=== PATIENT | female | born 1990 | race Caucasian/White ===

== ENCOUNTER 2023-11-07 19:03 | Emergency (ER) | payer OTHER, SELFPAY ==
[2023-11-07 19:11] VITALS: BP 129/76; PULSE 109; TEMP 37.2; O2SAT 100; BMI 26.6
[2023-11-07] MEDS: FLUORESCEIN SODIUM 1 MG STRIP OP (19:29)
--- NOTE | 2023-11-07 19:30 | ED.EYEPROB1 ---
HPI - Eye Problem General Chief complaint: Eye Problems Stated complaint: foreign object in eye Time Seen by Provider: 11/07/23 19:17 Source: patient Mode of arrival: walk-in Limitations: no limitations History of Present Illness HPI Narrative: 33-year-old female presents for concern about her left eye. She was mowing the grass and felt something blow into her eye. She felt like there was something in her eye but then she rubbed her eye and created some tears and then she no longer had the foreign body sensation. Her noticed some redness on the inferior scleral area and he wanted her to come and get checked. She does not have foreign body sensation now. This occurred today. Related Data Home Medications ?Medication ?Instructions ?Recorded ?Confirmed No Known Home Medications 11/07/23 11/07/23 Allergies Allergy/AdvReac Type Severity Reaction Status Date / Time iodine Allergy Hives Verified 11/07/23 19:15 Review of Systems ROS Narrative A ten point review of systems is negative except as noted above. Exam Narrative Exam Narrative: Nurses note and vital signs reviewed and patient is not hypoxic. General: The patient appears well and in no apparent distress. Patient is resting comfortably on cart. Skin: Warm, dry, no pallor noted. There is no rash noted. Head: Normocephalic, atraumatic Eye: Right eye is normal. Left eye shows no foreign body with lid eversion. There is a small subconjunctival hemorrhage on the left inferior portion of the sclera. Fluorescein staining and Weems lamp examination showed no corneal abrasions and there is no foreign body found. Ears, Nose, Mouth, and Throat: oral mucosa is moist. Nares patent. Cardiovascular: Regular Rate and Rhythm Respiratory: Patient is in no distress, no accessory muscle use, lungs are clear to auscultation, no wheezing, rales or rhonchi Back: non-tender GI: Soft and nontender Musculoskeletal: No joint swelling Neurological: A&O, normal speech Psychiatric: Cooperative Constitutional Vital Signs, click to edit/add: Last Vital Signs Temp 98.9 F 11/07/23 19:11 Pulse 109 H 11/07/23 19:11 Resp 16 11/07/23 19:11 BP 129/76 11/07/23 19:11 Pulse Ox 100 11/07/23 19:11 O2 Del Method Room Air 11/07/23 19:11 Course Vital Signs Vital signs: Vital Signs Temperature 98.9 F 11/07/23 19:11 Pulse Rate 109 H 11/07/23 19:11 Respiratory Rate 16 11/07/23 19:11 Blood Pressure 129/76 11/07/23 19:11 Pulse Oximetry 100 11/07/23 19:11 Oxygen Delivery Method Room Air 11/07/23 19:11 Temperature 98.9 F 11/07/23 19:11 Pulse Rate 109 H 11/07/23 19:11 Respiratory Rate 16 11/07/23 19:11 Blood Pressure 129/76 11/07/23 19:11 Pulse Oximetry 100 11/07/23 19:11 Oxygen Delivery Method Room Air 11/07/23 19:11 MDM - Eye Problem MDM Narrative Medical decision making narrative: No foreign body or corneal abrasion is identified. She was reassured and discharged home. Treatment diagnosis and follow-up were discussed with the patient. Differential Diagnosis Differential diagnosis: Likely corneal abrasion, conjunctivitis, hyphema and subconjunctival hemorrhage Discharge Plan Discharge Stand Alone Forms: Portal Instructions Chief Complaint: Eye Problems Clinical Impression: Subconjunctival hemorrhage Patient Disposition: Home, Self-Care Time of Disposition Decision: 19:29 Condition: Good Mode of Transportation: Private Vehicle Prescriptions / Home Meds: No Action No Known Home Medications Print Language: Icelandic Instructions: Eye Pain (ED) Referrals: ROQUE BARNETT [Primary Care Provider] - 1 week
--- NOTE | 2023-11-07 19:32 | PC.NURSE ---
Visual Acuity OS-20/40, OD 20/30, OU 20/30 without glasses
== END 2023-11-07 19:38 | disposition home or self-care (01) ==
PROVIDERS: Emergency Provider Emergency Medicine; PCP Student in an Organized Health Care Education/Training Program
DX: H11.32 Conjunctival hemorrhage, left eye (principal)
CPT/HCPCS: 99284

== ENCOUNTER 2024-05-23 11:16 | Emergency (ER) | payer BC, OTHER, SELFPAY ==
[2024-05-23 11:20] VITALS: BP 168/91; PULSE 94; TEMP 36.8; O2SAT 98; BMI 27.5
[2024-05-23] MEDS: DEXAMETHASONE SOD PHOS 10 MG/ML VIAL PO (11:34)
--- NOTE | 2024-05-23 12:01 | ED_ITS ---
HPI - Allergic Reaction General Chief complaint: Allergic Reaction Stated complaint: URTI COMPLAINTS/ALLERGIC REACTION Time Seen by Provider: 05/23/24 11:20 Source: patient Mode of arrival: walk-in Limitations: no limitations History of Present Illness HPI narrative: Patient presents to ED complaining of shortness of breath and cough. Patient states last night she ordered some [place] food and she did not really think about it but she noticed when she went to bed that her throat felt scratchy and she was itching a lot. She then realized she had hives around her trunk and on her legs. She also had hives on her abdomen. She said the end of sides of her ears felt itchy. She is home alone with her daughter today and did not want to take Benadryl because it makes her extremely tired. She is not in any acute respiratory distress. She does not have an EpiPen at home and does not appear to be requiring epi at this time. She is alert and oriented resting comfortably in the bed MD complaint: Reports allergic reaction and hives Related Data Previous Rx's ?Medication ?Instructions ?Recorded epinephrine 0.3 mg/0.3 mL 0.3 mg (0.3 mL) IM Q10M PRN 05/23/24 injection, auto-injector (EpiPen anaphylaxis #2 ea 2-Carlos) methylprednisolone 4 mg tablets in 4 mg PO DAILY #21 ea 05/23/24 a dose pack (Medrol (Carlos)) Allergies Allergy/AdvReac Type Severity Reaction Status Date / Time iodine Allergy Hives Verified 05/23/24 11:24 Review of Systems ROS Status of ROS 10 or more systems reviewed and unremark able except as noted in history and below PFSH PFSH Social History Little interest or pleasure in doing things: not at all Feeling down, depressed, or hopeless: not at all Exam Narrative Exam Narrative: Time Seen: [] Vital Signs: [Per nurse's notes.] General: [Alert] Skin: [Warm, dry, diffuse hives on the flanks abdomen and legs Head: [Normocephalic, atraumatic.] Neck: [Supple, trachea midline.] Eye: [Pupils are equal, round and reactive to light, extraocular movements are intact, normal conjunctiva.] Ears, nose, mouth and throat: oral mucosa moist. No tongue swelling no lip swelling no facial swelling Cardiovascular: [Regular rate and rhythm, no murmur.] Respiratory: Mild wheezing in the right base, no respiratory distress, respirations are non-labored, breath sounds are equal.] Chest wall: [No tenderness, no deformity.] Gastrointestinal: [Soft, nontender, non distended, normal bowel sounds.] MSK: 5 out of 5 muscle strength x 4 extremities no calf pain or edema Lymphatics: [No lymphadenopathy.] Psychiatric: [Cooperative, appropriate mood & affect.] Neurological: [Alert and oriented to person, place, time, and situation, no focal neurological deficit observed.] Constitutional Vital Signs, click to edit/add: Last Vital Signs Temp 98.2 F 05/23/24 11:20 Pulse 94 H 05/23/24 11:20 Resp 20 05/23/24 11:20 BP 168/91 H 05/23/24 11:20 Pulse Ox 98 05/23/24 11:20 O2 Del Method Room Air 05/23/24 11:20 Course Vital Signs Vital signs: Vital Signs Temperature 98.2 F 05/23/24 11:20 Pulse Rate 94 H 05/23/24 11:20 Respiratory Rate 20 05/23/24 11:20 Blood Pressure 168/91 H 05/23/24 11:20 Pulse Oximetry 98 05/23/24 11:20 Oxygen Delivery Method Room Air 05/23/24 11:20 Temperature 98.2 F 05/23/24 11:20 Pulse Rate 94 H 05/23/24 11:20 Respiratory Rate 20 05/23/24 11:20 Blood Pressure 168/91 H 05/23/24 11:20 Pulse Oximetry 98 05/23/24 11:20 Oxygen Delivery Method Room Air 05/23/24 11:20 MDM - Allergic Reaction MDM Narrative Medical decision making narrative: Patient is feeling much better after steroids and albuterol. She will be given a prescription for steroids at home. I will also give her prescription for EpiPen's at home just to have in case. She is allergic to shellfish and that was most likely mixed in with her [place] food or cooked in the same spot as her [place] food last night which caused the allergic reaction. She has no airway issue, vital signs are stable, she is comfortable care plan for home. Of course return to ED if worsening symptoms. Differential Diagnosis Differential diagnosis: Likely anaphylaxis and allergic reaction Discharge Plan Discharge Chief Complaint: Allergic Reaction Clinical Impression: Allergic reaction Patient Disposition: Home, Self-Care Time of Disposition Decision: 12:36 Condition: Good Mode of Transportation: Private Vehicle Prescriptions / Home Meds: New methylprednisolone [Medrol (Carlos)] 4 mg tablets,dose pack 4 mg PO DAILY Qty: 21 0RF epinephrine [EpiPen 2-Carlos] 0.3 mg/0.3 mL auto-injector 0.3 mg IM Q10M PRN (Reason: anaphylaxis) Qty: 2 0RF Rx Instructions: for 2 doses Print Language: Kiswahili Instructions: General Allergic Reaction (ED) Referrals: ROQUE BARNETT [Primary Care Provider] - 1 week Discharge Date/Time: 05/23/24 12:44
[2024-05-23 12:02] VITALS: PULSE 99; O2SAT 97
[2024-05-23] MEDS: IPRATROPIUM/ALBUTEROL SULFATE 3 ML AMPUL.NEB IH (12:02)
== END 2024-05-23 12:44 | disposition home or self-care (01) ==
PROVIDERS: Emergency Provider Emergency Medicine; PCP Student in an Organized Health Care Education/Training Program
DX: T78.1XXA Other adverse food reactions, not elsewhere classified, initial encounter (principal); R06.02 Shortness of breath; R05.9 Cough, unspecified
CPT/HCPCS: 94640; 99283; J1100

== ENCOUNTER 2024-10-01 16:16 | Outpatient (RCR) | payer BC, OTHER, SELFPAY ==
[2024-10-01 17:24] LABS: HCG Quantitative 1398 mIU/mL
[2024-10-03 17:38] LABS: HCG Quantitative 3453 mIU/mL
== END 2024-10-15 12:49 | disposition home or self-care (01) ==
LOC: LAB 16:16
PROVIDERS: PCP Student in an Organized Health Care Education/Training Program; Visit Provider Obstetrics & Gynecology
DX: N92.6 Irregular menstruation, unspecified (principal)
CPT/HCPCS: 36415; 84702

== ENCOUNTER 2024-10-09 17:01 | Emergency (ER) | payer BC, OTHER, SELFPAY ==
[2024-10-09 17:11] VITALS: BP 123/81; PULSE 104; TEMP 36.8; O2SAT 100; BMI 26.6
--- NOTE | 2024-10-09 17:31 | ED_ITS ---
HPI HPI - General Adult General Chief complaint: Vaginal Bleeding Stated complaint: 4-6 WK PG, NAUSEA, DIZZINESS, SHOULDER PAIN Time Seen by Provider: 10/09/24 17:04 Source: patient and family Mode of arrival: walk-in Limitations: no limitations Related Data Previous Rx's ?Medication ?Instructions ?Recorded epinephrine 0.3 mg/0.3 mL 0.3 mg (0.3 mL) IM Q10M PRN 05/23/24 injection, auto-injector (EpiPen anaphylaxis #2 ea 2-Carlos) ondansetron 4 mg disintegrating 4 mg PO Q6H PRN nausea and 10/09/24 tablet vomiting #12 tabs Allergies Allergy/AdvReac Type Severity Reaction Status Date / Time iodine Allergy Hives Verified 10/09/24 17:17 Opioid HPI Opioid Management Most Recent Opioid Data: Last Pain Scale 1 11/07/23 19:33 11/07/23 PFSH PFSH Social History Little interest or pleasure in doing things: not at all Feeling down, depressed, or hopeless: not at all Exam Constitutional Vital Signs, click to edit/add: Last Vital Signs Temp 98.4 F 10/09/24 19:06 Pulse 71 10/09/24 19:06 Resp 18 10/09/24 19:06 BP 112/80 10/09/24 19:06 Pulse Ox 99 10/09/24 19:06 O2 Del Method Room Air 10/09/24 17:11 Course Vital Signs Vital signs: Vital Signs Temperature 98.2 F 10/09/24 17:11 Pulse Rate 104 H 10/09/24 17:11 Respiratory Rate 18 10/09/24 17:11 Blood Pressure 123/81 10/09/24 17:11 Pulse Oximetry 100 10/09/24 17:11 Oxygen Delivery Method Room Air 10/09/24 17:11 Temperature 98.4 F 10/09/24 19:06 Pulse Rate 71 10/09/24 19:06 Respiratory Rate 18 10/09/24 19:06 Blood Pressure 112/80 10/09/24 19:06 Pulse Oximetry 99 10/09/24 19:06 Oxygen Delivery Method Room Air 10/09/24 17:11 Medical Decision Making MDM Narrative Medical decision making narrative: Patient was treated with IV fluids, Zofran and Tylenol with significant improvement. Laboratory studies reviewed and noted showing ketones in the urine, however contaminated specimen so we will wait for culture. She has no urinary symptoms. Ultrasound shows cervix is closed with intrauterine gestation, no cardiac activity identified, IUP is measuring 6 weeks. hCG levels have increased significantly from previous and the patient has an O+ blood type. She was given instructions for home, education and reassurance. Zofran prescribed for nausea. She is encouraged to continue Tylenol, increase fluids. Pelvic rest encouraged. Return to the ER if symptoms change or worsen, follow- up with [facility]. SUPERVISED APC VISIT, PHYSICIAN ATTESTATION: Based on the medical record the care appears appropriate. ? Medical Records Medical records reviewed: Yes I reviewed the patient's medical records Lab Data Lab results reviewed: Yes I reviewed the patient's lab results Labs: Lab Results 10/09/24 10/09/24 10/09/24 Range/Units 17:30 17:34 17:50 WBC 10.2 (4.0-11.0) 10^3/uL RBC 4.55 (4.20-5.40) 10^6/uL Hgb 14.0 (12.0-16.0) g/dL Hct 39.4 (36.0-48.0) % MCV 86.6 (81.0-99.0) fL MCH 30.8 (26.7-34.0) pg MCHC 35.5 H (29.9-35.2) g/dL RDW 12.6 (11.0-15.0) % Plt Count 296 (150-450) 10^3/uL MPV 10.0 (9.5-13.5) fL Neut % (Auto) 66.3 (43.0-75.0) % Lymph % (Auto) 28.3 (20.5-60.0) % [place] % (Auto) 4.5 (1.7-12.0) % Eos % (Auto) 0.2 L (0.9-7.0) % Baso % (Auto) 0.4 (0.2-2.0) % Neut # (Auto) 6.7 H (1.4-6.5) 10^3/uL Lymph # (Auto) 2.9 (1.2-3.8) 10^3/uL [place] # (Auto) 0.5 (0.3-0.8) 10^3/uL Eos # (Auto) 0.0 (0.0-0.7) 10^3/uL Baso # (Auto) 0.0 (0.0-0.1) 10^3/uL Abs Immat Gran (auto) 0.03 (0.00-0.03) 10^3/uL Imm/Tot Granulo (auto) 0.3 (0.0-0.5) % Sodium 137 (136-145) mmol/L Potassium 3.5 (3.5-5.1) mmol/L Chloride 102 (98-107) mmol/L Carbon Dioxide 25.0 (21.0-32.0) mmol/L Anion Gap 13.5 BUN 11.0 (7.0-18.0) mg/dL Creatinine 0.72 (0.55-1.02) mg/dL Est GFR ( Amer) >60 (>=60 mL/min/1.73m^2) Est GFR (Non-Af Amer) >60 (>=60 mL/min/1.73m^2) BUN/Creatinine Ratio 15.3 Glucose 84 (74-106) mg/dL Calcium 9.0 (8.5-10.1) mg/dL Total Bilirubin 0.5 (0.2-1.0) mg/dL AST 15 (15-37) U/L ALT 27 (14-59) U/L Alkaline Phosphatase 94 (46-116) U/L Total Protein 7.6 (6.4-8.2) g/dL Albumin 4.1 (3.4-5.0) g/dL Globulin 3.5 g/dL Albumin/Globulin Ratio 1.2 HCG, Quant 37743 mIU/mL Urine Color Yellow (YELLOW) Urine Clarity Clear (CLEAR) Urine pH 6.0 (5.0-9.0) Ur Specific [place] 1.025 (1.005-1.025) Urine Protein Negative (NEG/TRACE) mg/dL Urine Glucose (UA) Negative (NEGATIVE) mg/dL Urine Ketones >=80 A (NEGATIVE) mg/dL Urine Occult Blood Large A (NEGATIVE) Urine Nitrite Negative (NEGATIVE) Urine Bilirubin Negative (NEGATIVE) Urine Urobilinogen 0.2 (0.2-1.0) EU/dL Ur Leukocyte Esterase Negative (NEGATIVE) Urine RBC 20-50 A (0-2) #/HPF Urine WBC 0-2 A (NONE SEEN) #/HPF Ur Squamous Epith Cells Moderate A (NONE/RARE) #/LPF Urine Crystals None seen (None Seen) #/HPF Urine Bacteria Small A (NONE SEEN) #/HPF Urine Casts None seen (NONE SEEN) #/LPF Urine Mucus Large A (NONE SEEN) Ur Culture Indicated? Yes-[facility] [place] Influenza Type A Ag Negative Influenza Type B Ag Negative SARS-CoV-2 Ag (CV2AG) Negative (NEGATIVE) Blood Type O Positive Imaging Data US - abdomen: Attestation: I have reviewed the pertinent imaging results. Discharge Plan Discharge Chief Complaint: Vaginal Bleeding Clinical Impression: Vaginal bleeding affecting early , Nausea, Subchorionic hemorrhage in first trimester Patient Disposition: Home, Self-Care Time of Disposition Decision: 19:39 Condition: Good Prescriptions / Home Meds: New ondansetron 4 mg tablet,disintegrating 4 mg PO Q6H PRN (Reason: nausea and vomiting) Qty: 12 0RF No Action epinephrine [EpiPen 2-Carlos] 0.3 mg/0.3 mL auto-injector 0.3 mg IM Q10M PRN (Reason: anaphylaxis) Qty: 2 0RF Rx Instructions: for 2 doses Print Language: Arabic Instructions: Subchorionic Hemorrhage (ED) Referrals: Floyd Roberson DO [Physician] - As soon as possible ROQUE BARNETT [Primary Care Provider] - 1 week
[2024-10-09] MEDS: 0.9 % SODIUM CHLORIDE 1,000 ML 999 ML IV (17:44)
[2024-10-09 17:45] LABS: Basophils Percent Auto 0.4 % (0.2-2.0); Eosinophils Percent Auto 0.2 % (0.9-7.0); Hematocrit 39.4 % (36.0-48.0); Immature Granulocytes Abs Auto 0.03 10^3/uL (0.00-0.03); Immature Granulocytes Pct Auto 0.3 % (0.0-0.5); Lymphocytes Absolute Auto 2.9 10^3/uL (1.2-3.8); Lymphocytes Percent Auto 28.3 % (20.5-60.0); Mean Corpuscular HGB Conc 35.5 g/dL (29.9-35.2); Mean Corpuscular Hemoglobin 30.8 pg (26.7-34.0); Mean Corpuscular Volume 86.6 fL (81.0-99.0); Monocytes Absolute Auto 0.5 10^3/uL (0.3-0.8); Monocytes Percent Auto 4.5 % (1.7-12.0); Neutrophils Absolute Auto 6.7 10^3/uL (1.4-6.5); Neutrophils Percent Auto 66.3 % (43.0-75.0); Platelet Count 296 10^3/uL (150-450); Red Blood Count 4.55 10^6/uL (4.20-5.40); Red Cell Distribution Width 12.6 % (11.0-15.0); White Blood Count 10.2 10^3/uL (4.0-11.0)
[2024-10-09] MEDS: ACETAMINOPHEN 325 MG TABLET 650 MG PO (17:45)
[2024-10-09] MEDS: ONDANSETRON PF 4 MG/2 ML VIAL IV (17:45)
[2024-10-09 17:46] LABS: Bilirubin Urine NEGATIVE (NEGATIVE); Blood Urine LARGE (NEGATIVE); Clarity Urine CLEAR (CLEAR); Color Urine YELLOW (YELLOW); Glucose Urine UA NEGATIVE (NEGATIVE); Ketones Urine >=80 mg/dL (NEGATIVE); Leukocyte Esterase Urine NEGATIVE (NEGATIVE); Nitrite Urine NEGATIVE (NEGATIVE); Protein Urine NEGATIVE (NEG/TRACE); Specific Gravity Urine 1.025 (1.005-1.025); Urobilinogen Urine 0.2 EU/dL (0.2-1.0)
[2024-10-09 18:08] LABS: Bacteria Urine SMALL #/HPF (NONE SEEN); Cast Seen? NONE SEEN #/LPF (NONE SEEN); Crystals Seen? None Seen #/HPF (None Seen); Mucus Urine LARGE (NONE SEEN); RBC Urine 20-50 #/HPF (0-2); Squamous Epithelial Cell Urine MODERATE #/LPF (NONE/RARE); Urine Culture Indicated YES-FRMC; WBC Urine 0-2 #/HPF (NONE SEEN)
[2024-10-09 18:12] LABS: Alanine Aminotransferase 27 U/L (14-59); Albumin Globulin Ratio 1.2; Albumin Level 4.1 g/dL (3.4-5.0); Alkaline Phosphatase 94 U/L (46-116); Anion Gap 13.5; Aspartate Amino Transferase 15 U/L (15-37); BUN Creatinine Ratio 15.3; Bilirubin Total 0.5 mg/dL (0.2-1.0); Chloride 102 mmol/L (98-107); Estimated GFR (African America >60 (>=60 mL/min/1.73m^2); Estimated GFR (Non-African Ame >60 (>=60 mL/min/1.73m^2); Globulin 3.5 g/dL; Glucose 84 mg/dL (74-106); Potassium 3.5 mmol/L (3.5-5.1); Sodium 137 mmol/L (136-145); Total Protein 7.6 g/dL (6.4-8.2)
[2024-10-09 18:30] LABS: HCG Quantitative 27994 mIU/mL
[2024-10-09 18:30] LABS: Influenza Virus A Antigen Negative; Influenza Virus B Antigen Negative; Internal Control Within Normal Limits; SARS-CoV-2 Ag NEGATIVE (NEGATIVE)
[2024-10-09 19:06] VITALS: BP 112/80; PULSE 71; TEMP 36.9; O2SAT 99
--- NOTE | 2024-10-09 19:51 | PC.NURSE ---
i gave this patient verbal and written discharge orders along with 1 e-script, and this patient voices yes to understanding these. at time of discharge this patient voices no concerns about her discharge orders and shows o signs of distress. this patient refused discharge vitals, she just received a family emergency call
== END 2024-10-09 19:45 | disposition home or self-care (01) ==
PROVIDERS: Physician Assistant; Emergency Provider Emergency Medicine; PCP Student in an Organized Health Care Education/Training Program
DX: O20.9 Hemorrhage in early pregnancy, unspecified (principal); O26.891 Other specified pregnancy related conditions, first trimester; R11.0 Nausea; Z3A.01 Less than 8 weeks gestation of pregnancy
CPT/HCPCS: 36415; 76817; 80053; 81001; 84702; 85025; 86900; 86901; 87086; 87804; 87811; 96374; 99285; J2405

== ENCOUNTER 2024-11-02 16:12 | Outpatient (OUT) | payer BC, SELFPAY ==
[2024-11-02 16:42] LABS: Basophils Percent Auto 0.3 % (0.2-2.0); Eosinophils Percent Auto 0.2 % (0.9-7.0); Hematocrit 37.8 % (36.0-48.0); Hemoglobin 13.2 g/dL (12.0-16.0); Immature Granulocytes Abs Auto 0.03 10^3/uL (0.00-0.03); Immature Granulocytes Pct Auto 0.3 % (0.0-0.5); Lymphocytes Absolute Auto 2.2 10^3/uL (1.2-3.8); Lymphocytes Percent Auto 22.8 % (20.5-60.0); Mean Corpuscular HGB Conc 34.9 g/dL (29.9-35.2); Mean Corpuscular Hemoglobin 30.7 pg (26.7-34.0); Mean Corpuscular Volume 87.9 fL (81.0-99.0); Mean Platelet Volume 10.2 fL (9.5-13.5); Monocytes Absolute Auto 0.5 10^3/uL (0.3-0.8); Monocytes Percent Auto 5.3 % (1.7-12.0); Neutrophils Absolute Auto 6.9 10^3/uL (1.4-6.5); Neutrophils Percent Auto 71.1 % (43.0-75.0); Platelet Count 275 10^3/uL (150-450); Red Cell Distribution Width 12.9 % (11.0-15.0); White Blood Count 9.8 10^3/uL (4.0-11.0)
[2024-11-02 16:56] LABS: Cannabinoid Screen Urine POSITIVE (NEGATIVE)
[2024-11-02 16:57] LABS: Amphetamine Screen Urine NEGATIVE (NEGATIVE); Barbiturates Screen Urine NEGATIVE (NEGATIVE); Benzodiazepines Screen Urine NEGATIVE (NEGATIVE); Buprenorphine Screen Urine NEGATIVE (NEGATIVE); Cocaine Screen Urine NEGATIVE (NEGATIVE); Methadone Screen Urine NEGATIVE (NEGATIVE); Methamphetamines Screen Urine NEGATIVE (NEGATIVE); Opiate Screen Urine NEGATIVE (NEGATIVE); Oxycodone Screen Urine NEGATIVE (NEGATIVE); Phencyclidine Screen Urine NEGATIVE (NEGATIVE); Tricyclic Antidepressant Urine NEGATIVE (NEGATIVE)
[2024-11-02 17:06] LABS: Estimated Average Glucose 94 mg/dL; Glycohemoglobin A1C 4.9 % (4.5-6.2)
[2024-11-02 17:19] LABS: BOX Test Reference Lab UNITY; BOX Test Sent Out UNITY
[2024-11-04 08:10] LABS: HBsAg Screen Negative (Negative); HCV Ab Non Reactive (Non Reactive)
[2024-11-04 09:12] LABS: HIV Ab/p24 Ag Screen Non Reactive (Non Reactive)
[2024-11-04 13:07] LABS: Rapid Plasma Reagin, Quant Non Reactive titer (NonRea<1:1)
== END 2024-11-02 16:13 | disposition home or self-care (01) ==
PROVIDERS: PCP Student in an Organized Health Care Education/Training Program; Visit Provider Obstetrics & Gynecology
DX: Z34.01 Encounter for supervision of normal first pregnancy, first trimester (principal); N92.6 Irregular menstruation, unspecified; Z36.0 Encounter for antenatal screening for chromosomal anomalies
CPT/HCPCS: 36415; 80307; 80349; 83036; 85025; 86592; 86762; 86803; 86850; 86900; 86901; 87086; 87340; 87389

== ENCOUNTER 2024-12-25 19:25 | Outpatient (REF) | payer OTHER, SELFPAY ==
--- OUTSIDE RECORDS SUMMARY | 2024-12-25 13:30 | XMS_ITS | Encounter Summary ---
Author Organization [facility] Address [address] [facility] [place] [address] Care Team Providers Care Mri Manager Name Role Phone Desire Ackerman MD Primary Care Provider [phone] Reason for Visit * Reason Comments Routine Visit Encounter Details Date Type Department Care Team (Latest Contact Info) Description 12/25/2024 1:30 PM EDT Routine [facility] OB [address] [place] [phone] Stephanie Suresh PA [address] [facility] [place] [address] 16 weeks gestation of ; Second trimester ; Screening, , for anatomic survey; Well woman exam with routine gynecological exam; [...] often do you attend chur ch or mu-ism services? More than 4 times per year 11/18/2024 Do you belong to any clubs o r organizations such as mu-ism groups, unions, fraternal or athletic groups, or [...] Recorded Patient Health Questionnaire-2 Score 0 11/19/2024 [facility] Answer Date Recorded [...] any time in the past 12 m [facility], were you homeless or living in a longterm (including now)? No 11/18/2024 Estimated Date of [...] nursing note reviewed. Exam conducted with a bulb inspector present. Vitals: Estimated body mass index is [...] EDT Ancillary Procedure [facility] OB [address] [facility] [address] [place] [phone] 01/22/2025 10:40 AM EDT Routine [facility] OB [address] [facility] [address] [place] [phone] Floyd Roberson, DO [address] [place] [address] Scheduled Orders Name Type Priority Associated Diagnoses Orde r Schedule SURESWAB(R) ADVANCED VAGINITIS PLUS, TMA Pathology and Cytology Routine Vaginal discharge Ordered: 12/25/2024 CHLAMYDIA TRACHOMATIS (GENITO/STI) Lab Routine Exposure to STD Ordered: 12/25/2024 Neisseria gonorrhea DNA probe, direct Lab Routine Exposure to STD Ordered: 12/25/2024 Alpha fetoprotein, maternal Lab Routine 16 weeks gestation of Second trimester Expected: 12/25/2024 (Approximate), Expires: 01/24/2025 US OB 14+ weeks anatomy scan Imaging Routine Screening, , for anatomic survey Expected: 12/25/2024, Expires: 03/27/2025 Pap Smear Pathology and Cytology Routine Well woman exam with routine gynecological exam Ordered: 12/25/2024 HPV DNA probe, amplified Microbiology Routine Well woman exam with routine gynecological exam Ordered: 12/25/2024 documented as of this encounter Procedures Procedure Name Priority Date/Time Associated Diagnosis Comments POCT URINALYSIS DIPSTICK Routine 12/25/2024 1:48 PM EDT 16 weeks gestation of Second trimester documented in this encounter Results * (ABNORMAL) [...] Visit Diagnoses Diagnosis 16 weeks gestation of Second trimester state, incidental Screening, , for anatomic survey Encounter for anatomic survey Well woman exam with routine gynecological exam Routine gynecological examination Exposure to STD Vaginal discharge Leukorrhea, not specified as infective documented in this encounter Care Teams Mri Manager Relationship Specialty Start Date End Date Desire Ackerman MD [address] [place] [address] PCP - General Family Medicine 11/23/22 documented as of this encounter
--- OUTSIDE RECORDS SUMMARY | 2024-12-25 19:29 | XMS_ITS | Encounter Summary ---
Author Organization [facility] Address [address] [place] [address] Care Team Providers Care Mold Changer Name Role Phone Desire Ackerman MD Primary Care Provider [phone] Encounter Details Date Type Department Care Team (Late st Contact Info) Description 12/25/2024 Bamboo flowsheet [facility] [address] [facility] [phone] Stephanie Suresh PA [address] [place], [facility] Social History Tobacco Use Types Packs/Day Years [...] often do you attend chur ch or alevism services? More than 4 times per year 11/18/2024 Do you belong to any clubs o r organizations such as yazidism groups, unions, fraternal or athletic groups, or [...] Recorded Patient Health Questionnaire-2 Score 0 11/19/2024 [facility] - Occupational Stress Questionnaire Answer Date Recorded [...] any time in the past 12 m [facility], were you homeless or living in a fdc (including now)? No 11/18/2024 Estimated Date of Delivery Comme nts Yes 06/07/2025 Based on Ultraso und Sex and Gender Information Value Date Recorded Sex Assigned at Not on file Legal Sex Female 9:28 PM EDT Gender Identity Not on file Sexual Orientation Not on file documented as of this encounter Plan of Treatment Upcoming Encounters Date Type Department Care Team (Late st Contact Info) Description 01/22/2025 9:30 AM EDT Ancillary Procedure [facility] [address] [facility] [place] [address] 01/22/2025 10:40 AM EDT Routine [facility] [address] [facility] [place] [address] Floyd Roberson, DO [address] [facility] [address] [place], [place] [phone] documented as of this encounter Visit Diagnoses Not on filedocumented in this encounter Care Teams Mold Changer Relationship Specialty Start Date End Date Desire Ackerman MD [address] [place] [address] PCP - General Family Medicine 11/23/22 documented as of this encounter
--- OUTSIDE RECORDS SUMMARY | 2024-12-25 19:29 | XMS_ITS | Encounter Summary ---
Author Organization [facility] Address [address] [place] [address] Care Team Providers Care Assistant Site Manager Name Role Phone Desire Ackerman MD Primary Care Provider [phone] Encounter Details Date Type Department Care Team (Late st Contact Info) Description 11/20/2024 Results Follow-Up [facility] [address] [place] [phone] Desire Ackerman MD [address] [place] [address] Urinary frequency (Primary Dx) Social History Tobacco Use Types Packs/Day Years [...] often do you attend chur ch or islam services? More than 4 times per year 11/18/2024 Do you belong to any clubs o r organizations such as jew groups, unions, fraternal or athletic groups, or [...] Recorded Patient Health Questionnaire-2 Score 0 11/19/2024 [facility] - Occupational Stress Questionnaire Answer Date [...] any time in the past 12 m [facility], were you homeless or living in a penitentiary (including now)? No 11/18/2024 Estimated Date of [...] EDT Ancillary Procedure [facility] OB [address] [facility] [place] [address] 01/22/2025 10:40 AM EDT Routine [facility] OB [address] [facility] [place] [phone] Floyd Roberson, DO [address] [facility] [place] [address] documented as of this encounter Visit Diagnoses Diagnosis Urinary frequency- Primary documented in this encounter Care Teams Assistant Site Manager Relationship Specialty Start Date End Date Desire Ackerman MD [address] [place] [address] PCP - General Family Medicine 11/23/22 documented as of this encounter
--- OUTSIDE RECORDS SUMMARY | 2024-12-25 19:29 | XMS_ITS | Clinical Summary ---
Author Organization [facility] Address [address] [place] [address] Care Team Providers Care Manager Activities Name Role Phone Desire Ackerman MD Primary Care Provider [phone] Allergies Active Allergy Reactions Criticality Noted Date Comments Iodine Rash Low 10/25/2024 Medications ondansetron ODT (Zofran-ODT) 4 MG disintegrating tablet DISSOLVE 1 TABLET IN MOUTH EVERY 6 HOURS NEEDED FOR NAUSEA AND VOMITING 025 Active EPINEPHrine (Epipen) 0.3 MG/0.3ML injection syringe INJECT 1 PEN INTRAMUSCULARLY EVERY 10 MINUTES NEEDED FOR ANAPHYLAXIS FOR 2 DOSES 024 Active MV-Min-Fe Fum-FA-DHA ( 1 PO) Take by mouth Active magnesium oxide (Mag-Ox) 400 MG tabletIndication s:, unspecified gestational age Take 1 tablet (400 mg) by mouth Daily 30 tablet 6 025 2024 cephalexin (Keflex) 500 MG capsuleIndicatio ns:Urinary frequency Take 1 capsule (500 mg) by mouth in the morning and 1 capsule (500 mg) before bedtime. Do all this for 7 days. 14 capsule 025 2024 Discontinued Active Problems Estimated Date of Delivery Comme nts Yes 06/07/2025 Based on Ultraso und No known active problems Encounters Date Type Department Care Team Description 12/25/2024 1:30 PM EDT Routine [facility] [address] [place] [address] [place] [id number] Stephanie Suresh PA 16 weeks gestation of ; Second trimester ; Screening, , for anatomic survey; Well woman exam with routine gynecological exam; Exposure to STD; Vaginal discharge 12/25/2024 Bamboo flowsheet [facility] [address] [place] [address] Stephanie Suresh PA 11/26/2024 3:10 PM EDT Routine [facility] [address] [place] [address] Floyd Roberson, 12 weeks gestation of ; First trimester ; Antepartum multigravida of advanced maternal age 0511/26/2024 Bamboo flowsheet [facility] [address] [place] [address] Floyd Roberson, 11/20/2024 Results Follow-Up [facility] [address] [place] [address] Desire Ackerman MD Urinary frequency (Primary Dx) 11/19/2024 1:40 PM EDT Office Visit [facility] [address] [place] [address] Desire Ackerman MD Urinary frequency (Primary Dx); Pelvic pressure in female; 11 weeks gestation of 11/19/2024 Travel 11/19/2024 Abstract [facility] [address] [place] [address] Floyd Roberson, DO 11/18/2024 Travel 11/02/2024 Clinisync Result Encounter [facility] External Department Unsolicited Floyd Roberson, DO 10/25/2024 1:30 PM EDT Initial [facility] [place] [address] GA: [id number] 10/25/2024 1:00 PM EDT Ancillary Procedure [facility] [place] [address] Missed menses 10/18/2024 Travel 10/09/2024 Telephone [facility] [address] [place] [phone] Floyd Roberson, DO 10/03/2024 Clinisync Result Encounter [facility] External Department Unsolicited Floyd Roberson, DO 10/01/2024 Clinisync Result Encounter [facility] External Department Unsolicited Floyd Roberson, DO 10/01/2024 Telephone [facility] [address] [facility] [place] [address] Lucrecia Alfonso MA from Last 3 Months Social History Tobacco Use Types Packs/Day Years Used Date Smoking Tobacco: Former Cigarettes Smokeless Tobacco: Never Tobacco Cessation:Counseling Given: Not Answered Humiliation, Afraid, Rape, and Kick questionnair e [...] 11/18/2024 How often do you attend chur or anabaptism services? More than 4 times per year 11/18/2024 Do you belong to any clubs o r organizations such as gnosticist groups, unions, fraternal or athletic groups, or [...] Recorded Patient Health Questionnaire-2 Score 0 11/19/2024 [facility] Occupational Stress Questionnaire Answer Date [...] any time in the past 12 m [facility], were you homeless or living in a fdc (including now)? No 11/18/2024 Estimated Date of Delivery Comme nts Yes 06/07/2025 Based on Ultraso und Sex and Gender Information Value Date Recorded Sex Assigned at Not on file Legal Sex Female 9:28 PM EDT Gender Identity Not on file Sexual Orientation Not on file Last Filed Vital Signs Vital Sign Reading Time Taken Comments Blood Pressure 110/68 12/25/2024 1:41 PM EDT Pulse 82 11/19/2024 1:56 PM EDT Temperature 36.9 C (98.4 F) 11/19/2024 1:56 PM EDT Respiratory Rate - - Oxygen Saturation 97% 11/19/2024 1:56 PM EDT Inhaled Oxygen Concentration - - Weight 79.6 kg (175 lb 6.4 oz) 12/25/2024 1:41 P M EDT Height 162.6 cm (5' 4 ) 11/19/2024 1:56 PM EDT Body Mass Index 30.11 11/19/2024 1:56 PM EDT Plan of Treatment Upcoming Encounters Date Type Department Care Team (Late st Contact Info) Description 01/22/2025 9:30 AM EDT Ancillary Procedure [facility] [address] [facility] [place] [phone] 01/22/2025 10:40 AM EDT Routine [facility] [address] [facility] [place] [address] Floyd Roberson, DO [facility] [place] [address] Health Maintenance Due Date Last Done Comments Pap Smear 2009 Influenza Vaccine (Season Ended) 2025 Cervical Cancer Screening 05/27/2026 HPV/Cotest 05/27/2026 05/27/2021 Procedures Procedure Name Priority Date/Time Associated Diagnosis Comments POCT URINALYSIS DIPSTICK Routine 12/25/2024 1:48 PM EDT 16 weeks gestation of Second trimester POCT URINALYSIS DIPSTICK Routine 11/26/2024 3:51 PM EDT 12 weeks gestation of First trimester POCT URINALYSIS DIPSTICK Routine 11/19/2024 2:19 PM EDT Urinary frequency Pelvic pressure in female URINARY TRACT INFECTION (HTRX) Routine 11/19/2024 11:00 AM EDT Urinary frequency Pelvic pressure in female HCV ANTIBODY RFX TO QUANT PCR Routine 11/02/2024 4:30 PM EDT ALL RUBELLA IGG AB Routine 11/02/2024 4: 30 PM EDT HBSAG SCREEN Routine 11/02/2024 4:30 PM EDT RAPID PLASMA REAGIN, QUANT Routine 11/02/2024 4:30 PM EDT HIV AB/P24 AG WITH REFLEX Routine 11/02/2024 4:30 PM EDT ALL TYPE AND SCREEN Routine 11/02/2024 4 :30 PM EDT BOX TEST Routine 11/02/2024 4:30 PM EDT MLR HEMOGLOBIN A1C Routine 11/02/2024 4: 30 PM EDT ALL CBC WITH AUTO DIFF Routine 11/02/2024 4:30 PM EDT CANNABINOID CONF, MS, UR Routine 11/02/2024 4:22 PM EDT [facility] DRUG SCREEN RAPID (URINE) Routine 11/02/2024 4:22 PM EDT POCT , URINE Routine 10/25/2024 2:47 PM EDT Missed menses POCT URINALYSIS DIPSTICK Routine 10/25/2024 2:46 PM EDT Missed menses US OB TRANSVAGINAL Routine 10/25/2024 1: 48 PM EDT Missed menses [facility] PREG QUANT HCG Routine 10/03/2024 4: 15 PM EDT [facility] PREG QUANT HCG Routine 10/01/2024 4: 27 PM EDT THINPREP TIS AND HPV MRNA E6/E7 (05874) Routine 05/27/2021 from Last 3 Months or Most Recently Relevant to Health Maintenance Results * (ABNORMAL) POCT urinalysis dipstick manually resulted (12/25/2024 1:48 PM EDT) Only the most recent of4 resultswithin the time period is included. Color, UA Yellow Clarity, UA Clear Glucose, [...] CARE TEST ENTER/EDIT OR DERABLES Final Result * (ABNORMAL) URINARY TRACT INFECTION (HTRX) (11/19/2024 11:00 AM EDT) TET B, TET M 27.158(A) 23.000 - 27.778 ppm 11/20/2024 7:10 AM EDT [facility] TET B, TET M Detected(A) 23.000 - 27.778 ppm 11/20/2024 7:10 AM EDT [facility] ACINETOBACTER BAUMANII 0.000 19.961 - 24.689 ppm 11/20/2024 7:10 AM EDT [facility] ACINETOBACTER BAUMANII Not Detected 19.961 - 24.689 ppm 11/20/2024 7:10 AM EDT [facility] CITROBACTER FREUNDII 0.000 23.000 - 31.881 ppm 11/20/2024 7:10 AM EDT [facility] CITROBACTER FREUNDII Not Detected 23.000 - 31.881 ppm 11/20/2024 7:10 AM EDT [facility] ENTEROBACTER AEROGENES, CLOACAE 0.000 23.000 - 31.535 ppm 11/20/2024 7:10 AM EDT [facility] ENTEROBACTER AEROGENES, CLOACAE Not Detected 23.000 - 31.535 ppm 11/20/2024 7:10 AM EDT [facility] ENTEROCOCCUS FAECALIS, FAECIUM 0.000 26.000 - 31.575 ppm 11/20/2024 7:10 AM EDT [facility] ENTEROCOCCUS FAECALIS, FAECIUM Not Detected 26.000 - 31.575 ppm 11/20/2024 7:10 AM EDT [facility] ESCHERICHIA COLI 0.000 23.000 - 28.500 ppm 11/20/2024 7:10 AM EDT [facility] ESCHERICHIA COLI Not Detected 23.000 - 28.500 ppm 11/20/2024 7:10 AM EDT [facility] KLEBSIELLA PNEUMONIAE, OXYTOCA 0.000 23.000 - 30.500 ppm 11/20/2024 7:10 AM EDT [facility] KLEBSIELLA PNEUMONIAE, OXYTOCA Not Detected 23.000 - 30.500 ppm 11/20/2024 7:10 AM EDT [facility] MORGANELLA MORGANII 0.000 19.961 - 24.689 ppm 11/20/2024 7:10 AM EDT [facility] MORGANELLA MORGANII Not Detected 19.961 - 24.689 ppm 11/20/2024 7:10 AM EDT [facility] PROTEUS MIRABILIS, VULGARIS 0.000 23.000 - 28.500 ppm 11/20/2024 7:10 AM EDT [facility] PROTEUS MIRABILIS, VULGARIS Not Detected 23.000 - 28.500 ppm 11/20/2024 7:10 AM EDT [facility] PSEUDOMONAS AERUGINOSA 0.000 23.000 - 28.500 ppm 11/20/2024 7:10 AM EDT [facility] PSEUDOMONAS AERUGINOSA Not Detected 23.000 - 28.500 ppm 11/20/2024 7:10 AM EDT [facility] STAPHYLOCOCCUS AUREUS 0.000 26.000 - 30.902 ppm 11/20/2024 7:10 AM EDT [facility] STAPHYLOCOCCUS AUREUS Not Detected 26.000 - 30.902 ppm 11/20/2024 7:10 AM EDT [facility] STREPTOCOCCUS AGALACTIAE (GROUP B STREP) 0.000 26.000 - 32.222 ppm 11/20/2024 7:10 AM EDT [facility] STREPTOCOCCUS AGALACTIAE (GROUP B STREP) Not Detected 26.000 - 32.222 ppm 11/20/2024 7:10 AM EDT [facility] GIAN ALBICANS, PARAPSILOSIS, TROPICALIS 0.000 19.961 - 30.770 ppm 11/20/2024 7:10 AM EDT [facility] GIAN ALBICANS, PARAPSILOSIS, TROPICALIS Not Detected 19.961 - 30.770 ppm 11/20/2024 7:10 AM EDT [facility] GIAN GLABRATA 0.000 23.000 - 32.138 ppm 11/20/2024 7:10 AM EDT [facility] GIAN GLABRATA Not Detected 23.000 - 32.138 ppm 11/20/2024 7:10 AM EDT [facility] GIAN KRUSEI 0.000 23.000 - 32.271 ppm 11/20/2024 7:10 AM EDT [facility] GIAN KRUSEI Not Detected 23.000 - 32.271 ppm 11/20/2024 7:10 AM EDT [facility] SERRATIA MARCESCENS 0.000 23.000 - 31.204 ppm 11/20/2024 7:10 AM EDT [facility] SERRATIA MARCESCENS Not Detected 23.000 - 31.204 ppm 11/20/2024 7:10 AM EDT [facility] STREPTOCOCCUS PYOGENES (GROUP A STREP) 0.000 19.961 - 24.689 ppm 11/20/2024 7:10 AM EDT [facility] STREPTOCOCCUS PYOGENES (GROUP A STREP) Not Detected 19.961 - 24.689 ppm 11/20/2024 7:10 AM EDT [facility] STAPHYLOCOCCUS EPIDERMIDIS, HAEMOLYTICUS, LUGDUNENSIS, SAPROPHYTICUS (URINA 0.000 19.961 - 24.689 ppm 11/20/2024 7:10 AM EDT [facility] STAPHYLOCOCCUS EPIDERMIDIS, HAEMOLYTICUS, LUGDUNENSIS, SAPROPHYTICUS (URINA Not Detected 19.961 - 24.689 ppm 11/20/2024 7:10 AM EDT [facility] STAPHYLOCOCCUS EPIDERMIDIS, HAEMOLYTICUS, LUGDUNENSIS, SAPROPHYTICUS (URINA 30.381(A) 19.961 - 24.689 ppm 11/20/2024 7:10 AM EDT [facility] STAPHYLOCOCCUS EPIDERMIDIS, HAEMOLYTICUS, LUGDUNENSIS, SAPROPHYTICUS (URINA Detected(A) 19.961 - 24.689 ppm 11/20/2024 7:10 AM EDT [facility] Urine 11/19/2024 11:0 0 AM EDT 11/20/2024 1:57 AM EDT us Desire Ackerman MD LAB BLOOD ORDERABLES Final Re sult [facility] [address] [place] [address] * BOX TEST (11/02/2024 4:30 PM EDT) [facility] BOX TEST SENT OUT [facility] 11/02/24 [facility] 11/02/2024 4:30 PM EDT 11/02/2024 4:40 PM EDT Narrative [facility] - 11/02/2024 5:19 PM EDT [place] [facility] us Floyd Da DO LAB BLOOD ORDERABLES Final Resul t Performing Organization Address [facility] Co de Phone Number [facility] * HBSAG SCREEN (11/02/2024 4:30 PM EDT) Pathologist [facility] HBSAG SCREEN Negative Negative [facility] Comment: Performed at: [address] [id number] Loan Originator: Edvin Hale PhD, Phone: [phone] 11/02/2024 4:30 PM EDT 11/02/2024 4:40 PM EDT [facility] 11/04/2024 1:07 PM EDT us Folyd Da DO LAB BLOOD ORDERABLES Final Resul t Performing Organization Address [facility] de Phone Number [facility] * RAPID PLASMA REAGIN, QUANT (11/02/2024 4:30 PM EDT) [facility] RAPID PLASMA REAGIN, QUANT Non Reactive NonRea<1: 1 titer [facility] Comment: Please Note: This test does not meet current guidelines for screening and diagnosis of syphilis. This test is intended for following treatment response in patients being treated for syphilis infection. To screen for syphilis infection, a reflex cascade that includes both RPR and a treponema-specific assay should be utilized, such as Treponema pallidum (Syphilis) Screening Webb (242654) or Rapid Plasma Reagin (RPR) Test With Reflex to Quantitative RPR and Confirmatory Treponema pallidum Antibodies (523150). Performed at: [address] [id number] Loan Originator: Edvin Hale PhD, Phone: [phone] 11/02/2024 4:30 PM EDT 11/02/2024 4:40 PM EDT Narrative [facility] - 11/04/2024 1:07 PM EDT us Floyd Da DO LAB BLOOD ORDERABLES Final Resul t Performing Organization Address [facility] Co de Phone Number [facility] * HIV AB/P24 AG WITH REFLEX (11/02/2024 4:30 PM EDT) Pathologist [facility] HIV AB/P24 AG SCREEN Non Reactive Non Reactive [facility] Comment: HIV-1/HIV-2 antibodies and HIV-1 p24 antigen were NOT detected. There is no laboratory evidence of HIV infection. HIV Negative Performed at: [facility] [id number] Loan Originator: Edvin Hale PhD, Phone: [phone] 11/02/2024 4:30 PM EDT 11/02/2024 4:40 PM EDT Narrative [facility] - 11/04/2024 9:12 AM EDT us Vericano DO LAB BLOOD ORDERABLES Final Resul t Performing Organization Address [facility] Phone Number [facility] * HCV ANTIBODY RFX TO QUANT PCR (11/02/2024 4:30 PM EDT) Pathologist [facility] HCV AB Non Reactive Non Reactive TB INTERPRETATION: Comment . [facility] Comment: Not infected with HCV unless early or acute infection is suspected (which may be delayed in an immunocompromised individual), or other evidence exists to indicate HCV infection. Performed at: [facility] [id number] Loan Originator: Edvin Hale PhD, Phone: [phone] 11/02/2024 4:30 PM EDT 11/02/2024 4:40 PM EDT Narrative [facility] - 11/04/2024 2:07 PM EDT us Floyd Da DO LAB BLOOD ORDERABLES Final Resul t Performing Organization Address [facility] Co de Phone Number [facility] * MLR HEMOGLOBIN A1C (11/02/2024 4:30 PM EDT) Pathologist [facility] GLYCOHEMOGLOBIN A1C 4.9 4.5 - 6.2 % [facility] Comment: ADA RECOMMENDED LIMIT 4.0 - 6.0 ADA THERAPEUTIC TARGET < 7.0 ACTION SUGGESTED > 7.0 ESTIMATED AVERAGE GLUCOSE 94 mg/dL TB 11/02/2024 4:30 PM EDT 11/02/2024 4:40 PM EDT Narrative [facility] - 11/02/2024 5:07 PM EDT Floyd Da DO [facility] Final Result Performing Organization Address [facility] Co de Phone Number [facility] * ALL TYPE AND SCREEN (11/02/2024 4:30 PM EDT) Pathologist [facility] BLOOD TYPE O Positive [facility] ANTIBODY SCREEN NEGATIVE TB 11/02/2024 4:30 PM EDT 11/02/2024 4:40 PM EDT Narrative [facility] - 11/02/2024 5:46 PM EDT [facility] , Floyd Da DO [facility] Final Result Performing Organization Address [facility] Co de Phone Number [facility] * ALL RUBELLA IGG AB (11/02/2024 4:30 PM EDT) Pathologist [facility] RUBELLA ANTIBODIES, IGG 6.40 Immune >0.99 index [facility] Comment: Non-immune <0.90 Equivocal 0.90 - 0.99 Immune >0.99 Performed at: [address] [id number] Loan Originator: Edvin Hale PhD, Phone: [phone] 11/02/2024 4:30 PM EDT 11/02/2024 4:40 PM EDT Narrative [facility] - 11/04/2024 2:07 PM EDT us Floyd Roberson DO [facility] Final Result [facility] TB * (ABNORMAL) ALL CBC WITH AUTO DIFF (11/02/2024 4:30 PM EDT) [facility] TB WBC 9.8 4.0 - 11.0 10 3/uL TBH TBH RBC 4.30 4.20 - 5.40 10 6/uL TBH TBH HGB 13.2 12.0 - 16.0 g/dL TBH TBH HCT 37.8 36.0 - 48.0 % TBH TBH MCV 87.9 81.0 - 99.0 fL TBH TBH MCH 30.7 26.7 - 34.0 pg TBH TBH MCHC 34.9 29.9 - 35.2 g/dL TBH TBH RDW 12.9 11.0 - 15.0 % TBH TBH PLT 275 150 - 450 10 3/uL TBH TBH MPV 10.2 9.5 - 13.5 fL TBH NEUTROPHILS PERCENT AUTO 71.1 43.0 - 75.0 % TB[facility] LYMPHOCYTES PERCENT AUTO 22.8 20.5 - 60.0 % TBH MONOCYTES PERCENT AUTO 5.3 1.7 - 12.0 % TBH TBH EO % 0.2(L) 0.9 - 7.0 % [facility] BASOPHILS PERCENT AUTO 0.3 0.2 - 2.0 % [facility] IMMATURE GRANULOCYTES PCT AUTO 0.3 0.0 - 0.5 % TB[facility] NEUTROPHILS ABSOLUTE AUTO 6.9(H) 1.4 - 6.5 10 3/uL TBH LYMPHOCYTES ABSOLUTE AUTO 2.2 1.2 - 3.8 10 3/uL TB[facility] MONOCYTES ABSOLUTE AUTO 0.5 0.3 - 0.8 10 3/uL TBH TBH EO # 0.0 0.0 - 0.7 10 3/uL TBH BASOPHILS ABSOLUTE AUTO 0.0 0.0 - 0.1 10 3/uL [facility] IMMATURE GRANULOCYTES ABS AUTO 0.03 0.00 - 0.03 10 3/uL [facility] 11/02/2024 4:30 PM EDT 11/02/2024 4:40 PM EDT Narrative [facility] - 11/02/2024 4:58 PM EDT us Floyd Da DO [facility] Final Result [facility] * (ABNORMAL) [facility] DRUG SCREEN RAPID (URINE) (11/02/2024 4:22 PM EDT) CANNABINOID SCREEN URINE POSITIVE(A) NEGATIVE TBH PHENCYCLIDINE SCREEN URINE NEGATIVE NEGATIVE TBH COCAINE SCREEN URINE NEGATIVE NEGATIVE TBH METHAMPHETAMINES SCREEN URINE NEGATIVE NEGATIVE TBH OPIATE SCREEN URINE NEGATIVE NEGATIVE TBH AMPHETAMINE SCREEN URINE NEGATIVE NEGATIVE TBH BENZODIAZEPINES SCREEN URINE NEGATIVE NEGATIVE TBH TRICYCLIC ANTIDEPRESSANT URINE NEGATIVE NEGATIVE TBH METHADONE SCREEN URINE NEGATIVE NEGATIVE TBH BARBITURATES SCREEN URINE NEGATIVE NEGATIVE TBH OXYCODONE SCREEN URINE NEGATIVE NEGATIVE TBH BUPRENORPHINE SCREEN URINE NEGATIVE NEGATIVE TB[facility] Comment: DRUG CLASS TEST SYSTEM CUT-OFF CONCENTRATIONS ARE FOLLOWS: AMP (Amphetamine): 500 ng/mL BAR (Barbiturates): 200 ng/mL BZO (Benzodiazepines): 150 ng/mL BUP (Buprenorphine): 10 ng/mL JESS (Cocaine): 150 ng/mL mAMP (Methamphetamine): 500 ng/mL MTD (Methadone): 200 ng/mL OPI (Opiates): 100 ng/mL OXY (Oxycodone): 100 ng/mL PCP (Phencyclidine): 25 ng/mL THC (Cannabinoids): 50 ng/mL TCA (Trycyclic Antidepressants): 300 ng/mL 11/02/2024 4:22 PM EDT 11/02/2024 4:56 PM EDT Narrative [facility] - 11/02/2024 4:57 PM EDT us Floyd Da DO [facility] Final Result [facility] * CANNABINOID CONF, MS, UR (11/02/2024 4:22 PM EDT) CANNABINOID Positive TBH CARBOXY THC CONF, MS, UR 23 [facility] Comment: ng/ml Cutoff=10 11/02/2024 4:22 PM EDT 11/02/2024 4:57 PM EDT Narrative [facility] - 11/26/2024 3:32 PM EDT us Floyd Da DO LAB BLOOD ORDERABLES Edited Resu lt - Final [facility] * (ABNORMAL) POCT , urine manually resulted (10/25/2024 2:47 PM EDT) Preg Test, Ur Positive Negative Urine 10/25/2024 2:47 PM EDT us Floyd Da DO POINT OF CARE TEST ENTER/EDIT OR DERABLES Final Result * US OB transvaginal (10/25/2024 1:48 PM EDT) Anatomical Region Laterality Modality Body Ultrasound 10/26/2024 6:27 AM EDT Narrative 10/26/2024 7:16 AM EDT EXAM: US OB TRANSVAGINAL HISTORY: Dating. COMPARISON: OB ultrasound 10/09/2024. TECHNIQUE: Two-dimensional transvaginal grayscale ultrasound imaging of the pelvis was performed. Color Doppler evaluation of the ovaries was also performed. FINDINGS: The uterus demonstrates a normal homogeneous echotexture. The cervix measures 3.7 cm in length and the cervical os is closed. Multiple nabothian cysts visualized within the cervix. The right ovary measures 2.6 x 1.7 x 1.9 cm and demonstrates a normal echotexture. There is normal color Doppler flow. The left ovary measures 2.8 x 1.1 x 1.7 cm and demonstrates a normal echotexture. There is normal color Doppler flow. No fluid is present within the cul-de-sac. There is a single, live intrauterine gestation identified with a heart rate of 164 beats per minute and a crown-rump length measurement of 1.5 cm, correlating to a gestational age of 7 weeks 6 days (+/- 5 days). There is a 1.3 cm subchorionic hemorrhage visualized. A yolk sac is visualized. IMPRESSION: 1. Single, live intrauterine gestation 9 weeks, 1 days by LMP. Today's ultrasound measurements correlate with a gestational age of 7 weeks 6 days (+/- 5 days). MARBELLA by today's ultrasound is 06/07/2025. 2. Small subchorionic hemorrhage. 3. Normal color Doppler evaluation of the bilateral ovaries. Interpreted by: Electronically signed by TOMAS PARSONS II, MD, PHD at 26-Oct-2024 06:25:58 AM [facility] [place] [facility] Procedure Note Tomas Parsons MD - 10/26/2024 EXAM: US OB TRANSVAGINAL HISTORY: Dating. COMPARISON: OB ultrasound 10/09/2024. TECHNIQUE: Two-dimensional transvaginal grayscale ultrasound imaging ofthe pelvis was performed. Color Doppler evaluation of the ovaries was alsoperformed. FINDINGS: The uterus demonstrates a normal homogeneous echotexture. The cervixmeasures 3.7 cm in length and the cervical os is closed. Multiplenabothian cysts visualized within the cervix. The right ovary measures 2.6 x 1.7 x 1.9 cm and demonstrates a normalechotexture. There is normal color Doppler flow. The left ovary measures 2.8 x 1.1 x 1.7 cm and demonstrates a normalechotexture. There is normal color Doppler flow. No fluid is present within the cul-de-sac. There is a single, live intrauterine gestation identified with a fetalheart rate of 164 beats per minute and a crown-rump length measurement of1.5 cm, correlating to a gestational age of 7 weeks 6 days (+/- 5 days).There is a 1.3 cm subchorionic hemorrhage visualized. A yolk sac isvisualized. IMPRESSION: 1. Single, live intrauterine gestation 9 weeks, 1 days by LMP. Today'sultrasound measurements correlate with a gestational age of 7 weeks 6 days(+/- 5 days). MARBELLA by today's ultrasound is 06/07/2025. 2. Small subchorionic hemorrhage. 3. Normal color Doppler evaluation of the bilateral ovaries. Interpreted by: Electronically signed by TOMAS PARSONS II, MD, PHD [id number] 06:25:58 AM [facility] [place] [facility] us Floyd Da DO IMG OB US PROCEDURES Final Resul t * [facility] PREG QUANT HCG (10/03/2024 4:15 PM EDT) Only the most recent of2 resultswithin the time period is included. HCG QUANTITATIVE 3,453 mIU/mL [facility] Comment: 5-50 0.2-1 WEEK 50-500 1-2 WEEKS 100-5,000 2-3 WEEKS 500-10,000 3-4 WEEKS 1,000-50,000 4-5 WEEKS 10,000-100,000 5-6 WEEKS 15,000-200,000 6-8 WEEKS 10,000-100,000 2-3 MONTHS 10/03/2024 4:15 PM EDT 10/03/2024 4:16 PM EDT Narrative [facility] - 10/03/2024 5:38 PM EDT us Floyd Da DO [facility] Final Result [facility] * THINPREP TIS AND HPV MRNA E6/E7 ([id number]) (05/27/2021) Pathologist [facility] CLINICAL INFORMATION: None given [facility] LMP: None given [facility] PREV. PAP: None given [facility] PREV. BX: None given [facility] SOURCE: None given [facility] STATEMENT OF ADEQUACY: SEE COMMENT [facility] Comment: Satisfactory for evaluation. Endocervical/transformation zone component absent. INTERPRETATION/RE SULT: Negative for intraepithelial lesion or malignancy. [facility] COMMENT: This Pap test has been evaluated with computer assisted technology. [facility] MEDICATION AID: SEE COMMENT [facility] Comment: SARAH SWEENEY(ASCP) CT screening location: [facility], [address] [place] [address], [place] [address]. COMMENT SEE COMMENT [facility] [facility] Comment: EXPLANATORY NOTE: The Pap is a screening test for cervical cancer. It is not a diagnostic test and is subject to false negative and false positive results. It is most reliable when a satisfactory sample, regularly obtained, is submitted with relevant clinical findings and history, and when the Pap result is evaluated along with historic and current clinical information. HPV MRNA E6/E7 Not Detected Not Detected [facility] Comment: Methodology: Sheet Metal Production Worker-Mediated Amplification This assay detects E6/E7 viral messenger RNA (mRNA) from 14 high-risk HPV types (16,18,31,33,35,39,45,51,52,56,58,59,66,68). The analytical performance characteristics of this assay have been determined by [employer]. The modifications have not been cleared or approved by the FDA. This assay has been validated pursuant to the CLIA regulations and is used for clinical purposes. For additional information, please refer to http://education.[employer]/faq/LDM252l4 (This link if provided for information/ educational purposes only.) 05/27/2021 us Desire Ackerman MD [facility] Final Result [facility] from Last 3 Months or Most Recently Relevant to Health Maintenance Insurance [employer] Care Teams Manager Activities Relationship Specialty Start Date End Date Desire Ackerman MD [address] [place], [place] [id number] PCP - General Family Medicine 11/23/22
--- OUTSIDE RECORDS SUMMARY | 2024-12-25 19:29 | XMS_ITS | Encounter Summary ---
Author Organization [facility] Address [address] [place] [address] Care Team Providers Care Data Center Operator Name Role Phone Desire Ackerman MD Primary Care Provider [phone] Encounter Details Date Type Department Care Team (Late st Contact Info) Description 11/19/2024 Abstract [facility] [address] [place] [address] Floyd Roberson, DO [address] [place], [facility] Social History Tobacco Use Types Packs/Day [...] often do you attend chur ch or faith services? More than 4 times per year 11/18/2024 Do you belong to any clubs o r organizations such as muslim groups, unions, fraternal or athletic groups, or [...] Recorded Patient Health Questionnaire-2 Score 0 11/19/2024 [facility] Occupat ional Health - Occupational Stress [...] any time in the past 12 m [facility], were you homeless or living in a alf (including now)? No 11/18/2024 Estimated Date of Delivery Comme nts Yes 06/07/2025 Based on Ultraso und Sex and Gender Information Value Date Recorded Sex Assigned at Not on file Legal Sex Female 9:28 PM EDT Gender Identity Not on file Sexual Orientation Not on file documented as of this encounter Functional Status * Over the past 2 weeks, how often have you been bothered by any of the following problems? Question Answer Date of Assessment Author Little interest or pleasure in doing things Not at all 11/19/2024 1:55 PM EDT Maryuri Castro MA Feeling down, depressed, or hopeless Not at all 11/19/2024 1:55 PM EDT Maryuri Castro MA Patient Health Questionnaire -2 Score 0 11/19/2024 1:55 PM EDT Maryuri Castro MA documented as of this encounter Plan of Treatment Upcoming Encounters Date Type Department Care Team (Late st Contact Info) Description 01/22/2025 9:30 AM EDT Ancillary Procedure [facility] [address] [place] [id number] 01/22/2025 10:40 AM EDT Routine [facility] [address] [place] [id number] Floyd Roberson, DO [address] [place] [place], [place] [id number] documented as of this encounter Visit Diagnoses Not on filedocumented in this encounter Care Teams Data Center Operator Relationship Specialty Start Date End Date Desire Ackerman MD [address] [place] [address] PCP - General Family Medicine 11/23/22 documented as of this encounter
[2024-12-28 14:09] LABS: Age Gdln ACOG Testing Note (.); HPV Aptima Negative (Negative); IGP, Aptima HPV, rfx 16/18,45 Note (.)
== END 2024-12-25 19:26 | disposition home or self-care (01) ==
LOC: LAB 19:25
PROVIDERS: PCP Student in an Organized Health Care Education/Training Program; Visit Provider Physician Assistant
DX: Z01.419 Encounter for gynecological examination (general) (routine) without abnormal findings (principal)
CPT/HCPCS: 87624; 88175

== ENCOUNTER 2025-01-02 14:32 | Outpatient (OUT) | payer OTHER, SELFPAY ==
--- OUTSIDE RECORDS SUMMARY | 2024-12-25 13:30 | XMS_ITS | Encounter Summary ---
Author Organization [facility] Address [address] [facility] [place] [address] Care Team Providers Care Fountain Pen Nibs Inspector Name Role Phone Desire Ackerman MD Primary Care Provider [phone] Reason for Visit * Reason Comments Routine Visit Encounter Details Date Type Department Care Team (Latest Contact Info) Description 12/25/2024 1:30 PM EDT Routine [facility] [address] [place] [phone] Stephanie Suresh PA [address] [facility] [place] [address] 16 weeks gestation of ([facility]); Second trimester ([facility]); Screening, , for anatomic survey ([facility]); Well woman exam with routine gynecological exam; Exposure to STD; Vaginal discharge Social History Tobacco Use Types Packs/Day Years Used Date Smoking Tobacco: Former Cigarettes Smokeless Tobacco: Never Humiliation, Afraid, Rape, and Kick questionnair e Answer Date Recorded Within the last year, have y ou been afraid of your partner or ex-partner? No 11/18/2024 Within the last year, have y ou been humiliated or emotionally abused in other ways by your partner or ex-partner? No Within the last year, have y ou been kicked, hit, slapped, or otherwise physically hurt by your partner or ex-partner? No 11/18/2024 Within the last year, have y ou been raped or forced to have any kind of sexual activity by your partner or ex-partner? No 11/18/2024 Social Connection and Isolat ion Panel [NHANES] Answer Date Recorded In a typical week, how many times do you talk on the phone with family, friends, or neighbors? Three times a week 11/18/2024 How often do you get togethe r with friends or relatives? Once a week 11/18/2024 How often do you attend chur ch or scientologist services? More than 4 times per year 11/18/2024 Do you belong to any clubs o r organizations such as synagogue groups, unions, fraternal or athletic groups, or school groups? Yes 11/18/2024 How often do you attend meet ings of the clubs or organizations you belong to? More than 4 times per year 11/18/2024 Are you , , di vorced, , never , or living with a partner? 11/18/2024 AUDIT-C Answer Date Recorded Q1: How often do you have a drink containing alc ohol? Monthly or less 11/18/2024 Q2: How many drinks containi ng alcohol do you have on a typical day when you are drinking? 1 or 2 11/18/2024 Q3: How often do you have si x or more drinks on one occasion? Never 11/18/2024 Overall Financial Resource Strain (CARDIA) Answe r Date Recorded How hard is it for you to pa y for the very basics like food, housing, medical care, and heating? Not very hard 11/18/2024 PHQ-2 Answer Date Recorded Patient Health Questionnaire-2 Score 0 11/19/2024 [facility] Questionnaire Answer Date Recorded Do you feel stress - tense, restless, nervous, or anxious, or unable to sleep at night because your mind is troubled all the time - these days? To some extent 11/18/2024 Exercise Vital Sign Answer Date Recorde d On average, how many days pe r week do you engage in moderate to strenuous exercise (like a brisk walk)? 3 days 11/18/2024 On average, how many minutes do you engage in exercise at this level? 30 min 11/18/2024 Hunger Vital Sign Answer Date Recorded Within the past 12 months, y ou worried that your food would run out before you got the money to buy more. Never true 11/19/19 25 Within the past 12 months, t he food you bought just didn't last and you didn't have money to get more. Never true 11/18/2024 PRAPARE - Transportation Answer Date Re corded In the past 12 months, has l ack of transportation kept you from medical appointments or from getting medications? No 10/2024 In the past 12 months, has l ack of transportation kept you from meetings, work, or from getting things needed for daily living? No 11/18/2024 Housing Stability Vital Sign Answer Geoffrey e Recorded In the last 12 months, was t here a time when you were not able to pay the mortgage or rent on time? No 11/18/2024 In the past 12 months, how m any times have you moved where you were living? 0 11/18/2024 At any time in the past 12 m [facility], were you homeless or living in a usp (including now)? No 11/18/2024 Estimated Date of Delivery Comme nts Yes 06/07/2025 Based on Ultraso und Sex and Gender Information Value Date Recorded Sex Assigned at Not on file Legal Sex Female 9:28 PM EDT Gender Identity Not on file Sexual Orientation Not on file documented as of this encounter Last Filed Vital Signs Vital Sign Reading Time Taken Comments Blood Pressure 110/68 12/25/2024 1:41 PM EDT Pulse - - Temperature - - Respiratory Rate - - Oxygen Saturation - - Inhaled Oxygen Concentration - - Weight 79.6 kg (175 lb 6.4 oz) 12/25/2024 1:41 P M EDT Height - - Body Mass Index 30.11 11/19/2024 1:56 PM EDT documented in this encounter Progress Notes * XANDER Sawyer - 12/25/2024 1:30 PM EDT Reason for Appointment: Patient ID: Mayra Tran is a 34 y.o. female who presents for No chief complaint on file. Patient presents today for Return OB appointment. MEDICATIONS Current Outpatient Medications Medication Instructions EPINEPHrine (Epipen) 0.3 MG/0.3ML injection syringe INJECT 1 PEN INTRAMUSCULARLY EVERY 10 MINUTES NEEDED FOR ANAPHYLAXIS FOR 2 DOSES ondansetron ODT (Zofran-ODT) 4 MG disintegrating tablet DISSOLVE 1 TABLET IN MOUTH EVERY 6 HOURS ASNEEDED FOR NAUSEA AND VOMITING MV-Min-Fe Fum-FA-DHA ( 1 PO) Take by mouth ALLERGIES Allergies Allergen Reactions Iodine Rash PROBLEMS Active Ambulatory Problems Diagnosis Date Noted No Active Ambulatory Problems Resolved Ambulatory Problems Diagnosis Date Noted No Resolved Ambulatory Problems No Additional Past Medical History HISTORY PAST MEDICAL HISTORY SOCIAL HISTORY History reviewed. No pertinent past medical history. Social History Tobacco Use Smoking status: Former Types: Cigarettes Smokeless tobacco: Never Substance Use Topics Alcohol use: Not on file Drug use: Not on file FAMILY HISTORY No family history on file. SURGICAL HISTORY Past Surgical History: Procedure Laterality Date APPENDECTOMY Bilateral SECTION, LOW TRANSVERSE REVIEW OF SYSTEMS Review of Systems: Review of Systems All other systems reviewed and are negative. OBJECTIVE Objective: Physical Exam Constitutional: Appearance: Normal appearance. She is well-developed. Genitourinary: Vulva normal. Cardiovascular: Rate and Rhythm: Normal rate and regular rhythm. Pulmonary: Effort: Pulmonary effort is normal. Breath sounds: Normal breath sounds. Abdominal: General: Bowel sounds are normal. There is no distension. Palpations: Abdomen is soft. Tenderness: There is no abdominal tenderness. There is no guarding or rebound. Musculoskeletal: General: No swelling. Normal range of motion. Right lower leg: No edema. Left lower leg: No edema. Neurological: Mental Status: She is alert and oriented to person, place, and time. Skin: General: Skin is warm and dry. Psychiatric: Mood and Affect: Mood normal. Behavior: Behavior normal. Vitals and nursing note reviewed. Exam conducted with a magistrate present. Vitals: Estimated body mass index is 30.11 kg/m?? as calculated from the following: Height as of 11/19/24: 5' 4 . Weight as of this encounter: 175 lb 6.4 oz. BP: 110/68 Patient's last menstrual period was 08/22/2024. ASSESSMENT & PLAN ICD-10-CM 1. 16 weeks gestation of Z3A.16 POCT urinalysis dipstick manually resulted Alpha fetoprotein, maternal Alpha fetoprotein, maternal 2. Second trimester Z34.92 POCT urinalysis dipstick manually resulted Alpha fetoprotein, maternal Alpha fetoprotein, maternal 3. Screening, , for anatomic survey Z36.89 US OB 14+ weeks anatomy scan US OB 14+ weeks anatomy scan 4. Well woman exam with routine gynecological exam Z01.419 Pap Smear HPV DNA probe, amplified 5. Exposure to STD Z20.2 CHLAMYDIA TRACHOMATIS (GENITO/STI) Neisseria gonorrhea DNA probe, direct 6. Vaginal discharge N89.8 SURESWAB(R) ADVANCED VAGINITIS PLUS, TMA Return OB: Patient presents today for a routine obstetrics appointment. Patient is currently 16w4d . Patient states she is doing well but has complaints of being tired due to current . Patient has verbalizes frequent movement. Patient to use Pepcid and Zyrtec for Skin rash around breast. Orders Placed This Encounter Procedures HPV DNA probe, amplified US OB 14+ weeks anatomy scan CHLAMYDIA TRACHOMATIS (GENITO/STI) Neisseria gonorrhea DNA probe, direct Alpha fetoprotein, maternal POCT urinalysis dipstick manually resulted Follow Up: Patient is to return to office in 4 week for routine OB appointment. Documented by Tiny Baig LPN on behalf of: XANDER Sawyer documented in this encounter Plan of Treatment Upcoming Encounters Date Type Department Care Team (Late st Contact Info) Description 01/22/2025 9:30 AM EDT Ancillary Procedure [facility] [address] [place] [phone] 01/22/2025 10:40 AM EDT Routine [facility] [address] [place] [address] Floyd Roberson, DO [address] [place], [place] [id number] Scheduled Orders Name Type Priority Associated Diagnoses Orde r Schedule SURESWAB(R) ADVANCED VAGINITIS PLUS, TMA Pathology and Cytology Routine Vaginal discharge Ordered: 12/25/2024 CHLAMYDIA TRACHOMATIS (GENITO/STI) Lab Routine Exposure to STD Ordered: 12/25/2024 Neisseria gonorrhea DNA probe, direct Lab Routine Exposure to STD Ordered: 12/25/2024 Alpha fetoprotein, maternal Lab Routine 16 weeks gestation of ([facility]) Second trimester ([facility]) Expected: 12/25/2024 (Approximate), Expires: 01/24/2025 US OB 14+ weeks anatomy scan Imaging Routine Screening, , for anatomic survey ([facility]) Expected: 12/25/2024, Expires: 03/27/2025 Pap Smear Pathology and Cytology Routine Well woman exam with routine gynecological exam Ordered: 12/25/2024 HPV DNA probe, amplified Microbiology Routine Well woman exam with routine gynecological exam Ordered: 12/25/2024 documented as of this encounter Procedures Procedure Name Priority Date/Time Associated Diagnosis Comments POCT URINALYSIS DIPSTICK Routine 12/25/2024 1:48 PM EDT 16 weeks gestation of ([facility]) Second trimester ([facility]) documented in this encounter Results * (ABNORMAL) POCT urinalysis dipstick manually resulted (12/25/2024 1:48 PM EDT) Color, UA Yellow Clarity, UA Clear Glucose, UA Negative Negative - 2000(110) ++++ mg/dL Bilirubin, UA Negative Negative - 4(70) +++ mg/dL Ketones, UA Negative Negative - 160(16) ++++ mg/dL Spec Grav, UA 1.030 1 - 1.03 Blood, UA Positive Negative - 50 Abdi/mcL Comment:trace-intact pH, UA 5.5 5 - 9 Protein, UA Negative Negative - 2000(20) ++++ mg/dL Urobilinogen, UA 1.0 0.2 - 12 mg/dL Leukocytes, UA Negative Negative - 500+++ Nile/mcL Urine 12/25/2024 1:48 PM EDT Stephanie TERRELL POINT OF CARE TEST ENTER/EDIT OR DERABLES Final Result documented in this encounter Visit Diagnoses Diagnosis 16 weeks gestation of ([facility]) Second trimester ([facility]) state, incidental Screening, , for anatomic survey ([facility]) Encounter for anatomic survey Well woman exam with routine gynecological exam Routine gynecological examination Exposure to STD Vaginal discharge Leukorrhea, not specified as infective documented in this encounter Care Teams Fountain Pen Nibs Inspector Relationship Specialty Start Date End Date Desire Ackerman MD [address] [place] [address] PCP - General Family Medicine 11/23/22 documented as of this encounter
--- OUTSIDE RECORDS SUMMARY | 2025-01-02 14:35 | XMS_ITS | Encounter Summary ---
Author Organization [facility] Address [address] [place] [address] Care Team Providers Care Branch Manager Trainee Name Role Phone Desire Ackerman MD Primary Care Provider [phone] Encounter Details Date Type Department Care Team (Late st Contact Info) Description 11/20/2024 Results Follow-Up [facility] [address] [place] [phone] Desire Ackerman MD [address] [place] [address] Urinary frequency (Primary Dx) Social History Tobacco [...] often do you attend chur ch or temple services? More than 4 times per year 11/18/2024 Do you belong to any clubs o r organizations such as restoration groups, unions, fraternal or athletic groups, or [...] Recorded Patient Health Questionnaire-2 Score 0 11/19/2024 [facility] Occupat ional [facility] - Occupational Stress Questionnaire Answer Date [...] any time in the past 12 m [facility], were you homeless or living in a detention (including now)? No 11/18/2024 Estimated Date of [...] EDT Ancillary Procedure [facility] [address] [place] [address] 01/22/2025 10:40 AM EDT Routine [facility] [address] [facility] [address] [place] [phone] Floyd Roberson, DO [address] [place] [address] documented as of this encounter Visit Diagnoses Diagnosis Urinary frequency- Primary documented in this encounter Care Teams Branch Manager Trainee Relationship Specialty Start Date End Date Desire Ackerman MD [address] [place] [address] PCP - General Family Medicine 11/23/22 documented as of this encounter
--- OUTSIDE RECORDS SUMMARY | 2025-01-02 14:36 | XMS_ITS ---
Author Organization [facility] Source Produ ction (ClinicalSummary Clone) Address Unknown Care Team Providers Care Base Filler Name Role Phone Unavailable Primary Care Physician Unavailab le Results * [UNITY] ANEUPLOIDY NIPT Performed by: [facility] Value Range Date Fraction 13.6% 11/11/2024 03 :30 pm UTC Rh(D) NIPT RhD DETECTED 11/11/2024 03:3 0 pm UTC Sex Chromosome Aneuploidy NOT DETECTED 03:30 pm UTC Monosomy X LOW RISK <1 in 10,000 2024 03:30 pm UTC Trisomy 13 LOW RISK <1 in 10,000 2024 03:30 pm UTC Trisomy 18 LOW RISK <1 in 10,000 2024 03:30 pm UTC Trisomy 21 LOW RISK <1 in 10,000 2024 03:30 pm UTC Sex FEMALE 11/11/2024 03:3 0 pm UTC Gestation EDWARDS 11/12/19 03:30 pm UTC For detailed report, see PDF See PDF 11/11/2024 03:30 pm UTC 11/11/2024 03:3 0 pm UTC Social History Observation Value Start Date End Date
--- OUTSIDE RECORDS SUMMARY | 2025-01-02 14:36 | XMS_ITS | Encounter Summary ---
Author Organization [facility] Address [address] [place] [address] Care Team Providers Care Biodiesel Production Technician Name Role Phone Desire Ackerman MD Primary Care Provider [phone] Encounter Details Date Type Department Care Team (Late st Contact Info) Description 12/25/2024 Bamboo flowsheet [facility] [address] [place] [id number] Stephanie Suresh PA [address] [place], [facility] Social History Tobacco Use Types Packs/Day Years [...] often do you attend chur ch or yazdanism services? More than 4 times per year 11/18/2024 Do you belong to any clubs o r organizations such as religious groups, unions, fraternal or athletic groups, or [...] Recorded Patient Health Questionnaire-2 Score 0 11/19/2024 [facility] Occupat ional Health - [...] time in the past 12 m [facility], were you homeless or living in a mcfp (including now)? No 11/18/2024 Estimated Date of [...] EDT Ancillary Procedure [facility] [address] [facility] [address] [place] [address] 01/22/2025 10:40 AM EDT Routine [facility] [address] [facility] [facility] [place] [place] [address] Floyd Roberson, DO [address] [place], [place] [id number] documented as of this encounter Visit Diagnoses Not on filedocumented in this encounter Care Teams Biodiesel Production Technician Relationship Specialty Start Date End Date Desire Ackerman MD [address] [place] [address] PCP - General Family Medicine 11/23/22 documented as of this encounter
--- OUTSIDE RECORDS SUMMARY | 2025-01-02 14:36 | XMS_ITS ---
Author Organization [facility] Source Produ ction (ClinicalSummary Clone) Address Unknown Care Team Providers Care Retail Performance Specialist Name Role Phone Unavailable Primary Care Physician Unavailab le Results * [UNITY] CARRIER SCREEN Performed by: [employer] [facility] Value Range Date Sickle Cell Disease/Beta-Thalassemia/Hemo globinopathies carrier screen NEGATIVE 11/16/2024 09:53 pm UTC Alpha-Thalassemia carrier screen NEGATIVE 11/16/2024 09:53 pm UTC Cystic Fibrosis carrier screen NEGATIVE 11/16/2024 09:53 pm UTC Spinal Muscular Atrophy carrier screen NEGATIVE 2 SMN1 copies, SNP not present 11/16/2024 09:53 pm UT For detailed report, see PDF See PDF 11/16/2024 09:53 pm UTC 11/16/2024 09:5 3 pm UT Social History Observation Value Start Date End Date
--- OUTSIDE RECORDS SUMMARY | 2025-01-02 14:36 | XMS_ITS | Encounter Summary ---
Author Organization [facility] Address [address] [place] [address] Care Team Providers Care Operations Support Manager Name Role Phone Desire Ackerman MD Primary Care Provider [phone] Encounter Details Date Type Department Care Team (Late st Contact Info) Description 11/19/2024 Abstract [facility] OB [address] [place] [address] Floyd Roberson, DO [address] [place], [facility]11 Social History Tobacco Use Types Packs/Day [...] often do you attend chur ch or shinto services? More than 4 times per year 11/18/2024 Do you belong to any clubs o r organizations such as catholic groups, unions, fraternal or athletic groups, or [...] Recorded Patient Health Questionnaire-2 Score 0 11/19/2024 [facility] Occupat ional Health - Occupational Stress [...] any time in the past 12 m [facility], were you homeless or living in [...] EDT Ancillary Procedure [facility] [address] [place] [phone] 01/22/2025 10:40 AM EDT Routine [facility] [address] [place] [phone] Floyd Roberson, DO [address] [place], [place] [id number] documented as of this encounter Visit Diagnoses Not on filedocumented in this encounter Care Teams Operations Support Manager Relationship Specialty Start Date End Date Desire Ackerman MD [address] [place] [address] PCP - General Family Medicine 11/23/22 documented as of this encounter
--- OUTSIDE RECORDS SUMMARY | 2025-01-02 14:36 | XMS_ITS | Clinical Summary ---
Author Organization [facility] Address [address] [place] [address] Care Team Providers Care Malt Specifications Control Assistant Name Role Phone Desire Ackerman MD Primary Care Provider [phone] Allergies Active Allergy Reactions Criticality Noted Date Comments Iodine Rash Low 10/25/2024 Medications ondansetron ODT (Zofran-ODT) 4 MG disintegrating tablet DISSOLVE 1 TABLET IN MOUTH EVERY 6 HOURS NEEDED FOR NAUSEA AND VOMITING 10/10/19 25 Active EPINEPHrine (Epipen) 0.3 MG/0.3ML injection syringe INJECT 1 PEN INTRAMUSCULARLY EVERY 10 MINUTES NEEDED FOR ANAPHYLAXIS FOR 2 DOSES 05/23/20 24 Active MV-Min-Fe Fum-FA-DHA ( 1 PO) Take by mouth Active Active Problems Estimated Date of Delivery Comme nts Yes 06/07/2025 Based on Ultraso und No known active problems Encounters Date Type Department Care Team Description 12/25/2024 1:30 PM EDT Routine [facility] [address] [place] [id number] Stephanie Suresh PA 16 weeks gestation of ([facility]); Second trimester ([facility]); Screening, , for anatomic survey ([facility]); Well woman exam with routine gynecological exam; Exposure to STD; Vaginal discharge 12/25/2024 Clinisync Result Encounter [facility] External Department Unsolicited Stephanie Suresh PA 12/25/2024 External Result Encounter [facility] External Department Unsolicited Stephanie Suresh PA 12/25/2024 Bamboo flowsheet [facility] [address] [place] [address] Stephanie Suresh PA 11/26/2024 3:10 PM EDT Routine [facility] [address] [place] [address] Floyd Roberson, DO 12 weeks gestation of ([facility]); First trimester ([facility]); Antepartum multigravida of advanced maternal age ([facility]) 11/26/2024 Bamboo flowsheet [facility] [address] [place] [address] Floyd Roebrson, DO 11/20/2024 Results Follow-Up [facility] [address] [place] [address] Desire Ackerman MD Urinary frequency (Primary Dx) 11/19/2024 1:40 PM EDT [facility] [address] [place] [address] Desire Ackerman MD Urinary frequency (Primary Dx); Pelvic pressure in female; 11 weeks gestation of ([facility]) 11/19/2024 Travel 11/19/2024 Abstract [facility] [address] [place] [address] Floyd Roberson, DO 11/18/2024 Travel 11/02/2024 Clinisync Result Encounter [facility] External Department Unsolicited Floyd Roberson, DO 10/25/2024 1:30 PM EDT Initial [facility] [address] [place] [address] [place]: [id number] 10/25/2024 1:00 PM EDT Ancillary Procedure [facility] [address] [place] [address] Missed menses 10/18/2024 Travel 10/09/[address] [facility] [address] [place] [address] Floyd Roberson, DO 10/03/2024 Clinisync Result Encounter [facility] External Department Unsolicited Floyd Roberson DO from Last 3 Months Social History Tobacco [...] often do you attend chur ch or restorationism services? More than 4 times per year 11/18/2024 Do you belong to any clubs o r organizations such as adventism groups, unions, fraternal or athletic groups, or [...] Recorded Patient Health Questionnaire-2 Score 0 11/19/2024 [facility] [place] of Occupat ional Health - Occupational Stress [...] any time in the past 12 [address] [place], were you homeless or living in a [...] EDT Ancillary Procedure [facility] [address] [facility] [place] [address] 01/22/2025 10:40 AM EDT Routine [facility] [address] [facility] [place] [address] Floyd Roberson, DO [address] [place] [address] [place] [address] Health Maintenance Due Date Last Done Comments Pap Smear 2009 Influenza Vaccine (Season Ended) 2025 Cervical Cancer Screening 05/27/2026 HPV/Cotest 05/27/2026 05/27/2021 Procedures Procedure Name Priority Date/Time Associated Diagnosis Comments RECURRENT VAGINITIS (HTRX) Routine 12/25/2024 3:02 PM EDT POCT URINALYSIS DIPSTICK Routine 12/25/2024 1:48 PM EDT 16 weeks gestation of ([facility]) Second trimester ([facility]) IGP,APTIMA HPV,AGE GDLN Routine 12/25/2024 1:29 PM EDT POCT URINALYSIS DIPSTICK Routine 11/26/2024 3:51 PM EDT 12 weeks gestation of ([facility]) First trimester ([facility]) POCT URINALYSIS DIPSTICK Routine 11/19/2024 2:19 PM [...] HCG Routine 10/03/2024 4: 15 PM EDT THINPREP TIS AND HPV MRNA E6/E7 (97317) Routine 05/27/2021 from Last 3 Months or Most Recently Relevant to Health Maintenance Results * RECURRENT VAGINITIS (HTRX) (12/25/2024 3:02 PM EDT) [facility] ATOPOBIUM VAGINAE 0.000 19.961 - 24.689 ppm 12/27/2024 6:38 AM EDT [facility] ATOPOBIUM VAGINAE Not Detected 19.961 - 24.689 ppm 12/27/2024 6:38 AM EDT [facility] BVAB 2,3 (BACTERIAL VAGINOSIS ASSOCIATED BACTERIA 2, 3); MOBILUNCUS SPP 0.000 19.961 - 24.689 ppm 12/27/2024 6:38 AM EDT [facility] BVAB 2,3 (BACTERIAL VAGINOSIS ASSOCIATED BACTERIA 2, 3); MOBILUNCUS SPP Not Detected 19.961 - 24.689 ppm 12/27/2024 6:38 AM EDT [facility] GIAN ALBICANS, PARAPSILOSIS, TROPICALIS 0.000 19.961 - 30.770 ppm 12/27/2024 6:38 AM EDT [facility] GIAN ALBICANS, PARAPSILOSIS, TROPICALIS Not Detected 19.961 - 30.770 ppm 12/27/2024 6:38 AM EDT [facility] GIAN GLABRATA 0.000 23.000 - 32.138 ppm 12/27/2024 6:38 AM EDT [facility] GIAN GLABRATA Not Detected 23.000 - 32.138 ppm 12/27/2024 6:38 AM EDT [facility] GIAN KRUSEI 0.000 23.000 - 32.271 ppm 12/27/2024 6:38 AM EDT [facility] GIAN KRUSEI Not Detected 23.000 - 32.271 ppm 12/27/2024 6:38 AM EDT [facility] CHLAMYDIA TRACHOMATIS 0.000 23.000 - 31.467 ppm 12/27/2024 6:38 AM EDT [facility] CHLAMYDIA TRACHOMATIS Not Detected 23.000 - 31.467 ppm 12/27/2024 6:38 AM EDT [facility] GARDNERELLA VAGINALIS 0.000 19.961 - 24.689 ppm 12/27/2024 6:38 AM EDT [facility] GARDNERELLA VAGINALIS Not Detected 19.961 - 24.689 ppm 12/27/2024 6:38 AM EDT [facility] MEGASPHAERA (TYPES 1, 2) 0.000 19.961 - 24.689 ppm 12/27/2024 6:38 AM EDT [facility] MEGASPHAERA (TYPES 1, 2) Not Detected 19.961 - 24.689 ppm 12/27/2024 6:38 AM EDT [facility] NEISSERIA GONORRHOEAE 0.000 23.000 - 32.117 ppm 12/27/2024 6:38 AM EDT [facility] NEISSERIA GONORRHOEAE Not Detected 23.000 - 32.117 ppm 12/27/2024 6:38 AM EDT [facility] TRICHOMONAS VAGINALIS 0.000 23.000 - 32.119 ppm 12/27/2024 6:38 AM EDT [facility] TRICHOMONAS VAGINALIS Not Detected 23.000 - 32.119 ppm 12/27/2024 6:38 AM EDT [facility] MYCOPLASMA GENITALIUM 0.000 19.961 - 24.689 ppm 12/27/2024 6:38 AM EDT [facility] MYCOPLASMA GENITALIUM Not Detected 19.961 - 24.689 ppm 12/27/2024 6:38 AM EDT [facility] Tissue 12/25/2024 3:02 PM EDT 12/27/2024 2:29 AM EDT Stephanie TERRELL LAB BLOOD ORDERABLES Final Resul t [facility] [place] [address] * (ABNORMAL) POCT urinalysis dipstick manually resulted [...] TEST ENTER/EDIT OR DERABLES Final Result * IGP,APTIMA HPV,AGE GDLN (12/25/2024 1:29 PM EDT) AGE GDLN ACOG TESTING Note . [facility] Comment: TESTS RESULT FLAG UNITS REF RANGE LAB Clinician Provided Cytology Information Source.............Cervix No. of containers..01 ThinPrep Vial Age Algo ACOG Lorri... 30-65 01 FLAG LEGEND: L-Low Normal,H-High Normal,LL-Alert Low,HH-Alert High <-Panic Low,>-Panic High,A-Abnormal,AA-Critical Abnormal Performed at: 01 [address] [place] [address] Madhavi Anderson MD, IGP, APTIMA HPV, RFX 16/18,45 Note . [facility] Comment: TESTS RESULT FLAG UNITS REF RANGE LAB DIAGNOSIS: 02 NEGATIVE FOR INTRAEPITHELIAL LESION OR MALIGNANCY. Specimen adequacy: 02 Satisfactory for evaluation. No endocervical component is identified. Performed by: Jessie Be, Operator Control Room ([facility]) . 02 Note: Note 02 The Pap smear is a screening test designed to aid in the detection of premalignant and malignant conditions of the uterine cervix. It is not a diagnostic procedure and should not be used as the sole means of detecting cervical cancer. Both false-positive and false-negative reports do occur. Test Methodology: Note 02 This liquid based ThinPrep(R) pap test was screened with the use of an image guided system. HPV Genotype Reflex Note 02 Criteria not met, HPV Genotype not performed. FLAG LEGEND: L-Low Normal,H-High Normal,LL-Alert Low,HH-Alert High <-Panic Low,>-Panic High,A-Abnormal,AA-Critical Abnormal Performed at: [address] [address] Madhavi Anderson MD, HPV APTIMA Negative Negative [facility] Comment: This nucleic acid amplification test detects fourteen high- risk HPV types (16,18,31,33,35,39,45,51,52,56,58,59,66,68) without differentiation. Performed at: =[address] [id number] Supervisor Abattoir: Madhavi Anderson MD, Phone: [phone] Performed at: [address] [id number] Supervisor Abattoir: Madhavi Anderson MD, Phone: [phone] 12/25/2024 1:29 PM EDT 12/25/2024 8:16 PM EDT Narrative CLINISYNC - 12/28/2024 2:09 PM EDT SPATULA-ALONE CERVIX us Stephanie TERRELL LAB BLOOD ORDERABLES Final Resul t Performing Organization Address City/State/[facility] Co de Phone Number [facility] * (ABNORMAL) URINARY TRACT INFECTION (HTRX) (11/19/2024 11:00 AM EDT) TET B, TET M 27.158(A) 23.000 - 27.778 ppm 11/20/2024 7:10 AM EDT [facility] TET B, TET M Detected(A) 23.000 - 27.778 ppm 11/20/2024 7:10 AM EDT [facility] ACINETOBACTER BAUMANII 0.000 19.961 - 24.689 ppm 11/20/2024 7:10 AM EDT [facility] ACINETOBACTER BAUMANII Not Detected 19.961 - 24.689 ppm 11/20/2024 7:10 AM EDT [facility] CITROBACTER FREUNDII 0.000 23.000 - 31.881 ppm 11/20/2024 7:10 AM EDT [facility] CITROBACTER FREUNDII Not Detected 23.000 - 31.881 ppm 11/20/2024 7:10 AM EDT [facility] ENTEROBACTER AEROGENES, CLOACAE 0.000 23.000 - 31.535 ppm 11/20/2024 7:10 AM EDT [facility] ENTEROBACTER AEROGENES, CLOACAE Not Detected 23.000 - 31.535 ppm 11/20/2024 7:10 AM EDT [facility] ENTEROCOCCUS FAECALIS, FAECIUM 0.000 26.000 - 31.575 ppm 11/20/2024 7:10 AM EDT [facility] ENTEROCOCCUS FAECALIS, FAECIUM Not Detected 26.000 - 31.575 ppm 11/20/2024 7:10 AM EDT [facility] ESCHERICHIA COLI 0.000 23.000 - 28.500 ppm 11/20/2024 7:10 AM EDT [facility] ESCHERICHIA COLI Not Detected 23.000 - 28.500 ppm 11/20/2024 7:10 AM EDT [facility] KLEBSIELLA PNEUMONIAE, OXYTOCA 0.000 23.000 - 30.500 ppm 11/20/2024 7:10 AM EDT [facility] KLEBSIELLA PNEUMONIAE, OXYTOCA Not Detected 23.000 - 30.500 ppm 11/20/2024 7:10 AM EDT [facility] MORGANELLA MORGANII 0.000 19.961 - 24.689 ppm 11/20/2024 7:10 AM EDT [facility] MORGANELLA MORGANII Not Detected 19.961 - 24.689 ppm 11/20/2024 7:10 AM EDT [facility] PROTEUS MIRABILIS, VULGARIS 0.000 23.000 - 28.500 ppm 11/20/2024 7:10 AM EDT [facility] PROTEUS MIRABILIS, VULGARIS Not Detected 23.000 - 28.500 ppm 11/20/2024 7:10 AM EDT [facility] PSEUDOMONAS AERUGINOSA 0.000 23.000 - 28.500 ppm 11/20/2024 7:10 AM EDT [facility] PSEUDOMONAS AERUGINOSA Not Detected 23.000 - 28.500 ppm 11/20/2024 7:10 AM EDT [facility] STAPHYLOCOCCUS AUREUS 0.000 26.000 - 30.902 ppm 11/20/2024 7:10 AM EDT [facility] STAPHYLOCOCCUS AUREUS Not Detected 26.000 - 30.902 ppm 11/20/2024 7:10 AM EDT [facility] STREPTOCOCCUS AGALACTIAE (GROUP B STREP) 0.000 26.000 - 32.222 ppm 11/20/2024 7:10 AM EDT [facility] STREPTOCOCCUS AGALACTIAE (GROUP B STREP) Not Detected 26.000 - 32.222 ppm 11/20/2024 7:10 AM EDT [facility] GIAN ALBICANS, PARAPSILOSIS, TROPICALIS 0.000 19.961 - 30.770 ppm 11/20/2024 7:10 AM EDT [facility] GIAN ALBICANS, PARAPSILOSIS, TROPICALIS Not Detected 19.961 - 30.770 ppm 11/20/2024 7:10 AM EDT [facility] GIAN GLABRATA 0.000 23.000 - 32.138 ppm 11/20/2024 7:10 AM EDT [facility] GIAN GLABRATA Not Detected 23.000 - 32.138 ppm 11/20/2024 7:10 AM EDT [facility] GIAN KRUSEI 0.000 23.000 - 32.271 ppm 11/20/2024 7:10 AM EDT [facility] GIAN KRUSEI Not Detected 23.000 - 32.271 ppm 11/20/2024 7:10 AM EDT [facility] SERRATIA MARCESCENS 0.000 23.000 - 31.204 ppm 11/20/2024 7:10 AM EDT [facility] SERRATIA MARCESCENS Not Detected 23.000 - 31.204 ppm 11/20/2024 7:10 AM EDT [facility] STREPTOCOCCUS PYOGENES (GROUP A STREP) 0.000 19.961 - 24.689 ppm 11/20/2024 7:10 AM EDT [facility] STREPTOCOCCUS PYOGENES (GROUP A STREP) Not Detected 19.961 - 24.689 ppm 11/20/2024 7:10 AM EDT [facility] STAPHYLOCOCCUS EPIDERMIDIS, HAEMOLYTICUS, LUGDUNENSIS, SAPROPHYTICUS (URINA 0.000 19.961 - 24.689 ppm 11/20/2024 7:10 AM EDT [facility] STAPHYLOCOCCUS EPIDERMIDIS, HAEMOLYTICUS, LUGDUNENSIS, SAPROPHYTICUS (URINA Not Detected 19.961 - 24.689 ppm 11/20/2024 7:10 AM EDT [facility] STAPHYLOCOCCUS EPIDERMIDIS, HAEMOLYTICUS, LUGDUNENSIS, SAPROPHYTICUS (URINA 30.381(A) 19.961 - 24.689 ppm 11/20/2024 7:10 AM EDT [facility] STAPHYLOCOCCUS EPIDERMIDIS, HAEMOLYTICUS, LUGDUNENSIS, SAPROPHYTICUS (URINA Detected(A) 19.961 - 24.689 ppm 11/20/2024 7:10 AM EDT [facility] Urine 11/19/2024 11:0 0 AM EDT 11/20/2024 1:57 AM EDT us Desire Ackerman MD LAB BLOOD ORDERABLES Final Re sult [facility] [address] [place] [address] * BOX TEST (11/02/2024 4:30 PM EDT) [facility] BOX TEST SENT OUT [facility] B[facility] BOX2 11/02/24 [facility] 11/02/2024 4:30 PM EDT 11/02/2024 4:40 PM EDT Narrative CLINISYNC - 11/02/2024 5:19 PM EDT UN[facility] Floyd Da DO LAB BLOOD ORDERABLES Final Resul t Performing Organization Address [facility]/ZIP Co de Phone Number [facility] * HBSAG SCREEN (11/02/2024 4:30 PM EDT) [facility] HBSAG SCREEN Negative Negative [facility] Comment: Performed at: [address] [id number] Supervisor Abattoir: Edvin Hale PhD, Phone: [phone] 11/02/2024 4:30 PM EDT 11/02/2024 4:40 PM EDT Narrative CLINISYNC - 11/04/2024 1:07 PM EDT Floyd Da LAB BLOOD ORDERABLES Final Resul t Performing Organization Address [facility] Co de Phone Number [facility] * RAPID PLASMA REAGIN, QUANT (11/02/2024 4:30 PM EDT) [facility] RAPID PLASMA REAGIN, QUANT Non Reactive NonRea<1: 1 titer [facility] Comment: Please Note: This test does not meet current guidelines for screening and diagnosis of syphilis. This test is intended for following treatment response in patients being treated for syphilis infection. To screen for syphilis infection, a reflex cascade that includes both RPR and a treponema-specific assay should be utilized, such as Treponema pallidum (Syphilis) Screening [place] ([id number]) or Rapid Plasma Reagin (RPR) Test With Reflex to Quantitative RPR and Confirmatory Treponema pallidum Antibodies ([id number]). Performed at: [address] [id number] Supervisor Abattoir: Edvin Hale PhD, Phone: [phone] 11/02/2024 4:30 PM EDT 11/02/2024 4:40 PM EDT Narrative CLINISYNC - 11/04/2024 1:07 PM EDT us Floyd Da DO LAB BLOOD ORDERABLES Final Resul t Performing Organization Address [facility] Co de Phone Number [facility] * HIV AB/P24 AG WITH REFLEX (11/02/2024 4:30 PM EDT) Pathologist [facility] HIV AB/P24 AG SCREEN Non Reactive Non Reactive [facility] Comment: HIV-1/HIV-2 antibodies and HIV-1 p24 antigen were NOT detected. There is no laboratory evidence of HIV infection. HIV Negative Performed at: [address] [id number] Supervisor Abattoir: Edvin Hale PhD, Phone: [phone] 11/02/2024 4:30 PM EDT 11/02/2024 4:40 PM EDT Narrative CLINISYDE - 11/04/2024 9:12 AM EDT us Floyd Da DO LAB BLOOD ORDERABLES Final Resul t Performing Organization Address [facility] de Phone Number [facility] * HCV ANTIBODY RFX TO QUANT PCR (11/02/2024 4:30 PM EDT) Pathologist [facility] HCV AB Non Reactive Non Reactive [facility] INTERPRETATION: Comment . [facility] Comment: Not infected with HCV unless early or acute infection is suspected (which may be delayed in an immunocompromised individual), or other evidence exists to indicate HCV infection. Performed at: [address] [id number] Supervisor Abattoir: Edvin Hale PhD, Phone: [phone] 11/02/2024 4:30 PM EDT 11/02/2024 4:40 PM EDT Narrative CLINISYDE - 11/04/2024 2:07 PM EDT us Floyd Da DO LAB BLOOD ORDERABLES Final Resul t Performing Organization Address [facility] Co de Phone Number [facility] * MLR HEMOGLOBIN A1C (11/02/2024 4:30 PM EDT) Pathologist [facility] GLYCOHEMOGLOBIN A1C 4.9 4.5 - 6.2 % [facility] Comment: ADA RECOMMENDED LIMIT 4.0 - 6.0 ADA THERAPEUTIC TARGET < 7.0 ACTION SUGGESTED > 7.0 ESTIMATED AVERAGE GLUCOSE 94 mg/dL [facility] 11/02/2024 4:30 PM EDT 11/02/2024 4:40 PM EDT Narrative CLINISYNC - 11/02/2024 5:07 PM EDT us Floyd Da DO CLINISYNC Final Result [facility] * ALL TYPE AND SCREEN (11/02/2024 4:30 PM EDT) Pathologist [facility] BLOOD TYPE O Positive TB ANTIBODY SCREEN NEGATIVE TB 11/02/2024 4:30 PM EDT 11/02/2024 4:40 PM EDT Narrative CLINISYNC - 11/02/2024 5:46 PM EDT [facility] , us Floyd Da DO CLINISYNC Final Result Performing Organization Address City/[facility] Co de Phone Number [facility] * ALL RUBELLA IGG AB (11/02/2024 4:30 PM EDT) [facility] RUBELLA ANTIBODIES, IGG 6.40 Immune >0.99 index TB Comment: Non-immune <0.90 Equivocal 0.90 - 0.99 Immune >0.99 Performed at: [facility] [id number] Supervisor Abattoir: Edvin Hale PhD, Phone: [phone] 11/02/2024 4:30 PM EDT 11/02/2024 4:40 PM EDT Narrative CLINISYNC - 11/04/2024 2:07 PM EDT us Floyd Da DO CLINISYNC Final Result Performing Organization Address City/[facility]/ZIP Co de Phone Number [facility] TB * (ABNORMAL) ALL CBC WITH AUTO DIFF (11/02/2024 4:30 PM EDT) [facility] TB WBC 9.8 4.0 - 11.0 [...] us Floyd Da DO CLINISYNC Final Result Performing Organization Address [facility]/ZIP Co de Phone Number [facility] * (ABNORMAL) [facility] DRUG SCREEN RAPID (URINE) [...] Narrative CLINISYNC - 11/02/2024 4:57 PM EDT Floyd Da DO CLINISYNC Final Result [facility] TB * CANNABINOID CONF, MS, UR (11/02/2024 4:22 PM EDT) CANNABINOID Positive [facility] CARBOXY THC CONF, MS, UR 23 [facility] Comment: ng/ml Cutoff=10 11/02/2024 4:22 PM EDT 11/02/2024 4:57 PM EDT Narrative CLINISYNC - 11/26/2024 3:32 PM EDT us Floyd [...] II, MD, PHD at 26-Oct-2024 06:25:58 AM [facility] Procedure Note Tomas Parsons MD - [...] signed by TOMAS PARSONS II, MD, PHD [id number] 06:25:58 AM [facility] us Floyd Roberson DO [facility] OB US PROCEDURES Final Resul t * [facility] PREG QUANT HCG (10/03/2024 4:15 PM EDT) HCG QUANTITATIVE 3,453 mIU/mL [facility] Comment: 5-50 0.2-1 WEEK 50-500 1-2 WEEKS 100-5,000 2-3 WEEKS 500-10,000 3-4 WEEKS 1,000-50,000 4-5 WEEKS 10,000-100,000 5-6 WEEKS 15,000-200,000 6-8 WEEKS 10,000-100,000 2-3 MONTHS 10/03/2024 4:15 PM EDT 10/03/2024 4:16 PM EDT Narrative CLINISYNC - 10/03/2024 5:38 PM EDT us Floyd Da DO CLINISYNC Final Result [facility] * THINPREP TIS AND HPV MRNA E6/E7 (71188) (05/27/2021) CLINICAL INFORMATION: None given [facility] [...] computer assisted technology. [facility] POULTRY HELPER: SEE COMMENT [facility] Comment: SARAH SWEENEY(ASCP) CT screening location: [place] [address]. COMMENT SEE COMMENT [facility] [...] Detected [facility] Comment: Methodology: Jig And Fixture Builder Apprentice-Mediated Amplification This assay detects E6/E7 viral messenger RNA (mRNA) from 14 high-risk HPV types (16,18,31,33,35,39,45,51,52,56,58,59,66,68). The analytical performance characteristics of this assay have been determined by [employer]. The modifications have not been cleared or approved by the FDA. This assay has been validated pursuant to the CLIA regulations and is used for clinical purposes. For additional information, please refer to http://education.[employer]casting.Supernova/faq/VYI410z7 (This link if provided for information/ educational purposes only.) 05/27/2021 us Desire Ackerman MD [facility] Final Result [facility] from Last 3 Months or Most Recently Relevant to Health Maintenance Insurance [employer] Care Teams Malt Specifications Control Assistant Relationship Specialty Start Date End Date Desire Ackerman MD [address] [place] [address] PCP - General Family Medicine 11/23/22
--- OUTSIDE RECORDS SUMMARY | 2025-01-02 14:36 | XMS_ITS | Encounter Summary ---
Author Organization [facility] Address [address] [facility] [place] [address] Care Team Providers Care Car Tracer Name Role Phone Desire Ackerman MD Primary Care Provider [phone] Encounter Details Date Type Department Care Team (Late st Contact Info) Description 12/25/2024 External Result Encounter [facility] External Department Unsolicited Stephanie Suresh PA [address] [place] [address] Dr [place]ley [place] [id number] Social History Tobacco Use Types Packs/Day Years [...] often do you attend chur ch or lutheran services? More than 4 times per year 11/18/2024 Do you belong to any clubs o r organizations such as mandaeism groups, unions, fraternal or athletic groups, or [...] Recorded Patient Health Questionnaire-2 Score 0 11/19/2024 [facility] - Occupational Stress Questionnaire Answer Date [...] any time in the past 12 m [facility], were you homeless or living in a retirement (including now)? No 11/18/2024 Estimated Date of [...] EDT Ancillary Procedure [facility] [address] [facility] [place] [address] 01/22/2025 10:40 AM EDT Routine [facility] [address] [place] [address] [place] [address] Floyd Roberson, DO [address] [place] [address] [place] [address] documented as of this encounter Procedures Procedure Name Priority Date/Time Associated Diagnosis Comments RECURRENT VAGINITIS (HTRX) Routine 12/25/2024 3:02 PM EDT documented in this encounter Results * RECURRENT VAGINITIS (HTRX) (12/25/2024 3:02 PM EDT) ATOPOBIUM VAGINAE 0.000 19.961 - 24.689 ppm 12/27/2024 6:38 AM EDT [facility] ATOPOBIUM VAGINAE Not Detected 19.961 - 24.689 ppm 12/27/2024 6:38 AM EDT [facility] [place] BVAB 2,3 (BACTERIAL VAGINOSIS ASSOCIATED BACTERIA 2, 3); MOBILUNCUS SPP 0.000 19.961 - 24.689 ppm 12/27/2024 6:38 AM EDT [facility] [place] BVAB 2,3 (BACTERIAL VAGINOSIS ASSOCIATED BACTERIA 2, 3); MOBILUNCUS SPP Not Detected 19.961 - 24.689 ppm 12/27/2024 6:38 AM EDT [facility] [place] GIAN ALBICANS, PARAPSILOSIS, TROPICALIS 0.000 19.961 - 30.770 ppm 12/27/2024 6:38 AM EDT [facility] GIAN ALBICANS, PARAPSILOSIS, TROPICALIS Not Detected 19.961 - 30.770 ppm 12/27/2024 6:38 AM EDT [facility] GIAN GLABRATA 0.000 23.000 - 32.138 ppm 12/27/2024 6:38 AM EDT [facility] [place] GIAN GLABRATA Not Detected 23.000 - 32.138 ppm 12/27/2024 6:38 AM EDT [facility] GIAN KRUSEI 0.000 23.000 - 32.271 ppm 12/27/2024 6:38 AM EDT [facility] GIAN KRUSEI Not Detected 23.000 - 32.271 ppm 12/27/2024 6:38 AM EDT [facility] CHLAMYDIA TRACHOMATIS 0.000 23.000 - 31.467 ppm 12/27/2024 6:38 AM EDT [facility] CHLAMYDIA TRACHOMATIS Not Detected 23.000 - 31.467 ppm 12/27/2024 6:38 AM EDT [facility] GARDNERELLA VAGINALIS 0.000 19.961 - 24.689 ppm 12/27/2024 6:38 AM EDT [facility] GARDNERELLA VAGINALIS Not Detected 19.961 - 24.689 ppm 12/27/2024 6:38 AM EDT [facility] MEGASPHAERA (TYPES 1, 2) 0.000 19.961 - 24.689 ppm 12/27/2024 6:38 AM EDT [facility] MEGASPHAERA (TYPES 1, 2) Not Detected 19.961 - 24.689 ppm 12/27/2024 6:38 AM EDT [facility] NEISSERIA GONORRHOEAE 0.000 23.000 - 32.117 ppm 12/27/2024 6:38 AM EDT [facility] NEISSERIA GONORRHOEAE Not Detected 23.000 - 32.117 ppm 12/27/2024 6:38 AM EDT [facility] TRICHOMONAS VAGINALIS 0.000 23.000 - 32.119 ppm 12/27/2024 6:38 AM EDT [facility] TRICHOMONAS VAGINALIS Not Detected 23.000 - 32.119 ppm 12/27/2024 6:38 AM EDT [facility] MYCOPLASMA GENITALIUM 0.000 19.961 - 24.689 ppm 12/27/2024 6:38 AM EDT [facility] MYCOPLASMA GENITALIUM Not Detected 19.961 - 24.689 ppm 12/27/2024 6:38 AM EDT [facility] Tissue 12/25/2024 3:02 PM EDT 12/27/2024 2:29 AM EDT us Stephanie TERRELL LAB BLOOD ORDERABLES Final Resul t [facility] [address] [place] [address] documented in this encounter Visit Diagnoses Not on filedocumented in this encounter Care Teams Car Tracer Relationship Specialty Start Date End Date Desire Ackerman MD [address] [place] [address] PCP - General Family Medicine 11/23/22 documented as of this encounter
--- OUTSIDE RECORDS SUMMARY | 2025-01-02 14:36 | XMS_ITS | Encounter Summary ---
Author Organization [facility] Address [address] [place] [address] Care Team Providers Care Mva Reactor Operator Name Role Phone Desire Ackerman MD Primary Care Provider [phone] Encounter Details Date Type Department Care Team (Late st Contact Info) Description 12/25/2024 Clinisync Result Encounter [facility] External Department Unsolicited Stephanie Suresh PA [address] [place] [address] Dr Bentley [place] [phone] Social History Tobacco Use Types Packs/Day Years [...] often do you attend chur ch or rastafari services? More than 4 times per year 11/18/2024 Do you belong to any clubs o r organizations such as judaism groups, unions, fraternal or athletic groups, or [...] Recorded Patient Health Questionnaire-2 Score 0 11/19/2024 [facility] - Occupational Stress Questionnaire Answer Date [...] any time in the past [address] [facility], were you homeless or living in a senior living (including now)? No 11/18/2024 Estimated Date of [...] EDT Ancillary Procedure [facility] [address] [facility] [place] [phone] 01/22/2025 10:40 AM EDT Routine [facility] OB [address] [facility] [place] [address] Floyd Roberson, DO [address] [facility] [address] [place], [place] [id number] documented as of this encounter Procedures Procedure Name Priority Date/Time Associated Diagnosis Comments IGP,APTIMA HPV,AGE GDLN Routine 12/25/2024 1:29 PM EDT documented in this encounter Results * IGP,APTIMA HPV,AGE GDLN (12/25/2024 1:29 PM EDT) AGE GDLN ACOG TESTING Note . [facility] Comment: TESTS RESULT FLAG UNITS REF RANGE LAB Clinician Provided Cytology Information Source.............Cervix No. of containers..01 ThinPrep Vial Age Judy ROSADO Lorri... FLAG LEGEND: L-Low Normal,H-High Normal,LL-Alert Low,HH-Alert High <-Panic Low,>-Panic High,A-Abnormal,AA-Critical Abnormal Performed at: 01 =[facility] [place] [address] Madhavi Anderson MD, IGP, APTIMA HPV, RFX 16[birth year]18[birth year] Note . [facility] Comment: TESTS RESULT FLAG UNITS REF RANGE LAB DIAGNOSIS: 02 NEGATIVE FOR INTRAEPITHELIAL LESION OR MALIGNANCY. Specimen adequacy: 02 Satisfactory for evaluation. No endocervical component is identified. Performed by: 02 Leonel Be, Spray Rig Operator (ASCP) . 02 Note: Note 02 The Pap [...] <-Panic Low,>-Panic High,A-Abnormal,AA-Critical Abnormal Performed at: [address] [address] Madhavi Anderson MD, HPV APTIMA Negative Negative TB Comment: This nucleic acid amplification test detects fourteen high- risk HPV types (16,18,31,33,35,39,45,51,52,56,58,59,66,68) without differentiation. Performed at: =[facility] [id number] Camp Dining Room Attendant: Madhavi Anderson MD, Phone: [phone] Performed at: [address] [id number] Camp Dining Room Attendant: Madhavi Anderson MD, Phone: [phone] 12/25/2024 1:29 PM EDT 12/25/2024 8:16 PM EDT Narrative [facility] - 12/28/2024 2:09 PM EDT SPATULA-ALONE CERVIX us Stephanie TERRELL LAB BLOOD ORDERABLES Final Resul t [facility] documented in this encounter Visit Diagnoses Not on filedocumented in this encounter Care Teams Mva Reactor Operator Relationship Specialty Start Date End Date Desire Ackerman MD [address] [place] [address] PCP - General Family Medicine 11/23/22 documented as of this encounter
[2025-01-04 01:07] LABS: AFP Value 39.5 ng/mL (.); Gest. Age on Collection Date 17.7 weeks (.); Gestat. Age Based On Ultrasound (.); Insulin Dep Diabetes No (.); Maternal Age At EDD 36.8 yr (.); OSBR Risk 1 IN 10000 (.); Results Report (.)
== END 2025-01-02 14:33 | disposition home or self-care (01) ==
LOC: LAB 14:33
PROVIDERS: PCP Student in an Organized Health Care Education/Training Program; Visit Provider Physician Assistant
DX: Z34.92 Encounter for supervision of normal pregnancy, unspecified, second trimester (principal)
CPT/HCPCS: 36415; 82105

== ENCOUNTER 2025-02-27 07:14 | Outpatient (OUT) | payer OTHER, SELFPAY ==
--- OUTSIDE RECORDS SUMMARY | 2025-02-19 13:40 | XMS_ITS | Encounter Summary ---
Author Organization [facility] Address [address] [place] [address] Care Team Providers Care Trailer Technician Name Role Phone Desire Ackerman MD Primary Care Provider [phone] Reason for Visit * Reason Comments Routine Visit Encounter Details Date Type Department Care Team (Latest Contact Info) Description 02/19/2025 1:40 PM EDT Routine [facility] [address] [facility] [phone] Floyd Roberson DO [address] [facility] [place] [address] Second trimester ([facility]); 24 weeks gestation of ([facility]); Diabetes mellitus screening; Antepartum multigravida of advanced maternal age ([facility]); H/O miscarriage, currently ([facility]) Social History Tobacco Use Types Packs/Day Years [...] How often do you attend chur or worship services? More than 4 times per year 11/18/2024 Do you belong to any clubs o r organizations such as jewish groups, unions, fraternal or athletic groups, or [...] Date Recorded Patient Health Questionnaire-2 Score 0 02/18/2025 [facility] - Occupational [...] any time in the past 12 m [facility], were you homeless or living in a [...] Sign Reading Time Taken Comments Blood Pressure 110/72 02/19/2025 1:44 PM EDT Pulse - - Temperature - - Respiratory Rate - - Oxygen Saturation - - Inhaled Oxygen Concentration - - Weight 85.3 kg (188 lb) 02/19/2025 1:44 PM EDT Height - - Body Mass Index 32.27 11/19/2024 1:56 PM EDT documented in this encounter Progress Notes * Mirna Paulson LPN - 02/19/2025 1:40 PM EDT Reason for Appointment: Patient ID: Mayra Tran is a 34 y.o. female who presents for Routine Visit Patient presents today for Return OB appointment. [...] SYSTEMS Review of Systems: Review of Systems Constitutional: Negative. HENT: Negative. Eyes: Negative. Respiratory: Negative. Cardiovascular: Negative. Gastrointestinal: Negative. Genitourinary: Negative. Musculoskeletal: Negative. Skin: Negative. Neurological: Negative. All other systems reviewed and are negative. Hematological: Negative. Endocrine: Negative. Allergic/Immunologic: Negative. OBJECTIVE Objective: Physical Exam Constitutional: Appearance: Normal appearance. She is well-developed. Cardiovascular: Rate and Rhythm: Normal rate and [...] nursing note reviewed. Exam conducted with a atomic spectroscopist present. Vitals: Estimated body mass index is 32.27 kg/m?? as calculated from the following: Height as of 11/19/24: 5' 4 . Weight as of this encounter: 188 lb. BP: 110/72 Patient's last menstrual period was 08/22/2024. ASSESSMENT & PLAN ICD-10-CM 1. Second trimester ([facility]) Z34.92 POCT urinalysis dipstick manually resulted 2. 24 weeks gestation of ([facility]) Z3A.24 POCT urinalysis dipstick manually resulted 3. Diabetes mellitus screening Z13.1 CBC Glucose tolerance, 1 hour CBC Glucose tolerance, 1 hour 4. Antepartum multigravida of advanced maternal age ([facility]) O09.529 5. H/O miscarriage, currently ([facility]) O09.299 Patient presents today for a routine obstetrics appointment. Patient is currently 24w4d with a Estimated Date of Delivery: 06/07/25. Pt given glucose and cbc orders to have obtained. Pt to return in 4 weeks for scheduled OB appt. Documented by Mirna Paulson LPN on behalf of: Floyd Roberson DO documented in this encounter Plan of Treatment Upcoming Encounters Date Type Department Care Team (Late st Contact Info) Description 03/19/2025 2:10 PM EDT Routine [facility] [address] [facility] [phone] Stephanie Suresh PA [address] [facility] [place] [address] Scheduled Orders Name Type Priority Associated Diagnoses Orde r Schedule CBC Lab Routine Diabetes mellitus screening Expected: 02/19/2025 (Approximate), Expires: 02/19/2026 Glucose tolerance, 1 hour Lab Routine Diabetes mellitus screening Expected: 02/19/2025 (Approximate), Expires: 02/19/2026 documented as of this encounter Procedures Procedure Name Priority Date/Time Associated Diagnosis Comments POCT URINALYSIS DIPSTICK Routine 02/19/2025 1:53 PM EDT Second trimester ([facility]) 24 weeks gestation of ([facility]) documented in this encounter Results * (ABNORMAL) POCT urinalysis dipstick manually resulted (02/19/2025 1:53 PM EDT) Color, UA Yellow Clarity, UA Clear Glucose, UA Positive Negative - 2000(110) ++++ mg/dL Bilirubin, UA Negative Negative - 4(70) +++ mg/dL Ketones, UA Negative Negative - 160(16) ++++ mg/dL Spec Grav, UA 1.030 1 - 1.03 Blood, UA Positive Negative - 50 Abdi/mcL pH, UA 6.0 5 - 9 Protein, UA Negative Negative - 2000(20) ++++ mg/dL Urobilinogen, UA 1.0 0.2 - 12 mg/dL Leukocytes, UA Negative Negative - 500+++ Nile/mcL Nitrite, UA Negative Negative - Positive Urine 02/19/2025 1:53 PM EDT Floyd Da DO POINT OF CARE TEST ENTER/EDIT OR DERABLES Final Result documented in this encounter Visit Diagnoses Diagnosis Second trimester ([facility]) state, incidental 24 weeks gestation of ([facility]) Diabetes mellitus screening Screening for diabetes mellitus Antepartum multigravida of advanced maternal age ([facility]) H/O miscarriage, currently ([facility]) documented in this encounter Care Teams Trailer Technician Relationship Specialty Start Date End Date Desire Ackerman MD [address] [place] [address] PCP - General Family Medicine 11/23/22 documented as of this encounter
--- OUTSIDE RECORDS SUMMARY | 2025-02-27 07:17 | XMS_ITS | Encounter Summary ---
Author Organization [facility] Address [address] [place] [address] Care Team Providers Care Licensed Nursing Assistant Name Role Phone Desire Ackerman MD Primary Care Provider [phone] Encounter Details Date Type Department Care Team (Late st Contact Info) Description 01/21/2025 Abstract [facility] [address] [place] [phone] Stephanie Hedrick LPN [address] [place] [address] Social History Tobacco Use Types Packs/Day Years [...] often do you attend chur ch or orthodox services? More than 4 times per year 11/18/2024 Do you belong to any clubs o r organizations such as rastafari groups, unions, fraternal or athletic groups, or [...] Date Recorded Patient Health Questionnaire-2 Score 0 01/17/2025 [facility] Occupat ional Health - [...] time in the past 12 m [facility], were you homeless or living in a custodial (including now)? No 11/18/2024 Estimated Date of [...] PM EDT Routine [facility] [address] [place] [address] Stephanie Suresh PA [address] [facility] [place] [address] documented as of this encounter Visit Diagnoses Not on filedocumented in this encounter Care Teams Licensed Nursing Assistant Relationship Specialty Start Date End Date Desire Ackerman MD [address] [place] [address] PCP - General Family Medicine 11/23/22 documented as of this encounter
--- OUTSIDE RECORDS SUMMARY | 2025-02-27 07:17 | XMS_ITS | Encounter Summary ---
Author Organization [facility] Healthcare Address [address] [place] [address] Care Team Providers Care Commercial Banker Name Role Phone Desire Ackerman MD Primary Care Provider [phone] Encounter Details Date Type Department Care Team (Late st Contact Info) Description 02/18/2025 Patient Outreach [facility] [address] [place] [phone] Stephanie Hedrick, ANDREA [address] [place] [address] Social History Tobacco Use Types Packs/Day Years [...] often do you attend chur ch or spiritism services? More than 4 times per year 11/18/2024 Do you belong to any clubs o r organizations such as quaker groups, unions, fraternal or athletic groups, or [...] Recorded Patient Health Questionnaire-2 Score 0 02/18/2025 [facility] of Occupat ional Health - Occupational [...] any time in the past 12 m [facility], were you homeless or living in a [...] pleasure in doing things Not at all 02/18/2025 10:10 AM EDT Stephanie Hedrick LP N Feeling down, depressed, or hopeless Not at all 02/18/2025 10:10 AM EDT Stephanie Hedrick LP N Patient Health Questionnaire -2 Score 0 02/18/2025 10:10 AM EDT Stephanie Hedrick LP N documented as of this encounter Progress Notes * Stephanie Hedrick LPN - 02/18/2025 10:08 AM EDT Monthly Outreach. Call to pt. Pt reports she feels baby moving frequently. Appetite and sleep are adequate but sleep is interrupted. Bowels are regular. Pt denies any depression or difficulty coping at this time. Pt report she has had episodes of dizziness and increased heart rate recently. Encouraged pt to be sure she is well hydrated. Pt sees OB tomorrow 02/19/25. documented in this encounter Plan of Treatment Upcoming Encounters Date Type Department Care Team (Late st Contact Info) Description 03/19/2025 2:10 PM EDT Routine [facility] [address] [facility] [place] [address] Stephanie Suresh PA [address] [facility] [place] [address] documented as of this encounter Visit Diagnoses Not on filedocumented in this encounter Care Teams Commercial Banker Relationship Specialty Start Date End Date Desire Ackerman MD [address] [place] [address] PCP - General Family Medicine 11/23/22 documented as of this encounter
--- OUTSIDE RECORDS SUMMARY | 2025-02-27 07:17 | XMS_ITS | Clinical Summary ---
Author Organization [facility] Address [address] [place] [address] Care Team Providers Care Parking Technician Name Role Phone Desire Ackerman MD Primary Care Provider [phone] Allergies Active Allergy Reactions Criticality Noted Date [...] Encounters Date Type Department Care Team Description 02/19/2025 1:40 [place] [address] Floyd Roberson DO Second trimester ([facility]); 24 weeks gestation of ([facility]); Diabetes mellitus screening; Antepartum multigravida of advanced maternal age ([facility]); H/O miscarriage, currently ([facility]) 02/19/2025 [place] [address] Floyd Roberson DO 02/18/2025 Patient Outreach [facility] [address] [place] [address] Stephanie Hedrick LPN 01/22/2025 10:40 AM EDT Routine [facility] [place] [address] Floyd Roberson DO Second trimester ([facility]); 20 weeks gestation of ([facility]) 01/22/2025 9:30 AM EDT Ancillary Procedure [facility] [place] [address] 01/21/2025 Abstract [facility] [address] [place] [address] Stephanie Hedrick LPN 01/17/2025 Patient Outreach [place] [id number] [place] [address] Stephanie Hedrick LPN 01/02/2025 Clinisync Result Encounter NOMS External Department Unsolicited Stephanie Suresh PA 12/25/2024 1:30 PM EDT Routine [place] [address] Stephanie Suresh PA 16 weeks gestation of ([facility]); Second trimester ([facility]); Screening, , for anatomic survey ([facility]); Well woman exam with routine gynecological exam; Exposure to STD; Vaginal discharge 12/25/2024 Clinisync Result Encounter [facility] External Department Unsolicited Stephanie Suresh PA 12/25/2024 External Result Encounter NOMS External Department Unsolicited Stephanie Suresh PA 12/25/2024 Bamboo flowsheet NOM[facility] Vides [facility] [place] [address] Stephanie Suresh PA from Last 3 Months Social History Tobacco [...] week 11/18/2024 How often do you attend [facility] or voodoo services? More than 4 times per year 11/18/2024 Do you belong to any clubs o r organizations such as baptist groups, unions, fraternal or athletic groups, or [...] Recorded Patient Health Questionnaire-2 Score 0 02/18/2025 [facility] of Occupat ional Health - Occupational Stress [...] any time in the past 12 m [facility], were you homeless or living in a correction (including now)? No 11/18/2024 Estimated Date of Delivery Comme nts Yes 06/07/2025 Based on Ultraso und Sex and Gender Information Value Date Recorded Sex Assigned at Not on file Legal Sex Female 9:28 PM EDT Gender Identity Not on file Sexual Orientation Not on file Last Filed Vital Signs Vital Sign Reading Time Taken Comments Blood Pressure 110/72 02/19/2025 1:44 PM EDT Pulse 82 11/19/2024 1:56 PM EDT Temperature 36.9 C (98.4 F) 11/19/2024 1:56 PM EDT Respiratory Rate - - Oxygen Saturation 97% 11/19/2024 1:56 PM EDT Inhaled Oxygen Concentration - - Weight 85.3 kg (188 lb) 02/19/2025 1:44 PM EDT Height 162.6 cm (5' 4 ) 11/19/2024 1:56 PM EDT Body Mass Index 32.27 11/19/2024 1:56 PM EDT Plan of Treatment Upcoming Encounters Date Type Department Care Team (Late st Contact Info) Description 03/19/2025 2:10 PM EDT Routine [facility] [address] [address] Stephanie Suresh PA [address] [place] [address] Health Maintenance Due Date Last Done Comments Pap Smear 2009 Influenza Vaccine (#1) 2025 Cervical Cancer Screening 05/27/2026 HPV/Cotest 05/27/2026 05/27/2021 Procedures Procedure Name Priority Date/Time Associated Diagnosis Comments POCT URINALYSIS DIPSTICK Routine 02/19/2025 1:53 PM EDT Second trimester ([facility]) 24 weeks gestation of ([facility]) POCT URINALYSIS DIPSTICK Routine 01/22/2025 11:02 AM EDT Second trimester ([facility]) 20 weeks gestation of ([facility]) OB 14+ WEEKS ANATOMY SCAN Routine 01/22/2025 10:36 AM EDT Screening, , for anatomic survey ([facility]) AFP, SERUM, OPEN SPINA BIFIDA Routine 01/02/2025 2:43 PM EDT RECURRENT VAGINITIS (HTRX) Routine 12/25/2024 3:02 PM EDT POCT URINALYSIS DIPSTICK Routine 12/25/2024 1:48 PM EDT 16 weeks gestation of ([facility]) Second trimester ([facility]) IGP,APTIMA HPV,AGE GDLN Routine 12/25/2024 1:29 PM EDT THINPREP TIS AND HPV MRNA E6/E7 (23354) Routine 05/27/2021 from Last 3 Months or Most Recently Relevant to Health Maintenance Results * (ABNORMAL) POCT urinalysis dipstick manually resulted (02/19/2025 1:53 PM EDT) Only the most recent of3 resultswithin the time period is included. Color, [...] - Positive Urine 02/19/2025 1:53 PM EDT us Floyd Da DO POINT OF CARE TEST ENTER/EDIT OR DERABLES Final Result * US OB 14+ weeks anatomy scan (01/22/2025 10:36 AM EDT) Anatomical Region Laterality Modality Body Ultrasound 01/22/2025 2:15 PM EDT Impressions 01/22/2025 2:46 PM EDT Single, live intrauterine , current sonographic age of 20 weeks and 1 day, with an estimated date of delivery of June 10, 2025. * Estimated Weight (g) by Percentile is based upon an accurate estimated age based on last menstrual period. TRANSCRIBED BY: ELECTRONICALLY SIGNED BY: Osito Ott MD Narrative 01/22/2025 2:46 PM EDT FINDINGS: A single, live intrauterine is present with normal cardiac rate of 142 beats per minute. Normal activity and amniotic fluid volume. Amniotic fluid index is cm. Morphology is grossly normal. The cervix is long and closed, 4 cm. The placenta is anterior, not associated with the cervical os. The current sonographic age is 20 weeks and 1 day, based on the following measurements: BPD 4.5 cm (19 weeks, 5 days) Head Circumference 16.7 cm (19 weeks, 2 days) Abdominal Circumference 15.6 cm (20 weeks, 5 days) Femur Length 3.5 cm (20 weeks, 6 days) Presentation Cephalic Placenta Anterior Weight (g) by Percentile 47.6 % * These measurements result in an estimated date of delivery of June 10, 2025. The current estimated weight is 365 grams (0 pounds, 13 ounces). Procedure Note Osito Ott MD - 01/22/2025 FINDINGS: A single, live intrauterine is present with normal cardiacrate of 142 beats per minute. Normal activity and amniotic fluidvolume. Amniotic fluid index is cm. Morphology is grossly normal. Thecervix is long and closed, 4 cm. The placenta is anterior, not associatedwith the cervical os. The current sonographic age is 20 weeks and 1 day,based on the following measurements: BPD 4.5 cm (19 weeks, 5 days) Head Circumference 16.7 cm (19 weeks, 2 days) Abdominal Circumference 15.6 cm (20 weeks, 5 days) Femur Length 3.5 cm (20 weeks, 6 days) Presentation Cephalic Placenta Anterior Weight (g) by Percentile 47.6 % * These measurements result in an estimated date of delivery of May. The current estimated weight is 365 grams (0 pounds, 13ounces). IMPRESSION: Single, live intrauterine , current sonographic age of 20 weeksand 1 day, with an estimated date of delivery of June 10, 2025. * Estimated Weight (g) by Percentile is based upon an accurateestimated age based on last menstrual period. TRANSCRIBED BY: ELECTRONICALLY SIGNED BY: Osito Ott MD us Stephanie TERRELL IMG OB US PROCEDURES Final Resul t * AFP, SERUM, OPEN SPINA BIFIDA (01/02/2025 2:43 PM EDT) [facility] RESULTS Report . [facility] TEST RESULTS: *Screen Negative* . [facility] GEST. AGE ON COLLECTION DATE 17.7 . weeks [facility] GESTAT. AGE BASED ON Ultrasound . [facility] Comment: 16.6 on 12/25/2024 Recalculations are not recommended when gestational dating by LMP and ultrasound are within 10 days. [age] [facility] RACE . [facility] WEIGHT 175 . lbs [facility] INSULIN DEP DIABETES No . [facility] MULTIPLE GESTATION No . [facility] AFP VALUE 39.5 . ng/mL [facility] AFP MOM 1.05 . [facility] [place] [address] . [facility] INTERPRETATION Comment . [facility] Comment: Interpretation: Screen Negative This result is screen negative for OSB. The AFP MoM calculated is based on the gestational age provided. MS-AFP can identify up to 80% of open neural tube defects. Closed neural tube defects and some open defects may not be detected by this test. This test does not screen for Down Syndrome or Trisomy 18. If screening for Down Syndrome or Trisomy 18 is desired, contact [facility] to discuss available options. The [employer] recommends amniocentesis be offered to women age 35 and older. COMMENT: Comment . [facility] Comment: Debbie Mann, Ph.D., [facility] Director References: Available Upon Request. Multiples Of Median Cutoffs For AFP Elevations Pat[place] 2.5 Black 2.8 IDD 2.0 Twins 4.5 Abbreviation Definitions IDD - Insulin Dep Diabetes OSBR - Open Spina Bifida Risk For further inquiries contact [facility] at [phone]. This test was developed and its performance characteristics determined by [employer]. It has not been cleared or approved by the Food and Drug Administration. Performed at: [facility] [address] [facility], [place], [place] [id number] Buffer Copper: Gilda Villegas [facility] ED, Phone: [phone] 01/02/2025 2:43 PM EDT 01/02/2025 2:44 PM EDT Narrative [facility] - 01/04/2025 1:07 AM EDT N N ULTRASOUND [id number] 4 16 N 1 Y 175 N N N N N White/ us Stephanie TERRELL LAB BLOOD ORDERABLES Final Resul t [facility] * RECURRENT VAGINITIS (HTRX) (12/25/2024 3:02 PM EDT) [facility] ATOPOBIUM VAGINAE 0.000 19.961 - 24.689 ppm 12/27/2024 6:38 AM EDT [facility] ATOPOBIUM VAGINAE Not Detected 19.961 - 24.689 ppm 12/27/2024 6:38 AM EDT [facility] BVAB 2,3 (BACTERIAL VAGINOSIS ASSOCIATED BACTERIA 2, 3); MOBILUNCUS SPP 0.000 19.961 - 24.689 ppm 12/27/2024 6:38 AM EDT [facility] BVAB 2,3 (BACTERIAL VAGINOSIS ASSOCIATED BACTERIA 2, 3); MOBILUNCUS SPP Not Detected 19.961 - 24.689 ppm 12/27/2024 6:38 AM EDT [facility] GIAN ALBICANS, PARAPSILOSIS, TROPICALIS 0.000 19.961 - 30.770 ppm 12/27/2024 6:38 AM EDT [facility] GIAN ALBICANS, PARAPSILOSIS, TROPICALIS Not Detected 19.961 - 30.770 ppm 12/27/2024 6:38 AM EDT [facility] GIAN GLABRATA 0.000 23.000 - 32.138 ppm 12/27/2024 6:38 AM EDT [facility] GIAN GLABRATA Not Detected 23.000 - 32.138 ppm 12/27/2024 6:38 AM EDT [facility] GIAN KRUSEI 0.000 23.000 - 32.271 ppm 12/27/2024 6:38 AM EDT [facility] GIAN KRUSEI Not Detected 23.000 - 32.271 ppm 12/27/2024 6:38 AM EDT [facility] CHLAMYDIA TRACHOMATIS 0.000 23.000 - 31.467 ppm 12/27/2024 6:38 AM EDT [facility] CHLAMYDIA TRACHOMATIS Not Detected 23.000 - 31.467 ppm 12/27/2024 6:38 AM EDT [facility] GARDNERELLA VAGINALIS 0.000 19.961 - 24.689 ppm 12/27/2024 6:38 AM EDT [facility] GARDNERELLA VAGINALIS Not Detected 19.961 - 24.689 ppm 12/27/2024 6:38 AM EDT [facility] MEGASPHAERA (TYPES 1, 2) 0.000 19.961 - 24.689 ppm 12/27/2024 6:38 AM EDT [facility] MEGASPHAERA (TYPES 1, 2) Not Detected 19.961 - 24.689 ppm 12/27/2024 6:38 AM EDT [facility] NEISSERIA GONORRHOEAE 0.000 23.000 - 32.117 ppm 12/27/2024 6:38 AM EDT [facility] NEISSERIA GONORRHOEAE Not Detected 23.000 - 32.117 ppm 12/27/2024 6:38 AM EDT [facility] TRICHOMONAS VAGINALIS 0.000 23.000 - 32.119 ppm 12/27/2024 6:38 AM EDT [facility] TRICHOMONAS VAGINALIS Not Detected 23.000 - 32.119 ppm 12/27/2024 6:38 AM EDT [facility] MYCOPLASMA GENITALIUM 0.000 19.961 - 24.689 ppm 12/27/2024 6:38 AM EDT [facility] MYCOPLASMA GENITALIUM Not Detected 19.961 - 24.689 ppm 12/27/2024 6:38 AM EDT [facility] Tissue 12/25/2024 3:02 PM EDT 12/27/2024 2:29 AM EDT us Stephanie TERRELL LAB BLOOD ORDERABLES Final Resul t [facility] [address] [address] * IGP,APTIMA HPV,AGE GDLN (12/25/2024 1:29 PM EDT) Pathologist [facility] ABEL ACOG TESTING Note . [facility] Comment: TESTS RESULT FLAG UNITS REF RANGE LAB Clinician Provided Cytology Information Source.............Cervix No. of containers..01 ThinPrep Vial Naty ROSADO Lorri... FLAG LEGEND: L-Low Normal,H-High Normal,LL-Alert Low,HH-Alert High <-Panic Low,>-Panic High,A-Abnormal,AA-Critical Abnormal Performed at: 01 =G [address] [address] Madhavi Anderson MD, IGP, APTIMA HPV, RFX 16/18,45 Note . [facility] Comment: TESTS RESULT FLAG UNITS REF RANGE LAB DIAGNOSIS: 02 NEGATIVE FOR INTRAEPITHELIAL LESION OR MALIGNANCY. Specimen adequacy: 02 Satisfactory for evaluation. No endocervical component is identified. Performed by: 02 Leonel Be What Job Titles Mean (ASCP) . 02 Note: Note 02 The [...] <-Panic Low,>-Panic High,A-Abnormal,AA-Critical Abnormal Performed at: [address] [address] Madhavi Anderson MD, HPV APTIMA Negative Negative TB Comment: This nucleic acid amplification test detects fourteen high- risk HPV types (16,18,31,33,35,39,45,51,52,56,58,59,66,68) without differentiation. Performed at: =[address] [id number] Buffer Copper: Madhavi Anderson MD, Phone: [phone] Performed at: [address] [id number] Buffer Copper: Madhavi Anderson MD, Phone: [phone] 12/25/2024 1:29 PM EDT 12/25/2024 8:16 PM EDT Narrative [facility] - 12/28/2024 2:09 PM EDT SPATULA-ALONE CERVIX Stephanie Suresh PA LAB BLOOD ORDERABLES Final Resul t [facility] * THINPREP TIS AND HPV MRNA E6/E7 (44881) (05/27/2021) CLINICAL INFORMATION: None given [facility] [...] computer assisted technology. [facility] MOLD MAKER: SEE COMMENT [facility] Comment: SARAH SWEENEY(ASCP) CT screening location: [place] [address]. COMMENT SEE COMMENT [facility] Comment: EXPLANATORY NOTE: The Pap [...] Detected [facility] Comment: Methodology: Industrial Methods Consultant-Mediated Amplification This assay detects E6/E7 viral messenger RNA (mRNA) from 14 high-risk HPV types (16,18,31,33,35,39,45,51,52,56,58,59,66,68). The analytical performance characteristics of this assay have been determined by [employer]. The modifications have not been cleared or approved by the FDA. This assay has been validated pursuant to the CLIA regulations and is used for clinical purposes. For additional information, please refer to http://education.[employer]/faq/UXZ829b2 (This link if provided for information/ educational purposes only.) 05/27/2021 us Desire Ackerman MD [facility] Final Result [facility] from Last 3 Months or Most Recently Relevant to Health Maintenance Insurance [employer] Care Teams Parking Technician Relationship Specialty Start Date End Date Desire Ackerman MD [address] [place] [address] PCP - General Family Medicine 11/23/22
--- OUTSIDE RECORDS SUMMARY | 2025-02-27 07:17 | XMS_ITS | Encounter Summary ---
Author Organization [facility] Address [address] [place] [address] Care Team Providers Care Transfer Professor Name Role Phone Desire Ackerman MD Primary Care Provider [phone] Encounter Details Date Type Department Care Team (Late st Contact Info) Description 02/19/2025 Bamboo flowsheet [facility]BG[facility] [address] [place] [address] Floyd Roberson, [address] [facility] Neto Cao, [id number] Social History Tobacco Use Types Packs/Day Years [...] often do you attend chur ch or latter day services? More than 4 times per year 11/18/2024 Do you belong to any clubs o r organizations such as rastafarian groups, unions, fraternal or athletic groups, or [...] Recorded Patient Health Questionnaire-2 Score 0 02/18/2025 [facility] of Occupat ional Health - Occupational Stress [...] any time in the past 12 m [facility], were you homeless or living in a fci (including now)? No 11/18/2024 Estimated Date of [...] PM EDT Routine [facility] PANTOJA [address] [place] [address] Stephanie Suresh PA [address] [place], [id number] documented as of this encounter Visit Diagnoses Not on filedocumented in this encounter Care Teams Transfer Professor Relationship Specialty Start Date End Date Desire Ackerman MD [address] [place] [address] PCP - General Family Medicine 11/23/22 documented as of this encounter
--- OUTSIDE RECORDS SUMMARY | 2025-02-27 07:17 | XMS_ITS | Encounter Summary ---
Author Organization [facility] Address [address] [place] [address] Care Team Providers Care Charcoal Unloader Name Role Phone Desire Ackerman MD Primary Care Provider [phone] Encounter Details Date Type Department Care Team (Late st Contact Info) Description 11/19/2024 Abstract [facility] [address] [place] [address] Floyd Roberson DO [address] [facility] [address] Neto Cao, [facility] Social History Tobacco Use Types Packs/Day [...] often do you attend chur ch or taoism services? More than 4 times per year 11/18/2024 Do you belong to any clubs o r organizations such as mormonism groups, unions, fraternal or athletic groups, or [...] Recorded Patient Health Questionnaire-2 Score 0 11/19/2024 [facility] of Occupat ional [facility] - Occupational Stress Questionnaire Answer Date Recorded [...] any time in the past 12 m [facility], were you homeless or living [...] 03/19/2025 2:10 PM EDT Routine [facility] OBDEEPA [address] [place] [address] Stephanie Suresh PA [address] [place] [address] documented as of this encounter Visit Diagnoses Not on filedocumented in this encounter Care Teams Charcoal Unloader Relationship Specialty Start Date End Date Desire Ackerman MD [address] [place] [address] PCP - General Family Medicine 11/23/22 documented as of this encounter
--- OUTSIDE RECORDS SUMMARY | 2025-02-27 07:17 | XMS_ITS ---
Author Organization [facility] Address [address] [place] [address] Care Team Providers Care Orthopedic Dentist Name Role Phone Desire Ackerman MD Primary Care Provider [phone] [facility]) Status:Enrolled (Active) Start date:01/16/2025 Enrollment date:01/17/2025 Enrollment reason:Identified by Health Plan Case Team Name Relationship Phone Stephanie Hedrick LPN(Responsible Staff) Licensed [facility] Nurse [phone] Continued Care and Services Coordination
[2025-02-27 08:36] LABS: Hematocrit 34.0 % (36.0-48.0); Hemoglobin 11.8 g/dL (12.0-16.0); Immature Granulocytes Abs Auto 0.09 10^3/uL (0.00-0.03); Immature Granulocytes Pct Auto 0.9 % (0.0-0.5); Lymphocytes Absolute Auto 1.8 10^3/uL (1.2-3.8); Mean Corpuscular HGB Conc 34.7 g/dL (29.9-35.2); Mean Corpuscular Hemoglobin 31.2 pg (26.7-34.0); Mean Corpuscular Volume 89.9 fL (81.0-99.0); Platelet Count 243 10^3/uL (150-450); Red Blood Count 3.78 10^6/uL (4.20-5.40); White Blood Count 10.2 10^3/uL (4.0-11.0)
[2025-02-27 08:58] LABS: Glucose 1 Hour 136 mg/dL (<130)
== END 2025-02-27 07:15 | disposition home or self-care (01) ==
LOC: LAB 07:15
PROVIDERS: PCP Student in an Organized Health Care Education/Training Program; Visit Provider Obstetrics & Gynecology
DX: Z13.1 Encounter for screening for diabetes mellitus (principal)
CPT/HCPCS: 36415; 82950; 85025

== ENCOUNTER 2025-03-06 09:03 | Observation (INO) | payer OTHER, SELFPAY ==
--- OUTSIDE RECORDS SUMMARY | 2025-03-06 09:07 | XMS_ITS | Encounter Summary ---
Author Organization [facility] Address [address] [place] [address] Care Team Providers Care Patternmaker Hand Name Role Phone Desire Ackerman MD Primary Care Provider [phone] Encounter Details Date Type Department Care Team (Late st Contact Info) Description 11/19/2024 Abstract [facility] [address] [place] [address] Floyd Roberson DO [address] [facility] [address] [facility] [address] Neto Cao, [facility]11 Social History Tobacco Use Types Packs/Day Years [...] often do you attend chur ch or jehovah's witness services? More than 4 times per year 11/18/2024 Do you belong to any clubs o r organizations such as episcopalian groups, unions, fraternal or athletic groups, or [...] Recorded Patient Health Questionnaire-2 Score 0 11/19/2024 [facility] of Occupat ional [facility] - Occupational Stress Questionnaire Answer Date [...] any time in the past 12 m [facility], were you homeless or [...] PM EDT Routine [facility] OBDEEPA [address] [place] [address] Stephanie Suresh PA [address] [facility] [address] [place] [address] documented as of this encounter Visit Diagnoses Not on filedocumented in this encounter Care Teams Patternmaker Hand Relationship Specialty Start Date End Date Desire Ackerman MD [address] [place] [address] PCP - General Family Medicine 11/23/22 documented as of this encounter
--- OUTSIDE RECORDS SUMMARY | 2025-03-06 09:07 | XMS_ITS ---
Author Organization [facility] Address [address] [place] [address] Care Team Providers Care Story Writer Name Role Phone Desire Ackerman MD Primary Care Provider [phone] [facility]) Status:Enrolled (Active) Start date:01/16/2025 Enrollment date:01/17/2025 Enrollment reason:Identified by Health Plan Case Team Name Relationship Phone Stephanie Hedrick LPN(Responsible Staff) Licensed [facility] Nurse [phone] Continued Care and Services Coordination
--- OUTSIDE RECORDS SUMMARY | 2025-03-06 09:07 | XMS_ITS | Encounter Summary ---
Author Organization [facility] Address [address] [facility] [place] [address] Care Team Providers Care Dealer Sales Manager Name Role Phone Desire Ackerman MD Primary Care Provider [phone] Encounter Details Date Type Department Care Team (Late st Contact Info) Description 11/20/2024 [facility] [place] [facility] [address] [place] [address] Desire Ackerman MD [address] [place] [address] POCT Urinalysis dipstick, URINARY TRACT INFECTION (HTRX) Social History Tobacco Use Types Packs/Day Years [...] How often do you attend chur or yazidi services? More than 4 times per year 11/18/2024 Do you belong to any clubs o r organizations such as cheondoism groups, unions, fraternal or athletic groups, or [...] Recorded Patient Health Questionnaire-2 Score 0 11/19/2024 [facility] of Occupat ional Health - Occupational [...] any time in the past 12 m [facility], were you homeless or living in [...] 03/19/2025 2:10 PM EDT Routine [facility]BGY[facility] [address] [place] [phone] Stephanie Suresh PA [address] [place] [address] documented as of this encounter Visit Diagnoses Diagnosis Urinary frequency- Primary documented in this encounter Care Teams Dealer Sales Manager Relationship Specialty Start Date End Date Desire Ackerman MD [address] [place] [address] PCP - General Family Medicine 11/23/22 documented as of this encounter
--- OUTSIDE RECORDS SUMMARY | 2025-03-06 09:07 | XMS_ITS | Encounter Summary ---
Author Organization [facility] Healthcare Address [address] [place] [address] Care Team Providers Care Drafter Tool Design Name Role Phone Desire Ackerman MD Primary Care Provider [phone] Encounter Details Date Type Department Care Team (Late st Contact Info) Description 01/21/2025 Abstract [facility] POPULATION HEALTH [address] [place] [phone] Stephanie Hedrick LPN [address] [place] [address] Social History Tobacco Use Types Packs/Day Years [...] often do you attend chur ch or amish services? More than 4 times per year 11/18/2024 Do you belong to any clubs o r organizations such as sabianism groups, unions, fraternal or athletic groups, or [...] Recorded Patient Health Questionnaire-2 Score 0 01/17/2025 [facility] of Occupat ional Health - Occupational [...] any time in the past 12 m [facility], were you homeless or living in a nursing home (including now)? No 11/18/2024 Estimated Date of [...] PM EDT Routine [facility] [address] [place] [address] Stephanie Suresh PA [address] [place] [address] documented as of this encounter Visit Diagnoses Not on filedocumented in this encounter Care Teams Drafter Tool Design Relationship Specialty Start Date End Date Desire Ackerman MD [address] [place] [address] PCP - General Family Medicine 11/23/22 documented as of this encounter
--- OUTSIDE RECORDS SUMMARY | 2025-03-06 09:07 | XMS_ITS | Clinical Summary ---
Author Organization [facility] Address [address] [place] [address] Care Team Providers Care Therapy Assistant Name Role Phone Desire Ackerman MD Primary Care Provider [phone] Allergies Active Allergy Reactions Criticality Noted Date [...] Encounters Date Type Department Care Team Description 02/27/2025 Clinisync Result Encounter [facility] External Department Unsolicited Floyd Roberson DO 02/19/2025 1:40 [place] [phone] Floyd Roberson DO Second trimester ([facility]); 24 weeks gestation of ([facility]); Diabetes mellitus screening; Antepartum multigravida of advanced maternal age ([facility]); H/O miscarriage, currently ([facility]) 02/19/2025 [place] [address] Floyd Roberson DO 02/18/2025 Patient Outreach [place] [address] [place] [address] Stephanie Hedrick LPN 01/22/2025 10:40 AM EDT Routine [facility] [address] [facility] [place] [address] Floyd Roberson DO Second trimester ([facility]); 20 weeks gestation of ([facility]) 01/22/2025 9:30 AM EDT Ancillary Procedure [facility] [place] [address] 01/21/2025 Abstract [place] [address] [place] [address] Stephanie Hedrick LPN 01/17/2025 Patient Outreach [place] [address] [place] [address] Stephanie Hedrick LPN 01/02/2025 Clinisync Result Encounter NOMS External Department Unsolicited Stephanie Suresh PA 12/25/2024 1:30 PM EDT Routine [facility] [address] [facility] [place] [address] Stephanie Suresh PA 16 weeks gestation of ([facility]); Second trimester ([facility]); Screening, , for anatomic survey ([facility]); Well woman exam with routine gynecological exam; Exposure to STD; Vaginal discharge 12/25/2024 Clinisync Result Encounter NOMS External Department Unsolicited Stephanie Suresh PA 12/25/2024 External Result Encounter NOMS External Department Unsolicited Stephanie Suresh PA 12/25/2024 Bamboo flowsheet [facility] [address] [facility] [place] [address] Stephanie Suresh PA from Last 3 Months [...] How often do you attend chur or latter-day services? More than 4 times per year 11/18/2024 Do you belong to any clubs o r organizations such as taoist groups, unions, fraternal or athletic groups, or [...] Recorded Patient Health Questionnaire-2 Score 0 02/18/2025 [facility] of Occupat ional Health - Occupational Stress [...] any time in the past 12 m [facility], were you homeless or living in a prison (including now)? No 11/18/2024 Estimated Date of [...] PM EDT Routine [facility] [address] [address] Stephanie Suresh PA [address] [facility] [facility] [place] [address] Health Maintenance Due Date Last Done Comments Pap Smear 2009 Influenza Vaccine (#1) 2025 Cervical Cancer Screening 05/27/2026 HPV/Cotest 05/27/2026 05/27/2021 Procedures Procedure Name Priority Date/Time Associated Diagnosis Comments GLUCOSE 1 HOUR Routine 02/27/2025 8:23 AM EDT ALL CBC WITH AUTO DIFF Routine 02/27/2025 8:23 AM EDT POCT URINALYSIS DIPSTICK Routine 02/19/2025 1:53 PM EDT Second trimester ([facility]) 24 weeks gestation of ([facility]) POCT URINALYSIS DIPSTICK Routine 01/22/2025 11:02 AM EDT Second trimester ([facility]) 20 weeks gestation of ([facility]) US OB 14+ WEEKS ANATOMY SCAN Routine 01/22/2025 10:36 AM EDT Screening, , for anatomic survey ([facility]) AFP, SERUM, OPEN SPINA BIFIDA Routine 01/02/2025 2:43 PM EDT RECURRENT VAGINITIS (HTRX) Routine 12/25/2024 3:02 PM EDT POCT URINALYSIS DIPSTICK Routine 12/25/2024 1:48 PM EDT 16 weeks gestation of ([facility]) Second trimester ([facility]) IGP,APTIMA HPV,AGE GDLN Routine 12/25/2024 1:29 PM EDT THINPREP TIS AND HPV MRNA E6/E7 (95851) Routine 05/27/2021 from Last 3 Months or Most Recently Relevant to Health Maintenance Results * (ABNORMAL) GLUCOSE 1 HOUR (02/27/2025 8:23 AM EDT) GLUCOSE 1 HOUR 136(H) <130 mg/dL TBH 02/27/2025 8:23 AM EDT 02/27/2025 8:24 AM EDT Narrative CLINISYNC - 02/27/2025 9:00 AM EDT us Floyd Da DO LAB BLOOD ORDERABLES Final Resul t [facility] * (ABNORMAL) ALL CBC WITH AUTO DIFF (02/27/2025 8:23 AM EDT) TBH WBC 10.2 4.0 - 11.0 10 3/uL TBH TBH RBC 3.78(L) 4.20 - 5.40 10 6/uL TBH TBH HGB 11.8(L) 12.0 - 16.0 g/dL TBH TBH HCT 34.0(L) 36.0 - 48.0 % TBH TBH MCV 89.9 81.0 - 99.0 fL TBH TBH MCH 31.2 26.7 - 34.0 pg TBH TBH MCHC 34.7 29.9 - 35.2 g/dL TBH TBH RDW 13.3 11.0 - 15.0 % TBH TBH PLT 243 150 - 450 10 3/uL TBH TBH MPV 10.3 9.5 - 13.5 fL TBH NEUTROPHILS PERCENT AUTO 76.9(H) 43.0 - 75.0 % TBH LYMPHOCYTES PERCENT AUTO 17.3(L) 20.5 - 60.0 % TBH MONOCYTES PERCENT AUTO 4.5 1.7 - 12.0 % TBH TBH EO % 0.2(L) 0.9 - 7.0 % TBH BASOPHILS PERCENT AUTO 0.2 0.2 - 2.0 % TBH IMMATURE GRANULOCYTES PCT AUTO 0.9(H) 0.0 - 0.5 % TBH NEUTROPHILS ABSOLUTE AUTO 7.9(H) 1.4 - 6.5 10 3/uL TBH LYMPHOCYTES ABSOLUTE AUTO 1.8 1.2 - 3.8 10 3/uL TBH MONOCYTES ABSOLUTE AUTO 0.5 0.3 - 0.8 10 3/uL TBH TBH EO # 0.0 0.0 - 0.7 10 3/uL TBH BASOPHILS ABSOLUTE AUTO 0.0 0.0 - 0.1 10 3/uL TBH IMMATURE GRANULOCYTES ABS AUTO 0.09(H) 0.00 - 0.03 10 3/uL TBH 02/27/2025 8:23 AM EDT 02/27/2025 8:24 AM EDT Narrative CLINISYNC - 02/27/2025 8:39 AM EDT us Floyd Quiroso DO CLINISYNC Final Result [facility] * (ABNORMAL) POCT urinalysis dipstick manually resulted (02/19/2025 1:53 PM EDT) Only the most recent of3 resultswithin the time period is included. Color, UA Yellow Clarity, UA Clear Glucose, UA Positive Negative - 1999(110) ++++ mg/dL Bilirubin, UA Negative Negative - [...] - Positive Urine 02/19/2025 1:53 PM EDT [facility] DO POINT OF CARE TEST ENTER/EDIT OR [...] OPEN SPINA BIFIDA (01/02/2025 2:43 PM EDT) RESULTS Report . [facility] TEST RESULTS: *Screen Negative* . [facility] GEST. AGE ON COLLECTION DATE 17.7 . weeks [facility] GESTAT. AGE BASED ON Ultrasound . [facility] Comment: 16.6 on 12/25/2024 Recalculations are not recommended when gestational dating by LMP and ultrasound are within 10 days. [age] [facility] RACE . [facility] WEIGHT 175 . lbs [facility] INSULIN DEP DIABETES No . [facility] MULTIPLE GESTATION No . [facility] AFP VALUE 39.5 . ng/mL [facility] AFP MOM 1.05 . [facility] [place] [address] [place] [address] . [facility] INTERPRETATION Comment . [facility] Comment: Interpretation: Screen Negative This result is [...] Customer Services to discuss available options. The [employer] recommends amniocentesis be offered to women age 35 and older. COMMENT: Comment . [facility] Comment: Debbie Mann, Ph.D., [facility] Director References: Available Upon Request. Multiples Of Median Cutoffs For AFP Elevations [place] 2.5 Black 2.8 IDD 2.0 Twins 4.5 Abbreviation Definitions IDD - Insulin Dep Diabetes OSBR - Open Spina Bifida Risk For further inquiries contact [employer] [facility] at [phone]. This test was developed and its performance characteristics determined by [employer]. It has not been cleared or approved by the Food and Drug Administration. Performed at: [facility] [address] [id number] Stockroom Keeper: Gilda Villegas [facility], Phone: [phone] 01/02/2025 2:43 PM EDT 01/02/2025 2:44 PM EDT Narrative NILDAISYNC - 01/04/2025 1:07 AM EDT N N ULTRASOUND [id number] 4 16 N 1 Y 175 N N N N N White/ Stephanie TERRELL LAB BLOOD ORDERABLES Final Resul t [facility] * RECURRENT VAGINITIS (HTRX) (12/25/2024 3:02 PM EDT) ATOPOBIUM VAGINAE 0.000 19.961 - 24.689 ppm 12/27/2024 6:38 AM EDT [facility] ATOPOBIUM VAGINAE Not Detected 19.961 - 24.689 ppm 12/27/2024 6:38 AM EDT [facility] BVAB 2,3 (BACTERIAL VAGINOSIS ASSOCIATED BACTERIA 2, 3); MOBILUNCUS SPP 0.000 19.961 - 24.689 ppm 12/27/2024 6:38 AM EDT [facility] BVAB 2,3 (BACTERIAL VAGINOSIS ASSOCIATED BACTERIA 2, 3); MOBILUNCUS SPP Not Detected 19.961 - 24.689 ppm 12/27/2024 6:38 AM EDT [facility] [place] GIAN ALBICANS, PARAPSILOSIS, TROPICALIS 0.000 19.961 - 30.770 ppm 12/27/2024 6:38 AM EDT [facility] GIAN ALBICANS, PARAPSILOSIS, TROPICALIS Not Detected 19.961 - 30.770 ppm 12/27/2024 6:38 AM EDT [facility] GIAN GLABRATA 0.000 23.000 - 32.138 ppm 12/27/2024 6:38 AM EDT [facility] GIAN GLABRATA Not Detected 23.000 - 32.138 ppm 12/27/2024 6:38 AM EDT [facility] GIAN KRUSEI 0.000 23.000 - 32.271 ppm 12/27/2024 6:38 AM EDT [facility] GIAN KRUSEI Not Detected 23.000 - 32.271 ppm 12/27/2024 6:38 AM EDT [facility] CHLAMYDIA TRACHOMATIS 0.000 23.000 - 31.467 ppm 12/27/2024 6:38 AM EDT [facility] CHLAMYDIA TRACHOMATIS Not Detected 23.000 - 31.467 ppm 12/27/2024 6:38 AM EDT [facility] GARDNERELLA VAGINALIS 0.000 19.961 - 24.689 ppm 12/27/2024 6:38 AM EDT [facility] GARDNERELLA VAGINALIS Not Detected 19.961 - 24.689 ppm 12/27/2024 6:38 AM EDT [facility] MEGASPHAERA (TYPES 1, 2) 0.000 19.961 - 24.689 ppm 12/27/2024 6:38 AM EDT [facility] MEGASPHAERA (TYPES 1, 2) Not Detected 19.961 - 24.689 ppm 12/27/2024 6:38 AM EDT [facility] NEISSERIA GONORRHOEAE 0.000 23.000 - 32.117 ppm 12/27/2024 6:38 AM EDT [facility] NEISSERIA GONORRHOEAE Not Detected 23.000 - 32.117 ppm 12/27/2024 6:38 AM EDT [facility] TRICHOMONAS VAGINALIS 0.000 23.000 - 32.119 ppm 12/27/2024 6:38 AM EDT [facility] TRICHOMONAS VAGINALIS Not Detected 23.000 - 32.119 ppm 12/27/2024 6:38 AM EDT [facility] MYCOPLASMA GENITALIUM 0.000 19.961 - 24.689 ppm 12/27/2024 6:38 AM EDT [facility] MYCOPLASMA GENITALIUM Not Detected 19.961 - 24.689 ppm 12/27/2024 6:38 AM EDT [facility] Tissue 12/25/2024 3:02 PM EDT 12/27/2024 2:29 AM EDT us Stephanie TERRELL LAB BLOOD ORDERABLES Final Resul t [facility] [address] [place] [address] * IGP,APTIMA HPV,AGE GDLN (12/25/2024 1:29 PM EDT) Pathologist [facility] AGE GDLN ACOG TESTING Note . [facility] Comment: TESTS RESULT FLAG UNITS REF RANGE LAB Clinician Provided Cytology Information Source.............Cervix No. of containers..01 ThinPrep Vial Age Algo ACOG Lorri... 30- FLAG LEGEND: L-Low Normal,H-High Normal,LL-Alert Low,HH-Alert High <-Panic Low,>-Panic High,A-Abnormal,AA-Critical Abnormal Performed at: 01 =[facility] [place] [address] Madhavi Anderson MD, IGP, APTIMA HPV, RFX 16/18,45 Note . [facility] Comment: TESTS RESULT FLAG UNITS REF RANGE LAB DIAGNOSIS: 02 NEGATIVE FOR INTRAEPITHELIAL LESION OR MALIGNANCY. Specimen adequacy: 02 Satisfactory for evaluation. No endocervical component is identified. Performed by: 02 Leonel Be, Jury Consultant [facility] . 02 Note: Note 02 The Pap [...] <-Panic Low,>-Panic High,A-Abnormal,AA-Critical Abnormal Performed at: [address] [address] Madhavi Anderson MD, HPV APTIMA Negative Negative [facility] Comment: This nucleic acid amplification test detects fourteen high- risk HPV types (16,18,31,33,35,39,45,51,52,56,58,59,66,68) without differentiation. Performed at: =[address] [id number] Stockroom Keeper: Madhavi Anderson MD, Phone: [phone] Performed at: [address] [id number] Stockroom Keeper: Madhavi Anderson MD, Phone: [phone] 12/25/2024 1:29 PM EDT 12/25/2024 8:16 PM EDT Narrative CLINISYNC - 12/28/2024 2:09 PM EDT SPATULA-ALONE CERVIX Stephanie TERRELL LAB BLOOD ORDERABLES Final [facility]ul t [facility] * THINPREP TIS AND HPV MRNA E6/E7 ([id number]) (05/27/2021) CLINICAL INFORMATION: None given [facility] [...] computer assisted technology. [facility] SKETCH ARTIST: SEE COMMENT [facility] Comment: BGG, SCT(ASCP) CT screening location: [place] [address]. COMMENT SEE COMMENT CASEY TR[facility] EXTERNAL LAB Comment: EXPLANATORY NOTE: The Pap [...] HPV MRNA E6/E7 Not Detected Not Detected [facility] Comment: Methodology: Network Technology Instructor-Mediated Amplification This assay detects E6/E7 viral messenger RNA (mRNA) from 14 high-risk HPV types (16,18,31,33,35,39,45,51,52,56,58,59,66,68). The analytical performance characteristics of this assay have been determined by [employer]. The modifications have not been cleared or approved by the FDA. This assay has been validated pursuant to the CLIA regulations and is used for clinical purposes. For additional information, please refer to http://education.[employer]/faq/FGW429f3 (This link if provided for information/ educational purposes only.) 05/27/2021 us Desire Ackerman MD [facility] Final Result [facility] from Last 3 Months or Most Recently Relevant to Health Maintenance Insurance [employer] Care Teams Therapy Assistant Relationship Specialty Start Date End Date Desire Ackerman MD [address] [place] [address] PCP - General Family Medicine 11/23/22
--- OUTSIDE RECORDS SUMMARY | 2025-03-06 09:07 | XMS_ITS | Encounter Summary ---
Author Organization [facility] Address [address] [place] [address] Care Team Providers Care Golf Cart Repairer Name Role Phone Desire Ackerman MD Primary Care Provider [phone] Encounter Details Date Type Department Care Team (Late st Contact Info) Description 02/27/2025 Clinisync Result Encounter NOMS External Department Unsolicited Floyd Roberson, DO [address] [facility] [address] [place] [id number] Social History Tobacco Use Types Packs/Day Years [...] often do you attend chur ch or rastafarian services? More than 4 times per year 11/18/2024 Do you belong to any clubs o r organizations such as congregation groups, unions, fraternal or athletic groups, or [...] Recorded Patient Health Questionnaire-2 Score 0 02/18/2025 [facility] - Occupational Stress Questionnaire Answer Date [...] any time in the past [address] [facility], were you homeless or living in a [...] PM EDT Routine [facility] [address] [address] Stephanie Suresh PA [address] [place] [address] documented as of this encounter Procedures Procedure Name Priority Date/Time Associated Diagnosis Comments GLUCOSE 1 HOUR Routine 02/27/2025 8:23 AM EDT ALL CBC WITH AUTO DIFF Routine 02/27/2025 8:23 AM EDT documented in this encounter Results * (ABNORMAL) GLUCOSE 1 HOUR (02/27/2025 8:23 AM EDT) GLUCOSE 1 HOUR 136(H) <130 mg/dL TB[facility] 02/27/2025 8:23 AM EDT 02/27/2025 8:24 AM EDT Narrative CLINISYNC - 02/27/2025 9:00 AM EDT us Floyd Da DO LAB BLOOD ORDERABLES Final Resul t [facility] TB * (ABNORMAL) ALL CBC WITH [...] - 02/27/2025 8:39 AM EDT us Floyd Roberson DO CLINISYNC Final Result [facility] documented in this encounter Visit Diagnoses Not on filedocumented in this encounter Care Teams Golf Cart Repairer Relationship Specialty Start Date End Date Desire Ackerman MD [address] [place] [address] PCP - General Family Medicine 11/23/22 documented as of this encounter
[2025-03-06 09:28] VITALS: BP 111/62; PULSE 101
== END 2025-03-06 10:10 | disposition home or self-care (01) ==
PROVIDERS: Admitting Provider Obstetrics & Gynecology; PCP Student in an Organized Health Care Education/Training Program; Visit Provider Obstetrics & Gynecology
DX: O36.8120 Decreased fetal movements, second trimester, not applicable or unspecified (principal); Z3A.26 26 weeks gestation of pregnancy
CPT/HCPCS: 59025; G0378; G0379

== ENCOUNTER 2025-04-16 14:03 | Outpatient (OUT) | payer OTHER, SELFPAY ==
--- OUTSIDE RECORDS SUMMARY | 2025-04-02 13:50 | XMS_ITS | Encounter Summary ---
Author Organization [facility] Address [address] [place] [address] Care Team Providers Care Production Repairer Name Role Phone Desire Ackerman MD Primary Care Provider [phone] Reason for Visit * Reason Comments Routine Visit Encounter Details Date Type Department Care Team (Late st Contact Info) Description 04/02/2025 1:50 PM EDT Routine [facility] [address] [facility] [place] [phone] Floyd Roberson DO [address] [facility] [place] [address] Third trimester ([facility]); 30 weeks gestation of ([facility]) Social History Tobacco Use Types Packs/Day Years [...] any clubs o r organizations such as advent groups, unions, fraternal or athletic groups, or [...] Recorded Patient Health Questionnaire-2 Score 0 02/18/2025 [facility] - Occupational Stress Questionnaire Answer Date [...] any time in the past 12 m [facility], were you homeless or living in [...] Sign Reading Time Taken Comments Blood Pressure 112/66 04/02/2025 2:22 PM EDT Pulse - - Temperature - - Respiratory Rate - - Oxygen Saturation - - Inhaled Oxygen Concentration - - Weight 90.9 kg (200 lb 6.4 oz) 04/02/2025 2:22 P M EDT Height - - Body Mass Index 34.4 11/19/2024 1:56 PM EDT documented in this encounter Progress Notes * Mirna Paulson LPN - 04/02/2025 1:50 PM EDT Reason for Appointment: Patient ID: [...] nursing note reviewed. Exam conducted with a sandblast carver present. Vitals: Estimated body mass index is 34.4 kg/m?? as calculated from the following: Height as of 11/19/24: 5' 4 . Weight as of this encounter: 200 lb 6.4 oz. BP: 112/66 Patient's last menstrual period was 08/22/2024. ASSESSMENT & PLAN ICD-10-CM 1. Third trimester ([facility]) Z34.93 Urine dip 2. 30 weeks gestation of ([facility]) Z3A.30 Urine dip Return OB: Patient presents today for a routine obstetrics appointment. Patient is currently 30w4d . Patient states she is doing well but has complaints of being tired due to current . Patient has verbalizes frequent movement. labor precautions was discussed/given and patient was instructed to perform kick counts three times a day. Orders Placed This Encounter Procedures Urine dip Follow Up: Patient is to return to office in 2 week for routine OB appointment. Documented by Mirna Paulson LPN on behalf of: Floyd Roberson DO documented in this encounter Plan of Treatment Upcoming Encounters Date Type Department Care Team (Late st Contact Info) Description 04/17/2025 10:50 AM EDT Routine [facility] [address] [place] [address] Mitali Mccall, UTILITY HAND [address] [facility] [place] [address] documented as of this encounter Procedures Procedure Name Priority Date/Time Associated Diagnosis Comments POCT URINALYSIS DIPSTICK Routine 04/02/2025 2:26 PM EDT Third trimester ([facility]) 30 weeks gestation of ([facility]) documented in this encounter Results * (ABNORMAL) Urine dip (04/02/2025 2:26 PM EDT) Color, UA Yellow Clarity, UA Clear Glucose, UA Negative Negative - 2000(110) ++++ mg/dL Bilirubin, UA Negative Negative - 4(70) +++ mg/dL Ketones, UA Negative Negative - 160(16) ++++ mg/dL Spec Grav, UA 1.015 1 - 1.03 Blood, UA Positive Negative - 50 Abdi/mcL pH, UA 6.0 5 - 9 Protein, UA Negative Negative - 2000(20) ++++ mg/dL Urobilinogen, UA 1.0 0.2 - 12 mg/dL Leukocytes, UA Negative Negative - 500+++ Nile/mcL Nitrite, UA Negative Negative - Positive Urine 04/02/2025 2:26 PM EDT Floyd Roberson DO POINT OF CARE TEST ENTER/EDIT OR DERABLES Final Result documented in this encounter Visit Diagnoses Diagnosis Third trimester ([facility]) state, incidental 30 weeks gestation of ([facility]) documented in this encounter Care Teams Production Repairer Relationship Specialty Start Date End Date Desire Ackerman MD [address] [place] [address] PCP - General Family Medicine 11/23/22 documented as of this encounter
--- OUTSIDE RECORDS SUMMARY | 2025-04-16 14:05 | XMS_ITS | Clinical Summary ---
Author Organization [facility] Address [address] [place] [address] Care Team Providers Care Graduate Recruiter Name Role Phone Desire Ackerman MD Primary Care Provider [phone] Allergies Active Allergy Reactions Criticality Noted Date [...] Encounters Date Type Department Care Team Description 04/16/2025 Patient Outreach [facility] [address] [place] [phone] Stephanie Hedrick LPN 04/02/2025 1:50 PM EDT Routine [facility] [address] [place] [address] Floyd Roberson DO Third trimester ([facility]); 30 weeks gestation of ([facility]) 04/02/2025 Bamboo flowsheet [facility] [address] [place] [address] Floyd Roberson DO 03/25/2025 2:00 PM EDT [place] [address] Multigravida of advanced maternal age in third trimester ([facility]) 03/25/2025 Travel 03/19/2025 2:10 [place] [address] Stephanie Suresh PA Multigravida of advanced maternal age in third trimester ([facility]); Third trimester ([facility]); 28 weeks gestation of ([facility]) 03/19/2025 [facility] [address] [place] [address] Stephanie Hedrick LPN 02/27/2025 Clinisync Result Encounter [facility] External Department Unsolicited Floyd Roberson DO 02/19/2025 1:40 [place] [address] Floyd Roberson DO Second trimester ([facility]); 24 weeks gestation of ([facility]); Diabetes mellitus screening; Antepartum multigravida of advanced maternal age ([facility]); H/O miscarriage, currently ([facility]) 02/19/2025 [place] [address] Floyd Roberson DO 02/18/2025 [facility] [address] [place] [address] Stephanie Hedrick LPN 01/22/2025 10:40 [place] [address] Floyd Roberson DO Second trimester ([facility]); 20 weeks gestation of ([facility]) 01/22/2025 9:30 AM EDT Ancillary Procedure [facility] [address] [place] [address] [place] [phone] 01/21/2025 Abstract [facility] [address] [place] [address] Stephanie Hedrick LPN 01/17/2025 Patient Outreach [facility] [address] [place] [address] Stephanie Hedrick LPN from Last 3 Months Social History Tobacco [...] How often do you attend chur or anglican services? More than 4 times per year 11/18/2024 Do you belong to any clubs o r organizations such as yarsani groups, unions, fraternal or athletic groups, or [...] Date Recorded Patient Health Questionnaire-2 Score 0 04/16/2025 [facility] Occupat ional Health - Occupational Stress [...] Pressure 112/66 04/02/2025 2:22 PM EDT Pulse 82 11/19/2024 1:56 PM EDT Temperature 36.9 C (98.4 F) 11/19/2024 1:56 PM EDT Respiratory Rate - - Oxygen Saturation 97% 11/19/2024 1:56 PM EDT Inhaled Oxygen Concentration - - Weight 90.9 kg (200 lb 6.4 oz) 04/02/2025 2:22 P M EDT Height 162.6 cm (5' 4 ) 11/19/2024 1:56 PM EDT Body Mass Index 34.4 11/19/2024 1:56 PM EDT Plan of Treatment Upcoming Encounters Date Type Department Care Team (Late st Contact Info) Description 04/17/2025 10:50 AM EDT Routine [facility] [address] [place] [address] Mitali Mccall, APOORVA [address] [place] [address] Health Maintenance Due Date Last Done Comments Influenza Vaccine (#1) 2025 Cervical Cancer Screening 12/25/2029 HPV/Cotest 12/25/2029 05/27/2021 Pap Smear 12/25/2029 12/25/2024 Procedures Procedure Name Priority Date/Time Associated Diagnosis Comments POCT URINALYSIS DIPSTICK Routine 04/02/2025 2:26 PM EDT Third trimester ([facility]) 30 weeks gestation of ([facility]) US OB FOLLOW UP TRANSABDOMINAL APPROACH Routine 03/25/2025 2:29 PM EDT Multigravida of advanced maternal age in third trimester ([facility]) POCT URINALYSIS DIPSTICK Routine 03/19/2025 2:36 PM EDT Third trimester ([facility]) GLUCOSE 1 HOUR Routine 02/27/2025 8:23 AM EDT ALL CBC WITH AUTO DIFF Routine 8:23 AM EDT POCT URINALYSIS DIPSTICK Routine 02/19/2025 1:53 PM EDT Second trimester ([facility]) 24 weeks gestation of ([facility]) POCT URINALYSIS DIPSTICK Routine 01/22/2025 11:02 AM EDT Second trimester ([facility]) 20 weeks gestation of ([facility]) US OB 14+ WEEKS ANATOMY SCAN Routine 01/22/2025 10:36 AM EDT Screening, , for anatomic survey ([facility]) PAP SMEAR Routine 12/25/2024 12:00 AM EDT THINPREP TIS AND HPV MRNA E6/E7 (72499) Routine 05/27/2021 from Last 3 Months or Most Recently Relevant to Health Maintenance Results * (ABNORMAL) Urine dip (04/02/2025 2:26 PM EDT) Only the most recent of4 resultswithin the time period is included. Color, UA Yellow Clarity, UA Clear Glucose, UA Negative Negative - 1999(110) ++++ mg/dL Bilirubin, UA Negative Negative - 4(70) +++ mg/dL Ketones, UA Negative Negative - 160(16) ++++ mg/dL Spec Grav, UA 1.015 1 - 1.03 Blood, UA Positive Negative - 50 Abdi/mcL pH, UA 6.0 5 - 9 Protein, UA Negative Negative - 1999(20) ++++ mg/dL Urobilinogen, UA 1.0 0.2 - 12 mg/dL Leukocytes, UA Negative Negative - 500+++ Nile/mcL Nitrite, UA Negative Negative - Positive Urine 04/02/2025 2:26 PM EDT Floyd Roberson DO POINT OF CARE TEST ENTER/EDIT OR DERABLES Final Result * US OB follow up transabdominal approach (03/25/2025 2:29 PM EDT) Anatomical Region Laterality Modality Body Ultrasound 03/26/2025 11:1 5 AM EDT Impressions 03/26/2025 12:46 PM EDT Single, live intrauterine , current sonographic age of 29 weeks and 5 days, with an estimated date of delivery of June 05, 2025 (prior MARBELLA June 10, 2025) * Estimated Weight (g) by Percentile is based upon an accurate estimated age based on last menstrual period. TRANSCRIBED BY: ELECTRONICALLY SIGNED BY: Osito Ott MD Narrative 03/26/2025 12:46 PM EDT FINDINGS: Comparison made with prior exam January 22, 2025. A single, live intrauterine is present with normal cardiac rate of 126 beats per minute. Normal activity and amniotic fluid volume. Amniotic fluid index is 17 cm. Morphology is grossly normal. The current sonographic age is 29 weeks and 5 days, based on the following measurements: BPD 7.2 cm (25 weeks, 1 day) Head Circumference 27.0 cm (29 weeks, 3 days) Abdominal Circumference 26.0 cm (30 weeks, 1 day) Femur Length 5.8 cm (30 weeks, 1 day) Presentation Breech Weight (g) by Percentile 58.5 % * (prior 47.6%) These measurements result in an estimated date of delivery of June 05, 2025. The current estimated weight is 1494 grams (3 pounds, 5 ounces). Procedure Note Osito Ott MD - 03/26/2025 FINDINGS: Comparison made with prior exam January 22, 2025. A single, live intrauterine is present with normal cardiacrate of 126 beats per minute. Normal activity and amniotic fluidvolume. Amniotic fluid index is 17 cm. Morphology is grossly normal. Thecurrent sonographic age is 29 weeks and 5 days, based on the followingmeasurements: BPD 7.2 cm (25 weeks, 1 day) Head Circumference 27.0 cm (29 weeks, 3 days) Abdominal Circumference 26.0 cm (30 weeks, 1 day) Femur Length 5.8 cm (30 weeks, 1 day) Presentation Breech Weight (g) by Percentile 58.5 % * (prior 47.6%) These measurements result in an estimated date of delivery of May. The current estimated weight is 1494 grams (3 pounds, 5ounces). IMPRESSION: Single, live intrauterine , current sonographic age of 29 weeksand 5 days, with an estimated date of delivery of June 05, 2025 (priorEDD June 10, 2025) * Estimated Weight (g) by Percentile is based upon an accurateestimated age based on last menstrual period. TRANSCRIBED BY: ELECTRONICALLY SIGNED BY: Osito Ott MD us Stephanie TERRELL IMG OB US PROCEDURES Final Resul t * (ABNORMAL) GLUCOSE 1 HOUR (02/27/2025 8:23 AM EDT) GLUCOSE 1 HOUR 136(H) <130 mg/dL [facility] 02/27/2025 8:23 AM EDT 02/27/2025 8:24 AM EDT Narrative [facility]OS[facility]E - 02/27/2025 9:00 AM EDT us Floyd Roberson DO LAB BLOOD ORDERABLES Final Resul t [facility] * (ABNORMAL) ALL CBC WITH AUTO DIFF [...] - 02/27/2025 8:39 AM EDT us Floyd Da DO [facility]IS[facility]NC Final Result [facility] * US OB 14+ weeks anatomy scan [...] BY: ELECTRONICALLY SIGNED BY: Osito Ott MD Stephanie TERRELL IMG OB US PROCEDURES Final Resul t * Pap Smear (12/25/2024 12:00 AM EDT) Swab Cervical swab / Unknown us Floyd Da DO LAB CYTOLOGY ORDERABLES Final Re sult EXTERNAL LAB * THINPREP TIS AND HPV MRNA E6/E7 ([id number]) (05/27/2021) CLINICAL INFORMATION: None given [facility] [...] has been evaluated with computer assisted technology. [facility] CURRICULUM ADVISORY TEACHER: SEE COMMENT [facility] Comment: SARAH SWEENEY(ASCP) CT screening location: [id number] [place] [address]. COMMENT SEE COMMENT [facility] AC EXTERNAL [...] Detected [facility] Comment: Methodology: Director Business Integration-Mediated Amplification This assay detects E6/E7 viral messenger RNA (mRNA) from 14 high-risk HPV types (16,18,31,33,35,39,45,51,52,56,58,59,66,68). The analytical performance characteristics of this assay have been determined by [employer]. The modifications have not been cleared or approved by the FDA. This assay has been validated pursuant to the CLIA regulations and is used for clinical purposes. For additional information, please refer to http://education.Loftware/faq/APL628n4 (This link if provided for information/ educational purposes only.) 05/27/2021 us Desire Ackerman MD [facility] Final Result [facility] from Last 3 Months or Most Recently Relevant to Health Maintenance Insurance [employer] Care Teams Graduate Recruiter Relationship Specialty Start Date End Date Desire Ackerman MD [address] [place] [address] PCP - General Family Medicine 11/23/22
--- OUTSIDE RECORDS SUMMARY | 2025-04-16 14:05 | XMS_ITS | Encounter Summary ---
Author Organization [facility] Address [address] [place] [address] Care Team Providers Care Applications Architect Name Role Phone Desire Ackerman MD Primary Care Provider [phone] Encounter Details Date Type Department Care Team (Late st Contact Info) Description 04/02/2025 Bamboo flowsheet [facility] [address] [phone] Floyd Roberson, [address] [facility] [place], [facility] Social History Tobacco Use Types Packs/Day Years [...] often do you attend chur ch or cheondoism services? More than 4 times per year [...] Recorded Patient Health Questionnaire-2 Score 0 02/18/2025 [facility] Occupat ional Health - [...] were you homeless or living in a half-way (including now)? No 11/18/2024 Estimated Date of [...] AM EDT Routine [facility] [address] [address] Mitali Mccall, APOORVA [address] [facility] [place] [address] documented as of this encounter Visit Diagnoses Not on filedocumented in this encounter Care Teams Applications Architect Relationship Specialty Start Date End Date Desire Ackerman MD [address] [place] [address] PCP - General Family Medicine 11/23/22 documented as of this encounter
--- OUTSIDE RECORDS SUMMARY | 2025-04-16 14:05 | XMS_ITS | Encounter Summary ---
Author Organization [facility] Address [address] [place] [address] Care Team Providers Care Support Technician Name Role Phone Desire Ackerman MD Primary Care Provider [phone] Encounter Details Date Type Department Care Team (Late st Contact Info) Description 11/19/2024 Abstract [facility] [address] [place] [address] Floyd Roberson DO [address] [place], [facility]11 Social History Tobacco Use Types Packs/Day [...] often do you attend chur ch or congregational services? More than 4 times per year 11/18/2024 Do you belong to any clubs o r organizations such as denominational groups, unions, fraternal or athletic groups, or [...] Recorded Patient Health Questionnaire-2 Score 0 11/19/2024 [facility] Occupat ional [facility] - Occupational Stress Questionnaire Answer Date [...] any time in the past 12 m [facility], were you homeless or living in a intermediate (including now)? No 11/18/2024 Estimated Date of [...] AM EDT Routine [facility] [address] [facility] [address] Mitali Mccall NP [address] [place] [address] documented as of this encounter Visit Diagnoses Not on filedocumented in this encounter Care Teams Support Technician Relationship Specialty Start Date End Date Desire Ackerman MD [address] [place] [address] PCP - General Family Medicine 11/23/22 documented as of this encounter
--- OUTSIDE RECORDS SUMMARY | 2025-04-16 14:05 | XMS_ITS ---
Author Organization [facility] Address [address] [place] [address] Care Team Providers Care Gis Technician Name Role Phone Desire Ackerman MD Primary Care Provider [phone] [facility] ([facility]) Status:Enrolled (Active) Start date:01/16/2025 Enrollment date:01/17/2025 Enrollment reason:Identified by Health Plan Case Team Name Relationship Phone Stephanie Hedrick LPN(Responsible Staff) Licensed [facility] Nurse [phone] Continued Care and Services Coordination
--- OUTSIDE RECORDS SUMMARY | 2025-04-16 14:05 | XMS_ITS | Encounter Summary ---
Author Organization [facility] Address [address] [place] [address] Care Team Providers Care Financial Reporting Consultant Name Role Phone Desire Ackerman MD Primary Care Provider [phone] Encounter Details Date Type Department Care Team (Late st Contact Info) Description 04/16/2025 Patient Outreach [facility] [address] [place] [address] Stephanie Hedrick, ANDREA [address] [place] [address] Social History Tobacco Use Types Packs/Day Years [...] often do you attend chur ch or pentecostalism services? More than 4 times per year 11/18/2024 Do you belong to any clubs o r organizations such as religion groups, unions, fraternal or athletic groups, or [...] Recorded Patient Health Questionnaire-2 Score 0 04/16/2025 [facility] of Occupat ional Health - [...] any time in the past 12 m [facility], were you homeless or living [...] pleasure in doing things Not at all 04/16/2025 10:31 AM EDT Stephanie Hedrick LP N Feeling down, depressed, or hopeless Not at all 04/16/2025 10:31 AM EDT Stephanie Hedrick LP N Patient Health Questionnaire -2 Score 0 04/16/2025 10:31 AM EDT Stephanie Hedrick LP N documented as of this encounter Progress Notes * Stephanie Hedrick LPN - 04/16/2025 10:30 AM EDT Monthly Outreach. Call to pt. Pt reports she feels baby moving frequently. Appetite and sleep are adequate. Bowels are regular. Pt denies any depression or difficulty coping at this time. Pt denies any questions, concerns or needs today. Meds reviewed. Next OB OV 04/17/25. documented in this encounter Plan of Treatment Upcoming Encounters Date Type Department Care Team (Late st Contact Info) Description 04/17/2025 10:50 AM EDT Routine [facility] [address] [place] [address] Mitali Mccall, SHINGLE PACKER [address] [address] documented as of this encounter Visit Diagnoses Not on filedocumented in this encounter Care Teams Financial Reporting Consultant Relationship Specialty Start Date End Date Desire Ackerman MD [address] [place] [address] PCP - General Family Medicine 11/23/22 documented as of this encounter
--- OUTSIDE RECORDS SUMMARY | 2025-04-16 14:05 | XMS_ITS | Encounter Summary ---
Author Organization [facility] Address [address] [place] [address] Care Team Providers Care Sausage Inspector Name Role Phone Desire Ackerman MD Primary Care Provider [phone] Encounter Details Date Type Department Care Team (Late st Contact Info) Description 01/21/2025 Abstract [facility] [address] [place] [phone] Stephanie Hedrick LPN [address] [place] [address] Social History Tobacco Use Types Packs/Day Years [...] often do you attend chur ch or jewish services? More than 4 times per year 11/18/2024 Do you belong to any clubs o r organizations such as yarsanism groups, unions, fraternal or athletic groups, or [...] Recorded Patient Health Questionnaire-2 Score 0 01/17/2025 [facility] of Occupat ional Health - Occupational [...] AM EDT Routine [facility] [address] [place] [address] Mitali Mccall NP [address] [place] [address] documented as of this encounter Visit Diagnoses Not on filedocumented in this encounter Care Teams Sausage Inspector Relationship Specialty Start Date End Date Desire Ackerman MD [address] [place] [address] PCP - General Family Medicine 11/23/22 documented as of this encounter
--- NOTE | 2025-04-16 14:13 | US_ITS ---
[facility] [place] [id number] Patient Name: HELEN SONG MRN: [id number] date: 1990 Sex: F Assigned Patient Location: [facility] Current Patient Location: Accession/Order Number: [id number] Exam Date: 04/16/2025 14:15 Report Date: 04/17/2025 08:53 At the request of: ZAKI DENG Procedure: US OB BPP w non-stress BIOPHYSICAL PROFILE: CLINICAL INFORMATION: High risk COMPARISON: None There is a single live intrauterine gestation in cephalic presentation. The reported gestational age is 37 weeks 1 day. The heart rate measures 124 beats per minute. FINDINGS: TONE: 1 or more episodes of activity extension and flexion of extremity or opening and closing of the hand [Y] 2/2 GROSS BODY MOVEMENTS: 3 or more discrete body or limb movements [Y] 2/2 BREATHING MOVEMENTS: 1 or more episodes of breathing lasting at least 30 seconds [Y] 2/2 OCTAVIO: A single deepest vertical pocket of amniotic fluid greater than 2 cm [Y] 2/2 OCTAVIO: 16.0 cm Total score: 8/8 US/US OB BPP w non-stress IMPRESSION: NORMAL BIOPHYSICAL PROFILE Impression dictated by: Mirna Lorenzo M.D. 04/17/2025 8:53 AM Dictation Location: [place] [address] Electronically authenticated by: [id number] Y Date: 04/17/2025 08:53
[2025-04-16 14:28] VITALS: BP 122/63; PULSE 92
== END 2025-04-16 14:56 | disposition home or self-care (01) ==
LOC: US 14:03 → FBC 14:08
PROVIDERS: PCP Student in an Organized Health Care Education/Training Program; Visit Provider Physician Assistant
DX: O26.893 Other specified pregnancy related conditions, third trimester (principal); O09.523 Supervision of elderly multigravida, third trimester; Z3A.37 37 weeks gestation of pregnancy
CPT/HCPCS: 76818

== ENCOUNTER 2025-04-19 15:06 | Outpatient (OUT) | payer OTHER, SELFPAY ==
[2025-04-19 15:18] VITALS: BP 133/67; PULSE 96
== END 2025-04-19 16:08 | disposition home or self-care (01) ==
LOC: FBCO 15:06 → FBC 15:09
PROVIDERS: PCP Student in an Organized Health Care Education/Training Program; Visit Provider Obstetrics & Gynecology
DX: O26.893 Other specified pregnancy related conditions, third trimester (principal); O09.523 Supervision of elderly multigravida, third trimester
CPT/HCPCS: 59025

== ENCOUNTER 2025-04-23 14:16 | Outpatient (OUT) | payer OTHER, SELFPAY ==
--- NOTE | 2025-04-23 14:19 | US_ITS ---
[address] [address] Patient Name: HELEN SONG MRN: [id number] date: 1990 Sex: F Assigned Patient Location: [facility] Current Patient Location: Accession/Order Number: [id number] Exam Date: 04/23/2025 14:22 Report Date: 04/23/2025 16:03 At the request of: ZAKI DENG Procedure: US OB BPP w non-stress Ultrasound biophysical profile INDICATION: advanced maternal age. COMPARISON: 04/16/2025 FINDINGS/IMPRESSION: Single live intrauterine . Cephalic Position. heart rate 136 bpm. OCTAVIO measures 18.8 cm. Biophysical profile score 8/8. Impression dictated by: Juarez Noonan M.D. 04/23/2025 4:03 PM Dictation Location: [place] [address] Electronically authenticated by: [id number] Y Date: 04/23/2025 16:03
[2025-04-23 14:42] VITALS: BP 115/58; PULSE 97
== END 2025-04-23 15:00 | disposition home or self-care (01) ==
LOC: US 14:16 → FBC 14:18
PROVIDERS: PCP Student in an Organized Health Care Education/Training Program; Visit Provider Physician Assistant
DX: O26.893 Other specified pregnancy related conditions, third trimester (principal); O09.523 Supervision of elderly multigravida, third trimester
CPT/HCPCS: 76818

== ENCOUNTER 2025-04-26 15:04 | Outpatient (OUT) | payer OTHER, SELFPAY ==
[2025-04-26 15:13] VITALS: BP 111/68; PULSE 96
== END 2025-04-26 15:35 | disposition home or self-care (01) ==
LOC: FBCO 15:05 → FBC 15:09
PROVIDERS: PCP Student in an Organized Health Care Education/Training Program; Visit Provider Obstetrics & Gynecology
DX: O09.529 Supervision of elderly multigravida, unspecified trimester (principal)
CPT/HCPCS: 59025

== ENCOUNTER 2025-04-30 14:09 | Outpatient (OUT) | payer OTHER, SELFPAY ==
--- OUTSIDE RECORDS SUMMARY | 2025-04-17 10:50 | XMS_ITS | Encounter Summary ---
Author Organization [facility] Address [address] [place] [address] Care Team Providers Care Show Worker Name Role Phone Desire Ackerman MD Primary Care Provider [phone] Reason for Visit * Reason Comments Routine Visit Encounter Details Date Type Department Care Team (Late st Contact Info) Description 04/17/2025 10:50 AM EDT Routine [facility] [address] [place] [address] Mitali Mccall, APOORVA [address] [address] 32 weeks gestation of ([facility]); Third trimester ([facility]) Social History Tobacco Use Types Packs/Day [...] or ex-partner? No 11/18/2024 Social Connection and Isolation Panel Answer Date Recorded In a typical week, how many times do you talk on the phone with family, friends, or neighbors? Three times a week 11/18/2024 How often do you get togethe r with friends or relatives? Once a week 11/18/2024 How often do you attend chur or evangelical services? More than 4 times per year [...] Recorded Patient Health Questionnaire-2 Score 0 04/16/2025 [facility] - Occupational Stress Questionnaire Answer Date Recorded [...] any time in the past 12 m [facility], were you homeless or living [...] Sign Reading Time Taken Comments Blood Pressure 112/68 04/17/2025 10:23 AM EDT Pulse - - Temperature - - Respiratory Rate - - Oxygen Saturation - - Inhaled Oxygen Concentration - - Weight 90.5 kg (199 lb 9.6 oz) 04/17/2025 10:23 AM EDT Height - - Body Mass Index 34.26 11/19/2024 1:56 PM EDT documented in this encounter Progress Notes * Mitali Mccall NP - 04/17/2025 10:50 AM EDT Reason for Appointment: Patient ID: Mayra [...] History HISTORY PAST MEDICAL HISTORY SOCIAL HISTORY No past medical history on file. Social History Tobacco Use Smoking status: Former [...] nursing note reviewed. Exam conducted with a sales consultant insurance present. Vitals: Estimated body mass index is 34.26 kg/m?? as calculated from the following: Height as of 25: 5' 4 . Weight as of this encounter: 199 lb 9.6 oz. BP: 112/68 Patient's last menstrual period was 08/22/2024. ASSESSMENT & PLAN ICD-10-CM 1. 32 weeks gestation of ([facility]) Z3A.32 POCT urinalysis dipstick manually resulted 2. Third trimester ([facility]) Z34.93 Return OB: Patient presents today for a routine obstetrics appointment. Patient is currently 32w5d . Patient states she is doing well but has complaints of being tired due to current . Patient has verbalizes frequent movement. labor precautions was discussed/given and patient was instructed to perform kick counts three times a day. Orders Placed This Encounter Procedures POCT urinalysis dipstick manually resulted Follow Up: Patient is to return to office in 2 week for routine OB appointment. Documented by Mitali Mccall NP on behalf of: Mitali Mccall NP documented in this encounter Plan of Treatment Upcoming Encounters Date Type Department Care Team (Late st Contact Info) Description 05/14/2025 1:40 PM EDT Routine [facility] [address] [place] [address] Floyd Roberson DO [address] [place], [place] [id number] documented as of this encounter Procedures Procedure Name Priority Date/Time Associated Diagnosis Comments POCT URINALYSIS DIPSTICK Routine 04/17/2025 10:42 AM EDT 32 weeks gestation of ([facility]) documented in this encounter Results * POCT urinalysis dipstick manually resulted (04/17/2025 10:42 AM EDT) Color, UA Yellow Clarity, UA Clear Glucose, UA Negative Negative - 1999(110) ++++ mg/dL Bilirubin, UA Negative Negative - 4(70) +++ mg/dL Ketones, UA Negative Negative - 160(16) ++++ mg/dL Spec Grav, UA 1.015 1 - 1.03 Blood, UA Negative Negative - 50 Abdi/mcL pH, UA 6.0 5 - 9 Protein, UA Negative Negative - 1999(20) ++++ mg/dL Urobilinogen, UA 1.0 0.2 - 12 mg/dL Leukocytes, UA Negative Negative - 500+++ Nile/mcL Nitrite, UA Negative Negative - Positive Urine 04/17/2025 10:4 2 AM EDT Mitali Mccall PROGRAM COORDINATOR FOR [employer]ID[employer] POINT OF CARE TEST ENTER/EDIT ORDERABLES Final Result documented in this encounter Visit Diagnoses Diagnosis 32 weeks gestation of ([facility]) Third trimester ([facility]) state, incidental documented in this encounter Care Teams Show Worker Relationship Specialty Start Date End Date Desire Ackerman MD [address] [place] [address] PCP - General Family Medicine 11/23/22 documented as of this encounter
--- OUTSIDE RECORDS SUMMARY | 2025-04-30 09:50 | XMS_ITS | Encounter Summary ---
Author Organization [facility] Address [address] [facility] [place] [address] Care Team Providers Care Tank Cooper Name Role Phone Desire Ackerman MD Primary Care Provider [phone] Reason for Visit * Reason Comments Routine Visit Encounter Details Date Type Department Care Team (Late st Contact Info) Description 04/30/2025 9:50 AM EDT Routine [facility] [place] [address] [place] [address] Stephanie Suresh PA [address] [place] [address] Third trimester ([facility]); 34 weeks gestation of ([facility]) Social History Tobacco Use Types Packs/Day [...] How often do you attend chur or hinduism services? More than 4 times per year [...] Recorded Patient Health Questionnaire-2 Score 0 04/16/2025 [facility] of Occupat ional Health - Occupational Stress [...] any time in the past 12 m [facility], were you homeless or living in a residential (including now)? No 11/18/2024 Estimated Date of Delivery Comme nts Yes 06/07/2025 Based on Ultraso und Sex and Gender Information Value Date Recorded Sex Assigned at Not on file Legal Sex Female 9:28 PM EDT Gender Identity Not on file Sexual Orientation Not on file documented as of this encounter Last Filed Vital Signs Vital Sign Reading Time Taken Comments Blood Pressure 122/72 04/30/2025 9:58 AM EDT Pulse - - Temperature - - Respiratory Rate - - Oxygen Saturation - - Inhaled Oxygen Concentration - - Weight 93.9 kg (207 lb) 04/30/2025 9:58 AM EDT Height - - Body Mass Index 35.53 11/19/2024 1:56 PM EDT documented in this [...] ASSESSMENT & PLAN ICD-10-CM 1. Third trimester ([facility]) Z34.93 2. 34 weeks gestation of ([facility]) Z3A.34 POCT urinalysis dipstick manually resulted Return [...] PM EDT Routine [facility] [address] [place] [address] Floyd Roberson DO [address] [place] [address] documented as of this encounter Procedures Procedure Name Priority Date/Time Associated Diagnosis Comments POCT URINALYSIS DIPSTICK Routine 04/30/2025 10:04 AM EDT 34 weeks gestation of ([facility]) documented in this encounter Results * (ABNORMAL) POCT urinalysis dipstick manually resulted (04/30/2025 10:04 AM EDT) Color, UA Yellow Clarity, UA Clear Glucose, UA Negative Negative - 2000(110) ++++ mg/dL Bilirubin, UA Negative Negative - 4(70) +++ mg/dL Ketones, UA Negative Negative - 160(16) ++++ mg/dL Spec Grav, UA 1.015 1 - 1.03 Blood, UA Negative Negative - 50 Abdi/mcL pH, UA 6.5 5 - 9 Protein, UA Negative Negative - 2000(20) ++++ mg/dL Urobilinogen, UA 2.0 0.2 - 12 mg/dL Leukocytes, UA Trace Negative - 500+++ Nile/mcL Nitrite, UA Negative Negative - Positive Urine 04/30/2025 10:0 4 AM EDT us Stephanie TERRELL POINT OF CARE TEST ENTER/EDIT OR DERABLES Final Result documented in this encounter Visit Diagnoses Diagnosis Third trimester ([facility]) state, incidental 34 weeks gestation of ([facility]) documented in this encounter Care Teams Tank Cooper Relationship Specialty Start Date End Date Desire Ackerman MD [address] [place] [address] PCP - General Family Medicine 11/23/22 documented as of this encounter
--- NOTE | 2025-04-30 14:11 | US_ITS ---
[address] [address] Patient Name: HELEN SONG MRN: [facility]:[id number] date: 1990 Sex: F Assigned Patient Location: [facility] Current Patient Location: [facility] Accession/Order Number: [id number] Exam Date: 04/30/2025 14:14 Report Date: 04/30/2025 14:51 At the request of: ZAKI DENG Procedure: US OB BPP w non-stress Biophysical profile. Reason for exam: Multigravida of advanced maternal age. COMPARISON: 04/23/2025 TECHNIQUE: Transabdominal imaging of the gravid uterus was obtained. FINDINGS: The naturopathic doctor reports a BPP of 8 out of 8. OCTAVIO is normal at 14.1 cm. heart rate 132 bpm. US/US OB BPP w non-stress IMPRESSION: BPP 8 out of 8. Impression dictated by: Osito Rivas Jr., D.O. 04/30/2025 2:51 PM Dictation [email or web address] Electronically authenticated by: [id number] Y Date: 04/30/2025 14:51
--- OUTSIDE RECORDS SUMMARY | 2025-04-30 14:11 | XMS_ITS | Encounter Summary ---
Author Organization [facility] Address [address] [place] [address] Care Team Providers Care Dental Prosthetist Name Role Phone Desire Ackerman MD Primary Care Provider [phone] Encounter Details Date Type Department Care Team (Late st Contact Info) Description 04/16/2025 Patient Outreach [facility] [address] [place] [phone] Stephanie Hedrick, [place] [address] [place] [address] Social History Tobacco Use Types Packs/Day Years [...] often do you attend chur ch or nondenominational services? More than 4 times per year 11/18/2024 Do you belong to any clubs o r organizations such as alevism groups, unions, fraternal or athletic groups, or [...] Recorded Patient Health Questionnaire-2 Score 0 04/16/2025 [facility] of Occupat ional Health - Occupational [...] any time in the past 12 m [facility], were you homeless or living in a [...] [facility] [address] [place] [address] Floyd Roberson DO [address] [facility] [place] [address] documented as of this encounter Visit Diagnoses Not on filedocumented in this encounter Care Teams Dental Prosthetist Relationship Specialty Start Date End Date Desire Ackerman MD [address] [place] [address] PCP - General Family Medicine 11/23/22 documented as of this encounter
--- OUTSIDE RECORDS SUMMARY | 2025-04-30 14:11 | XMS_ITS | Encounter Summary ---
Author Organization [facility] Address [address] [place] [address] Care Team Providers Care Circulation Analyst Name Role Phone Desire Ackerman MD Primary Care Provider [phone] Encounter Details Date Type Department Care Team (Late st Contact Info) Description 04/23/2025 Clinisync Result Encounter [facility] External Department Unsolicited Stephanie Deng PA [address] [place] [address] [address] [place] [id number] Social History Tobacco Use Types Packs/Day Years [...] often do you attend chur ch or sabianist services? More than 4 times per year [...] Recorded Patient Health Questionnaire-2 Score 0 04/16/2025 [facility] of Occupat ional Health - Occupational [...] PM EDT Routine [facility] [address] [facility] [place] [address] Floyd Roberson, DO [address] [place] [address] documented as of this encounter Procedures Procedure Name Priority Date/Time Associated Diagnosis Comments US OB BPP W NON-STRESS 04/23/2025 4:03 PM EDT documented in this encounter Results * US OB BPP W NON-STRESS (04/23/2025 4:03 PM EDT) Anatomical Region Laterality Modality Other 04/23/2025 4:03 PM EDT Narrative 04/23/2025 4:05 PM EDT [facility] [address] [place] [address] Ultrasound Report Signed Patient: HELEN TRAN MR#: [id number] : 1990 Acct:[id number] Age/Sex: 34 / F ADM Date: 04/23/25 Loc: US Attending Dr: Stephanie Deng Ordering Physician: Stephanie Deng Date of Service: 04/23/25 Procedure(s): US OB BPP w non-stress Accession Number(s): [id number] cc: Stephanie Deng; KARTIK ACKERMAN[address] [address] Patient Name: HELEN TRAN MRN: [id number] date: 1990 Sex: F Assigned Patient Location: [facility] Current Patient Location: Accession/Order Number: [id number] Exam Date: 04/23/2025 14:22 Report Date: 04/23/2025 16:03 At the request of: STEPHANIE DENG Procedure: US OB BPP w non-stress Ultrasound biophysical profile INDICATION: advanced maternal age. COMPARISON: 04/16/2025 FINDINGS/IMPRESSION: Single live intrauterine . Cephalic Position. heart rate 136 bpm. OCTAVIO measures 18.8 cm. Biophysical profile score 8/8. Impression dictated by: Juarez Noonan M.D. 04/23/2025 4:03 PM Dictation Location: [place] [address] Electronically authenticated by: [id number] Y Date: 04/23/2025 16:03 Dictated By: Juarez Noonan M.D. Signed By: 04/23/25 1605 DD/ 1603 TD/TT: Cardiac Sonographer: Procedure Note Radiology, Radiologist, MD - 04/23/2025 [place] [address] Ultrasound Report Signed Patient: HELEN TRAN LMR#: [id number] : 1990Acct:[id number] Age/Sex: 34 / FADM Date: 04/23/25 Loc: US Attending Dr: Stephanie Deng Ordering Physician: Stephanie Deng Date of Service: 04/23/25 Procedure(s): US OB BPP w non-stress Accession Number(s): [id number] cc: Stephanie Deng; ERICKA[address] [address] Patient Name: HELEN TRAN MRN: [id number] date: 1990 Sex: F Assigned Patient Location: [facility] Current Patient Location: Accession/Order Number: [id number] Exam Date: 04/23/2025 14:22 Report Date: 04/23/2025 16:03 At the request of: STEPHANIE DENG Procedure: US OB BPP w non-stress Ultrasound biophysical profile INDICATION: advanced maternal age. COMPARISON: 04/16/2025 FINDINGS/IMPRESSION: Single live intrauterine . CephalicPosition. heart rate 136 bpm. OCTAVIO measures 18.8 cm. Biophysical profilescore 02/22. Impression dictated by: Juarez Noonan M.D. 04/23/2025 4:03 PM Dictation Location: [place] [address] Electronically authenticated by: [id number] Y Date: 6:03 Dictated By: Juarez Noonan M.D. Signed By:04/23/25 1605 DD/ 1603 TD/TT: Cardiac Sonographer: us Stephanie [facility] Final Result documented in this encounter Visit Diagnoses Not on filedocumented in this encounter Care Teams Circulation Analyst Relationship Specialty Start Date End Date Desire Ackerman MD [address] [place] [address] PCP - General Family Medicine 11/23/22 documented as of this encounter
--- OUTSIDE RECORDS SUMMARY | 2025-04-30 14:11 | XMS_ITS | Encounter Summary ---
Author Organization [facility] Address [address] [place] [address] Care Team Providers Care Cartographic Technician Name Role Phone Desire Ackerman MD Primary Care Provider [phone] Encounter Details Date Type Department Care Team (Late st Contact Info) Description 04/17/2025 Clinisync Result Encounter [facility] External Department Unsolicited Stephanie Deng PA [address] [place] [address] Dr [place] [id number] Social History Tobacco Use Types Packs/Day Years [...] any clubs o r organizations such as islam groups, unions, fraternal or athletic groups, or [...] Recorded Patient Health Questionnaire-2 Score 0 04/16/2025 [facility]at ional [facility] - [...] any time in the past 12 m [facility], were you homeless or living in a group home (including now)? No 11/18/2024 Estimated Date [...] PM EDT Routine [facility] [address] [place] [address] Floyd Roberson, DO [address] [place], [place] [id number] documented as of this encounter Procedures Procedure Name Priority Date/Time Associated Diagnosis Comments US OB BPP W NON-STRESS 04/17/2025 8:53 AM EDT documented in this encounter Results * US OB BPP W NON-STRESS (04/17/2025 8:53 AM EDT) Anatomical Region Laterality Modality Other 04/17/2025 8:53 AM EDT Narrative 04/17/2025 8:56 AM EDT [facility] [address] [place] [address] Ultrasound Report Signed Patient: HELEN TRAN MR#: [id number] : 1990 Acct:[id number] Age/Sex: 34 / F ADM Date: 04/16/25 Loc: US Attending Dr: Stephanie Deng Ordering Physician: Stephanie Deng Date of Service: 04/16/25 Procedure(s): US OB BPP w non-stress Accession Number(s): [id number] cc: Stephanie Deng; ROQUE ACKERMAN [place] [address] Patient Name: HELEN TRAN MRN: [facility]:[id number] date: 1990 Sex: F Assigned Patient Location: [facility] Current Patient Location: Accession/Order Number: [id number] Exam Date: 04/16/2025 14:15 Report Date: 04/17/2025 08:53 At the request of: STEPHANIE DENG Procedure: US OB BPP w non-stress BIOPHYSICAL PROFILE: CLINICAL INFORMATION: High risk COMPARISON: None There is a single live intrauterine gestation in cephalic presentation. The reported gestational age is 37 weeks 1 day. The heart rate measures 124 beats per minute. FINDINGS: TONE: 1 or more episodes of activity extension and flexion of extremity or opening and closing of the hand [Y] 2/2 GROSS BODY MOVEMENTS: 3 or more discrete body or limb movements [Y] 2/2 BREATHING MOVEMENTS: 1 or more episodes of breathing lasting at least 30 seconds [Y] 2/2 OCTAVIO: A single deepest vertical pocket of amniotic fluid greater than 2 cm [Y] 2/2 OCTAVIO: 16.0 cm Total score: 8/8 US/US OB BPP w non-stress IMPRESSION: NORMAL BIOPHYSICAL PROFILE Impression dictated by: Mirna Lorenzo M.D. 04/17/2025 8:53 AM Dictation Location: [place] [address] Electronically authenticated by: [id number] Y Date: 04/17/2025 08:53 Dictated By: Mirna Lorenzo M.D. Signed By: 04/17/2556 DD/ 2 TD/TT: Merchandise Supervisor: Procedure Note Radiology, Radiologist, - 04/17/2025 [place] [address] Ultrasound Report Signed Patient: HELEN TRAN LMR#: [id number] : 1990Acct:[id number] Age/Sex: 34 / FADM Date: 04/16/25 Loc: US Attending Dr: Stephanie Deng Ordering Physician: Stephanie Deng Date of Service: 04/16/25 Procedure(s): US OB BPP w non-stress Accession Number(s): [id number] cc: Stephanie Deng; ROQUE ACKERMAN [place] [id number] Patient Name: HELEN TRAN MRN: [facility]:[id number] date: 1990 Sex: F Assigned Patient Location: [facility] Current Patient Location: Accession/Order Number: [id number] Exam Date: 04/16/2025 14:15 Report Date: 04/17/2025 08:53 At the request of: STEPHANIE DENG Procedure: US OB BPP w non-stress BIOPHYSICAL PROFILE: CLINICAL INFORMATION: High risk COMPARISON: None There is a single live intrauterine gestation in cephalic presentation.The reported gestational age is 37 weeks 1 day. The heart rate [id number] beats per minute. FINDINGS: TONE: 1 or more episodes of activity extension and flexion of extremity or opening and closing of the hand [Y] 2/2 GROSS BODY MOVEMENTS: 3 or more discrete body or limb movements [Y] 2/2 BREATHING MOVEMENTS: 1 or more episodes of breathing lastingat least 30 seconds [Y] 2/2 OCTAVIO: A single deepest vertical pocket of amniotic fluid greater than 2 cm [Y] 2/2 OCTAVIO: 16.0 cm Total score: 8/8 US/US OB BPP w non-stress IMPRESSION: NORMAL BIOPHYSICAL PROFILE Impression dictated by: Mirna Lorenzo M.D. 04/17/2025 8:53 AM Dictation Location: [place] [address] Electronically authenticated by: [id number] Y Date: 508:53 Dictated By: Mirna Lorenzo M.D. Signed By:04/17/25 0856 DD/ 2 TD/TT: Merchandise Supervisor: Stephanie [facility] Final Result documented in this encounter Visit Diagnoses Not on filedocumented in this encounter Care Teams Cartographic Technician Relationship Specialty Start Date End Date Desire Ackerman MD [address] [place] [address] PCP - General Family Medicine 11/23/22 documented as of this encounter
--- OUTSIDE RECORDS SUMMARY | 2025-04-30 14:11 | XMS_ITS | Encounter Summary ---
Author Organization [facility] Address [address] [place] [address] Care Team Providers Care Senior Reservations Agent Name Role Phone Desire Ackerman MD Primary Care Provider [phone] Encounter Details Date Type Department Care Team (Late st Contact Info) Description 01/21/2025 Abstract [facility] [address] [place] [phone] Stephanie Hedrick LPN [address] [place] [address] Social History Tobacco Use Types Packs/Day Years [...] Recorded Patient Health Questionnaire-2 Score 0 01/17/2025 [facility] Occupat ional [...] any time in the past 12 m [facility], were you homeless or [...] EDT Routine [facility] [address] [place] [phone] Floyd Roberson DO [address] [place] [address] documented as of this encounter Visit Diagnoses Not on filedocumented in this encounter Care Teams Senior Reservations Agent Relationship Specialty Start Date End Date Desire Ackerman MD [address] [place] [address] PCP - General Family Medicine 11/23/22 documented as of this encounter
--- OUTSIDE RECORDS SUMMARY | 2025-04-30 14:11 | XMS_ITS ---
Author Organization [facility] Address [address] [place] [address] Care Team Providers Care Popcorn Vendor Name Role Phone Desire Ackerman MD Primary Care Provider [phone] [facility] ([facility]) Status:Enrolled (Active) Start date:01/16/2025 Enrollment date:01/17/2025 Enrollment reason:Identified by Health Plan Case Team Name Relationship Phone Stephanie Hedrick LPN(Responsible Staff) Licensed [facility] Nurse [phone] Continued Care and Services Coordination
--- OUTSIDE RECORDS SUMMARY | 2025-04-30 14:11 | XMS_ITS | Encounter Summary ---
Author Organization [facility] Address [address] [place] [address] Care Team Providers Care Global Sales Manager Name Role Phone Desire Ackerman MD Primary Care Provider [phone] Encounter Details Date Type Department Care Team (Late st Contact Info) Description 11/19/2024 Abstract [facility] [address] [place] [phone] Floyd Roberson DO [address] [place], [facility] Social History Tobacco Use Types Packs/Day [...] any clubs o r organizations such as buddhism groups, unions, fraternal or athletic groups, or [...] Recorded Patient Health Questionnaire-2 Score 0 11/19/2024 [facility]at ional Health - Occupational [...] 05/14/2025 1:40 PM EDT Routine [facility] [address] [place] [address] Floyd Roberson DO [address] [place], [place] [id number] documented as of this encounter Visit Diagnoses Not on filedocumented in this encounter Care Teams Global Sales Manager Relationship Specialty Start Date End Date Desire Ackerman MD [address] [place] [address] PCP - General Family Medicine 11/23/22 documented as of this encounter
--- OUTSIDE RECORDS SUMMARY | 2025-04-30 14:11 | XMS_ITS | Encounter Summary ---
Author Organization [facility] Address [address] [place] [address] Care Team Providers Care Mixed Signal Design Engineer Name Role Phone Desire Ackerman MD Primary Care Provider [phone] Encounter Details Date Type Department Care Team (Late st Contact Info) Description 04/30/2025 Bamboo flowsheet [facility] [place] [facility] [address] [address] Stephanie Suresh PA [address] [place], [facility] Social History Tobacco Use Types [...] often do you attend chur ch or hindu services? More than 4 times per year 11/18/2024 Do you belong to any clubs o r organizations such as moravian groups, unions, fraternal or athletic groups, or [...] Recorded Patient Health Questionnaire-2 Score 0 04/16/2025 [facility] Occupat ional Health - [...] any time in the past 12 m [facility], were you homeless or living in [...] PM EDT Routine [facility] [address] [place] [address] Floyd Roberson DO [address] [place] [address] documented as of this encounter Visit Diagnoses Not on filedocumented in this encounter Care Teams Mixed Signal Design Engineer Relationship Specialty Start Date End Date Desire Ackerman MD [address] [place] [address] PCP - General Family Medicine 11/23/22 documented as of this encounter
--- OUTSIDE RECORDS SUMMARY | 2025-04-30 14:11 | XMS_ITS | Clinical Summary ---
Author Organization [facility] Address [address] [place] [address] Care Team Providers Care Laborer Driver Name Role Phone Desire Ackerman MD Primary Care Provider Allergies Active Allergy Reactions Criticality Noted Date [...] Encounters Date Type Department Care Team Description 04/30/2025 9:50 AM EDT Routine [facility] [address] [place] [phone] Stephanie Deng PA Third trimester ([facility]); 34 weeks gestation of ([facility]) 04/30/2025 Bamboo flowsheet [facility] [address] [place] [address] Stephanie Deng PA 04/23/2025 Clinisync Result Encounter [facility] External Department Unsolicited Stephanie Deng PA 04/17/2025 10:50 AM EDT Routine [facility] [place] [facility] [address] [place] [address] Mitali Mcclal NP 32 weeks gestation of ([facility]); Third trimester ([facility]) 04/17/2025 Clinisync Result Encounter [facility] External Department Unsolicited Stephanie Deng PA 04/16/2025 Patient Outreach [facility] [address] [place] [address] Stephanie Hedrick LPN 04/02/2025 1:50 PM EDT Routine [facility] [address] [place] [address] Floyd Roberson, Third trimester ([facility]); 30 weeks gestation of ([facility]) 04/02/2025 Bamboo flowsheet [facility] [address] [place] [address] Floyd Roberson DO 03/25/2025 2:00 PM EDT Ancillary Procedure [facility] [address] [place] [address] Multigravida of advanced maternal age in third trimester ([facility]) 03/25/2025 Travel 03/19/2025 2:10 [place] [address] Stephanie Deng PA Multigravida of advanced maternal age in third trimester ([facility]); Third trimester ([facility]); 28 weeks gestation of ([facility]) 03/19/2025 Patient Outreach [facility] [address] [place] [address] Stephanie Hedrick LPN 02/27/2025 Clinisync Result Encounter [facility] External Department Unsolicited Floyd Roberson, 02/19/2025 1:40 PM EDT Routine [facility] [place] [phone] Floyd Roberson, Second trimester ([facility]); 24 weeks gestation of ([facility]); Diabetes mellitus screening; Antepartum multigravida of advanced maternal age ([facility]); H/O miscarriage, currently ([facility]) 02/19/2025 Bamboo flowsheet [facility] [address] [place] [address] Floyd Roberson, 02/18/2025 Patient Outreach [facility] [address] [place] [address] Stephanie Hedrick LPN from Last [...] How often do you attend chur or sikh services? More than 4 times per year 11/18/2024 Do you belong to any clubs o r organizations such as roman catholic groups, unions, fraternal or athletic groups, [...] Recorded Patient Health Questionnaire-2 Score 0 04/16/2025 [facility] Occupat ional Health [...] any time in the past 12 m [facility], were you homeless or living in a [place] health care facility (including now)? No 11/18/2024 Estimated Date of Delivery Comme nts Yes 06/07/2025 Based on Ultraso und Sex and Gender Information Value Date Recorded Sex Assigned at Not on file Legal Sex Female 9:28 PM EDT Gender Identity Not on file Sexual Orientation Not on file Last Filed Vital Signs Vital Sign Reading Time Taken Comments Blood Pressure 122/72 04/30/2025 9:58 AM EDT Pulse 82 11/19/2024 1:56 PM EDT Temperature 36.9 C (98.4 F) 11/19/2024 1:56 PM EDT Respiratory Rate - - Oxygen Saturation 97% 11/19/2024 1:56 PM EDT Inhaled Oxygen Concentration - - Weight 93.9 kg (207 lb) 04/30/2025 9:58 AM EDT Height 162.6 cm (5' 4 ) 11/19/2024 1:56 PM EDT Body Mass Index 35.53 11/19/2024 1:56 PM EDT Plan of Treatment Upcoming Encounters Date Type Department Care Team (Late st Contact Info) Description 05/14/2025 1:40 PM EDT Routine [facility] [address] [phone] Floyd Roberson, [address] [facility] [address] [place], [place] [phone] Health Maintenance Due Date Last Done Comments Influenza Vaccine (#1) 2025 Cervical Cancer Screening 12/25/2029 HPV/Cotest 12/25/2029 05/27/2021 Pap Smear 12/25/2029 12/25/2024 Procedures Procedure Name Priority Date/Time Associated Diagnosis Comments POCT URINALYSIS DIPSTICK Routine 04/30/2025 10:04 AM EDT 34 weeks gestation of ([facility]) US OB BPP W NON-STRESS 04/23/2025 4:03 PM EDT POCT URINALYSIS DIPSTICK Routine 04/17/2025 10:42 AM EDT 32 weeks gestation of ([facility]) US OB BPP W NON-STRESS 04/17/2025 8:53 AM EDT POCT URINALYSIS DIPSTICK Routine 04/02/2025 2:26 PM EDT Third trimester ([facility]) 30 weeks gestation of ([facility]) US OB FOLLOW UP TRANSABDOMINAL APPROACH Routine 03/25/2025 2:29 PM EDT Multigravida of advanced maternal age in third trimester ([facility]) POCT URINALYSIS DIPSTICK Routine 03/19/2025 2:36 PM EDT Third trimester ([facility]) GLUCOSE 1 HOUR Routine 02/27/2025 8:23 AM EDT ALL CBC WITH AUTO DIFF Routine 8:23 AM EDT POCT URINALYSIS DIPSTICK Routine 02/19/2025 1:53 PM EDT Second trimester ([facility]) 24 weeks gestation of ([facility]) PAP SMEAR Routine 12/25/2024 12:00 AM EDT THINPREP TIS AND HPV MRNA E6/E7 (41191) Routine 05/27/2021 from Last 3 Months or Most Recently Relevant to Health Maintenance Results * (ABNORMAL) POCT urinalysis dipstick manually resulted (04/30/2025 10:04 AM EDT) Only the most recent of5 resultswithin the time period is included. Color, [...] OR DERABLES Final Result * US OB BPP W NON-STRESS (04/23/2025 4:03 PM EDT) Only the most recent of2 resultswithin the time period is included. Anatomical Region Laterality Modality Other 04/23/2025 4:03 PM EDT Narrative 04/23/2025 4:05 [place] [address] Ultrasound Report Signed Patient: HELEN TRAN MR#: [id number] : 1990 Acct:[id number] Age/Sex: 34 / F ADM Date: 04/23/25 Loc: US Attending Dr: Stephanie Deng Ordering Physician: Stephanie Deng Date of Service: 04/23/25 Procedure(s): US OB BPP w non-stress Accession Number(s): [id number] cc: Stephanie Deng; ROQUE ACKERMAN [address] [address] Patient Name: HELEN TRAN MRN: [facility]:[id number] date: 1990 Sex: F Assigned Patient Location: [facility] Current Patient Location: Accession/Order Number: [id number] Exam Date: 04/23/2025 14:22 Report Date: 04/23/2025 16:03 At the request of: STEPHANIE DENG Procedure: US OB BPP w non-stress Ultrasound biophysical profile INDICATION: advanced maternal age. COMPARISON: 04/16/2025 FINDINGS/IMPRESSION: Single live intrauterine . Cephalic Position. heart rate 136 bpm. OCTAVIO measures 18.8 cm. Biophysical profile score 8/8. Impression dictated by: Juarez Noonan M.D. 04/23/2025 4:03 PM Dictation Location: [employer] Electronically authenticated by: [id number] Y Date: 04/23/2025 16:03 Dictated By: Juarez Noonan M.D. Signed By: 04/23/25 1605 DD/ 160 TD/TT: Physical Therapist Assistant: Procedure Note Radiology, Radiologist, MD - 04/23/2025 [place] [address] Ultrasound Report Signed Patient: HELEN TRAN R#: [id number] : 1990Acct:[id number] Age/Sex: 34 / FADM Date: 04/23/25 Loc: US Attending Dr: Stephanie Deng Ordering Physician: Stephanie Deng Date of Service: 04/23/25 Procedure(s): US OB BPP w non-stress Accession Number(s): [id number] cc: Stephanie Deng; ROQUE ACKERMAN [place] [address] Patient Name: HELEN TRAN [facility]:[id number] date: 1990 Sex: F Assigned Patient Location: [facility] Current Patient Location: Accession/Order Number: [id number] Exam Date: 04/23/2025 14:22 Report Date: 04/23/2025 16:03 At the request of: STEPHANIE DENG Procedure: US OB BPP w non-stress Ultrasound biophysical profile INDICATION: advanced maternal age. COMPARISON: 04/16/2025 FINDINGS/IMPRESSION: Single live intrauterine . CephalicPosition. heart rate 136 bpm. OCTAVIO measures 18.8 cm. Biophysical profilescore 8/8. Impression dictated by: Juarez Noonan M.D. 04/23/2025 4:03 PM Dictation Location: [employer] Electronically authenticated by: [id number] Y Date: 6:03 Dictated By: Juarez Noonan M.D. Signed By:04/23/25 1605 DD/ 1603 TD/TT: Physical Therapist Assistant: us Stephanie [facility] Final Result * US OB follow up [...] us Floyd Da DO CLINIS[facility]NC Final Result CLINIS[facility]NC TB * Pap Smear (12/25/2024 12:00 AM EDT) Swab Cervical swab / Unknown us Floyd Da DO LAB CYTOLOGY ORDERABLES Final Re sult EXTERNAL LAB * THINPREP TIS AND HPV MRNA E6/E7 (06255) (05/27/2021) CLINICAL INFORMATION: None given [facility] [...] computer assisted technology. [facility] SECURITY RESEARCHER: SEE COMMENT [facility] Comment: SARAH SWEENEY(ASCP) CT screening location: [employer] [place] [address]. COMMENT SEE COMMENT [facility] ACY EXTERNAL [...] Detected [facility] Comment: Methodology: Byproduct Engineer-Mediated Amplification This assay detects E6/E7 viral messenger RNA (mRNA) from 14 high-risk HPV types (16,18,31,33,35,39,45,51,52,56,58,59,66,68). The analytical performance characteristics of this assay have been determined by [employer]. The modifications have not been cleared or approved by the FDA. This assay has been validated pursuant to the CLIA regulations and is used for clinical purposes. For additional information, please refer to http://education.GROU.PS.[employer]/faq/ZUZ261z0 (This link if provided for information/ educational purposes only.) 05/27/2021 us Desire Ackerman MD [facility] Final Result [facility] from Last 3 Months or Most Recently Relevant to Health Maintenance Insurance [employer] Care Teams Laborer Driver Relationship Specialty Start Date End Date Desire Ackerman MD [address] [place] [address] PCP - General Family Medicine 11/23/22
[2025-04-30 14:27] VITALS: BP 113/62; PULSE 94
== END 2025-04-30 14:55 | disposition home or self-care (01) ==
LOC: US 14:09 → FBC 14:11
PROVIDERS: PCP Student in an Organized Health Care Education/Training Program; Visit Provider Physician Assistant
DX: O09.523 Supervision of elderly multigravida, third trimester (principal)
CPT/HCPCS: 76818

== ENCOUNTER 2025-05-07 14:08 | Outpatient (OUT) | payer OTHER, SELFPAY ==
--- NOTE | 2025-05-07 | US_ITS ---
The [address] [address] Patient Name: HELEN SONG MRN: TBH:[id number] date: 1990 Sex: F Assigned Patient Location: [facility] Current Patient Location: Accession/Order Number: [id number] Exam Date: 05/07/2025 14:12 Report Date: 05/07/2025 15:54 At the request of: ZAKI DENG Procedure: US OB BPP w non-stress BIOPHYSICAL PROFILE: CLINICAL INFORMATION: MULTIGRAVIDA OF ADVANCED MATERNAL AGE COMPARISON: 04/30/2025 There is a single live intrauterine gestation in cephalic presentation. The reported gestational age is 35 weeks 3 days. The heart rate measures 141 beats per minute. FINDINGS: TONE: 1 or more episodes of activity extension and flexion of extremity or opening and closing of the hand [Y] 2/2 GROSS BODY MOVEMENTS: 3 or more discrete body or limb movements [Y] 2/2 BREATHING MOVEMENTS: 1 or more episodes of breathing lasting at least 30 seconds [Y] 2/2 OCTAVIO: A single deepest vertical pocket of amniotic fluid greater than 2 cm [Y] 2/2 OCTAVIO: 12.3 cm Total score: 8/8 US/US OB BPP w non-stress IMPRESSION: NORMAL BIOPHYSICAL PROFILE Impression dictated by: Mirna Lorenzo M.D. 05/07/2025 3:54 PM Dictation Location: [place] [address] Electronically authenticated by: [id number] Y Date: 05/07/2025 15:54
[2025-05-07 14:28] VITALS: BP 119/69; PULSE 104
== END 2025-05-07 14:51 | disposition home or self-care (01) ==
LOC: US 14:08 → FBC 14:10
PROVIDERS: PCP Student in an Organized Health Care Education/Training Program; Visit Provider Physician Assistant
DX: O26.893 Other specified pregnancy related conditions, third trimester (principal); O09.523 Supervision of elderly multigravida, third trimester; Z3A.35 35 weeks gestation of pregnancy
CPT/HCPCS: 76818

== ENCOUNTER 2025-05-10 14:57 | Outpatient (OUT) | payer OTHER, SELFPAY ==
--- OUTSIDE RECORDS SUMMARY | 2025-04-30 09:50 | XMS_ITS | Encounter Summary ---
Author Organization [facility] Address [address] [place] [address] Care Team Providers Care Stencil Maker Name Role Phone Desire Ackerman MD Primary Care Provider [phone] Reason for Visit * ReasonCommentsRoutine Visit Encounter Details DateTypeDepartmentCare Team (Latest Contact Info)Kfnhezexufr78/14/2025 9:50 AM EDTRoutine [facility] [address] [place] [place] [address] Stephanie Suresh PA [address] [facility] [address] [place], [facility] Third trimester ([facility]); 34 weeks gestation of ([facility]) Social History Tobacco UseTypesPacks/DayYears UsedDateSmoking Tobacco: FormerCigarettes Smokeless Tobacco: NeverHumiliation, Afraid, Rape, and Kick questionnaireAnswer Date RecordedWithin the last year, have you been afraid of your partner or ex-partner?No11/18/2024Within the last year, have you been humiliated or emotionally abused in other ways by your partner or ex-partner?No11/18/2024 Within the last year, have you been kicked, hit, slapped, or otherwise physically hurt by your partner or ex-partner?No11/18/2024Within the last year, have you been raped or forced to have any kind of sexual activity by your part ner or ex-partner?No11/18/2024Social Connection and Isolation PanelAnswerDate RecordedIn a typical week, how many times do you talk on the phone with family, friends, or neighbors?Three times a week11/18/2024How often do you get together with friends or relatives?Once a week11/18/2024How often do you attend yazidi or hindu services?More than 4 times per year11/18/2024Do you belong to any clubs or organizations such as yazidi groups, unions, fraternal or athletic fareed ups, or school groups?Yes11/18/2024How often do you attend meetings of the clubs or organizations you belong to?More than 4 times per year11/18/2024re you , , , , never , or living with a partner? Eogaqrb5911/18/2024UDIT-CAnswerDate RecordedQ1: How often do you have a drink containing alcohol?Monthly or less11/18/2024Q2: How many drinks containing alcohol do you have on a typical day when you are drinking?1 or Q3: How often do you have six or more drinks on one occasion?Never11/18/2024Overall Financial Resource Strain (CARDIA)AnswerDate RecordedHow hard is it for you to pay for the very basics like food, housing, medical care, and heating?Not very hard11/18/2024PHQ-2AnswerDate RecordedPatient Health Questionnaire-2 Score0 04/16/2025[facility] Occup[facility] - Occupational Stress QuestionnaireAnswerDate RecordedDo you feel stress - tense, restless, nervous, or anxious, or unable to sleep at night because yourmind is troubled all the time - these days?To some wacoad0311/18/2024Exercise Vital SignAnswerDate Recorded On average, how many days per week do you engage in moderate to strenuous exercise (like a brisk walk)?3 days11/18/2024On average, how many minutes do you engage in exercise at this level?30 min11/18/2024Hunger Vital SignAnswerDate RecordedWithin the past 12 months, you worried that your food would run out before you got the money to buymore.Never true11/18/2024Within the past 12 months, the food you bought just didn't last and you didn't have money to get more.Never true11/18/2024PRAPARE - TransportationAnswerDate RecordedIn the past 12 months, has lack of transportation kept you from medical appointments or from getting medications?No11/18/2024In the past 12 months, has lack of transportation kept you from meetings, work, or from getting things needed for daily living?No11/18/2024Housing Stability Vital SignAnswerDate RecordedIn the last 12 months, was there a time when you were not able to pay the mortgage or rent on time?No11/18/2024In the past 12 months, how many times have you moved where you were living?t any time in the past 12 months, were you homeless or living in a fdc (including now)?No11/18/2024Estimated Date of DqyiphcnDkhulqxfPet26/21/2025ased on UltrasoundSex and Gender InformationValueDate RecordedSex Assigned at BirthNot on fileLegal SexFemale 09/29/2022 9:28 PM EDTGender IdentityNot on fileSexual OrientationNot on file documented as of this encounter Last Filed Vital Signs Vital SignReadingTime TakenCommentsBlood Mkygaenw351/7204/30/2025 9:58 AM EDT Pulse--Temperature--Respiratory Rate--Oxygen Saturation--Inhaled Oxygen Concentration--Pbieve49.9 kg (207 lb)04/30/2025 9:58 AM EDTHeight--Body Mass Index35.5305 1:56 PM EDTdocumented in this encounter Progress Notes * XANDER Sawyer - 04/30/2025 9:50 AM EDT Reason for Appointment: Patient ID: Mayra Trna is a 34 y.o. female who presents [...] ( 1 PO) Take by mouth ALLERGIES Allergies[1] PROBLEMS Active Ambulatory Problems Diagnosis Date Noted No Active Ambulatory Problems Resolved Ambulatory Problems Diagnosis Date Noted No Resolved Ambulatory Problems No Additional Past Medical History HISTORY PAST MEDICAL HISTORY SOCIAL HISTORY Medical History[2] Social History Tobacco Use Smoking status: Former Types: Cigarettes Smokeless tobacco: Never Substance Use Topics Alcohol use: Not on file Drug use: Not on file FAMILY HISTORY Family History[3] SURGICAL HISTORY Surgical History[4] REVIEW OF SYSTEMS Review of Systems: Review of Systems Constitutional: Negative. HENT: Negative. Eyes: Negative. Respiratory: Negative. Cardiovascular: Negative. Gastrointestinal: Negative. Genitourinary: Negative. Musculoskeletal: Negative. Skin: Negative. Neurological: Negative. All other systems reviewed and are negative. Hematological: Negative. Endocrine: Negative. Allergic/Immunologic: Negative. OBJECTIVE Objective: Physical Exam Constitutional: Appearance: Normal appearance. She is normal weight. HENT: Head: Normocephalic. Cardiovascular: Rate and Rhythm: Normal rate. Pulses: Normal pulses. Pulmonary: Effort: Pulmonary effort is normal. Breath sounds: Normal breath sounds. Abdominal: Palpations: Abdomen is soft. Musculoskeletal: General: Normal range of motion. Neurological: General: No focal deficit present. Mental Status: She is alert and oriented to person, place, and time. Psychiatric: Mood and Affect: Mood normal. Behavior: Behavior normal. Thought Content: Thought content normal. Judgment: Judgment normal. Vitals and nursing note reviewed. Vitals: Estimated body mass index is 35.53 kg/m?? as calculated from the following: Height as of 11/19/24: 5' 4 . Weight as of this encounter: 207 lb. BP: 122/72 Patient's last menstrual period was 08/22/2024. ASSESSMENT & PLAN ICD-10-CM 1. Third trimester ([facility]) Z34.93 2. 34 weeks gestation of ([facility]) Z3A.34 POCT urinalysis dipstick manually resulted Return OB: Patient presents today for a routine obstetrics appointment. Patient is currently 34w4d . Patient states she is doing well [...] week for routine OB appointment. Documented by XANDER Sawyer on behalf of: XANDER Sawyer [1] Allergies Allergen Reactions Iodine Rash [2] No past medical history on file. [3] No family history on file. [4] Past Surgical History: Procedure Laterality Date APPENDECTOMY Bilateral SECTION, LOW TRANSVERSE documented in this encounter Plan of Treatment DateTypeDepartmentCare Team (Latest Contact Info)Qwhxtwrnkdf03/28/2025 1:40 PM EDTRoutine [facility] [address] [place] [place] [phone] Floyd Roberson DO [address] [facility] [place] [address] documented as of this encounter Procedures Procedure NamePriorityDate/TimeAssociated DiagnosisCommentsPOCT URINALYSIS CCIPWOTNYiidqrk92/14/2025 10:04 AM EDT 34 weeks gestation of ([facility]) documented in this encounter Results * (ABNORMAL) POCT urinalysis dipstick manually resulted (04/30/2025 10:04 AM EDT)ComponentValueRef RangeTest MethodAnalysis TimePerformed AtPathologist SignatureColor, UAYellowClarity, UAClearGlucose, UANegativeNegative - 2000(110) ++++ mg/dLBilirubin, UANegativeNegative - 4(70) +++ mg/dLKetones, UA NegativeNegative - 160(16) ++++ mg/dLSpec Grav, UA1.0151 - 1.03Blood, UA NegativeNegative - 50 Abdi/mcLpH, UA6.55 - 9Protein, UANegativeNegative - 2000(20) ++++ mg/dLUrobilinogen, UA2.00.2 - 12 mg/dLLeukocytes, UATrace Negative - 500+++ Nile/mcLNitrite, UANegativeNegative - PositiveSpecimen (Source)Anatomical Location / LateralityCollection Method / VolumeCollection TimeReceived QfgjCzeiz67/14/2025 10:04 AM EDT Narrative Authorizing ProviderResult TypeResult StatusStephanie Suresh PAPOINT OF CARE TEST ENTER/EDIT ORDERABLESFinal Result documented in this encounter Visit Diagnoses Diagnosis Third trimester ([facility]) state, incidental 34 weeks gestation of ([facility]) documented in this encounter Care Teams Team MemberRelationshipSpecialtyStart DateEnd Date Desire Ackerman MD [address] [place] [address] PCP - GeneralFamily Medicine11/23/22documented as of this encounter
--- OUTSIDE RECORDS SUMMARY | 2025-05-10 14:59 | XMS_ITS | Clinical Summary ---
Author Organization [facility] Address [address] [facility] [place] [address] Care Team Providers Care Tower Air Traffic Control Specialist Name Role Phone Desire Ackerman MD Primary Care Provider [phone] Allergies Active AllergyReactionsCriticalityNoted RhgaQxnxwfdnNrimvtIyfxXlo28/10/2025 Medications MedicationSigDispense QuantityRefillsLast FilledStart DateEnd DateStatus ondansetron ODT (Zofran-ODT) 4 MG disintegrating tablet DISSOLVE 1 TABLET IN MOUTH EVERY 6 HOURS NEEDED FOR NAUSEA AND VOMITING 5Active EPINEPHrine (Epipen) 0.3 MG/0.3ML injection syringe INJECT 1 PEN INTRAMUSCULARLY EVERY 10 MINUTES NEEDED FOR ANAPHYLAXIS FOR 2 DOSES4Active MV-Min-Fe Fum-FA-DHA ( 1 PO) Take by mouthActive Active Problems Estimated Date of SgjczvjiRewtgjagLje24/21/2025ased on Ultrasound No known active problems Encounters DateTypeDepartmentCare VodvQoycbgwktdl26/14/2025 9:50 AM EDTRoutine [facility] [address] [place] [address] Stephanie Dneg PA Third trimester ([facility]); 34 weeks gestation of ([facility])04/30/2025amboo flowsheet [facility] [address] [place] [phone] Stephanie Deng PA 04/23/2025linisync Result Encounter NOMS External Department Unsolicited Stephanie Deng PA 04/17/2025 10:50 AM EDTRoutine [facility] [place] [address] Mitali Mccall NP 32 weeks gestation of ([facility]); Third trimester ([facility])5Clinisync Result Encounter NOMS External Department Unsolicited Stephanie Deng PA 04/16/2025Patient Outreach [facility] [place] [address] Stephanie Hedrick LPN 04/02/2025 1:50 PM EDTRoutine [facility] [place] [address] Floyd Roberson DO Third trimester ([facility]); 30 weeks gestation of ([facility])5Bamboo flowsheet NOM[facility] [place] [address] Floyd Roberson DO 03/25/2025 2:00 PM EDTAncillary Procedure [facility] [place] [address] Multigravida of advanced maternal age in third trimester ([facility])03/25/2025 Odvfwi6603/19/2025 2:10 PM EDTRoutine NOM[facility] [place] [address] Stephanie Deng PA Multigravida of advanced maternal age in third trimester ([facility]); Third trimester ([facility]); 28 weeks gestation of ([facility])03/19/2025Patient Outreach [facility] [address] Stephanie Hedrick LPN 5Clinisync Result Encounter NOMS External Department Unsolicited Floyd Roberson DO 02/19/2025 1:40 PM EDTRoutine [facility] [address] [address] [place] [address] Floyd Roberson, Second trimester ([facility]); 24 weeks gestation of ([facility]); Diabetes mellitus screening; Antepartum multigravida of advanced maternal age ([facility]); H/O miscarriage, currently ([facility])02/19/2025amboo flowsheet [facility] [address] [place] [phone] Floyd Roberson DO 02/18/2025Patient Outreach [facility] [address] [place] [address] Stephanie Hedrick LPN from Last 3 Months Social History Tobacco UseTypesPacks/DayYears UsedDateSmoking Tobacco: FormerCigarettes Smokeless Tobacco: Never Tobacco Cessation:Counseling Given: Not Answered Humiliation, Afraid, Rape, and Kick questionnaireAnswerDate RecordedWithin the last year, have you been afraid of your partner or ex-partner?No11/18/2024Within the last year, have you been humiliated or emotionally abused in other ways by your partner or ex-partner?No11/18/2024Within the last year, have you been kicked, hit, slapped, or otherwise physically hurt by your partner or ex-partner?No11/18/2024Within the last year, have you been raped or forced to have any kind of sexual activity by your partner or ex-partner?No11/18/2024 Social Connection and Isolation PanelAnswerDate RecordedIn a typical week, how many times do you talk on the phone with family, friends, or neighbors?Three times a week11/18/2024How often do you get together with friends or relatives? Once a week11/18/2024How often do you attend gnosticist or rastafari services?More than 4 times per year11/18/2024Do you belong to any clubs or organizations such as gnosticist groups, unions, fraternal or athletic groups, or school groups?Yes 11/18/2024How often do you attend meetings of the clubs or organizations you belong to?More than 4 times per year11/18/2024re you , , , , never , or living with a partner?Rgmtckw2811/18/2024 AUDIT-CAnswerDate RecordedQ1: How often do you have a drink containing alcohol? Monthly or less11/18/2024Q2: How many drinks containing alcohol do you have on a typical day when you are drinking?1 or Q3: How often do you have six or more drinks on one occasion?Never11/18/2024Overall Financial Resource Strain (CARDIA)AnswerDate RecordedHow hard is it for you to pay for the very basics like food, housing, medical care, and heating?Not very hard11/18/2024PHQ-2Answer Date RecordedPatient Health Questionnaire-2 Kkmpm474Finblue mountain hospital [place] of Occupational Health - Occupational Stress QuestionnaireAnswerDate RecordedDo you feel stress - tense, restless, nervous, or anxious, or unable to sleep at night because yourmind is troubled all the time - these days?To some ddimqe6511/18/2024 Exercise Vital SignAnswerDate RecordedOn average, how many days per week do you engage in moderate to strenuous exercise (like a brisk walk)?3 days11/18/2024On average, how many minutes do you engage in exercise at this level?30 min 11/18/2024Hunger Vital SignAnswerDate RecordedWithin the past 12 months, you worried that your food would run out before you got the money to buymore.Never true11/18/2024Within the past 12 months, the food you bought just didn't last and you didn't have money to get more.Never true11/18/2024PRAPARE - TransportationAnswerDate RecordedIn the past 12 months, has lack of transportation kept you from medical appointments or from getting medications?No 11/18/2024In the past 12 months, has lack of transportation kept you from meetings, work, or from getting things needed for daily living?No11/18/2024 Housing Stability Vital SignAnswerDate RecordedIn the last 12 months, was there a time when you were not able to pay the mortgage or rent on time?No11/18/2024In the past 12 months, how many times have you moved where you were living?0 11/18/2024t any time in the past 12 months, were you homeless or living in a alf (including now)?No11/18/2024Estimated Date of DeliveryComments Yes5Based on UltrasoundSex and Gender InformationValueDate RecordedSex Assigned at BirthNot on fileLegal BuoAtadgz45/15/2023 9:28 PM EDTGender Identity Not on fileSexual OrientationNot on file Last Filed Vital Signs Vital SignReadingTime TakenCommentsBlood Nthkvyjq384/7204/30/2025 9:58 AM EDT Fxkno926811/19/2024 1:56 PM QTJRtknscahqmz54.9 ??C (98.4 ??F)11/19/2024 1:56 PM EDTRespiratory Rate--Oxygen Dlpuvktlhw57%11/19/2024 1:56 PM EDTInhaled Oxygen Concentration--Uvqysm54.9 kg (207 lb)04/30/2025 9:58 AM XAQZxwtbu483.6 cm (5' 4 )11/19/2024 1:56 PM EDTBody Mass Index35.53011/19/2024 1:56 PM EDT Plan of Treatment DateTypeDepartmentCare Team (Latest Contact Info)Tcrjtdlnxjk33/28/2025 1:40 PM EDTRoutine [facility] [address] [place] [address] Floyd Roberson, [address] [place] [address] Health MaintenanceDue DateLast DoneCommentsInfluenza Vaccine (#1)03/18/2025 Cervical Cancer Gkssonnke53/10/2030HPV/Cqxjxq201Pap Smear Procedures Procedure NamePriorityDate/TimeAssociated DiagnosisCommentsPOCT URINALYSIS VLSTNLFKFdqlqxg68/14/2025 10:04 AM EDT 34 weeks gestation of ([facility] US OB BPP W NON-VLHMML3504/23/2025 4:03 PM EDT POCT URINALYSIS EGJPNHKVYiqwdow08/01/2025 10:42 AM EDT 32 weeks gestation of ([facility] US OB BPP W NON-IHWZWP8004/17/2025 8:53 AM EDT POCT URINALYSIS ORPERYOBUaizirk22/16/2025 2:26 PM EDT Third trimester ([facility]) 30 weeks gestation of ([facility]) US OB FOLLOW UP TRANSABDOMINAL SJTNJSHGSxztqzn87/08/2025 2:29 PM EDT Multigravida of advanced maternal age in third trimester ([facility]) POCT URINALYSIS OIABIARGCztgcfg51/02/2025 2:36 PM EDT Third trimester ([facility]) GLUCOSE 1 ORNFAumcooa71/13/2025 8:23 AM EDT ALL CBC WITH AUTO MPAOAunailq74/13/2025 8:23 AM EDT POCT URINALYSIS FMRUJNAHHyyqjob44/05/2025 1:53 PM EDT Second trimester ([facility]) 24 weeks gestation of ([facility]) PAP YVSBVImzohlu02/10/2025 12:00 AM EDTTHINPREP TIS AND HPV MRNA E6/E7 (61459) Igfmnof5905/27/2021 from Last 3 Months or Most Recently Relevant to Health Maintenance Results * (ABNORMAL) POCT urinalysis dipstick manually resulted (04/30/2025 10:04 AM EDT) Only the most recent of5 resultswithin the time period is included. ComponentValueRef RangeTest MethodAnalysis TimePerformed AtPathologist Signature Color, UAYellowClarity, UAClearGlucose, UANegativeNegative - 2000(110) ++++ mg/dLBilirubin, UANegativeNegative - 4(70) +++ mg/dLKetones, UANegativeNegative - 160(16) ++++ mg/dLSpec Grav, UA1.0151 - 1.03Blood, UANegativeNegative - 50 Abdi/mcLpH, UA6.55 - 9Protein, UANegativeNegative - 2000(20) ++++ mg/dL Urobilinogen, UA2.00.2 - 12 mg/dLLeukocytes, UATraceNegative - 500+++ Nile/mcL Nitrite, UANegativeNegative - PositiveSpecimen (Source)Anatomical Location / LateralityCollection Method / VolumeCollection TimeReceived UsxkFrtjd87/14/2025 10:04 AM EDT Narrative Authorizing ProviderResult TypeResult StatusSouth[facility] TEST ENTER/EDIT ORDERABLESFinal Result * US OB BPP W NON-STRESS (04/23/2025 4:03 PM EDT) Only the most recent of2 resultswithin the time period is included. Anatomical RegionLateralityModalityOtherSpecimen (Source)Anatomical Location / LateralityCollection Method / VolumeCollection TimeReceived Time04/23/2025 4:03 PM EDT Narrative 04/23/2025 4:[address] [facility] ?[address] ? [place] [address] ? Ultrasound Report ? Signed ? Patient: HELEN TRAN ?MR#: [id number] ?? : 1990 ?Acct:[id number] ?? Age/Sex: 34 / F ?ADM Date: 04/23/25 ?? Loc: US ? Attending Dr: Stephanie Deng ? Ordering Physician: Stephanie Deng ?? Date of Service: 04/23/25 ?? Procedure(s): US OB BPP w non-stress ?? Accession Number(s): [id number] ? cc: Stephanie Deng; ROQUE ACKERMAN ? [facility] ? [address] ? [place] [address] ? Patient Name: ?? HELEN TRAN ? MRN: [facility]:[id number] ? date: 1990 ?Sex: F ?? Assigned Patient Location: FB ?? Current Patient Location: ? Accession/Order Number: [id number] ?? Exam Date: 04/23/2025 ??14:22 ?Report Date: 04/23/2025 ??16:03 ? At the request of: ?? STEPHANIE ??SOWMYA ? Procedure: ??US OB BPP w non-stress ? Ultrasound biophysical profile ? INDICATION: advanced maternal age. ? COMPARISON: 04/16/2025 ?? FINDINGS/IMPRESSION: Single live intrauterine . ??Cephalic Position. ? heart rate 136 bpm. ??OCTAVIO measures 18.8 cm. ??Biophysical profile score ?? 02/22. ? Impression dictated by: Juarez Noonan M.D. ??04/23/2025 4:03 PM ? Dictation Location: RADIO-PC-29 ? Electronically authenticated by: [id number] ??Y ?? Date: 04/23/2025 ??16:03 ? Dictated By: ?Juarez Noonan M.D. ? Signed By: ?04/23/251604 ? DD/ 1603 ? TD/TT: ? Parks And Recreation Worker: Procedure Note Radiology, Radiologist, - 04/23/2025 The [place] [id number] Ultrasound Report Signed Patient: HELEN TRAN LMR#: [id number] : 1990Acct:[id number] Age/Sex: 34 / FADM Date: 04/23/25 Loc: US Attending Dr: Stephanie Dneg Ordering Physician: Stephanie Deng Date of Service: 04/23/25 Procedure(s): US OB BPP w non-stress Accession Number(s): [id number] cc: Stephanie Deng; ROQUE ACKERMAN The [address] [address] Patient Name: HELEN TRAN MRN: [facility]:[id number] date: 1990 Sex: F Assigned Patient Location: [facility] Current Patient Location: Accession/Order Number: [id number] Exam Date: 04/23/2025 14:22 Report Date: 04/23/2025 16:03 At the request of: STEPHANIE DENG Procedure: US OB BPP w non-stress Ultrasound biophysical profile INDICATION: advanced maternal age. COMPARISON: 04/16/2025 FINDINGS/IMPRESSION: Single live intrauterine . CephalicPosition. heart rate 136 bpm. OCTAVIO measures 18.8 cm. Biophysical profilescore 02/22. Impression dictated by: Juarez Noonan M.D. 04/23/2025 4:03 PM Dictation Location: 10-[facility] [employer] Electronically authenticated by: [id number] Y Date: 6:03 Dictated By: Juarez Noonan M.D. Signed By:04/23/25 1605 DD/ 1603 TD/TT: Parks And Recreation Worker: Authorizing ProviderResult TypeResult StatusStephanie Deng [facility] IMAGINGFinal Result * US OB follow up transabdominal approach (03/25/2025 2:29 PM EDT)Anatomical RegionLateralityModalityBodyUltrasoundSpecimen (Source)Anatomical Location / LateralityCollection Method / VolumeCollection TimeReceived Time03/26/2025 11:15 AM EDT Impressions 03/26/2025 12:46 PM EDT Single, live intrauterine , current sonographic age of 29 weeks and 5 days, with an estimated date of delivery of June 05, 2025 (prior MARBELLA June 10, 2025) * ??Estimated Weight (g) by Percentile is based upon an accurate estimated age based onlast menstrual period. ?? TRANSCRIBED BY: ? ELECTRONICALLY SIGNED BY: Osito Ott MD Narrative 03/26/2025 12:46 PM EDT FINDINGS: Comparison made with prior exam January 22, 2025. A single, live intrauterine is present with normal cardiac rate of 126 beats per minute. Normal activity and amniotic fluid volume. Amniotic fluid index is 17 cm. ??Morphology is grossly normal. The current sonographic age is 29 weeks and 5 days, based on the following measurements: ?BPD ? 7.2 cm (25 weeks, 1 day) ?Head Circumference ?27.0 cm (29 weeks, 3 days) ?Abdominal Circumference ?26.0 cm (30 weeks, 1 day) ?Femur Length ? 5.8 cm (30 weeks, 1 day) ?Presentation ? Breech ? Weight (g) by Percentile ??58.5 % * ??(prior 47.6%) These measurements result in an estimated date of delivery of June 05, 2025. ?? The current estimated weight is 1494 grams (3 pounds, 5 ounces). ?? Procedure Note Osito Ott MD - 03/26/2025 [...] BY: ELECTRONICALLY SIGNED BY: Osito Ott MD Authorizing ProviderResult TypeResult StatusA[facility] PROCEDURES Final Result * (ABNORMAL) GLUCOSE 1 HOUR (02/27/2025 8:23 AM EDT)ComponentValueRef RangeTest MethodAnalysis TimePerformed AtPathologist SignatureGLUCOSE 1 ENQQ966(H)<130 mg/dLTBHSpecimen (Source)Anatomical Location / LateralityCollection Method / VolumeCollection TimeReceived Time02/27/2025 8:23 AM EDT02/27/2025 8:24 AM EDT Narrative NILDAISYNC - 02/27/2025 9:00 AM EDT Authorizing ProviderResult TypeResult StatusCorey Da DOLAB BLOOD ORDERABLES Final ResultPerforming OrganizationAddressCity/State/ZIP CodePhone Number [facility] * (ABNORMAL) ALL CBC WITH AUTO DIFF (02/27/2025 8:23 AM EDT)ComponentValueRef RangeTest MethodAnalysis TimePerformed AtPathologist SignatureTBH WBC10.24.0 - 11.0 10 3/uLTBHTBH RBC3.78(L)4.20 - 5.40 10 6/uLTBHTBH HGB11.8(L)12.0 - 16.0 g/dLTBHTBH HCT34.0(L)36.0 - 48.0 %TBHTBH MCV89.981.0 - 99.0 fLTBHTBH MCH31.2 26.7 - 34.0 pgTBHTBH MCHC34.729.9 - 35.2 g/dLTBHTBH RDW13.311.0 - 15.0 %TBHTBH KTT377740 - 450 10 3/uLTBHTBH MPV10.39.5 - 13.5 fLTBHNEUTROPHILS PERCENT AUTO 76.9(H)43.0 - 75.0 %TBHLYMPHOCYTES PERCENT AUTO17.3(L)20.5 - 60.0 %TBH MONOCYTES PERCENT AUTO4.51.7 - 12.0 %TBHTBH EO %0.2(L)0.9 - 7.0 %TBHBASOPHILS PERCENT AUTO0.20.2 - 2.0 %TBHIMMATURE GRANULOCYTES PCT AUTO0.9(H)0.0 - 0.5 % TBHNEUTROPHILS ABSOLUTE AUTO7.9(H)1.4 - 6.5 10 3/uLTBHLYMPHOCYTES ABSOLUTE AUTO1.81.2 - 3.8 10 3/uLTBHMONOCYTES ABSOLUTE AUTO0.50.3 - 0.8 10 3/uLTBHTBH EO #0.00.0 - 0.7 10 3/uLTBHBASOPHILS ABSOLUTE AUTO0.00.0 - 0.1 10 3/uLTBH IMMATURE GRANULOCYTES ABS AUTO0.09(H)0.00 - 0.03 10 3/uLTBHSpecimen (Source) Anatomical Location / LateralityCollection Method / VolumeCollection Time Received Time02/27/2025 8:23 AM EDT02/27/2025 8:24 AM EDT Narrative CLINISYNC - 02/27/2025 8:39 AM EDT Authorizing ProviderResult TypeResult StatusCorey Da DOCLINISYNCFinal Result Performing OrganizationAddressCity/State/ZIP CodePhone Number [facility] * Pap Smear (12/25/2024 12:00 AM EDT)Specimen (Source)Anatomical Location / LateralityCollection Method / VolumeCollection TimeReceived TimeSwabCervical swab / Unknown Narrative Authorizing ProviderResult TypeResult StatusCorey Da DOLAB CYTOLOGY ORDERABLESFinal ResultPerforming OrganizationAddressCity/State/ZIP CodePhone Number EXTERNAL LAB * THINPREP TIS AND HPV MRNA E6/E7 (22429) (05/27/2021)ComponentValueRef Range Test MethodAnalysis TimePerformed AtPathologist SignatureCLINICAL INFORMATION: None givenNOMS LEGACY EXTERNAL LABLMP:None givenN[facility] LEGACY EXTERNAL LABPREV. PAP:None given[facility]GAC[facility] EXTERNAL LABPREV. BX:None given[facility] EXTERNAL LABSOURCE:None givenN[facility] EXTERNAL LABSTATEMENT OF ADEQUACY:SEE COMMENT [facility] EXTERNAL LABComment: Satisfactory for evaluation. Endocervical/transformation zone component absent. INTERPRETATION/RESULT:Negative for intraepithelial lesion or malignancy.[facility] EXTER[facility] LABCOMMENT:This Pap test has been evaluated with computer assisted technology.[facility] LABCYTOTECHNOLOGIST:SEE COMMENTNOMS LEGACY EXTERNAL LABComment: SARAH SWEENEY(ASCP) CT screening location: [employer] [facility], [address] [place] [address], [place] [address]. COMMENTSEE COMMENTNOMS LEGACY EXTERNAL LABComment: EXPLANATORY NOTE: The Pap is a screening test for cervical cancer. It is not a diagnostic test and is subject to false negative and false positive results. It is most reliable when a satisfactory sample, regularly obtained, is submitted with relevant clinical findings and history, and when the Pap result is evaluated along with historic and current clinical information. HPV MRNA E6/E7Not DetectedNot DetectedNOMS LEGACY EXTERNAL LABComment: Methodology: Draw Frame Tender-Mediated Amplification This assay detects E6/E7 viral messenger RNA (mRNA) from 14 high-risk HPV types (16,18,31,33,35,39,45,51,52,56,58,59,66,68). The analytical performance characteristics of this assay have been determined by [employer]. The modifications have not been cleared or approved by the FDA. This assay has been validated pursuant to the CLIA regulations and is used for clinical purposes. For additional information, please refer to http://education.My Top 10/faq/WQO271p8 (This link if provided for information/ educational purposes only.) Specimen (Source)Anatomical Location / LateralityCollection Method / Volume Collection TimeReceived Time05/27/2021 Narrative Authorizing ProviderResult TypeResult StatusDesire JERONIMO LABSFinal ResultPerforming OrganizationAddressCity/State/ZIP CodePhone Number [facility] from Last 3 Months or Most Recently Relevant to Health Maintenance Insurance Care Teams Team MemberRelationshipSpecialtyStart DateEnd Date Desire Ackerman MD [address] [place] [address] [facility] - [facility]11/23/22
--- OUTSIDE RECORDS SUMMARY | 2025-05-10 15:00 | XMS_ITS ---
Author Organization BTO Ce[facility] Source Produ ction (ClinicalSummary Clone) Address Unknown Care Team Providers Care Otolaryngology Surgeon Name Role Phone Unavailable Primary Care Physician Unavailab le Results * [UNITY] CARRIER SCREEN Performed by: [employer] Component Value Range Date Sickle Cell Disease/Beta-Thalassemia/Hemoglobino pathies carrier screen NEGATIVE 11/16/2024 09:53 pm UTCAlpha-Thalassemia carrier ydxqjnDUBDRGYM49/02/2025 09:53 pm UTCCystic Fibrosis carrier hbpbbiCQNHCMUU83/02/2025 09:53 pm UTCSpinal Muscular Atrophy carrier screenNEGATIVE 2 SMN1 copies, SNP not bodwcwg9411/16/2024 09:53 pm UTCFor detailed report, see PDFSee PDF11/16/2024 09:53 pm UTC 11/16/2024 09:53 pm UTC Social History Observation Value Start Date End Date
--- OUTSIDE RECORDS SUMMARY | 2025-05-10 15:00 | XMS_ITS | Encounter Summary ---
Author Organization [facility] Address [address] [place] [address] Care Team Providers Care Clinical Application Consultant Name Role Phone Desire Ackerman MD Primary Care Provider [phone] Encounter Details DateTypeDepartmentCare Team (Latest Contact Info)Pirvzsoikgf56/14/2025amboo flowsheet [facility] [address] [place] [phone] Stephanie Suresh PA [address] [place], [facility] Social History Tobacco UseTypesPacks/DayYears UsedDateSmoking Tobacco: FormerCigarettes [...] relatives?Once a week11/18/2024How often do you attend confucianism or voodoo services?More than 4 times per year11/18/2024Do you belong to any clubs or organizations such as confucianism groups, unions, fraternal or athletic fareed ups, or school groups?Yes11/18/2024How often do you attend meetings of the clubs or organizations you belong to?More than 4 times per year11/18/2024re you , , , , never , or living with a partner? Khhhzuf3911/18/2024UDIT-CAnswerDate RecordedQ1: How often do you have a [...] heating?Not very hard11/18/2024PHQ-2AnswerDate RecordedPatient Health Questionnaire-2 Score0 04/16/2025Fin[facility] [place] of Occupational Health - Occupational Stress QuestionnaireAnswerDate RecordedDo you feel stress - tense, restless, nervous, or anxious, or unable to sleep at night because yourmind is troubled all the time - these days?To some nksjkq6311/18/2024Exercise Vital SignAnswerDate Recorded On average, how many [...] homeless or living in a mcfp (including now)?No11/18/2024Estimated Date of BmoxgbjuSpjxctnjYjh49/21/2025ased on UltrasoundSex and Gender InformationValueDate RecordedSex Assigned at BirthNot on fileLegal SexFemale 09/29/2022 9:28 PM EDTGender IdentityNot on fileSexual OrientationNot on file documented as of this encounter Plan of Treatment DateTypeDepartmentCare Team (Latest Contact Info)Pviocnozvkk10/28/2025 1:40 PM EDTRoutine [facility] [address] [place] [address] Floyd Roberson DO [address] [place] [address] documented as of this encounter Visit Diagnoses Not on filedocumented in this encounter Care Teams Team MemberRelationshipSpecialtyStart DateEnd Date Desire Ackerman MD [address] [place] [address] PCP - GeneralFamily Medicine11/23/22documented as of this encounter
--- OUTSIDE RECORDS SUMMARY | 2025-05-10 15:00 | XMS_ITS ---
Author Organization [facility] Source Produ ction (ClinicalSummary Clone) Address Unknown Care Team Providers Care Fairing Worker Name Role Phone Unavailable Primary Care Physician Unavailab le Results * [UNITY] ANEUPLOIDY NIPT Performed by: [employer] Component Value Range Date Fraction 13.6% 11/11/2024 03:30 pm UTCRh(D) NIPTRhD KNMLHAPR81/27/2025 03:30 pm UTCSex Chromosome AneuploidyNOT VGRNAEJE61/27/2025 03:30 pm UTCMonosomy XLOW RISK <1 in , 03:30 pm UTCTrisomy 13LOW RISK <1 in , 03:30 pm UTCTrisomy 18LOW RISK <1 in , 03:30 pm UTCTrisomy 21LOW RISK <1 in , 03:30 pm UTCFetal FnwWQVMOE83/27/2025 03:30 pm UTCPregnancy IchlhhvxjUVFSYIPCK78/27/2025 03:30 pm UTCFor detailed report, see PDFSee PDF 11/11/2024 03:30 pm UTC11/11/2024 03:30 pm UTC Social History Observation Value Start Date End Date
[2025-05-10 15:09] VITALS: BP 131/71; PULSE 100
== END 2025-05-10 15:43 | disposition home or self-care (01) ==
LOC: FBCO 14:57 → FBC 14:59
PROVIDERS: PCP Student in an Organized Health Care Education/Training Program; Visit Provider Obstetrics & Gynecology
DX: O09.529 Supervision of elderly multigravida, unspecified trimester (principal)
CPT/HCPCS: 59025

== ENCOUNTER 2025-05-14 14:38 | Outpatient (OUT) | payer OTHER, SELFPAY ==
--- NOTE | 2025-05-14 | US_ITS ---
[address] [address] Patient Name: HELEN SONG MRN: [id number] date: 1990 Sex: F Assigned Patient Location: [facility] Current Patient Location: LAB Accession/Order Number: [id number] Exam Date: 05/14/2025 14:45 Report Date: 05/14/2025 22:05 At the request of: ZAKI DENG Procedure: US OB BPP w non-stress Ultrasound biophysical profile INDICATION: advanced maternal age. COMPARISON: 05/07/2025 FINDINGS/IMPRESSION: Single live intrauterine . Cephalic Position. heart rate 131 bpm. OCTAVIO measures 14.8 cm. Biophysical profile score 8/8. Impression dictated by: Juarez Noonan M.D. 05/14/2025 10:05 PM Dictation Location: [place] [address] Electronically authenticated by: [id number] Y Date: 05/14/2025 22:05
[2025-05-14 14:45] VITALS: BP 112/64; PULSE 91
== END 2025-05-14 16:31 | disposition home or self-care (01) ==
LOC: US 14:38 → FBC 14:41
PROVIDERS: PCP Student in an Organized Health Care Education/Training Program; Visit Provider Physician Assistant
DX: O26.893 Other specified pregnancy related conditions, third trimester (principal); O09.523 Supervision of elderly multigravida, third trimester; Z3A.36 36 weeks gestation of pregnancy
CPT/HCPCS: 59025; 76818; 87081

== ENCOUNTER 2025-05-14 19:29 | Outpatient (REF) | payer OTHER, SELFPAY ==
--- OUTSIDE RECORDS SUMMARY | 2025-04-30 09:50 | XMS_ITS | Encounter Summary ---
Author Organization [facility] Address [address] [place] [address] Care Team Providers Care Talent Buyer Name Role Phone Desire Ackerman MD Primary Care Provider [phone] Reason for Visit * ReasonCommentsRoutine Visit Encounter Details DateTypeDepartmentCare Team (Latest Contact Info)Kjnpnhadwsm98/14/2025 9:50 AM EDTRoutine [facility] [address] [place] [address] Stephanie Suresh PA [address] [facility] [address] [place], [facility]11 Third trimester ([facility]); 34 weeks gestation of ([facility]) Social History Tobacco UseTypesPacks/DayYears UsedDateSmoking Tobacco: FormerCigarettes [...] relatives?Once a week11/18/2024How often do you attend advent or jainism services?More than 4 times per year11/18/2024Do you belong to any clubs or organizations such as advent groups, unions, fraternal or athletic fareed ups, or school groups?Yes11/18/2024How often do you attend meetings of the clubs or organizations you belong to?More than 4 times per year11/18/2024re you , , , , never , or living with a partner? Pbgqqua1011/18/2024UDIT-CAnswerDate RecordedQ1: How often do you have a [...] heating?Not very hard11/18/2024PHQ-2AnswerDate RecordedPatient Health Questionnaire-2 Score0 04/16/2025[facility] [place] of Occupational Health - Occupational Stress QuestionnaireAnswerDate RecordedDo you feel stress - tense, restless, nervous, or anxious, or unable to sleep at night because yourmind is troubled all the time - these days?To some rubsik1111/18/2024Exercise Vital SignAnswerDate Recorded On average, how many [...] homeless or living in a intermediate (including now)?No11/18/2024Estimated Date of KajvsoejNrheplgtMbq53/21/2025ased on UltrasoundSex and Gender InformationValueDate RecordedSex Assigned at BirthNot on fileLegal SexFemale 09/29/2022 9:28 PM EDTGender IdentityNot on fileSexual OrientationNot on file documented as of this encounter Last Filed Vital Signs Vital SignReadingTime TakenCommentsBlood Osctkfqh478/7204/30/2025 9:58 AM EDT Pulse--Temperature--Respiratory Rate--Oxygen Saturation--Inhaled Oxygen Concentration--Cnqywm18.9 kg (207 lb)04/30/2025 9:58 AM EDTHeight--Body Mass [...] ASSESSMENT & PLAN ICD-10-CM 1. Third trimester ([facility]) Z34.93 2. 34 weeks gestation of ([facility]) Z3A.34 POCT urinalysis dipstick manually resulted Return [...] Plan of Treatment DateTypeDepartmentCare Team (Latest Contact Info)Oncsbryiaow88/06/2025 10:30 AM ESTAncillary Procedure [facility] [address] [place] [address] [place] [address] 05/23/2025 11:20 AM ESTRoutine [facility] [address] [facility] [place] [address] Stephanie Suresh PA [address] [place] [address] documented as of this encounter Procedures Procedure NamePriorityDate/TimeAssociated DiagnosisCommentsPOCT URINALYSIS XFHUDWYAOvymung96/14/2025 10:04 AM EDT 34 weeks gestation of ([facility]) documented in this encounter Results [...] Location / LateralityCollection Method / VolumeCollection TimeReceived JbtoTgbnk72/14/2025 10:04 AM EDT Narrative Authorizing ProviderResult TypeResult StatusLongwood HospitalOINT OF CARE TEST ENTER/EDIT ORDERABLESFinal Result documented in this encounter Visit Diagnoses Diagnosis Third trimester ([facility]) state, incidental 34 weeks gestation of ([facility]) documented in this encounter Care Teams Team MemberRelationshipSpecialtyStart DateEnd Date Desire Ackerman MD [address] [place] [address] PCP - GeneralFamily Medicine11/23/22documented as of this encounter
--- OUTSIDE RECORDS SUMMARY | 2025-05-14 13:40 | XMS_ITS | Encounter Summary ---
Author Organization [facility] Address [address] [place] [address] Care Team Providers Care Manufacturing Controls Engineer Name Role Phone Desire Ackerman MD Primary Care Provider [phone] Reason for Visit * ReasonCommentsRoutine Visit Encounter Details DateTypeDepartmentCare Team (Latest Contact Info)Jcohaqasprs44/28/2025 1:40 PM EDTRoutine [facility] [address] [place] [address] Floyd Roberson, [address] [place] [address] Third trimester ([facility]); 36 weeks gestation of ([facility]) Social History Tobacco UseTypesPacks/DayYears UsedDateSmoking Tobacco: FormerCigarettes [...] relatives?Once a week11/18/2024How often do you attend jew or mormonism services?More than 4 times per year11/18/2024Do you belong to any clubs or organizations such as jew groups, unions, fraternal or athletic fareed ups, or school groups?Yes11/18/2024How often do you attend meetings of the clubs or organizations you belong to?More than 4 times per year11/18/2024re you , , , , never , or living with a partner? Qkhauwa1311/18/2024UDIT-CAnswerDate RecordedQ1: How often do you have a [...] heating?Not very hard11/18/2024PHQ-2AnswerDate RecordedPatient Health Questionnaire-2 Score0 04/16/2025[facility] [place] of Occupational Health - Occupational Stress QuestionnaireAnswerDate RecordedDo you feel stress - tense, restless, nervous, or anxious, or unable to sleep at night because yourmind is troubled all the time - these days?To some msniog9711/18/2024Exercise Vital SignAnswerDate Recorded On average, how many [...] were you homeless or living in a fpc (including now)?No11/18/2024Estimated Date of EexcojysGtfsmwedWgu40/21/2025ased on UltrasoundSex and Gender InformationValueDate RecordedSex Assigned at BirthNot on fileLegal SexFemale 09/29/2022 9:28 PM EDTGender IdentityNot on fileSexual OrientationNot on file documented as of this encounter Last Filed Vital Signs Vital SignReadingTime TakenCommentsBlood Nocxhtxu633/6005/14/2025 1:51 PM EDT Pulse--Temperature--Respiratory Rate--Oxygen Saturation--Inhaled Oxygen Concentration--Mdcgut91.3 kg (207 lb 12.8 oz)05/14/2025 1:51 PM [...] nursing note reviewed. Exam conducted with a clerk general present. Vitals: Estimated body mass index is 35.67 kg/m?? as calculated from the following: Height as of 11/19/24: 5' 4 . Weight as of this encounter: 207 lb 12.8 oz. BP: 100/60 Patient's last menstrual period was 08/22/2024. Assessment/Plan ICD-10-CM 1. Third trimester ([facility]) Z34.93 CULTURE, GROUP B STREP WITH SUSCEPTIBLITY CULTURE, GROUP B STREP WITH SUSCEPTIBLITY 2. 36 weeks gestation of ([facility]) Z3A.36 POCT urinalysis dipstick manually resulted Patient [...] Plan of Treatment DateTypeDepartmentCare Team (Latest Contact Info)Kyeuxljncwk43/06/2025 10:30 AM ESTAncillary Procedure [facility] [address] [place] [address] 05/23/2025 11:20 AM ESTRoutine [facility] [address] [place] [address] Stephanie Suresh PA [address] [place] [address] NameTypePriorityAssociated DiagnosesOrder ScheduleCULTURE, GROUP B STREP WITH SUSCEPTIBLITYLabRoutine Third trimester ([facility]) Expected: 05/14/2025, Expires: 05/14/2026US OB follow up transabdominal approach ImagingRoutine Third trimester ([facility]) Expected: 05/14/2025, Expires: 09/14/2025documented as of this encounter Procedures Procedure NamePriorityDate/TimeAssociated DiagnosisCommentsPOCT URINALYSIS VLTMFIUKWueduyj42/28/2025 2:05 PM EDT 36 weeks gestation of ([facility]) documented in this encounter Results * (ABNORMAL) [...] Location / LateralityCollection Method / VolumeCollection TimeReceived WmatBzisd60/28/2025 2:05 PM EDT Narrative Authorizing ProviderResult TypeResult StatusCorey Da DOPOINT OF CARE TEST ENTER/EDIT ORDERABLESFinal Result documented in this encounter Visit Diagnoses Diagnosis Third trimester ([facility]) state, incidental 36 weeks gestation of ([facility]) documented in this encounter Care Teams Team MemberRelationshipSpecialtyStart DateEnd Desire Ackerman MD [address] [place] [address] PCP - GeneralFamily Medicine11/23/22documented as of this encounter
--- OUTSIDE RECORDS SUMMARY | 2025-05-14 19:33 | XMS_ITS | Encounter Summary ---
Author Organization [facility] Address [address] [place] [address] Care Team Providers Care Clay Washer Name Role Phone Desire Ackerman MD Primary Care Provider [phone] Encounter Details DateTypeDepartmentCare Team (Latest Contact Info)Xvwsompzfqn99/28/2025Patient Outreach [facility] [address] [place] [phone] Stephanie Hedrick, ANDREA [address] [place] [address] Social History Tobacco UseTypesPacks/DayYears UsedDateSmoking Tobacco: FormerCigarettes [...] relatives?Once a week11/18/2024How often do you attend congregation or jew services?More than 4 times per year11/18/2024Do you belong to any clubs or organizations such as congregation groups, unions, fraternal or athletic fareed ups, or school groups?Yes11/18/2024How often do you attend meetings of the clubs or organizations you belong to?More than 4 times per year11/18/2024re you , , , , never , or living with a partner? Yoiblah8611/18/2024UDIT-CAnswerDate RecordedQ1: How often do you have a [...] heating?Not very hard11/18/2024PHQ-2AnswerDate RecordedPatient Health Questionnaire-2 Score0 04/16/2025[facility] [place] [facility] Occup[facility] Health - Occupational Stress QuestionnaireAnswerDate RecordedDo you feel stress - tense, restless, nervous, or anxious, or unable to sleep at night because yourmind is troubled all the time - these days?To some hcmqvv0111/18/2024Exercise Vital SignAnswerDate Recorded On average, how many [...] homeless or living in a penitentiary (including now)?No11/18/2024Estimated Date of PhkrefezQmmptmmoBem16/21/2025ased on UltrasoundSex and Gender InformationValueDate RecordedSex Assigned at BirthNot on fileLegal SexFemale 09/29/2022 9:28 PM EDTGender IdentityNot on fileSexual OrientationNot on file documented as of this encounter Progress Notes * Stephanie Hedrick LPN - 05/14/2025 10:52 AM EDT Monthly outreach. Call to pt X2, Full VM documented in this encounter Plan of Treatment DateTypeDepartmentCare Team (Latest Contact Info)Novdmyenmrh41/06/2025 10:30 AM ESTAncillary Procedure [facility] [address] [place] [address] [place] [phone] 05/23/2025 11:20 AM ESTRoutine [facility] [address] [place] [phone] Stephanie Suresh PA [address] [place], [place] [phone] documented as of this encounter Visit Diagnoses Not on filedocumented in this encounter Care Teams Team MemberRelationshipSpecialtyStart DateEnd Date Desire Ackerman MD [address] [place] [address] PCP - GeneralFamily Medicine11/23/22documented as of this encounter
--- OUTSIDE RECORDS SUMMARY | 2025-05-14 19:33 | XMS_ITS | Clinical Summary ---
Author Organization [facility] Address [address] [place] [address] Care Team Providers Care Die Cutter Apprentice Name Role Phone Desire Ackerman MD Primary Care Provider [phone] Allergies Active AllergyReactionsCriticalityNoted HvzjUdmmxugjPpsgezEoasLnd50/10/2025 Medications MedicationSigDispense QuantityRefillsLast FilledStart DateEnd DateStatus ondansetron ODT (Zofran-ODT) 4 MG disintegrating tablet DISSOLVE 1 TABLET IN MOUTH EVERY 6 HOURS NEEDED FOR NAUSEA AND VOMITING 5Active EPINEPHrine (Epipen) 0.3 MG/0.3ML injection syringe INJECT 1 PEN INTRAMUSCULARLY EVERY 10 MINUTES NEEDED FOR ANAPHYLAXIS FOR 2 DOSES4Active MV-Min-Fe Fum-FA-DHA ( 1 PO) Take by mouthActive Active Problems Estimated Date of JxljguigObzujqtwGjk57/21/2025Based on Ultrasound No known active problems Encounters DateTypeDepartmentCare PojmCrodzasknfb89/28/2025 1:40 PM EDTRoutine [facility] [address] [facility] [phone] Floyd Roberson DO Third trimester ([facility]); 36 weeks gestation of ([facility])05/14/2025Patient Outreach [facility] [address] [place] [address] Stephanie Hedrick LPN 04/30/2025 9:50 AM EDTRoutine [facility] [address] [place] [address] Stephanie Deng PA Third trimester ([facility]); 34 weeks gestation of ([facility])5Bamboo flowsheet [facility] [address] [facility] [place] [address] Stephanie Deng PA 04/23/2025linisync Result Encounter NOM[facility] External Department Unsolicited Stephanie Deng PA 04/17/2025 10:50 AM EDTRoutine [facility] [address] [facility] [place] [address] Mitali Mccall NP 32 weeks gestation of ([facility]); Third trimester ([facility])04/17/2025linisync Result Encounter NOM[facility] External Department Unsolicited Stephanie Deng PA 04/16/2025Patient Outreach [facility] [address] [place] [address] Stephanie Hedrick LPN 04/02/2025 1:50 PM EDTRoutine [facility] [address] [facility] [place] [address] Floyd Roberson DO Third trimester ([facility]); 30 weeks gestation of ([facility])04/02/2025amboo flowsheet [facility] [address] [facility] [place] [address] Floyd Roberson DO 03/25/2025 2:00 PM EDTAncillary Procedure [facility] [address] [facility] [place] [address] Multigravida of advanced maternal age in third trimester ([facility])03/25/2025 Jkrkpu2303/19/2025 2:10 PM EDTRoutine [facility] [address] [facility] [place] [address] Stephanie Deng PA Multigravida of advanced maternal age in third trimester ([facility]); Third trimester ([facility]); 28 weeks gestation of ([facility])03/19/2025[facility] [address] [place] [address] Stephanie Hedrick LPN 02/27/2025linisync Result Encounter NOMS External Department Unsolicited Floyd Roberson, 02/19/2025 1:40 PM EDTRoutine [facility] [address] [facility] [place] [address] Floyd Roberson, Second trimester ([facility]); 24 weeks gestation of ([facility]); Diabetes mellitus screening; Antepartum multigravida of advanced maternal age ([facility]); H/O miscarriage, currently ([facility])02/19/2025amboo flowsheet [facility] [address] [facility] [place] [address] Floyd Roberson DO 02/18/2025Patient Outreach [facility] [address] [place] [address] Stephanie Hedrick LPN from Last 3 Months Social History Tobacco UseTypesPacks/DayYears UsedDateSmoking Tobacco: FormerCigarettes Smokeless Tobacco: Never Tobacco Cessation:Counseling Given: Not Answered Humiliation, Afraid, Rape, and Kick questionnaireAnswerDate RecordedWithin the last year, have you been afraid of your partner or ex-partner?11/18/2024Within the last year, have you been humiliated or emotionally abused in other ways by your partner or ex-partner?11/18/2024Within the last year, have you been kicked, hit, slapped, or otherwise physically hurt by your partner or ex-partner?11/18/2024Within the last year, have you been raped or forced to have any kind of sexual activity by your partner or ex-partner?11/18/2024 Social Connection and Isolation PanelAnswerDate RecordedIn a typical week, how many times do you talk on the phone with family, friends, or neighbors?Three times a week11/18/2024How often do you get together with friends or relatives? Once a week11/18/2024How often do you attend mandaen or sabianist services?More than 4 times per year11/18/2024Do you belong to any clubs or organizations such as mandaen groups, unions, fraternal or athletic groups, or school groups?Yes 11/18/2024How often do you attend meetings of the clubs or organizations you belong to?More than 4 times per year11/18/2024re you , , , , never , or living with a partner?Hzqhzfk2111/18/2024 AUDIT-CAnswerDate RecordedQ1: How often do you have [...] heating?Not very hard11/18/2024PHQ-2Answer Date RecordedPatient Health Questionnaire-2 [facility]v826[facility] [place] of Occup[facility] Health - Occupational Stress QuestionnaireAnswerDate RecordedDo you feel stress - tense, restless, nervous, or anxious, or unable to sleep at night because yourmind is troubled all the time - these days?To some xretxs9911/18/2024 Exercise Vital SignAnswerDate RecordedOn average, how many [...] homeless or living in a usp (including now)?No11/18/2024Estimated Date of DeliveryComments Yes06/07/2025ased on UltrasoundSex and Gender InformationValueDate RecordedSex Assigned at BirthNot on fileLegal WnyAcpyni35/15/2023 9:28 PM EDTGender Identity Not on fileSexual OrientationNot on file Last Filed Vital Signs Vital SignReadingTime TakenCommentsBlood Kethincx606/6010 1:51 PM EDT Gcykz871711/19/2024 1:56 PM OZBUydrciafyqc62.9 ??C (98.4 ??F)11/19/2024 1:56 PM EDTRespiratory Rate--Oxygen Mcbxkzpgxj91%11/19/2024 1:56 PM EDTInhaled Oxygen Concentration--Bqmlfe00.3 kg (207 lb 12.8 oz)05/14/2025 1:51 PM EITRbzcmr365.6 cm (5' 4 )11/19/2024 1:56 PM EDTBody Mass Index35.67011/19/2024 1:56 PM EDT Plan of Treatment DateTypeDepartmentCare Team (Latest Contact Info)Bqjaupkzrgw75/06/2025 10:30 [place] [address] 05/23/2025 11:20 AM ESTRoutine [place] [address] Stephanie Deng PA [address] [facility] [place] [address] Health MaintenanceDue DateLast DoneCommentsMMR Vaccines (1 of 1 - Standard series)1989DTaP/Tdap/Td Vaccines (1 - Tdap)1995Varicella Vaccines (1 of 2 - 13+ 2-dose series)2001Hepatitis B Vaccines (1 of 3 - 19+ 3-dose series)2007HPV Vaccines (1 - 3-dose SCDM series)2015COVID-19 Vaccine (1 - season)2025Influenza Vaccine (#1)2025ervical Cancer Cvfbspyry20/10/2030HPV/Nzvaap141Pap Smear12/25/ HIB VaccinesAged OutNo longer eligible based on patient's age to complete this topicHepatitis A VaccinesAged OutNo longer eligible based on patient's age to complete this topicIPV VaccinesAged OutNo longer eligible based on patient's age to complete this topicMeningococcal B VaccineAged OutNo longer eligible based on patient's age to complete this topicMeningococcal VaccineAged OutNo longer eligible based on patient's age to complete this topicPneumococcal Vaccine: Pediatrics (0 to 5 Years) and At-Risk Patients (6 to 64 Years)Aged OutNo longer eligible based on patient's age to complete this topicRotavirus VaccinesAged Out No longer eligible based on patient's age to complete this topic Procedures Procedure NamePriorityDate/TimeAssociated DiagnosisCommentsPOCT URINALYSIS ATDOHKOUHizmgxv14/28/2025 2:05 PM EDT 36 weeks gestation of ([facility]) POCT URINALYSIS QNVBHQJWIosqkan07/14/2025 10:04 AM EDT 34 weeks gestation of ([facility]) US OB BPP W NON-QQIUDJ0304/23/2025 4:03 PM EDT POCT URINALYSIS JSEVVPKQTsgtfdv76/01/2025 10:42 AM EDT 32 weeks gestation of ([facility]) US OB BPP W NON-ZXBTMU6404/17/2025 8:53 AM EDT POCT URINALYSIS IKHFSKDAIqukyaf54/16/2025 2:26 PM EDT Third trimester ([facility]) 30 weeks gestation of ([facility]) US OB FOLLOW UP TRANSABDOMINAL PBQZMWFMPkbjqms80/08/2025 2:29 PM EDT Multigravida of advanced maternal age in third trimester ([facility]) POCT URINALYSIS JFDRPGGQXfefhju13/02/2025 2:36 PM EDT Third trimester ([facility]) GLUCOSE 1 FCYXXdiqfbp64/13/2025 8:23 AM EDT ALL CBC WITH AUTO DDHXYkwiqiz00/13/2025 8:23 AM EDT POCT URINALYSIS DKUHGBNEUawhlci30/05/2025 1:53 PM EDT Second trimester ([facility]) 24 weeks gestation of ([facility]) PAP JCEVAFiigrae99/10/2025 12:00 AM EDTTHINPREP TIS AND HPV MRNA E6/E7 (25012) Vjhtqse5805/27/2021 from Last 3 Months or Most Recently Relevant to Health Maintenance Results * (ABNORMAL) POCT urinalysis dipstick manually resulted (05/14/2025 2:05 PM EDT) Only the most recent of6 resultswithin the time period is included. ComponentValueRef RangeTest MethodAnalysis TimePerformed AtPathologist Signature Color, UAYellowClarity, UAClearGlucose, UANegativeNegative - 2000(110) ++++ mg/dLBilirubin, UANegativeNegative - 4(70) +++ mg/dLKetones, UANegativeNegative - 160(16) ++++ mg/dLSpec Grav, UA1.0251 - 1.03Blood, UAPositiveNegative - 50 Abdi/mcLpH, UA5.55 - 9Protein, UANegativeNegative - 1999(20) ++++ mg/dL Urobilinogen, UA1.00.2 - 12 mg/dLLeukocytes, UANegativeNegative - 500+++ Nile/mcL Nitrite, UANegativeNegative - PositiveSpecimen (Source)Anatomical Location / LateralityCollection Method / VolumeCollection TimeReceived XdakQmszx95/28/2025 2:05 PM EDT Narrative Authorizing ProviderResult TypeResult StatusCorey Da DOPOINT OF CARE TEST ENTER/EDIT ORDERABLESFinal Result * US OB BPP W NON-STRESS (04/23/2025 4:03 PM EDT) Only the most recent of2 resultswithin the time period is included. Anatomical RegionLateralityModalityOtherSpecimen (Source)Anatomical Location / LateralityCollection Method / VolumeCollection TimeReceived Time04/23/2025 4:03 PM EDT Narrative 04/23/2025 4:05 PM EDT [facility] ?[address] ? [place] [address] ? Ultrasound Report ? Signed ? Patient: HELEN TRAN ?MR#: [id number] ?? : 1990 ?Acct:[id number] ?? Age/Sex: 34 / F ?ADM Date: 04/23/25 ?? Loc: US ? Attending Dr: Stephanie Deng ? Ordering Physician: Stephanie Deng ?? Date of Service: 04/23/25 ?? Procedure(s): US OB BPP w non-stress ?? Accession Number(s): [id number] ? cc: Stephanie Deng; ROQUE ACKERMAN ? [facility] ? [address] ? [place] [address] ? Patient Name: ?? HELEN TRAN ? MRN: [facility]:[id number] ? date: 1990 ?Sex: F ?? Assigned Patient Location: FB ?? Current Patient Location: ? Accession/Order Number: [id number] ?? Exam Date: 04/23/2025 ??14:22 ?Report Date: [...] Dictation Location: RADIO-PC-29 ? Electronically authenticated by: [id number] ??Y ?? Date: 04/23/2025 ??16:03 ? Dictated By: ?Juarez Noonan M.D. ? Signed By: ?04/23/255 ? DD/ 1603 ? TD/TT: ? Molecular Biologist: Procedure Note Radiology, Radiologist, MD - 04/23/2025 [facility] [place] [id number] Ultrasound Report Signed Patient: HELEN TRAN LMR#: [id number] : 1990Acct:[id number] Age/Sex: 34 / FADM Date: 04/23/25 Loc: US Attending Dr: Stehpanie Deng Ordering Physician: Stephanie Deng Date of Service: 04/23/25 Procedure(s): US OB BPP w non-stress Accession Number(s): [id number] cc: Stephanie Deng; ROQUE ACKERMAN The [address] [address] Patient Name: HELEN TRAN MRN: [facility]:[id number] date: 1990 Sex: F Assigned Patient Location: [facility] Current Patient Location: Accession/Order Number: [id number] Exam Date: 04/23/2025 14:22 Report Date: 04/23/2025 16:03 At the request of: STEPHANIE DENG Procedure: US OB BPP w non-stress Ultrasound biophysical profile INDICATION: advanced maternal age. COMPARISON: 04/16/2025 FINDINGS/IMPRESSION: Single live intrauterine . CephalicPosition. heart rate 136 bpm. OCTAVIO measures 18.8 cm. Biophysical profilescore 02/22. Impression dictated by: Juarez Noonan M.D. 04/23/2025 4:03 PM Dictation Location: [facility] [employer] Electronically authenticated by: [id number] Y Date: 6:03 Dictated By: Juarez Noonan M.D. Signed By:04/23/25 1605 DD/ 1603 TD/TT: Molecular Biologist: Authorizing ProviderResult TypeResult StatusAmy [facility] IMAGINGFinal Result * US OB follow up [...] Osito Ott MD Authorizing ProviderResult TypeResult StatusAmy [facility] PROCEDURES Final Result * (ABNORMAL) GLUCOSE 1 HOUR (02/27/2025 8:23 AM EDT)ComponentValueRef RangeTest MethodAnalysis TimePerformed AtPathologist SignatureGLUCOSE 1 SVQW788(H)<130 mg/dLTBHSpecimen (Source)Anatomical Location / LateralityCollection Method / VolumeCollection TimeReceived Time02/27/2025 8:23 AM EDT02/27/2025 8:24 AM EDT Narrative [facility] - 02/27/2025 9:00 AM EDT Authorizing ProviderResult TypeResult StatusCorey Da DOLAB BLOOD ORDERABLES Final ResultPerforming OrganizationAddressCity/State/ZIP CodePhone Number [facility] * (ABNORMAL) ALL CBC WITH AUTO DIFF (02/27/2025 8:23 AM EDT)ComponentValueRef RangeTest MethodAnalysis TimePerformed AtPathologist SignatureTBH WBC10.24.0 - 11.0 10 3/uLTBHTBH RBC3.78(L)4.20 - 5.40 10 6/uLTBHTBH HGB11.8(L)12.0 - 16.0 g/dLTBHTBH HCT34.0(L)36.0 - 48.0 %TBHTBH MCV89.981.0 - 99.0 fLTBHTBH MCH31.2 26.7 - 34.0 pgTBHTBH MCHC34.729.9 - 35.2 g/dLTBHTBH RDW13.311.0 - 15.0 %TBHTBH HIB189102 - 450 10 3/uLTBHTBH MPV10.39.5 - 13.5 [...] Da DOCLINISYNCFinal Result Performing OrganizationAddressCity/State/ZIP CodePhone Number CLIN[facility]NC [facility] * Pap Smear (12/25/2024 12:00 AM EDT)Specimen (Source)Anatomical Location / LateralityCollection Method / VolumeCollection TimeReceived TimeSwabCervical swab / Unknown Narrative Authorizing ProviderResult TypeResult StatusCorey Da DOLAB CYTOLOGY ORDERABLESFinal ResultPerforming OrganizationAddressCity/State/ZIP CodePhone Number EXTERNAL LAB * THINPREP TIS AND HPV MRNA E6/E7 (68200) (05/27/2021)ComponentValueRef Range Test MethodAnalysis TimePerformed AtPathologist SignatureCLINICAL [...] EXTERNAL LABComment: SARAH SWEENEY(ASCP) CT screening location: [employer] [facility], [address] [place] [address]. COMMENTSEE COMMENTNOMS LEGACY EXTERNAL LABComment: EXPLANATORY NOTE: [...] E6/E7Not DetectedNot DetectedNOMS LEGACY EXTERNAL LABComment: Methodology: Therapeutic Case Manager-Mediated Amplification This assay detects E6/E7 viral messenger RNA (mRNA) from 14 high-risk HPV types (16,18,31,33,35,39,45,51,52,56,58,59,66,68). The analytical performance characteristics of this assay have been determined by [employer]. The modifications have not been cleared or approved by the FDA. This assay has been validated pursuant to the CLIA regulations and is used for clinical purposes. For additional information, please refer to http://education.[employer]/faq/NGG451n3 (This link if provided for information/ educational purposes only.) Specimen (Source)Anatomical Location / LateralityCollection Method / Volume Collection TimeReceived Time05/27/2021 Narrative Authorizing ProviderResult TypeResult StatusDesire Ackerman MDECAshtyn LABSFinal ResultPerforming OrganizationAddressCity/State/ZIP CodePhone Number [facility] EXTERNAL LAB from Last 3 Months or Most Recently Relevant to Health Maintenance Insurance Care Teams Team MemberRelationshipSpecialtyStart DateEnd Desire Ackerman MD [address] [place] [address] PCP - GeneralFamily Medicine11/23/22
--- OUTSIDE RECORDS SUMMARY | 2025-05-14 19:33 | XMS_ITS | Encounter Summary ---
Author Organization [facility] Address [address] [place] [address] Care Team Providers Care Director Quality Assurance Name Role Phone Desire Ackerman MD Primary Care Provider [phone] Encounter Details DateTypeDepartmentCare Team (Latest Contact Info)Riybgnnwcrc54/14/2025amboo flowsheet [facility] [address] [place] [phone] Stephanie Suresh PA [address] [place], [facility] Social History Tobacco UseTypesPacks/DayYears UsedDateSmoking Tobacco: FormerCigarettes [...] relatives?Once a week11/18/2024How often do you attend buddhist or baptist services?More than 4 times per year11/18/2024Do you belong to any clubs or organizations such as buddhist groups, unions, fraternal or athletic fareed ups, or school groups?Yes11/18/2024How often do you attend meetings of the clubs or organizations you belong to?More than 4 times per year11/18/2024re you , , , , never , or living with a partner? Kbhsktb1111/18/2024UDIT-CAnswerDate RecordedQ1: How often do you have a [...] heating?Not very hard11/18/2024PHQ-2AnswerDate RecordedPatient Health Questionnaire-2 Score0 04/16/2025[facility] [place] [facility] - Occupational Stress QuestionnaireAnswerDate RecordedDo you feel stress - tense, restless, nervous, or anxious, or unable to sleep at night because yourmind is troubled all the time - these days?To some sfmzwf4611/18/2024Exercise Vital SignAnswerDate Recorded On average, how many [...] homeless or living in a longterm (including now)?No11/18/2024Estimated Date of AylludmmExcmiyajIan43/21/2025ased on UltrasoundSex and Gender InformationValueDate RecordedSex Assigned at BirthNot on fileLegal SexFemale 09/29/2022 9:28 PM EDTGender IdentityNot on fileSexual OrientationNot on file documented as of this encounter Plan of Treatment DateTypeDepartmentCare Team (Latest Contact Info)Taxaeiorcuf77/06/2025 10:30 AM ESTAncillary Procedure [facility] [place] [facility] [address] [place] [address] [place] [phone] 05/23/2025 11:20 AM ESTRoutine [facility] [address] [place] [phone] Stephanie Suresh PA [address] [place] [address] documented as of this encounter Visit Diagnoses Not on filedocumented in this encounter Care Teams Team MemberRelationshipSpecialtyStart DateEnd Date Desire Ackerman MD [address] [place] [address] PCP - GeneralFamily Medicine11/23/22documented as of this encounter
== END 2025-05-14 19:30 | disposition home or self-care (01) ==
LOC: LAB 19:29
PROVIDERS: PCP Student in an Organized Health Care Education/Training Program; Visit Provider Obstetrics & Gynecology
DX: Z34.93 Encounter for supervision of normal pregnancy, unspecified, third trimester (principal); Z3A.36 36 weeks gestation of pregnancy
CPT/HCPCS: 87081

== ENCOUNTER 2025-05-17 14:59 | Outpatient (OUT) | payer OTHER, SELFPAY ==
--- OUTSIDE RECORDS SUMMARY | 2025-05-14 13:40 | XMS_ITS | Encounter Summary ---
Author Organization [facility] Address [address] [place] [address] Care Team Providers Care Pin Feather Machine Operator Name Role Phone Desire Ackerman MD Primary Care Provider [phone] Reason for Visit * ReasonCommentsRoutine Visit Encounter Details DateTypeDepartmentCare Team (Latest Contact Info)Kciwrhqbjer66/28/2025 1:40 PM EDTRoutine [facility] [address] [place] [address] Floyd Roberson, [address] [place] [address] Third trimester ([facility]); 36 weeks gestation of ([facility]) Social History Tobacco UseTypesPacks/DayYears UsedDateSmoking Tobacco: FormerCigarettes [...] relatives?Once a week11/18/2024How often do you attend anabaptism or oriental orthodox services?More than 4 times per year11/18/2024Do you belong to any clubs or organizations such as anabaptism groups, unions, fraternal or athletic fareed ups, or school groups?Yes11/18/2024How often do you attend meetings of the clubs or organizations you belong to?More than 4 times per year11/18/2024re you , , , , never , or living with a partner? Plghfcp3911/18/2024UDIT-CAnswerDate RecordedQ1: How often do you have a [...] heating?Not very hard11/18/2024PHQ-2AnswerDate RecordedPatient Health Questionnaire-2 Score0 04/16/2025[facility] [place] [facility] - Occupational Stress QuestionnaireAnswerDate RecordedDo you feel stress - tense, restless, nervous, or anxious, or unable to sleep at night because yourmind is troubled all the time - these days?To some zsplqd9311/18/2024Exercise Vital SignAnswerDate Recorded On average, how many [...] you homeless or living in a senior care (including now)?No11/18/2024Estimated Date of ExoznrhnAkstsnrbXhq72/21/2025ased on UltrasoundSex and Gender InformationValueDate RecordedSex Assigned at BirthNot on fileLegal SexFemale 09/29/2022 9:28 PM EDTGender IdentityNot on fileSexual OrientationNot on file documented as of this encounter Last Filed Vital Signs Vital SignReadingTime TakenCommentsBlood Oaarwssv908/6005/14/2025 1:51 PM EDT Pulse--Temperature--Respiratory Rate--Oxygen Saturation--Inhaled Oxygen Concentration--Fggqcu55.3 kg (207 lb 12.8 oz)05/14/2025 1:51 PM [...] nursing note reviewed. Exam conducted with a operating room technician present. Vitals: Estimated body mass index is 35.67 kg/m?? as calculated from the following: Height as of 11/19/24: 5' 4 . Weight as of this encounter: 207 lb 12.8 oz. BP: 100/60 Patient's last menstrual period was 08/22/2024. Assessment/Plan ICD-10-CM 1. Third trimester ([facility]) Z34.93 CULTURE, GROUP B STREP WITH SUSCEPTIBLITY CULTURE, GROUP B STREP WITH SUSCEPTIBLITY 2. 36 weeks gestation of ([facility]) Z3A.36 POCT urinalysis dipstick manually resulted Patient [...] by Mirna Paulson LPN on behalf of: Flody Roberson DO documented in this encounter Plan of Treatment DateTypeDepartmentCare Team (Latest Contact Info)Uvcrazklipi98/06/2025 10:30 AM ESTAncillary Procedure [facility] [address] [place] [address] 05/23/2025 11:20 AM ESTRoutine [facility] [address] [place] [address] Stephanie Suresh PA [address] [place] [address] NameTypePriorityAssociated DiagnosesOrder ScheduleCULTURE, GROUP B STREP WITH SUSCEPTIBLITYLabRoutine Third trimester ([facility]) Expected: 05/14/2025, Expires: 05/14/2026US OB follow up transabdominal approach ImagingRoutine Third trimester ([facility]) Expected: 05/14/2025, Expires: 09/14/2025documented as of this encounter Procedures Procedure NamePriorityDate/TimeAssociated DiagnosisCommentsPOCT URINALYSIS SRDNFVRFHkxveqx48/28/2025 2:05 PM EDT 36 weeks gestation of ([facility]) documented in this encounter Results * (ABNORMAL) [...] Location / LateralityCollection Method / VolumeCollection TimeReceived GancZyuno76/28/2025 2:05 PM EDT Narrative Authorizing ProviderResult TypeResult StatusCorey Da DOPOINT OF CARE TEST ENTER/EDIT ORDERABLESFinal Result documented in this encounter Visit Diagnoses Diagnosis Third trimester ([facility]) state, incidental 36 weeks gestation of ([facility]) documented in this encounter Care Teams Team MemberRelationshipSpecialtyStart DateEnd Desire Ackerman MD [address] [place] [address] PCP - GeneralFamily Medicine11/23/22documented as of this encounter
--- OUTSIDE RECORDS SUMMARY | 2025-05-17 15:02 | XMS_ITS | Encounter Summary ---
Author Organization [facility] Address [address] [place] [address] Care Team Providers Care Photoengraving Helper Name Role Phone Desire Ackerman MD Primary Care Provider [phone] Encounter Details DateTypeDepartmentCare Team (Latest Contact Info)Aygwsduvtto68/28/2025linisync Result Encounter [facility] Unsolicited Stephanie Deng PA [address] [place] [address] [address] [place] [phone] Social History Tobacco UseTypesPacks/DayYears UsedDateSmoking Tobacco: FormerCigarettes [...] relatives?Once a week11/18/2024How often do you attend religious or temple services?More than 4 times per year11/18/2024Do you belong to any clubs or organizations such as religious groups, unions, fraternal or athletic fareed ups, or school groups?Yes11/18/2024How often do you attend meetings of the clubs or organizations you belong to?More than 4 times per year11/18/2024re you , , , , never , or living with a partner? Uupbqry4811/18/2024UDIT-CAnswerDate RecordedQ1: How often do you have a [...] heating?Not very hard11/18/2024PHQ-2AnswerDate RecordedPatient Health Questionnaire-2 Score0 04/16/2025[facility] [place] [facility] - Occupational Stress QuestionnaireAnswerDate RecordedDo you feel stress - tense, restless, nervous, or anxious, or unable to sleep at night because yourmind is troubled all the time - these days?To some szgldi0211/18/2024Exercise Vital SignAnswerDate Recorded On average, how many [...] were you homeless or living in a mcc (including now)?No11/18/2024Estimated Date of TdnplqiqQzppmotxYxq68/21/2025ased on UltrasoundSex and Gender InformationValueDate RecordedSex Assigned at BirthNot on fileLegal SexFemale 09/29/2022 9:28 PM EDTGender IdentityNot on fileSexual OrientationNot on file documented as of this encounter Plan of Treatment DateTypeDepartmentCare Team (Latest Contact Info)Ffqffbflcpk28/06/2025 10:30 AM ESTAncillary Procedure [facility] [place] [facility] [address] [place] [phone] 05/23/2025 11:20 AM ESTRoutine [facility] [place] [facility] [address] [place] [phone] Stephanie Deng PA [address] [facility] [address] [place], [place] [phone] documented as of this encounter Procedures Procedure NamePriorityDate/TimeAssociated DiagnosisCommentsUS OB BPP W NON-AGZCWO4805/14/2025 10:05 PM EDT documented in this encounter Results * US OB BPP W NON-STRESS (05/14/2025 10:05 PM EDT)Anatomical Region LateralityModalityOtherSpecimen (Source)Anatomical Location / Laterality Collection Method / VolumeCollection TimeReceived Time05/14/2025 10:05 PM EDT Narrative 05/14/2025 10:07 PM EDT [facility] ?[address] ? [place] [address] ? Ultrasound Report ? Signed ? Patient: NOHEMI,HELEN L ?MR#: [id number] ?? : 1990 ?Acct:[id number] ?? Age/Sex: 34 / F ?ADM Date: 10/28/25 ?? Loc: US ? Attending Dr: Stephanie Deng ? Ordering Physician: Stephanie Deng ?? Date of Service: 05/14/25 ?? Procedure(s): US OB BPP w non-stress ?? Accession Number(s): [id number] ? cc: Stephanie Deng; ROQUE ACKERMAN ? [facility] ? [address] ? [place] [address] ? Patient Name: ?? HELEN TRAN ? MRN: [facility]:[id number] ? date: 1990 ?Sex: F ?? Assigned Patient Location: FB ?? Current Patient Location: LAB ?? Accession/Order Number: [id number] ?? Exam Date: 05/14/2025 ??14:45 ?Report Date: 05/14/2025 ??22:05 ? At the request of: ?? STEPHANIE ??SOWMYA ? Procedure: ??US OB BPP w non-stress ? Ultrasound biophysical profile ? INDICATION: advanced maternal age. ? COMPARISON: 05/07/2025 ? FINDINGS/IMPRESSION: Single live intrauterine . ??Cephalic Position. ? heart rate 131 bpm. ??OCTAVIO measures 14.8 cm. ??Biophysical profile score ?? 8/8. ? Impression dictated by: Juarez Noonan M.D. ??05/14/2025 10:05 PM ? Dictation Location: [facility]--[facility] ? Electronically authenticated by: [id number] ??Y ?? Date: 05/14/2025 ??22:05 ? Dictated By: ?Juarez Noonan M.D. ? Signed By: ?05/14/252206 ? DD/ 04 ? TD/TT: ? Core Composer Machine Tender: Procedure Note Radiology, Radiologist, MD - 05/14/[address] [address] Ultrasound Report Signed Patient: HELEN TRAN LMR#: [id number] : 1990Acct:[id number] Age/Sex: 34 / FADM Date: 05/14/25 Loc: US Attending Dr: Stephanie Stem Ordering Physician: Stephanie Deng Date of Service: 05/14/25 Procedure(s): US OB BPP w non-stress Accession Number(s): [id number] cc: Stephanie Deng; ROQUE ACKERMAN [place] [address] [place] [address] Patient Name: HELEN TRAN MRN: [facility]:[id number] date: 1990 Sex: F Assigned Patient Location: [facility] Current Patient Location: LAB Accession/Order Number: [id number] Exam Date: 05/14/2025 14:45 Report Date: 05/14/2025 22:05 At the request of: STEPHANIE DENG Procedure: US OB BPP w non-stress Ultrasound biophysical profile INDICATION: advanced maternal age. COMPARISON: 05/07/2025 FINDINGS/IMPRESSION: Single live intrauterine . CephalicPosition. heart rate 131 bpm. OCTAVIO measures 14.8 cm. Biophysical profilescore 8/8. Impression dictated by: Juarez Noonan M.D. 05/14/2025 10:05 PM Dictation Location: [place] [address] Electronically authenticated by: [id number] Y Date: 2:05 Dictated By: Juarez Noonan M.D. Signed By:05/14/252206 DD/ 04 TD/TT: Core Composer Machine Tender: Authorizing ProviderResult TypeResult StatusStephanie Deng PACLINISYNC IMAGINGFinal Result documented in this encounter Visit Diagnoses Not on filedocumented in this encounter Care Teams Team MemberRelationshipSpecialtyStart DateEnd Date Desire Ackerman MD [address] [place] [address] PCP - GeneralFamily Medicine11/23/22documented as of this encounter
--- OUTSIDE RECORDS SUMMARY | 2025-05-17 15:02 | XMS_ITS | Encounter Summary ---
Author Organization [facility] Address [address] [place] [address] Care Team Providers Care Protohistorian Name Role Phone Desire Ackerman MD Primary Care Provider [phone] Encounter Details DateTypeDepartmentCare Team (Latest Contact Info)Zxpyoygulrz94/28/2025Patient Outreach [facility] [address] [place] [phone] Stephanie Hedrick, ANDREA [address] [place] [address] Social History Tobacco UseTypesPacks/DayYears UsedDateSmoking Tobacco: FormerCigarettes [...] relatives?Once a week11/18/2024How often do you attend taoism or methodist services?More than 4 times per year11/18/2024Do you belong to any clubs or organizations such as taoism groups, unions, fraternal or athletic fareed ups, or school groups?Yes11/18/2024How often do you attend meetings of the clubs or organizations you belong to?More than 4 times per year11/18/2024re you , , , , never , or living with a partner? Zszgena2611/18/2024UDIT-CAnswerDate RecordedQ1: How often do you have a [...] heating?Not very hard11/18/2024PHQ-2AnswerDate RecordedPatient Health Questionnaire-2 Score0 04/16/2025[facility] [place] of Occupational Health - Occupational Stress QuestionnaireAnswerDate RecordedDo you feel stress - tense, restless, nervous, or anxious, or unable to sleep at night because yourmind is troubled all the time - these days?To some zwhftx7411/18/2024Exercise Vital SignAnswerDate Recorded On average, how many [...] homeless or living in a half-way (including now)?No11/18/2024Estimated Date of MjjlmmlzPtqnqbatOve52/21/2025ased on UltrasoundSex and Gender InformationValueDate RecordedSex Assigned at BirthNot on fileLegal SexFemale 09/29/2022 9:28 PM EDTGender IdentityNot on fileSexual OrientationNot on file documented as of this encounter Progress Notes * Stephanie Hedrick LPN - 05/14/2025 10:52 AM EDT Monthly outreach. Call to pt X2, Full VM documented in this encounter Plan of Treatment DateTypeDepartmentCare Team (Latest Contact Info)Oafpzbgdrmz42/06/2025 10:30 AM ESTAncillary Procedure [facility] [place] [facility] [address] [place] [address] [place] [phone] 05/23/2025 11:20 AM ESTRoutine [facility] [address] [place] [phone] Stephanie Suresh PA [address] [facility] [facility] [address] [place], [place] [phone] documented as of this encounter Visit Diagnoses Not on filedocumented in this encounter Care Teams Team MemberRelationshipSpecialtyStart DateEnd Date Desire Ackerman MD [address] [place] [address] PCP - GeneralFamily Medicine11/23/22documented as of this encounter
--- OUTSIDE RECORDS SUMMARY | 2025-05-17 15:02 | XMS_ITS | Clinical Summary ---
Author Organization [facility] Address [address] [place] [address] Care Team Providers Care Want Ad Supervisor Name Role Phone Desire Ackerman MD Primary Care Provider Allergies Active AllergyReactionsCriticalityNoted QltrFnvtrnoiSfwkynPkopWru92/10/2025 Medications MedicationSigDispense QuantityRefillsLast FilledStart DateEnd DateStatus ondansetron ODT (Zofran-ODT) 4 MG disintegrating tablet DISSOLVE 1 TABLET IN MOUTH EVERY 6 HOURS NEEDED FOR NAUSEA AND VOMITING 5Active EPINEPHrine (Epipen) 0.3 MG/0.3ML injection syringe INJECT 1 PEN INTRAMUSCULARLY EVERY 10 MINUTES NEEDED FOR ANAPHYLAXIS FOR 2 DOSES4Active MV-Min-Fe Fum-FA-DHA ( 1 PO) Take by mouthActive Active Problems Estimated Date of TcnlvgswHvicscucHoz94/21/2025Based on Ultrasound No known active problems Encounters DateTypeDepartmentCare GwljEflmrztapwu59/28/2025 1:40 PM EDTRoutine [facility] [address] [place] [address] [place] [phone] Floyd Roberson DO Third trimester ([facility]); 36 weeks gestation of ([facility])05/14/2025linisync Result Encounter [facility] External Department Unsolicited Stephanie Deng PA 05/14/2025Patient Outreach [facility] [address] [place] [place] [phone] Stephanie Hedrick LPN 04/30/2025 9:50 AM EDTRoutine [facility] [address] [place] [address] Stephanie Deng PA Third trimester ([facility]); 34 weeks gestation of ([facility])5Bamboo flowsheet [facility] [address] [place] [address] Stephanie Deng PA 5Clinisync Result Encounter NOMS External Department Unsolicited Stephanie Deng PA 04/17/2025 10:50 AM EDTRoutine [facility] [place] [address] Mitali Mccall, APOORVA 32 weeks gestation of ([facility]); Third trimester ([facility])5Clinisync Result Encounter NOMS External Department Unsolicited Stephanie Deng PA 04/16/2025Patient Outreach [facility] [address] [place] [address] Stephanie Hedrick LPN 04/02/2025 1:50 PM EDTRoutine [facility] [place] [address] Floyd Roberson DO Third trimester ([facility]); 30 weeks gestation of ([facility])04/02/2025amboo flowsheet [facility] [address] [place] [address] Floyd Roberson DO 03/25/2025 2:00 PM EDTAncillary Procedure [facility] [place] [address] Multigravida of advanced maternal age in third trimester ([facility])03/25/2025 Tfjvjk1203/19/2025 2:10 PM EDTRoutine [facility] [place] [phone] Stephanie Deng PA Multigravida of advanced maternal age in third trimester ([facility]); Third trimester ([facility]); 28 weeks gestation of ([facility])03/19/2025Patient Outreach [facility] [address] [place] [phone] Stephanie Hedrick LPN 02/27/2025linisync Result Encounter NOMS External Department Unsolicited Floyd Roberson DO 02/19/2025 1:40 PM EDTRoutine [facility] [address] [place] [phone] Floyd Roberson, Second trimester ([facility]); 24 weeks gestation of ([facility]); Diabetes mellitus screening; Antepartum multigravida of advanced maternal age ([facility]); H/O miscarriage, currently ([facility])02/19/2025amboo flowsheet [facility] [address] [place] [phone] Floyd Roberson DO 02/18/2025[facility] [address] [place] [phone] Stephanie Hedirck LPN from Last 3 Months Social History [...] Once a week11/18/2024How often do you attend christian or hoahaoism services?More than 4 times per year11/18/2024Do you belong to any clubs or organizations such as christian groups, unions, fraMiniVax or athletic groups, or school groups?Yes 11/18/2024How often do you attend meetings of the clubs or organizations you belong to?More than 4 times per year11/18/2024re you , , , , never , or living with a partner?Oqvwnzy9511/18/2024 AUDIT-CAnswerDate RecordedQ1: How often do you have [...] heating?Not very hard11/18/2024PHQ-2Answer Date RecordedPatient Health Questionnaire-2 Zdvie967[facility] Occupational Health - Occupational Stress QuestionnaireAnswerDate RecordedDo you feel stress - tense, restless, nervous, or anxious, or unable to sleep at night because yourmind is troubled all the time - these days?To some umwynp9211/18/2024 Exercise Vital SignAnswerDate RecordedOn average, how many [...] in a intermediate (including now)?No11/18/2024Estimated Date of DeliveryComments Yes5Based on UltrasoundSex and Gender InformationValueDate RecordedSex Assigned at BirthNot on fileLegal NdnZfudli68/15/2023 9:28 PM EDTGender Identity Not on fileSexual OrientationNot on file Last Filed Vital Signs Vital SignReadingTime TakenCommentsBlood Fqkfzlcq319/6005/14/2025 1:51 PM EDT Edtiv377111/19/2024 1:56 PM EUBRmjrfmlnniz61.9 ??C (98.4 ??F)11/19/2024 1:56 PM EDTRespiratory Rate--Oxygen Gofoajgikm48%11/19/2024 1:56 PM EDTInhaled Oxygen Concentration--Ouaozw86.3 kg (207 lb 12.8 oz)05/14/2025 1:51 PM RKAZyycmf944.6 cm (5' 4 )11/19/2024 1:56 PM EDTBody Mass Index35.67011/19/2024 1:56 PM EDT Plan of Treatment DateTypeDepartmentCare Team (Latest Contact Info)Yrgevmaugux49/06/2025 10:30 AM ESTAncillary Procedure [facility] [address] [place] [address] [place] [address] 05/23/2025 11:20 AM ESTRoutine [facility] [address] [place] [address] Stephanie Deng PA [address] [place] [address] Health MaintenanceDue DateLast DoneCommentsMMR Vaccines (1 of 1 - Standard series)1989DTaP/Tdap/Td Vaccines (1 - Tdap)1995Varicella Vaccines (1 of 2 - 13+ 2-dose series)2001Hepatitis B Vaccines (1 of 3 - 19+ 3-dose series)2007HPV Vaccines (1 - 3-dose SCDM series)2015COVID-19 Vaccine ( - season)2025Influenza Vaccine (#1)5Cervical Cancer Wwrgqehjg69/10/2030HPV/Yfzhtj521Pap Smear HIB VaccinesAged OutNo longer eligible based on [...] to complete this topic Procedures Procedure NamePriorityDate/TimeAssociated DiagnosisCommentsUS OB BPP W NON-BELUMQ1005/14/2025 10:05 PM EDT POCT URINALYSIS IYXQMESWEfepdaw44/28/2025 2:05 PM EDT 36 weeks gestation of ([facility]) POCT URINALYSIS BWRGXAMRDvhvhai22/14/2025 10:04 AM EDT 34 weeks gestation of ([facility]) US OB BPP W NON-RZYYUW9004/23/2025 4:03 PM EDT POCT URINALYSIS TXHKRZBJQiqimzj66/01/2025 10:42 AM EDT 32 weeks gestation of ([facility]) US OB BPP W NON-OJKDWH6604/17/2025 8:53 AM EDT POCT URINALYSIS KYHIPLHOVqmuklr18/16/2025 2:26 PM EDT Third trimester ([facility]) 30 weeks gestation of ([facility]) US OB FOLLOW UP TRANSABDOMINAL FGETUCNHYzatdfz12/08/2025 2:29 PM EDT Multigravida of advanced maternal age in third trimester ([facility]) POCT URINALYSIS QHNFDCYFUatggyj53/02/2025 2:36 PM EDT Third trimester ([facility]) GLUCOSE 1 ZIMIHlwvkgn10/13/2025 8:23 AM EDT ALL CBC WITH AUTO DXANOjxetvc40/13/2025 8:23 AM EDT POCT URINALYSIS UWAVFHSMAtsiyps13/05/2025 1:53 PM EDT Second trimester ([facility]) 24 weeks gestation of ([facility]) PAP CUPNVGacfnwk92/10/2025 12:00 AM EDTTHINPREP TIS AND HPV MRNA E6/E7 (54143) Uvgvksz7305/27/2021 from Last 3 Months or Most Recently Relevant to Health Maintenance Results * US OB BPP W NON-STRESS (05/14/2025 10:05 PM EDT) Only the most recent of3 resultswithin the time period is included. Anatomical RegionLateralityModalityOtherSpecimen (Source)Anatomical Location / LateralityCollection Method / VolumeCollection TimeReceived Time05/14/2025 10:05 PM EDT Narrative 05/14/2025 10:07 PM EDT [facility] ?[address] ? [place] [address] ? Ultrasound Report ? Signed ? Patient: HELEN TRAN L ?MR#: [id number] ?? : 1990 ?Acct:[id number] ?? Age/Sex: 34 / F ?ADM Date: 05/14/25 ?? Loc: US ? Attending Dr: Stephanie Deng ? Ordering Physician: Stephanie Deng ?? Date of Service: 05/14/25 ?? Procedure(s): US OB BPP w non-stress ?? Accession Number(s): [id number] ? cc: Stephanie Deng; ROQUE ACKERMAN ? [facility] ? [address] ? [place] [address] ? Patient Name: ?? HELEN TRAN ? MRN: [facility]:[id number] ? date: 1990 ?Sex: F ?? Assigned Patient Location: [facility] ?? Current Patient Location: LAB ?? Accession/Order Number: [id number] ?? Exam Date: 05/14/2025 ??14:45 ?Report Date: 05/14/2025 ??22:05 ? At the request of: ?? STEPHANIE ??SOWMYA ? Procedure: ??US OB BPP w non-stress ? Ultrasound biophysical profile ? INDICATION: advanced maternal age. ? COMPARISON: 05/07/2025 ? FINDINGS/IMPRESSION: Single live intrauterine . ??Cephalic Position. ? heart rate 131 bpm. ??OCTAVIO measures 14.8 cm. ??Biophysical profile score ?? 02/22. ? Impression dictated by: Juarez Noonan M.D. ??05/14/2025 10:05 PM ? Dictation Location: RADIO-PC-29 ? Electronically authenticated by: [id number] ??Y ?? Date: 05/14/2025 ??22:05 ? Dictated By: ?Juarez Noonan M.D. ? Signed By: ?05/14/252206 ? DD/ 04 ? TD/TT: ? Drill Rig Operator: Procedure Note Radiology, Radiologist, MD - 05/14/[address] [address] Ultrasound Report Signed Patient: HELEN TRAN LMR#: [id number] : 1990Acct:[id number] Age/Sex: 34 / FADM Date: 05/14/25 Loc: Attending Dr: Stephanie Deng Ordering Physician: Stephanie Deng Date of Service: 05/14/25 Procedure(s): US OB BPP w non-stress Accession Number(s): [id number] cc: Stephanie Deng; ROQUE ACKERMAN The [place] [id number] Patient Name: HELEN TRAN MRN: [facility]:[id number] date: 1990 Sex: F Assigned Patient Location: [facility] Current Patient Location: LAB Accession/Order Number: [id number] Exam Date: 05/14/2025 14:45 Report Date: 05/14/2025 22:05 At the request of: STEPHANIE DENG Procedure: US OB BPP w non-stress Ultrasound biophysical profile INDICATION: advanced maternal age. COMPARISON: 05/07/2025 FINDINGS/IMPRESSION: Single live intrauterine . CephalicPosition. heart rate 131 bpm. OCTAVIO measures 14.8 cm. Biophysical profilescore 8/8. Impression dictated by: Juarez Noonan M.D. 05/14/2025 10:05 PM Dictation Location: [place] [address] Electronically authenticated by: [id number] Y Date: 2:05 Dictated By: Juarez Noonan M.D. Signed By:05/14/252206 DD/ 04 TD/TT: Drill Rig Operator: Authorizing ProviderResult TypeResult StatusStephanie Deng PACLINISYNC IMAGINGFinal Result * (ABNORMAL) POCT urinalysis dipstick manually resulted (05/14/2025 2:05 PM EDT) Only the most recent of6 resultswithin the time period is included. ComponentValueRef RangeTest MethodAnalysis TimePerformed AtPathologist Signature Color, UAYellowClarity, UAClearGlucose, UANegativeNegative - 2000(110) ++++ mg/dLBilirubin, UANegativeNegative - 4(70) +++ mg/dLKetones, UANegativeNegative - 160(16) ++++ mg/dLSpec Grav, UA1.0251 - 1.03Blood, UAPositiveNegative - 50 Abdi/mcLpH, UA5.55 - 9Protein, UANegativeNegative - 2000(20) ++++ mg/dL Urobilinogen, UA1.00.2 - 12 mg/dLLeukocytes, UANegativeNegative - 500+++ Nile/mcL Nitrite, UANegativeNegative - PositiveSpecimen (Source)Anatomical Location / LateralityCollection Method / VolumeCollection TimeReceived TsqqKechx79/28/2025 2:05 PM EDT Narrative Authorizing ProviderResult TypeResult StatusCorey Da DOPOINT OF CARE TEST ENTER/EDIT ORDERABLESFinal Result * US OB follow up transabdominal [...] Osito Ott MD Authorizing ProviderResult TypeResult StatusAmy Brinkley PAIMG OB US PROCEDURES Final Result * (ABNORMAL) GLUCOSE 1 HOUR (02/27/2025 8:23 AM EDT)ComponentValueRef RangeTest MethodAnalysis TimePerformed AtPathologist SignatureGLUCOSE 1 ODRG162(H)<130 mg/dLTBHSpecimen (Source)Anatomical Location / LateralityCollection Method / VolumeCollection TimeReceived Time02/27/2025 8:23 AM EDT02/27/2025 8:24 AM EDT Narrative CLINISYNC - 02/27/2025 9:00 AM EDT Authorizing ProviderResult TypeResult StatusCorey Da DOLAB BLOOD ORDERABLES Final ResultPerforming OrganizationAddressCity/State/ZIP CodePhone Number [facility] * (ABNORMAL) ALL CBC WITH AUTO DIFF (02/27/2025 8:23 AM EDT)ComponentValueRef RangeTest MethodAnalysis TimePerformed AtPathologist SignatureTBH WBC10.24.0 - 11.0 10 3/uLTBHTBH RBC3.78(L)4.20 - 5.40 10 6/uLTBHTBH HGB11.8(L)12.0 - 16.0 g/dLTBHTBH HCT34.0(L)36.0 - 48.0 %TBHTBH MCV89.981.0 - 99.0 fLTBHTBH MCH31.2 26.7 - 34.0 pgTBHTBH MCHC34.729.9 - 35.2 g/dLTBHTBH RDW13.311.0 - 15.0 %TBHTBH YGO248783 - 450 10 3/uLTBHTBH MPV10.39.5 - 13.5 [...] * THINPREP TIS AND HPV MRNA E6/E7 (16934) (05/27/2021)ComponentValueRef Range Test MethodAnalysis TimePerformed AtPathologist SignatureCLINICAL [...] LEGACY EXTERNAL LABCYTOTECHNOLOGIST:SEE COMMENTNOMS LEGACY EXTERNAL LABComment: BGG, SCT(ASCP) CT screening location: [facility], [address] [place] [address]. COMMENTSEE COMMENTNOMS LEGACY EXTERNAL LABComment: EXPLANATORY NOTE: [...] E6/E7Not DetectedNot DetectedNOMS LEGACY EXTERNAL LABComment: Methodology: World Travel Counselor-Mediated Amplification This assay detects E6/E7 viral messenger RNA (mRNA) from 14 high-risk HPV types (16,18,31,33,35,39,45,51,52,56,58,59,66,68). The analytical performance characteristics of this assay have been determined by [employer]. The modifications have not been cleared or approved by the FDA. This assay has been validated pursuant to the CLIA regulations and is used for clinical purposes. For additional information, please refer to http://education.[employer]/faq/YUB528w8 (This link if provided for information/ educational purposes only.) Specimen (Source)Anatomical Location / LateralityCollection Method / Volume Collection TimeReceived Time05/27/2021 Narrative Authorizing ProviderResult TypeResult StatusDesire JERONIMO LABSFinal ResultPerforming OrganizationAddressCity/State/ZIP CodePhone Number [facility] from Last 3 Months or Most Recently Relevant to Health Maintenance Insurance Care Teams Team MemberRelationshipSpecialtyStart DateEnd Date Desire Ackerman MD [address] [place] [address] [facility]11/23/22
[2025-05-17 15:06] VITALS: BP 111/67; PULSE 96
== END 2025-05-17 15:48 | disposition home or self-care (01) ==
LOC: FBCO 14:59 → FBC 15:01
PROVIDERS: PCP Student in an Organized Health Care Education/Training Program; Visit Provider Obstetrics & Gynecology
DX: O26.893 Other specified pregnancy related conditions, third trimester (principal); O09.523 Supervision of elderly multigravida, third trimester; Z3A.37 37 weeks gestation of pregnancy
CPT/HCPCS: 59025

== ENCOUNTER 2025-05-21 14:47 | Outpatient (OUT) | payer OTHER, SELFPAY ==
--- OUTSIDE RECORDS SUMMARY | 2025-05-14 12:40 | XMS_ITS | Encounter Summary ---
Author Organization [facility] Address [address] [place] [address] Care Team Providers Care Belt Operator Name Role Phone Desire Ackerman MD Primary Care Provider [phone] Reason for Visit * ReasonCommentsRoutine Visit Encounter Details DateTypeDepartmentCare Team (Latest Contact Info)Qsulolbbbub49/28/2025 1:40 PM EDTRoutine [facility] [address] [place] [phone] Floyd Roberson, [address] [place] [address] Third trimester ([facility]); 36 weeks gestation of ([facility]) Social History Tobacco UseTypesPacks/DayYears UsedDateSmoking Tobacco: [...] relatives?Once a week11/18/2024How often do you attend shinto or orthodoxy services?More than 4 times per year11/18/2024Do you belong to any clubs or organizations such as shinto groups, unions, fraternal or athletic fareed ups, or school groups?Yes11/18/2024How often do you attend meetings of the clubs or organizations you belong to?More than 4 times per year11/18/2024re you , , , , never , or living with a partner? Sjqejvz5711/18/2024UDIT-CAnswerDate RecordedQ1: How often do you have a [...] heating?Not very hard11/18/2024PHQ-2AnswerDate RecordedPatient Health Questionnaire-2 Score0 04/16/2025[facility] Counselor of Occupational Health - Occupational Stress QuestionnaireAnswerDate RecordedDo you feel stress - tense, restless, nervous, or anxious, or unable to sleep at night because yourmind is troubled all the time - these days?To some supwbj3011/18/2024Exercise Vital SignAnswerDate Recorded On average, how many [...] in a alf (including now)?No11/18/2024Estimated Date of XitgisdiZlmritepMmf07/21/2025ased on UltrasoundSex and Gender InformationValueDate RecordedSex Assigned at BirthNot on fileLegal SexFemale 09/29/2022 9:28 PM EDTGender IdentityNot on fileSexual OrientationNot on file documented as of this encounter Last Filed Vital Signs Vital SignReadingTime TakenCommentsBlood Vgbvsalc123/6005/14/2025 1:51 PM EDT Pulse--Temperature--Respiratory Rate--Oxygen Saturation--Inhaled Oxygen Concentration--Ponjxd39.3 kg (207 lb 12.8 oz)05/14/2025 1:51 PM [...] nursing note reviewed. Exam conducted with a erp consultant present. Vitals: Estimated body mass index is 35.67 kg/m?? as calculated from the following: Height as of 11/19/24: 5' 4 . Weight as of this encounter: 207 lb 12.8 oz. BP: 100/60 Patient's last menstrual period was 08/22/2024. Assessment/Plan ICD-10-CM 1. Third trimester ([facility]) Z34.93 CULTURE, GROUP B STREP WITH SUSCEPTIBLITY CULTURE, GROUP B STREP WITH SUSCEPTIBLITY 2. 36 weeks gestation of ([facility]) Z3A.36 POCT urinalysis dipstick manually resulted [...] Plan of Treatment DateTypeDepartmentCare Team (Latest Contact Info)Ctpauqdqyvo68/06/2025 10:30 AM ESTAncillary Procedure [facility] [address] [place] [address] 05/23/2025 11:20 AM ESTRoutine [facility] [address] [place] [address] Stephanie Suresh PA [address] [place] [address] NameTypePriorityAssociated DiagnosesOrder ScheduleCULTURE, GROUP B STREP WITH SUSCEPTIBLITYLabRoutine Third trimester ([facility]) Expected: 05/14/2025, Expires: 05/14/2026US OB follow up transabdominal approach ImagingRoutine Third trimester ([facility]) Expected: 05/14/2025, Expires: 09/14/2025documented as of this encounter Procedures Procedure NamePriorityDate/TimeAssociated DiagnosisCommentsPOCT URINALYSIS RFXSRFTBNmtbfrd30/28/2025 2:05 PM EDT 36 weeks gestation of ([facility]) documented in this encounter Results * (ABNORMAL) POCT urinalysis dipstick manually resulted (05/14/2025 2:05 PM EDT) ComponentValueRef RangeTest MethodAnalysis TimePerformed AtPathologist SignatureColor, UAYellowClarity, UAClearGlucose, UANegativeNegative - 1999(110) ++++ mg/dLBilirubin, UANegativeNegative - 4(70) +++ mg/dLKetones, UA NegativeNegative - 160(16) ++++ mg/dLSpec Grav, UA1.0251 - 1.03Blood, UA PositiveNegative - 50 Abdi/mcLpH, UA5.55 - 9Protein, UANegativeNegative - 1999(20) ++++ mg/dLUrobilinogen, UA1.00.2 - 12 mg/dLLeukocytes, UANegative Negative - 500+++ Nile/mcLNitrite, UANegativeNegative - PositiveSpecimen (Source)Anatomical Location / LateralityCollection Method / VolumeCollection TimeReceived EjgyQbdqo88/28/2025 2:05 PM EDT Narrative Authorizing ProviderResult TypeResult StatusCorey Da DOPOINT OF CARE TEST ENTER/EDIT ORDERABLESFinal Result documented in this encounter Visit Diagnoses Diagnosis Third trimester ([facility]) state, incidental 36 weeks gestation of ([facility]) documented in this encounter Care Teams Team MemberRelationshipSpecialtyStart DateEnd Desire Ackerman MD [address] [place] [address] PCP - GeneralFamily Medicine11/23/22documented as of this encounter
--- NOTE | 2025-05-21 | US_ITS ---
[address] [address] Patient Name: HELEN SONG MRN: [facility]:[id number] date: 1990 Sex: F Assigned Patient Location: [facility] Current Patient Location: Accession/Order Number: [id number] Exam Date: 05/21/2025 14:56 Report Date: 05/22/2025 08:22 At the request of: ZAKI DENG Procedure: US OB BPP w non-stress BIOPHYSICAL PROFILE: CLINICAL INFORMATION: MULTIGRAVIDA OF ADVANCED MATERNAL AGE COMPARISON: 05/14/2025 There is a single live intrauterine gestation in cephalic presentation. The reported gestational age is 40 weeks 2 days. The heart rate measures 157 beats per minute. FINDINGS: TONE: 1 or more episodes of activity extension and flexion of extremity or opening and closing of the hand [Y] 2/2 GROSS BODY MOVEMENTS: 3 or more discrete body or limb movements [Y] 2/2 BREATHING MOVEMENTS: 1 or more episodes of breathing lasting at least 30 seconds [Y] 2/2 OCTAVIO: A single deepest vertical pocket of amniotic fluid greater than 2 cm [Y] 2/2 OCTAVIO: 21.6 cm. The 90th percentile is 21.4 cm. Total score: 8/8 US/US OB BPP w non-stress IMPRESSION: NORMAL BIOPHYSICAL PROFILE SCORE . OCTAVIO SUGGESTING POLYHYDRAMNIOS. Impression dictated by: Mirna Lorenzo M.D. 05/22/2025 8:22 AM Dictation Location: [place] [address] Electronically authenticated by: [id number] Y Date: 05/22/2025 08:22
--- OUTSIDE RECORDS SUMMARY | 2025-05-21 14:50 | XMS_ITS | Clinical Summary ---
Author Organization [facility] Address [address] [place] [place] [address] Care Team Providers Care Sustainable Landscape Architect Name Role Phone Desire Ackerman MD Primary Care Provider [phone] Allergies Active AllergyReactionsCriticalityNoted YuieJukyazhaQexvsgHkrnJzu19/10/2025 Medications MedicationSigDispense QuantityRefillsLast FilledStart DateEnd DateStatus ondansetron ODT (Zofran-ODT) 4 MG disintegrating tablet DISSOLVE 1 TABLET IN MOUTH EVERY 6 HOURS NEEDED FOR NAUSEA AND VOMITING 5Active EPINEPHrine (Epipen) 0.3 MG/0.3ML injection syringe INJECT 1 PEN INTRAMUSCULARLY EVERY 10 MINUTES NEEDED FOR ANAPHYLAXIS FOR 2 DOSES4Active MV-Min-Fe Fum-FA-DHA ( 1 PO) Take by mouthActive Active Problems Estimated Date of BuxpyxzqRorckuhoSpf94/21/2025Based on Ultrasound No known active problems Encounters DateTypeDepartmentCare PibiQzbcdnejcbb89/28/2025 1:40 PM EDTRoutine [facility] [address] [place] [address] [place] [phone] Floyd Roberson DO Third trimester ([facility]); 36 weeks gestation of ([facility])05/14/2025linisync Result Encounter NOMS External Department Unsolicited Stephanie Deng PA 05/14/2025Patient Outreach [facility] [address] [place] [phone] Stephanie Hedrick LPN 04/30/2025 9:50 AM EDTRoutine [facility] [address] [facility] [place] [address] Stephanie Deng PA Third trimester ([facility]); 34 weeks gestation of ([facility])5Bamboo flowsheet [facility] [address] [facility] [place] [address] Stephanie Deng PA 5Clinisync Result Encounter NOMS External Department Unsolicited Stephanie Deng PA 04/17/2025 10:50 AM EDTRoutine [facility] [address] [facility] [place] [address] Mitali Mccall, APOORVA 32 weeks gestation of ([facility]); Third trimester ([facility])5Clinisync Result Encounter NOMS External Department Unsolicited Stephanie Deng PA 04/16/2025Patient Outreach [facility] [address] [place] [address] Stephanie Hedrick LPN 04/02/2025 1:50 PM EDTRoutine [facility] [address] [facility] [place] [address] Floyd Roberson DO Third trimester ([facility]); 30 weeks gestation of ([facility])04/02/2025amboo flowsheet [facility] [address] [facility] [place] [address] Floyd Roberson DO 03/25/2025 2:00 PM EDTAncillary Procedure [facility] [place] [address] Multigravida of advanced maternal age in third trimester ([facility])03/25/2025 Okvysc9803/19/2025 2:10 PM EDTRoutine [facility] [place] [address] Stephanie Deng PA Multigravida of advanced maternal age in third trimester ([facility]); Third trimester ([facility]); 28 weeks gestation of ([facility])03/19/2025Patient Outreach [facility] [address] [place] [phone] Stephanie Hedrick LPN 02/27/2025linisync Result Encounter NOMS External Department Unsolicited Floyd Roberson DO 02/19/2025 1:40 PM EDTRoutine [facility] [address] [place] [address] Floyd Roberson, Second trimester ([facility]); 24 weeks gestation of ([facility]); Diabetes mellitus screening; Antepartum multigravida of advanced maternal age ([facility]); H/O miscarriage, currently ([facility])02/19/2025amboo flowsheet [facility] [address] [place] [address] Floyd Roberson DO 02/18/2025[facility] [address] [place] [address] Stephanie Hedrick LPN from Last 3 Months [...] Once a week11/18/2024How often do you attend confucianist or episcopalian services?More than 4 times per year11/18/2024Do you belong to any clubs or organizations such as confucianist groups, unions, fraEngezni or athletic groups, or school groups?Yes 11/18/2024How often do you attend meetings of the clubs or organizations you belong to?More than 4 times per year11/18/2024re you , , , , never , or living with a partner?Mrloaqo4611/18/2024 AUDIT-CAnswerDate RecordedQ1: How often do you have [...] heating?Not very hard11/18/2024PHQ-2Answer Date RecordedPatient Health Questionnaire-2 Vnfda704[facility] [place] of Occupational Health - Occupational Stress QuestionnaireAnswerDate RecordedDo you feel stress - tense, restless, nervous, or anxious, or unable to sleep at night because yourmind is troubled all the time - these days?To some tgtigb7011/18/2024 Exercise Vital SignAnswerDate RecordedOn average, how many [...] were you homeless or living in a halfway (including now)?No11/18/2024Estimated Date of DeliveryComments Yes5Based on UltrasoundSex and Gender InformationValueDate RecordedSex Assigned at BirthNot on fileLegal UceMxamaj48/15/2023 9:28 PM EDTGender Identity Not on fileSexual OrientationNot on file Last Filed Vital Signs Vital SignReadingTime TakenCommentsBlood Kwioeweu517/6005/14/2025 1:51 PM EDT Dxzhi880511/19/2024 1:56 PM UMLSftcftxowse54.9 ??C (98.4 ??F)11/19/2024 1:56 PM EDTRespiratory Rate--Oxygen Kvwfjmaooj59%11/19/2024 1:56 PM EDTInhaled Oxygen Concentration--Txyymg34.3 kg (207 lb 12.8 oz)05/14/2025 1:51 PM YEIFybbyh260.6 cm (5' 4 )11/19/2024 1:56 PM EDTBody Mass Index35.67011/19/2024 1:56 PM EDT Plan of Treatment DateTypeDepartmentCare Team (Latest Contact Info)Lqydylghdll43/06/2025 10:30 AM ESTAncillary Procedure [facility] [address] [place] [address] [place] [address] 05/23/2025 11:20 AM ESTRoutine [facility] [address] [facility] [place] [address] Stephanie Deng PA [address] [place] [address] Health MaintenanceDue DateLast DoneCommentsMMR Vaccines (1 of 1 - Standard series)1989DTaP/Tdap/Td Vaccines (1 - Tdap)1995Varicella Vaccines (1 of 2 - 13+ 2-dose series)2001Hepatitis B Vaccines (1 of 3 - 19+ 3-dose series)2007HPV Vaccines (1 - 3-dose SCDM series)2015COVID-19 Vaccine ( - season)2025Influenza Vaccine (#1)5Cervical Cancer Nkmjlkfhz64/10/2030HPV/Ouojbd311Pap Smear HIB VaccinesAged OutNo longer eligible based [...] Procedures Procedure NamePriorityDate/TimeAssociated DiagnosisCommentsUS OB BPP W NON-KPBNNR5205/14/2025 10:05 PM EDT POCT URINALYSIS QBULLZYYYektofn94/28/2025 2:05 PM EDT 36 weeks gestation of ([facility]) STREP GP B CULTURE+XWGEHeizfhw12/28/2025 1:51 PM EDT POCT URINALYSIS VQXAGWQIZbsuird35/14/2025 10:04 AM EDT 34 weeks gestation of ([facility]) US OB BPP W NON-IMLVGQ6704/23/2025 4:03 PM EDT POCT URINALYSIS RRYYSQRGJcgveik91/01/2025 10:42 AM EDT 32 weeks gestation of ([facility]) US OB BPP W NON-BSLCBS7304/17/2025 8:53 AM EDT POCT URINALYSIS NBWYBFVZUmaeprt76/16/2025 2:26 PM EDT Third trimester ([facility]) 30 weeks gestation of ([facility]) US OB FOLLOW UP TRANSABDOMINAL BZNUFFSDNealgho49/08/2025 2:29 PM EDT Multigravida of advanced maternal age in third trimester ([facility]) POCT URINALYSIS KAYXIYWAVyhvojz12/02/2025 2:36 PM EDT Third trimester ([facility]) GLUCOSE 1 KCNVRyxvesd64/13/2025 8:23 AM EDT ALL CBC WITH AUTO QWMQVmwugrp62/13/2025 8:23 AM EDT POCT URINALYSIS NWMUUJFUBznvada83/05/2025 1:53 PM EDT Second trimester ([facility]) 24 weeks gestation of ([facility]) PAP HBUGLGurgxli08/10/2025 12:00 AM EDTTHINPREP TIS AND HPV MRNA E6/E7 (29278) Xjamcas0305/27/2021 from Last 3 Months or Most Recently Relevant to Health Maintenance Results * US OB BPP W NON-STRESS (05/14/2025 10:05 PM EDT) Only the most recent of3 resultswithin the time period is included. Anatomical RegionLateralityModalityOtherSpecimen (Source)Anatomical Location / LateralityCollection Method / VolumeCollection TimeReceived Time05/14/2025 10:05 PM EDT Narrative 05/14/2025 10:07 PM EDT [facility] ?[address] ? [place] [address] ? Ultrasound Report ? Signed ? Patient: HELEN TRAN ?MR#: [id number] ?? : 1990 ?Acct:[id number] ?? Age/Sex: 34 / F ?ADM Date: 05/14/25 ?? Loc: US ? Attending Dr: Stephanie Deng ? Ordering Physician: Stephanie Deng ?? Date of Service: 05/14/25 ?? Procedure(s): US OB BPP w non-stress ?? Accession Number(s): [id number] ? cc: Stephanie Deng; ROQUE ACKERMAN ? [facility] ? [address] ? [place] [address] ? Patient Name: ?? HELEN TRAN ? MRN: [facility]:[id number] ? date: 1990 ?Sex: F ?? Assigned Patient Location: [facility] ?? Current Patient Location: LAB ?? Accession/Order Number: [id number] ?? Exam Date: 05/14/2025 ??14:45 ?Report Date: [...] Dictation Location: RADIO-PC-29 ? Electronically authenticated by: [id number] ??Y ?? Date: 05/14/2025 ??22:05 ? Dictated By: ?Juarez Noonan M.D. ? Signed By: ?05/14/252206 ? DD/ 04 ? TD/TT: ? Care Transitions Manager: Procedure Note Radiology, Radiologist, - 05/14/2025 The [place] [id number] Ultrasound Report Signed Patient: HELEN TRAN LMR#: [id number] : 1990Acct:[id number] Age/Sex: 34 / FADM Date: 05/14/25 Loc: US Attending Dr: Stephanie Deng Ordering Physician: Stephanie Deng Date of Service: 05/14/25 Procedure(s): US OB BPP w non-stress Accession Number(s): [id number] cc: Stephanie Deng; ROQUE ACKERMAN The [place] [id number] Patient Name: HELEN TRAN MRN: [id number] date: 1990 Sex: F Assigned Patient Location: [facility] Current Patient Location: LAB Accession/Order Number: [id number] Exam Date: 05/14/2025 14:45 Report Date: 05/14/2025 22:05 At the request of: STEPHANIE DENG Procedure: US OB BPP w non-stress Ultrasound biophysical profile INDICATION: advanced maternal age. COMPARISON: 05/07/2025 FINDINGS/IMPRESSION: Single live intrauterine . CephalicPosition. heart rate 131 bpm. OCTAVIO measures 14.8 cm. Biophysical profilescore 8/8. Impression dictated by: Juarez Noonan M.D. 05/14/2025 10:05 PM Dictation Location: [place] [address] Electronically authenticated by: [id number] Y Date: 2:05 Dictated By: Juarez Noonan M.D. Signed By:05/14/252206 DD/ 04 TD/TT: Care Transitions Manager: Authorizing ProviderResult TypeResult StatusStephanie Deng PACLINISYNC IMAGINGFinal Result * (ABNORMAL) POCT urinalysis dipstick manually resulted (05/14/2025 2:05 PM EDT) Only the most recent of6 resultswithin the time period is included. ComponentValueRef RangeTest MethodAnalysis TimePerformed AtPathologist Signature Color, UAYellowClarity, UAClearGlucose, UANegativeNegative - 1999(110) ++++ mg/dLBilirubin, UANegativeNegative - 4(70) +++ mg/dLKetones, UANegativeNegative - 160(16) ++++ mg/dLSpec Grav, UA1.0251 - 1.03Blood, UAPositiveNegative - 50 Abdi/mcLpH, UA5.55 - 9Protein, UANegativeNegative - 2000(20) ++++ mg/dL Urobilinogen, UA1.00.2 - 12 mg/dLLeukocytes, UANegativeNegative - 500+++ Nile/mcL Nitrite, UANegativeNegative - PositiveSpecimen (Source)Anatomical Location / LateralityCollection Method / VolumeCollection TimeReceived LtyhXbeds90/28/2025 2:05 PM EDT Narrative Authorizing ProviderResult TypeResult StatusCorey Da DOPOINT OF CARE TEST ENTER/EDIT ORDERABLESFinal Result * STREP GP B CULTURE+RFLX (05/14/2025 1:51 PM EDT)ComponentValueRef RangeTest MethodAnalysis TimePerformed AtPathologist SignatureSTREP GP B CULTURE+RFLX ??Strep Gp B Culture+Rflx TBHSTREP GP B CULTURE+RFLXNegativeTBHSTREP GP B CULTURE+RFLXCenters for Disease Control and Prevention (CDC) andTBHSTREP GP B CULTURE+RFLXAmerican Congress of Obstetricians and GynecologistsTBHSTREP GP B CULTURE+RFLX(ACOG) guidelines for prevention of group BTBHSTREP GP B CULTURE+RFLXstreptococcal (GBS) disease specify co-collection ofTBHSTREP GP B CULTURE+RFLXa vaginal and rectal swab specimen to maximizeTBHSTREP GP B CULTURE+RFLXsensitivity of GBS detection. Per the CDC and ACOG,TBHSTREP GP B CULTURE+RFLXswabbing both the lower vagina and rectumTBHSTREP GP B CULTURE+RFLXsubstantially increases the yield of detectionTBHSTREP GP B CULTURE+RFLXcompared with sampling the vagina alone.TBH STREP GP B CULTURE+RFLXPenicillin G, ampicillin, or cefazolin are indicatedTBH STREP GP B CULTURE+RFLXfor intrapartum prophylaxis of GBSTBHSTREP GP B CULTURE+RFLXcolonization. Reflex susceptibility testing should beTBHSTREP GP B CULTURE+RFLXperformed prior to use of clindamycin only on GBSTBHSTREP GP B CULTURE+RFLXisolates from penicillin-allergic women who areTBHSTREP GP B CULTURE+RFLXconsidered a high risk for anaphylaxis. Treatment withTBHSTREP GP B CULTURE+RFLXvancomycin without additional testing is warranted ifTBHSTREP GP B CULTURE+RFLXresistance to clindamycin is noted.TBHSTREP GP B CULTURE+RFLX Performed at: [facility] LabFore[facility] Medical CenterTBHSTREP GP B CULTURE+[id number] [place], [place] [id number] GP B CULTURE+RFLXLab Director: Edvin Hale PhD, Phone: [phone] (Source)Anatomical Location / Laterality Collection Method / VolumeCollection TimeReceived Time05/14/2025 1:51 PM EDT 05/14/2025 8:38 PM EDT Narrative CLINISYNC - 05/19/2025 6:08 PM EST Authorizing ProviderResult TypeResult StatusCorey Da DOLAB BLOOD ORDERABLES Final ResultPerforming OrganizationAddressCity/State/ZIP CodePhone Number [facility] * OB follow up transabdominal approach (03/25/2025 2:29 [...] BY: Osito Ott MD Authorizing ProviderResult TypeResult StatusStephanie CORDOVA OB US PROCEDURES Final Result * (ABNORMAL) GLUCOSE 1 HOUR (02/27/2025 8:23 AM EDT)ComponentValueRef RangeTest MethodAnalysis TimePerformed AtPathologist SignatureGLUCOSE 1 GGLD312(H)<130 mg/dLTBHSpecimen (Source)Anatomical Location / LateralityCollection Method / VolumeCollection TimeReceived Time02/27/2025 8:23 AM EDT02/27/2025 8:24 AM EDT Narrative CLINISYNC - 02/27/2025 9:00 AM EDT Authorizing ProviderResult TypeResult StatusCorereggie HERRING BLOOD ORDERABLES Final ResultPerforming OrganizationAddressCity/State/ZIP CodePhone Number [facility] * (ABNORMAL) ALL CBC WITH AUTO DIFF (02/27/2025 8:23 AM EDT)ComponentValueRef RangeTest MethodAnalysis TimePerformed AtPathologist SignatureTBH WBC10.24.0 - 11.0 10 3/uLTBHTBH RBC3.78(L)4.20 - 5.40 10 6/uLTBHTBH HGB11.8(L)12.0 - 16.0 g/dLTBHTBH HCT34.0(L)36.0 - 48.0 %TBHTBH MCV89.981.0 - 99.0 fLTBHTBH MCH31.2 26.7 - 34.0 pgTBHTBH MCHC34.729.9 - 35.2 g/dLTBHTBH RDW13.311.0 - 15.0 %TBHTBH GEH397790 - 450 10 3/uLTBHTBH MPV10.39.5 - 13.5 [...] Da DOCLINISYNCFinal Result Performing OrganizationAddressCity/State/ZIP CodePhone Number [facility] * Pap Smear (12/25/2024 12:00 AM EDT)Specimen (Source)Anatomical Location / LateralityCollection Method / VolumeCollection TimeReceived TimeSwabCervical swab / Unknown Narrative Authorizing ProviderResult TypeResult StatusCorey Da DOLAB CYTOLOGY ORDERABLESFinal ResultPerforming OrganizationAddressCity/State/ZIP CodePhone Number EXTERNAL LAB * THINPREP TIS AND HPV MRNA E6/E7 (15930) (05/27/2021)ComponentValueRef Range Test MethodAnalysis TimePerformed AtPathologist SignatureCLINICAL INFORMATION: None givenNOMS LEGACY EXTERNAL LABLMP:None givenNOMS LEGACY EXTERNAL LABPREV. PAP:None givenN[facility] LEGACY EXTERNAL LABPREV. BX:None given[facility] EXTERNAL LABSOURCE:None givenN[facility] EXTERNAL LABSTATEMENT OF ADEQUACY:SEE COMMENT [facility] EXTERNAL LABComment: Satisfactory for evaluation. Endocervical/transformation zone component absent. INTERPRETATION/RESULT:Negative for intraepithelial lesion or malignancy.[facility] EXTERNAL LABCOMMENT:This Pap test has been evaluated with computer assisted technology.[facility] EXTERNAL LABCYTOTECHNOLOGIST:SEE COMMENTNOMS LEGACY EXTERNAL LABComment: SARAH SWEENEY(ASCP) CT screening location: [place] [address]. COMMENTSEE COMMENTNOTN [facility] EXTERNAL LABComment: EXPLANATORY NOTE: The Pap is [...] current clinical information. HPV MRNA E6/E7Not DetectedNot DetectedNOTN LEGACY EXTERNAL LABComment: Methodology: Medical Clinic Manager-Mediated Amplification This assay detects E6/E7 viral messenger RNA (mRNA) from 14 high-risk HPV types (16,18,31,33,35,39,45,51,52,56,58,59,66,68). The analytical performance characteristics of this assay have been determined by [employer]. The modifications have not been cleared or approved by the FDA. This assay has been validated pursuant to the CLIA regulations and is used for clinical purposes. For additional information, please refer to http://education.Photoways.smsPREP/faq/ASW293g0 (This link if provided for information/ educational purposes only.) Specimen (Source)Anatomical Location / LateralityCollection Method / Volume Collection TimeReceived Time05/27/2021 Narrative Authorizing ProviderResult TypeResult StatusDesire JERONIMO LABSFinal ResultPerforming OrganizationAddressCity/State/ZIP CodePhone Number [facility] from Last 3 Months or Most Recently Relevant to Health Maintenance Insurance Care Teams Team MemberRelationshipSpecialtyStart DateEnd Date Desire Ackerman MD [address] [place] [address] PCP - GeneralFamily Medicine11/23/22
--- OUTSIDE RECORDS SUMMARY | 2025-05-21 14:50 | XMS_ITS | Encounter Summary ---
Author Organization [facility] Address [address] [place] [address] Care Team Providers Care Health Administration Teacher Name Role Phone Desire Ackerman MD Primary Care Provider [phone] Encounter Details DateTypeDepartmentCare Team (Latest Contact Info)Vnvmcxlbkxg45/28/2025linisync Result Encounter NOMS External Department Unsolicited Stephanie Deng PA [address] [place] [address] [address] [place] [id number] Social History Tobacco UseTypesPacks/DayYears UsedDateSmoking Tobacco: FormerCigarettes [...] relatives?Once a week11/18/2024How often do you attend yarsanism or catholic services?More than 4 times per year11/18/2024Do you belong to any clubs or organizations such as yarsanism groups, unions, fraternal or athletic fareed ups, or school groups?Yes11/18/2024How often do you attend meetings of the clubs or organizations you belong to?More than 4 times per year11/18/2024re you , , , , never , or living with a partner? Utijuau7011/18/2024UDIT-CAnswerDate RecordedQ1: How often do you have a [...] heating?Not very hard11/18/2024PHQ-2AnswerDate RecordedPatient Health Questionnaire-2 Score0 04/16/2025[facility] [place] of Occupational Health - Occupational Stress QuestionnaireAnswerDate RecordedDo you feel stress - tense, restless, nervous, or anxious, or unable to sleep at night because yourmind is troubled all the time - these days?To some wlpxod6311/18/2024Exercise Vital SignAnswerDate Recorded On average, how many [...] homeless or living in a fci (including now)?No11/18/2024Estimated Date of SuffilgkEczdhxoyDiu79/21/2025ased on UltrasoundSex and Gender InformationValueDate RecordedSex Assigned at BirthNot on fileLegal SexFemale 09/29/2022 9:28 PM EDTGender IdentityNot on fileSexual OrientationNot on file documented as of this encounter Plan of Treatment DateTypeDepartmentCare Team (Latest Contact Info)Wtlizvpexpc52/06/2025 10:30 AM ESTAncillary Procedure [facility] [address] [address] 05/23/2025 11:20 AM ESTRoutine [facility] [address] [place] [phone] Stephanie Deng PA [address] [place], [place] [address] documented as of this encounter Procedures Procedure NamePriorityDate/TimeAssociated DiagnosisCommentsUS OB BPP W NON-IJPFCX4305/14/2025 10:05 PM EDT STREP GP B CULTURE+MQWPXcbtylr53/28/2025 1:51 PM EDT documented in this encounter Results * US OB BPP W NON-STRESS (05/14/2025 10:05 PM EDT)Anatomical Region LateralityModalityOtherSpecimen (Source)Anatomical Location / Laterality Collection Method / VolumeCollection TimeReceived Time05/14/2025 10:05 PM EDT Narrative 05/14/2025 10:07 PM EDT [facility] ?[address] ? [place] [address] ? Ultrasound Report ? Signed ? Patient: NOHEMI,HELEN L ?MR#: [id number] ?? : 1990 ?Acct:[id number] ?? Age/Sex: 34 / F ?ADM Date: 05/14/25 ?? Loc: US ? Attending Dr: Stephanie Deng ? Ordering Physician: Stephanie Deng ?? Date of Service: 05/14/25 ?? Procedure(s): US OB BPP w non-stress ?? Accession Number(s): [id number] ? cc: Stephanie Deng; ROQUE ACKERMAN ? [facility] ? [address] ? [place] [address] ? Patient Name: ?? HELEN TRAN ? MRN: [facility]:[id number] ? date: 1990 ?Sex: F ?? Assigned Patient Location: [facility] ?? Current Patient Location: LAB ?? Accession/Order Number: [id number] ?? Exam Date: 05/14/2025 ??14:45 ?Report Date: [...] M.D. ??05/14/2025 10:05 PM ? Dictation Location: [facility]-- ? Electronically authenticated by: [id number] ??Y ?? Date: 05/14/2025 ??22:05 ? Dictated By: ?Juarez Noonan M.D. ? Signed By: ?05/14/252206 ? DD/ 04 ? TD/TT: ? House Nurse: Procedure Note Radiology, Radiologist, MD - 05/14/2025 [place] [address] Ultrasound Report Signed Patient: HELEN TRAN LMR#: [id number] : 1990Acct:[id number] Age/Sex: 34 / FADM Date: 05/14/25 Loc: US Attending Dr: Stephanie Deng Ordering Physician: Stephanie Deng Date of Service: 05/14/25 Procedure(s): US OB BPP w non-stress Accession Number(s): [id number] cc: Stephanie Deng; ROQUE ACKERMAN [place] [address] Patient Name: HLEEN TRAN MRN: [facility]:[id number] date: 1990 Sex: F Assigned Patient Location: [facility] Current Patient Location: LAB Accession/Order Number: [id number] Exam Date: 05/14/2025 14:45 Report Date: 05/14/2025 22:05 At the request of: STEPHANIE DENG Procedure: US OB BPP w non-stress Ultrasound biophysical profile INDICATION: advanced maternal age. COMPARISON: 05/07/2025 FINDINGS/IMPRESSION: Single live intrauterine . CephalicPosition. heart rate 131 bpm. OCTAVIO measures 14.8 cm. Biophysical profilescore 02/22. Impression dictated by: Juarez Noonan M.D. 05/14/2025 10:05 PM Dictation Location: [place] [address] Electronically authenticated by: [id number] Y Date: 2:05 Dictated By: Juarez Noonan M.D. Signed By:05/14/252206 DD/ 04 TD/TT: House Nurse: Authorizing ProviderResult TypeResult StatusStephanie Deng PACLINISYNC IMAGINGFinal Result * STREP GP B CULTURE+RFLX (05/14/2025 [...] is noted.TBHSTREP GP B CULTURE+RFLX Performed at: [facility] GP B CULTURE+[id number] [place], [place] [id number] GP B CULTURE+RFLXLab Director: Edvin Hale PhD, Phone: [phone] (Source)Anatomical Location / Laterality Collection Method / VolumeCollection TimeReceived Time05/14/2025 1:51 PM EDT 05/14/2025 8:38 PM EDT Narrative CLINISYNC - 05/19/2025 6:08 PM EST Authorizing ProviderResult TypeResult StatusCorey Da DOLAB BLOOD ORDERABLES Final ResultPerforming OrganizationAddressCity/State/ZIP CodePhone Number CLINISYNC TB documented in this encounter Visit Diagnoses Not on filedocumented in this encounter Care Teams Team MemberRelationshipSpecialtyStart DateEnd Date Desire Ackerman MD [address] [place] [address] PCP - GeneralFamily Medicine11/23/22documented as of this encounter
--- OUTSIDE RECORDS SUMMARY | 2025-05-21 14:50 | XMS_ITS | Encounter Summary ---
Author Organization [facility] Address [address] [place] [address] Care Team Providers Care Chief Crew Scheduler Name Role Phone Desire Ackerman MD Primary Care Provider [phone] Encounter Details DateTypeDepartmentCare Team (Latest Contact Info)Shuvosgmqcz05/28/2025Patient Outreach [facility] [address] [place] [phone] Stephanie Hedrick, ANDREA [address] [place] [address] Social History Tobacco UseTypesPacks/DayYears UsedDateSmoking Tobacco: FormerCigarettes [...] relatives?Once a week11/18/2024How often do you attend bahai or adventist services?More than 4 times per year11/18/2024Do you belong to any clubs or organizations such as bahai groups, unions, fraternal or athletic fareed ups, or school groups?Yes11/18/2024How often do you attend meetings of the clubs or organizations you belong to?More than 4 times per year11/18/2024re you , , , , never , or living with a partner? Xkjmbdu6711/18/2024UDIT-CAnswerDate RecordedQ1: How often do you have a [...] heating?Not very hard11/18/2024PHQ-2AnswerDate RecordedPatient Health Questionnaire-2 Score0 04/16/2025[facility] [place] of Occupational Health - Occupational Stress QuestionnaireAnswerDate RecordedDo you feel stress - tense, restless, nervous, or anxious, or unable to sleep at night because yourmind is troubled all the time - these days?To some lndvem6611/18/2024Exercise Vital SignAnswerDate Recorded On average, how many [...] in a penitentiary (including now)?No11/18/2024Estimated Date of KwqtcigeEiqhkeocRrb46/21/2025ased on UltrasoundSex and Gender InformationValueDate RecordedSex Assigned at BirthNot on fileLegal SexFemale 09/29/2022 9:28 PM EDTGender IdentityNot on fileSexual OrientationNot on file documented as of this encounter Progress Notes * Stephanie Hedrick LPN - 05/14/2025 10:52 AM EDT Monthly outreach. Call to pt X2, Full VM documented in this encounter Plan of Treatment DateTypeDepartmentCare Team (Latest Contact Info)Bsgmehkarkm35/06/2025 10:30 AM ESTAncillary Procedure [facility] [address] [place] [address] [place] [phone] 05/23/2025 11:20 AM ESTRoutine [facility] [address] [place] [phone] Stephanie Suresh PA [address] [facility] [place], [place] [phone] documented as of this encounter Visit Diagnoses Not on filedocumented in this encounter Care Teams Team MemberRelationshipSpecialtyStart DateEnd Date Desire Ackerman MD [address] [place] [address] PCP - GeneralFamily Medicine11/23/22documented as of this encounter
[2025-05-21 15:20] VITALS: BP 111/71; PULSE 92
== END 2025-05-21 16:00 | disposition home or self-care (01) ==
LOC: US 14:48 → FBC 14:49
PROVIDERS: PCP Student in an Organized Health Care Education/Training Program; Visit Provider Physician Assistant
DX: O40.3XX0 Polyhydramnios, third trimester, not applicable or unspecified (principal); O09.523 Supervision of elderly multigravida, third trimester; Z3A.40 40 weeks gestation of pregnancy
CPT/HCPCS: 76818

== ENCOUNTER 2025-05-24 14:59 | Outpatient (OUT) | payer OTHER, SELFPAY ==
--- OUTSIDE RECORDS SUMMARY | 2025-05-14 12:40 | XMS_ITS | Encounter Summary ---
Author Organization [facility] Address [address] [place] [address] Care Team Providers Care Electrical Engineering Technician Name Role Phone Desire Ackerman MD Primary Care Provider [phone] Reason for Visit * ReasonCommentsRoutine Visit Encounter Details DateTypeDepartmentCare Team (Latest Contact Info)Zyxlikhudpq92/28/2025 1:40 PM EDTRoutine [facility] [address] [place] [address] Floyd Roberson, [address] [place] [address] Third trimester ([facility]); 36 weeks gestation of ([facility]) Social History Tobacco UseTypesPacks/DayYears UsedDateSmoking Tobacco: FormerCigarettes [...] week11/18/2024How often do you attend yazidi or confucianism services?More than 4 times per year11/18/2024Do you belong to any clubs or organizations such as yazidi groups, unions, fraternal or athletic fareed ups, or school groups?Yes11/18/2024How often do you attend meetings of the clubs or organizations you belong to?More than 4 times per year11/18/2024re you , , , , never , or living with a partner? Vnqrxuk9711/18/2024UDIT-CAnswerDate RecordedQ1: How often do you have a [...] heating?Not very hard11/18/2024PHQ-2AnswerDate RecordedPatient Health Questionnaire-2 Score0 04/16/2025[facility] [employer] [facility] of Occupational Health - Occupational Stress QuestionnaireAnswerDate RecordedDo you feel stress - tense, restless, nervous, or anxious, or unable to sleep at night because yourmind is troubled all the time - these days?To some onkjgm9911/18/2024Exercise Vital SignAnswerDate Recorded On average, how many [...] were you homeless or living in a long-term (including now)?No11/18/2024Estimated Date of UmmllhfzSymmsdbvGbg66/21/2025ased on UltrasoundSex and Gender InformationValueDate RecordedSex Assigned at BirthNot on fileLegal SexFemale 09/29/2022 9:28 PM EDTGender IdentityNot on fileSexual OrientationNot on file documented as of this encounter Last Filed Vital Signs Vital SignReadingTime TakenCommentsBlood Eoqwojhp596/6005/14/2025 1:51 PM EDT Pulse--Temperature--Respiratory Rate--Oxygen Saturation--Inhaled Oxygen Concentration--Rrsewn89.3 kg (207 lb 12.8 oz)05/14/2025 1:51 PM EDTHeight--Body Mass Index35.67011/19/2024 1:56 PM EDTdocumented in this encounter Progress Notes * Mirna Paulson LPN - 05/14/2025 1:40 PM EDT Reason for Appointment: Patient [...] nursing note reviewed. Exam conducted with a electrical panel builder present. Vitals: Estimated body mass index is 35.67 kg/m?? as calculated from the following: Height as of 11/19/24: 5' 4 . Weight as of this encounter: 207 lb 12.8 oz. BP: 100/60 Patient's last menstrual period was 08/22/2024. Assessment/Plan ICD-10-CM 1. Third trimester ([facility]) Z34.93 CULTURE, GROUP B STREP WITH SUSCEPTIBLITY CULTURE, GROUP B STREP WITH SUSCEPTIBLITY 2. 36 weeks gestation of ([facility]) Z3A.36 POCT urinalysis dipstick manually resulted Patient is doing well but has complaints of being tired and having maternal discomfort due to . Patient verbalized frequent movement and was instructed to perform kick counts three times per day. labor precautions were given, LARC consent was signed/declined, and GBS was obtained. Patient stated today that she requests sterilization at the time of if one is needed. Orders Placed This Encounter Procedures CULTURE, GROUP B STREP WITH SUSCEPTIBLITY POCT urinalysis dipstick manually resulted Follow Up: Patient is to return to office in 1 week for routine OB appointment Documented by Mirna Paulson LPN on behalf of: Floyd Roberson DO documented in this encounter Plan of Treatment NameTypePriorityAssociated DiagnosesOrder ScheduleCULTURE, GROUP B STREP WITH SUSCEPTIBLITYLabRoutine Third trimester ([facility]) Expected: 05/14/2025, Expires: 05/14/2026documented as of this encounter Procedures Procedure NamePriorityDate/TimeAssociated DiagnosisCommentsPOCT URINALYSIS BYVYXTISQcuyllz49/28/2025 2:05 PM EDT 36 weeks gestation of ([facility]) documented in this encounter Results * US OB follow up transabdominal approach (05/23/2025 11:05 AM EST)Anatomical RegionLateralityModalityBodyUltrasoundSpecimen (Source)Anatomical Location / LateralityCollection Method / VolumeCollection TimeReceived Time05/23/2025 1:02 PM EST Impressions 05/23/2025 1:33 PM EST Single, live intrauterine , current sonographic age of 36 weeks and 4 days, with an estimated date of delivery of June 14, 2025. Comparison made with prior examination of March 25, 2025, weight by percentile growth was 5 8.5% and delivery at that time was June 05, 2025. * ??Estimated Weight (g) by Percentile is based upon an accurate estimated age based onlast menstrual period. ?? TRANSCRIBED BY: ? ELECTRONICALLY SIGNED BY: Osito Ott MD Narrative 05/23/2025 1:33 PM EST FINDINGS: A single, live intrauterine is present with normal cardiac rate of 125 beats per minute. Normal activity and amniotic fluid volume. Amniotic fluid index is 19 cm. ??Morphology is grossly normal. The current sonographic age is 36 ??weeks and 6 days, based on the following measurements: BPD ?8.5cm (34 weeks, 2 days) Head Circumference ? 32.4cm (36 weeks,5 ??days) Abdominal Circumference ? 35.2cm (39 weeks,1 ??days) Femur Length ?7.3cm ( 37 weeks, 2 days) Presentation ? Cephalic ? Weight (g) by Percentile ??59.4 % * These measurements result in an estimated date of delivery of ??June 14, 2025. ?? The current estimated weight is 3301 ?? grams ( 7 pound, 8 ??ounces). ?? Procedure Note Osito Ott MD - 05/23/2025 FINDINGS: A single, live intrauterine is present with normal cardiacrate of 125 beats per minute. Normal activity and amniotic fluidvolume. Amniotic fluid index is 19 cm. Morphology is grossly normal. Thecurrent sonographic age is 36 weeks and 6 days, based on the followingmeasurements: BPD 8.5cm (34 weeks, 2 days) Head Circumference 32.4cm (36 weeks,5 days) Abdominal Circumference 35.2cm (39 weeks,1 days) Femur Length 7.3cm ( 37 weeks, 2 days) Presentation Cephalic Weight (g) by Percentile 59.4 % * These measurements result in an estimated date of delivery of 2024. The current estimated weight is 3301 grams ( 7 pound,8 ounces). IMPRESSION: Single, live intrauterine , current sonographic age of 36 weeksand 4 days, with an estimated date of delivery of June 14, 2025. Comparison made with prior examination of March 25, 2025, weightby percentile growth was 5 8.5% and delivery at that time was May. * Estimated Weight (g) by Percentile is based upon an accurateestimated age based on last menstrual period. TRANSCRIBED BY: ELECTRONICALLY SIGNED BY: Osito Ott MD Authorizing ProviderResult TypeResult StatusCorereggie Roberson DOI OB US PROCEDURES Final Result * (ABNORMAL) POCT urinalysis dipstick manually resulted (05/14/2025 2:05 PM EDT) ComponentValueRef RangeTest MethodAnalysis TimePerformed AtPathologist SignatureColor, UAYellowClarity, UAClearGlucose, UANegativeNegative - 2000(110) ++++ mg/dLBilirubin, UANegativeNegative - 4(70) +++ mg/dLKetones, UA NegativeNegative - 160(16) ++++ mg/dLSpec Grav, UA1.0251 - 1.03Blood, UA PositiveNegative - 50 Abdi/mcLpH, UA5.55 - 9Protein, UANegativeNegative - 2000(20) ++++ mg/dLUrobilinogen, UA1.00.2 - 12 mg/dLLeukocytes, UANegative Negative - 500+++ Nile/mcLNitrite, UANegativeNegative - PositiveSpecimen (Source)Anatomical Location / LateralityCollection Method / VolumeCollection TimeReceived HfwxTizeu19/28/2025 2:05 PM EDT Narrative Authorizing ProviderResult TypeResult StatusFloyd Roberson DOPOINT OF CARE TEST ENTER/EDIT ORDERABLESFinal Result documented in this encounter Visit Diagnoses Diagnosis Third trimester ([facility]) state, incidental 36 weeks gestation of ([facility]) Third trimester ([facility]) state, incidental Multigravida of advanced maternal age in third trimester ([facility]) documented in this encounter Care Teams Team MemberRelationshipSpecialtyStart DateEnd Date Desire Ackerman MD [address] [place] [address] PCP - GeneralFamily Medicine11/23/22documented as of this encounter
--- OUTSIDE RECORDS SUMMARY | 2025-05-23 10:30 | XMS_ITS | Encounter Summary ---
Author Organization [facility] Address [address] [place] [address] Care Team Providers Care Manager Report Name Role Phone Desire Ackerman MD Primary Care Provider [phone] Encounter Details DateTypeDepartmentCare Team (Latest Contact Info)Bfdbjneuqbc52/06/2025 10:30 AM ESTAncillary Procedure CASEY Ronen OBGYN [address] [place] [phone] Third trimester ([facility]); Multigravida of advanced maternal age in third trimester ([facility]) Social History Tobacco UseTypesPacks/DayYears UsedDateSmoking Tobacco: FormerCigarettes [...] relatives?Once a week11/18/2024How often do you attend tenriism or taoism services?More than 4 times per year11/18/2024Do you belong to any clubs or organizations such as tenriism groups, unions, fraternal or athletic fareed ups, or school groups?Yes11/18/2024How often do you attend meetings of the clubs or organizations you belong to?More than 4 times per year11/18/2024re you , , , , never , or living with a partner? Lvcaeht4811/18/2024UDIT-CAnswerDate RecordedQ1: How often do you have a [...] heating?Not very hard11/18/2024PHQ-2AnswerDate RecordedPatient Health Questionnaire-2 Score0 04/16/2025[facility] [place] of Occupational Health - Occupational Stress QuestionnaireAnswerDate RecordedDo you feel stress - tense, restless, nervous, or anxious, or unable to sleep at night because yourmind is troubled all the time - these days?To some qkcudp6311/18/2024Exercise Vital SignAnswerDate Recorded On average, how many [...] were you homeless or living in a jail (including now)?No11/18/2024Estimated Date of AeejtqquTboffrapGps25/21/2025ased on UltrasoundSex and Gender InformationValueDate RecordedSex Assigned at BirthNot on fileLegal SexFemale 09/29/2022 9:28 PM EDTGender IdentityNot on fileSexual OrientationNot on file documented as of this encounter Plan of Treatment Not on file documented as of this encounter Procedures Procedure NamePriorityDate/TimeAssociated DiagnosisCommentsUS OB FOLLOW UP TRANSABDOMINAL XVITTCACQwddkwb52/06/2025 11:05 AM EST Third trimester ([facility]) Multigravida of advanced maternal age in third trimester ([facility]) documented in this encounter Results * OB [...] Ackerman MD [address] [place] [address] PCP - GeneralFamily Medicine11/23/22documented as of this encounter
--- OUTSIDE RECORDS SUMMARY | 2025-05-23 11:20 | XMS_ITS | Encounter Summary ---
Author Organization [facility] Address [address] [place] [address] Care Team Providers Care Pharmaceutical Officer Name Role Phone Desire Ackerman MD Primary Care Provider [phone] Reason for Visit * ReasonCommentsRoutine Visit Encounter Details DateTypeDepartmentCare Team (Latest Contact Info)Tmkmhfkuntj57/06/2025 11:20 AM ESTRoutine [facility] [address] [facility] [place] [address] Stephanie Suresh PA [address] [place], [facility]11 Third trimester ([facility]); 37 weeks gestation of ([facility]) Social History Tobacco UseTypesPacks/DayYears UsedDateSmoking Tobacco: [...] relatives?Once a week11/18/2024How often do you attend confucianist or islam services?More than 4 times per year11/18/2024Do you belong to any clubs or organizations such as confucianist groups, unions, fraternal or athletic fareed ups, or school groups?Yes11/18/2024How often do you attend meetings of the clubs or organizations you belong to?More than 4 times per year11/18/2024re you , , , , never , or living with a partner? Mgpndjm1111/18/2024UDIT-CAnswerDate RecordedQ1: How often do you have a [...] Health Questionnaire-2 Score0 04/16/2025[facility] [place] of Occupational Health - Occupational Stress QuestionnaireAnswerDate RecordedDo you feel stress - tense, restless, nervous, or anxious, or unable to sleep at night because yourmind is troubled all the time - these days?To some ypspje9311/18/2024Exercise Vital SignAnswerDate Recorded On average, how many [...] a senior living (including now)?No11/18/2024Estimated Date of OrdrvpkrSqabvpblEgw66/21/2025ased on UltrasoundSex and Gender InformationValueDate RecordedSex Assigned at BirthNot on fileLegal SexFemale 09/29/2022 9:28 PM EDTGender IdentityNot on fileSexual OrientationNot on file documented as of this encounter Last Filed Vital Signs Vital SignReadingTime TakenCommentsBlood Vehmpgaz087/6205/23/2025 11:15 AM EST Pulse--Temperature--Respiratory Rate--Oxygen Saturation--Inhaled Oxygen Concentration--Ccwrkw96.5 kg (208 lb 4 oz)05/23/2025 11:15 AM ESTHeight--Body Mass Index35.75011/19/2024 1:56 PM EDTdocumented in this encounter Progress Notes * XANDER Sawyer - 05/23/2025 11:20 AM EST Reason for Appointment: Patient ID: Mayra Tran [...] nursing note reviewed. Exam conducted with a wildlife policy professional present. Vitals: Estimated body mass index is 35.75 kg/m?? as calculated from the following: Height as of 11/19/24: 5' 4 . Weight as of this encounter: 208 lb 4 oz. BP: 116/62 Patient's last menstrual period was 08/22/2024. Assessment/Plan ICD-10-CM 1. Third trimester ([facility]) Z34.93 2. 37 weeks gestation of ([facility]) Z3A.37 Return OB: Patient presents today for a routine obstetrics appointment. Patient is currently 37w6d . Patient states she is doing well but has complaints of being tired due to current . Patient has verbalizes frequent movement. labor precautions was discussed/given and patient was instructed to perform kick counts three times a day. Follow Up: Patient is to return to office in 1 week for routine OB appointment. Documented by Tiny Baig LPN on behalf of: XANDER Sawyer documented in this encounter Plan of Treatment Not on file documented as of this encounter Visit Diagnoses Diagnosis Third trimester ([facility]) state, incidental 37 weeks gestation of ([facility]) documented in this encounter Care Teams Team MemberRelationshipSpecialtyStart DateEnd Date Desire Ackerman MD [address] [place] [address] PCP - GeneralFamily Medicine11/23/22documented as of this encounter
--- OUTSIDE RECORDS SUMMARY | 2025-05-24 15:02 | XMS_ITS | Encounter Summary ---
Author Organization [facility] Address [address] [place] [address] Care Team Providers Care It Auditor Name Role Phone Desire Ackerman MD Primary Care Provider [phone] Encounter Details DateTypeDepartmentCare Team (Latest Contact Info)Qfwukhussjh11/28/2025Patient Outreach [facility] [address] [place] [phone] Stephanie Hedrick, ANDREA [address] [place] [address] Social History Tobacco UseTypesPacks/DayYears UsedDateSmoking Tobacco: FormerCigarettes [...] week11/18/2024How often do you attend advent or zoroastrian services?More than 4 times per year11/18/2024Do you belong to any clubs or organizations such as advent groups, unions, fraternal or athletic farede ups, or school groups?Yes11/18/2024How often do you attend meetings of the clubs or organizations you belong to?More than 4 times per year11/18/2024re you , , , , never , or living with a partner? Lxpnhrl0611/18/2024UDIT-CAnswerDate RecordedQ1: How often do you have a [...] heating?Not very hard11/18/2024PHQ-2AnswerDate RecordedPatient Health Questionnaire-2 Score0 04/16/2025[facility] [place] of Occupational Health - Occupational Stress QuestionnaireAnswerDate RecordedDo you feel stress - tense, restless, nervous, or anxious, or unable to sleep at night because yourmind is troubled all the time - these days?To some obpjnb6711/18/2024Exercise Vital SignAnswerDate Recorded On average, how many [...] or from getting things needed for daily living?11/18/2024Housing Stability Vital SignAnswerDate RecordedIn the last 12 months, was there a time when you were not able to pay the mortgage or rent on time?11/18/2024In the past 12 months, how many times have you moved where you were living?t any time in the past 12 months, were you homeless or living in a correction (including now)?No11/18/2024Estimated Date of BxijbfbsDjjqpskuMsa92/21/2025ased on UltrasoundSex and Gender InformationValueDate RecordedSex Assigned [...] Date Desire Ackerman MD [address] [place] [address] PCP - GeneralFamily Medicine11/23/22documented as of this encounter
--- OUTSIDE RECORDS SUMMARY | 2025-05-24 15:02 | XMS_ITS | Encounter Summary ---
Author Organization [facility] Address [address] [place] [address] Care Team Providers Care .Net Architect Name Role Phone Desire Ackerman MD Primary Care Provider [phone] Encounter Details DateTypeDepartmentCare Team (Latest Contact Info)Enefzxwsqqj93/05/2025linisync Result Encounter [facility] External Department Unsolicited Stephanie Deng PA [address] [place] [address] Dr [place] [id number] Social History Tobacco UseTypesPacks/DayYears UsedDateSmoking Tobacco: FormerCigarettes [...] relatives?Once a week11/18/2024How often do you attend restoration or sabianism services?More than 4 times per year11/18/2024Do you belong to any clubs or organizations such as restoration groups, unions, fraternal or athletic fareed ups, or school groups?Yes11/18/2024How often do you attend meetings of the clubs or organizations you belong to?More than 4 times per year11/18/2024re you , , , , never , or living with a partner? Rtgrgtw7711/18/2024UDIT-CAnswerDate RecordedQ1: How often do you have a [...] very hard11/18/2024PHQ-2AnswerDate RecordedPatient Health Questionnaire-2 Score0 04/16/2025[facility] [place] [facility] - Occupational Stress QuestionnaireAnswerDate RecordedDo you feel stress - tense, restless, nervous, or anxious, or unable to sleep at night because yourmind is troubled all the time - these days?To some vldado2111/18/2024Exercise Vital SignAnswerDate Recorded On average, how many [...] were you homeless or living in a skilled nursing (including now)?No11/18/2024Estimated Date of BpuytccsIwcunfbgFlr33/21/2025ased on UltrasoundSex and Gender InformationValueDate RecordedSex Assigned at BirthNot on fileLegal SexFemale 09/29/2022 9:28 PM EDTGender IdentityNot on fileSexual OrientationNot on file documented as of this encounter Plan of Treatment Not on file documented as of this encounter Procedures Procedure NamePriorityDate/TimeAssociated DiagnosisCommentsUS OB BPP W NON-CJYMZL7805/22/2025 8:22 AM EST documented in this encounter Results * US OB BPP W NON-STRESS (05/22/2025 8:22 AM EST)Anatomical Region LateralityModalityOtherSpecimen (Source)Anatomical Location / Laterality Collection Method / VolumeCollection TimeReceived Time05/22/2025 8:22 AM EST Narrative 05/22/2025 8:25 AM EST [facility] ?[address] ? [place] [address] ? Ultrasound Report ? Signed ? Patient: HELEN TRAN ?MR#: [id number] ?? : 1990 ?Acct:[id number] ?? Age/Sex: 34 / F ?ADM Date: 05/21/25 ?? Loc: US ? Attending Dr: Stephanie Dneg ? Ordering Physician: Stephanie Deng ?? Date of Service: 05/21/25 ?? Procedure(s): US OB BPP w non-stress ?? Accession Number(s): [id number] ? cc: Stephanie Deng; ROQUE ACKERMAN ? [facility] ? [address] ? [place] [address] ? Patient Name: ?? HELEN TRAN ? MRN: [employer]:[id number] ? date: 1990 ?Sex: F ?? Assigned Patient Location: [facility] ?? Current Patient Location: ? Accession/Order Number: [id number] ?? Exam Date: 05/21/2025 ??14:56 ?Report Date: 05/22/2025 ??08:22 ? At the request of: ?? STEPHANIE ??SOWMYA ? Procedure: ??US OB BPP w non-stress ? BIOPHYSICAL PROFILE: ? CLINICAL INFORMATION: MULTIGRAVIDA OF ADVANCED MATERNAL AGE ? COMPARISON: 05/14/2025 ? There is a single live intrauterine gestation in cephalic presentation. ??The ?? reported gestational age is 40 weeks 2 days. ??The heart rate measures ?? 157 beats per minute. ? FINDINGS: ? TONE: 1 or more episodes of activity extension and flexion of ?? extremity or opening and closing of the hand ?[Y] ? 2/2 ?? GROSS BODY MOVEMENTS: 3 or more discrete body or limb movements ?[Y] ? 2/2 ?? BREATHING MOVEMENTS: 1 or more episodes of breathing lasting at ?? least 30 seconds ? [Y] ? 2/2 ?? OCTAVIO: A single deepest vertical pocket of amniotic fluid greater than 2 cm ? [Y] ? 2/2 ?OCTAVIO: 21.6 cm. ??The 90th percentile is 21.4 cm. ? Total score: ? 8/8 ? US/US OB BPP w non-stress ?? IMPRESSION: ? NORMAL BIOPHYSICAL PROFILE SCORE . ? OCTAVIO SUGGESTING POLYHYDRAMNIOS. ? Impression dictated by: Mirna Lorenzo M.D. ??05/22/2025 8:22 AM ? Dictation Location: RADIO-PC-02 ? Electronically authenticated by: [id number] ??Y ?? Date: 05/22/2025 ??08:22 ? Dictated By: ?Mirna Lorenzo M.D. ? Signed By: ?05/22/25824 ? DD/ 1 ? TD/TT: ? Dredge Runner: Procedure Note Radiology, Radiologist, MD - 05/22/2025 [place] [address] Ultrasound Report Signed Patient: HELEN TRAN R#: [id number] : 1990Acct:[id number] Age/Sex: 34 / FADM Date: 05/21/25 Loc: US Attending Dr: Stephanie Deng Ordering Physician: Stephanie Dneg Date of Service: 05/21/25 Procedure(s): US OB BPP w non-stress Accession Number(s): [id number] cc: Stephanie Deng; ROQUE ACKERMAN [place] [id number] Patient Name: HELEN TRAN MRN: [id number] date: 1990 Sex: F Assigned Patient Location: [facility] Current Patient Location: Accession/Order Number: [id number] Exam Date: 05/21/2025 14:56 Report Date: 05/22/2025 08:22 At the request of: STEPHANIE DENG Procedure: US OB BPP w non-stress BIOPHYSICAL PROFILE: CLINICAL INFORMATION: MULTIGRAVIDA OF ADVANCED MATERNAL AGE COMPARISON: 05/14/2025 There is a single live intrauterine gestation in cephalic presentation.The reported gestational age is 40 weeks 2 days. The heart ratemeasures 157 beats per minute. FINDINGS: TONE: 1 or [...] greater than 2 cm [Y] 2/2 OCTAVIO: 21.6 cm. The 90th percentile is 21.4 cm. Total score: 8/8 US/US OB BPP w non-stress IMPRESSION: NORMAL BIOPHYSICAL PROFILE SCORE . OCTAVIO SUGGESTING POLYHYDRAMNIOS. Impression dictated by: Mirna Lorenzo M.D. 05/22/2025 8:22 AM Dictation Location: [place] [address] Electronically authenticated by: [id number] Y Date: 508:22 Dictated By: Mirna Lorenzo M.D. Signed By:05/22/25824 DD/ 1 TD/TT: Dredge Runner: Authorizing ProviderResult TypeResult StatusStephanie Deng PACLINISYNC IMAGINGFinal Result documented in this encounter Visit Diagnoses Not on filedocumented in this encounter Care Teams Team MemberRelationshipSpecialtyStart DateEnd Date Desire Ackerman MD [address] [place] [address] PCP - GeneralFamily Medicine11/23/22documented as of this encounter
--- OUTSIDE RECORDS SUMMARY | 2025-05-24 15:02 | XMS_ITS | Encounter Summary ---
Author Organization [facility] Address [address] [place] [address] Care Team Providers Care Hoisting Engineer Pile Driving Name Role Phone Desire Ackerman MD Primary Care Provider [phone] Encounter Details DateTypeDepartmentCare Team (Latest Contact Info)Ysgzkjncnfx44/28/2025linisync Result Encounter [facility] External Department Unsolicited Stephanie Suresh PA [address] [place] [address] Dr [place] [phone] Social History Tobacco UseTypesPacks/DayYears UsedDateSmoking Tobacco: FormerCigarettes [...] relatives?Once a week11/18/2024How often do you attend sikhism or anglican services?More than 4 times per year11/18/2024Do you belong to any clubs or organizations such as sikhism groups, unions, fraternal or athletic fareed ups, or school groups?Yes11/18/2024How often do you attend meetings of the clubs or organizations you belong to?More than 4 times per year11/18/2024re you , , , , never , or living with a partner? Ajiqfzw9311/18/2024UDIT-CAnswerDate RecordedQ1: How often do you have a [...] heating?Not very hard11/18/2024PHQ-2AnswerDate RecordedPatient Health Questionnaire-2 Score0 04/16/2025[facility] [place] [facility] - Occupational Stress QuestionnaireAnswerDate RecordedDo you feel stress - tense, restless, nervous, or anxious, or unable to sleep at night because yourmind is troubled all the time - these days?To some cjkbyn5011/18/2024Exercise Vital SignAnswerDate Recorded On average, how many [...] were you homeless or living in a assisted (including now)?No11/18/2024Estimated Date of YwhratdpDpjsadqdGes90/21/2025ased on UltrasoundSex and Gender InformationValueDate RecordedSex Assigned at BirthNot on fileLegal SexFemale 09/29/2022 9:28 PM EDTGender IdentityNot on fileSexual OrientationNot on file documented as of this encounter Plan of Treatment Not on file documented as of this encounter Procedures Procedure NamePriorityDate/TimeAssociated DiagnosisCommentsUS OB BPP W NON-YMQHTK1805/14/2025 10:05 PM EDT STREP GP B CULTURE+IZBJVlnayfe19/28/2025 1:51 PM EDT documented in this encounter Results * US OB BPP W NON-STRESS (05/14/2025 10:05 PM EDT)Anatomical Region LateralityModalityOtherSpecimen (Source)Anatomical Location / Laterality Collection Method / VolumeCollection TimeReceived Time05/14/2025 10:05 PM EDT Narrative 05/14/2025 10:07 PM EDT [facility] ?[address] ? [place] [address] ? Ultrasound Report ? Signed ? Patient: HELEN TRAN ?MR#: [id number] ?? : 1990 ?Acct:[id number] ?? Age/Sex: 34 / F ?ADM Date: 05/14/25 ?? Loc: US ? Attending Dr: Stephanie Suresh ? Ordering Physician: Stephanie Suresh ?? Date of Service: 05/14/25 ?? Procedure(s): US OB BPP w non-stress ?? Accession Number(s): [id number] ? cc: Stephanie Suresh; ROQUE ACKERMAN ? [facility] ? [address] ? [place] [address] ? Patient Name: ?? HELEN TRAN ? MRN: [employer]:[id number] ? date: 1990 ?Sex: F ?? Assigned Patient Location: [facility] ?? Current Patient Location: LAB ?? Accession/Order Number: [id number] ?? Exam Date: 05/14/2025 ??14:45 ?Report Date: [...] M.D. ??05/14/2025 10:05 PM ? Dictation Location: [facility]-PC-29 ? Electronically authenticated by: [id number] ??Y ?? Date: 05/14/2025 ??22:05 ? Dictated By: ?Juarez Noonan M.D. ? Signed By: ?05/14/252206 ? DD/ 04 ? TD/TT: ? Dressage Instructor: Procedure Note Radiology, Radiologist, - 05/14/2025 The [place] [id number] Ultrasound Report Signed Patient: HELEN TRAN R#: [id number] : 1990Acct:[id number] Age/Sex: 34 / FADM Date: 05/14/25 Loc: US Attending Dr: Stephanie Suresh Ordering Physician: Stephanie Suresh Date of Service: 05/14/25 Procedure(s): US OB BPP w non-stress Accession Number(s): [id number] cc: Stephanie Suresh; ROQUE ACKERMAN The [address] [address] Patient Name: HELEN TRAN MRN: [id number] date: 1990 Sex: F Assigned Patient Location: [facility] Current Patient Location: LAB Accession/Order Number: [id number] Exam Date: 05/14/2025 14:45 Report Date: 05/14/2025 22:05 At the request of: STEPHANIE LUDWIGEY Procedure: US OB BPP w non-stress Ultrasound biophysical profile INDICATION: advanced maternal age. COMPARISON: 05/07/2025 FINDINGS/IMPRESSION: Single live intrauterine . CephalicPosition. heart rate 131 bpm. OCTAVIO measures 14.8 cm. Biophysical profilescore 02/22. Impression dictated by: Juarez Noonan M.D. 05/14/2025 10:05 PM Dictation Location: [place] [address] Electronically authenticated by: [id number] Y Date: 2:05 Dictated By: Juarez Noonan M.D. Signed By:05/14/252206 DD/ 04 TD/TT: Dressage Instructor: Authorizing ProviderResult TypeResult StatusStephanie Sowmya PACLINISYNC IMAGINGFinal Result * STREP GP B [...] is noted.TBHSTREP GP B CULTURE+RFLX Performed at: [facility]TBH[facility] GP B CULTURE+[id number] [place], [place] [id number] GP B CULTURE+RFLXLab Director: Edvin Hale PhD, Phone: [phone] (Source)Anatomical Location / Laterality Collection Method / [...] Desire Ackerman MD [address] [place] [address] PCP - GeneralFamily Medicine11/23/22documented as of this encounter
--- OUTSIDE RECORDS SUMMARY | 2025-05-24 15:02 | XMS_ITS | Clinical Summary ---
Author Organization [facility] Address [address] [place] [address] Care Team Providers Care Roper Operator Name Role Phone Desire Ackerman MD Primary Care Provider [phone] Allergies Active AllergyReactionsCriticalityNoted VmxhWpgnolcrGombkmMieeQkc23/10/2025 Medications MedicationSigDispense QuantityRefillsLast FilledStart DateEnd DateStatus ondansetron ODT (Zofran-ODT) 4 MG disintegrating tablet DISSOLVE 1 TABLET IN MOUTH EVERY 6 HOURS NEEDED FOR NAUSEA AND VOMITING 5Active EPINEPHrine (Epipen) 0.3 MG/0.3ML injection syringe INJECT 1 PEN INTRAMUSCULARLY EVERY 10 MINUTES NEEDED FOR ANAPHYLAXIS FOR 2 DOSES4Active MV-Min-Fe Fum-FA-DHA ( 1 PO) Take by mouthActive Active Problems Estimated Date of GunpvohwTsxoxddyFdd70/21/2025Based on Ultrasound No known active problems Encounters DateTypeDepartmentCare ZctlGlxbypcqoif82/06/2025 11:20 AM ESTRoutine CASEY PANTOJA [facility] [employer] [place] [address] Stephanie Deng PA Third trimester ([facility]); 37 weeks gestation of ([facility])05/23/2025 10:30 AM ESTAncillary Procedure CASEY PANTOJA [address] [place] [address] [place] [address] Third trimester ([facility]); Multigravida of advanced maternal age in third trimester ([facility])05/22/2025 Clinisync Result Encounter [facility] External Department Unsolicited Stephanie Deng PA 05/14/2025 1:40 PM EDTRoutine [facility] [address] [place] [address] Floyd Roberson, DO Third trimester ([facility]); 36 weeks gestation of ([facility])05/14/2025linisync Result Encounter NOMS External Department Unsolicited Stephanie Deng PA 05/14/2025Patient Outreach [facility] [address] [place] [address] Stephanie Hedrick LPN 04/30/2025 9:50 AM EDTRoutine [facility] [address] [place] [address] Stephanie Deng PA Third trimester ([facility]); 34 weeks gestation of ([facility])04/30/2025amboo flowsheet [facility] [address] [place] [address] Stephanie Deng PA 04/23/2025linisync Result Encounter NOMS External Department Unsolicited Stephanie Deng PA 04/17/2025 10:50 AM EDTRoutine [facility] [address] [place] [address] Mitali Mccall NP 32 weeks gestation of ([facility]); Third trimester ([facility])5Clinisync Result Encounter NOMS External Department Unsolicited Stephanie Deng PA 04/16/2025Patient Outreach [facility] [address] [place] [address] Stephanie Hedrick LPN 04/02/2025 1:50 PM EDTRoutine [facility] [address] [facility] [place] [address] Floyd RobersonDO Third trimester ([facility]); 30 weeks gestation of ([facility])5Bamboo flowsheet [facility] PANTOJA [address] [place] [address] Floyd Roberson DO 03/25/2025 2:00 PM EDTAncillary Procedure [facility] PANTOJA [address] [place] [address] [place] [address] Multigravida of advanced maternal age in third trimester ([facility])03/25/2025 Ofjorr5803/19/2025 2:10 PM EDTRoutine [facility] [address] [place] [address] Stepahnie Deng PA Multigravida of advanced maternal age in third trimester ([facility]); Third trimester ([facility]); 28 weeks gestation of ([facility])03/19/2025Patient Outreach [facility] [place] [address] [facility] [address] Stephanie Hedrick LPN 5Clinisync Result Encounter [facility]OMS [...] Once a week11/18/2024How often do you attend jew or judaism services?More than 4 times per year11/18/2024Do you belong to any clubs or organizations such as jew groups, unions, fraternal or athletic groups, or school groups?Yes 11/18/2024How often do you attend meetings of the clubs or organizations you belong to?More than 4 times per year11/18/2024re you , , , , never , or living with a partner?Zuwepsg5211/18/2024 AUDIT-CAnswerDate RecordedQ1: How often do you have [...] heating?Not very hard11/18/2024PHQ-2Answer Date RecordedPatient Health Questionnaire-2 Ifzbq945[facility] [place] of [facility]ational Health - Occupational Stress QuestionnaireAnswerDate RecordedDo you feel stress - tense, restless, nervous, or anxious, or unable to sleep at night because yourmind is troubled all the time - these days?To some gjqmkm5811/18/2024 Exercise Vital SignAnswerDate RecordedOn average, how many [...] InformationValueDate RecordedSex Assigned at BirthNot on fileLegal UhhQdchez49/15/2023 9:28 PM EDTGender Identity Not on fileSexual OrientationNot on file Last Filed Vital Signs Vital SignReadingTime TakenCommentsBlood Yejkhhoy604/6205/23/2025 11:15 AM EST Tcqrd196111/19/2024 1:56 PM FREXxiwlewzmty52.9 ??C (98.4 ??F)11/19/2024 1:56 PM EDTRespiratory Rate--Oxygen Cafsqngahc81%11/19/2024 1:56 PM EDTInhaled Oxygen Concentration--Hdtrzt05.5 kg (208 lb 4 oz)05/23/2025 11:15 AM BLGXngdeq885.6 cm (5' 4 )11/19/2024 1:56 PM EDTBody Mass Index35.75011/19/2024 1:56 PM EDT Plan of Treatment Health MaintenanceDue DateLast DoneCommentsCOVID-19 Vaccine ( season) 2025Influenza Vaccine (#1)2025ervical Cancer Nlizuljhy39/10/2030 HPV/Rileqw311Pap SmearPneumococcal Vaccine: Pediatrics (0 to 5 Years) and At-Risk Patients (6 to 64 Years)Aged OutNo longer eligible based on patient's age to complete this topic Procedures Procedure NamePriorityDate/TimeAssociated DiagnosisCommentsUS OB FOLLOW UP TRANSABDOMINAL YDRJQDBYPxgdxad94/06/2025 11:05 AM EST Third trimester ([facility]) Multigravida of advanced maternal age in third trimester ([facility]) US OB BPP W NON-XTFLZV5905/22/2025 8:22 AM EST US OB BPP W NON-SCKORY5805/14/2025 10:05 PM EDT POCT URINALYSIS ANIUQDLFSfiqpiv31/28/2025 2:05 PM EDT 36 weeks gestation of ([facility]) STREP GP B CULTURE+JXIBWkvkixp77/28/2025 1:51 PM EDT POCT URINALYSIS ONCAQHDFLfzeale47/14/2025 10:04 AM EDT 34 weeks gestation of ([facility]) US OB BPP W NON-TYPENE7604/23/2025 4:03 PM EDT POCT URINALYSIS HHVKFTUPThceyjj79/01/2025 10:42 AM EDT 32 weeks gestation of ([facility]) US OB BPP W NON-SOIUUQ5004/17/2025 8:53 AM EDT POCT URINALYSIS XBYQAOGOUetsuei21/16/2025 2:26 PM EDT Third trimester ([facility]) 30 weeks gestation of ([facility]) US OB FOLLOW UP TRANSABDOMINAL BHOBKDSNRjknaia06/08/2025 2:29 PM EDT Multigravida of advanced maternal age in third trimester ([facility]) POCT URINALYSIS JDKNZHACGwgrcpj32/02/2025 2:36 PM EDT Third trimester ([facility]) GLUCOSE 1 LLLUMwqlqam47/13/2025 8:23 AM EDT ALL CBC WITH AUTO ROGIFlqbest03/13/2025 8:23 AM EDT PAP LHYBRLlsioti34/10/2025 12:00 AM EDTTHINPREP TIS AND HPV MRNA E6/E7 (74787) Vjmbddb9805/27/2021 from Last 3 Months or Most Recently Relevant to Health Maintenance Results * US OB follow up transabdominal approach (05/23/2025 11:05 AM EST) Only the most recent of2 resultswithin the time period is included. Anatomical RegionLateralityModalityBodyUltrasoundSpecimen (Source)Anatomical Location / LateralityCollection Method / VolumeCollection TimeReceived Time 05/23/2025 1:02 PM EST Impressions 05/23/2025 1:33 PM [...] Da LAGOS OB US PROCEDURES Final Result * US OB BPP W NON-STRESS (05/22/2025 8:22 AM EST) Only the most recent of4 resultswithin the time period is included. Anatomical RegionLateralityModalityOtherSpecimen (Source)Anatomical Location / LateralityCollection Method / VolumeCollection TimeReceived Time05/22/2025 8:22 AM EST Narrative 05/22/2025 8:25 AM EST [facility] ?[address] ? [place] [address] ? Ultrasound Report ? Signed ? Patient: HELEN TRAN L ?MR#: [id number] ?? : 1990 ?Acct:[id number] ?? Age/Sex: 34 / F ?ADM Date: 05/21/25 ?? Loc: US ? Attending Dr: Stephanie Deng ? Ordering Physician: Stephanie Deng ?? Date of Service: 05/21/25 ?? Procedure(s): US OB BPP w non-stress ?? Accession Number(s): [id number] ? cc: Stephanie Deng; ROQUE ACKERMAN ? [facility] ? [address] ? [place] [address] ? Patient Name: ?? HELEN TRAN ? MRN: [facility]:[id number] ? date: 1990 ?Sex: F ?? Assigned Patient Location: [facility] ?? Current Patient Location: ? Accession/Order Number: [id number] ?? Exam Date: 05/21/2025 ??14:56 ?Report Date: [...] Dictation Location: RADIO-PC-02 ? Electronically authenticated by: [id number] ??Y ?? Date: 05/22/2025 ??08:22 ? Dictated By: ?Mirna Lorenzo M.D. ? Signed By: ?11/05/25 0825 ? DD/ 0822 ? TD/TT: ? Transport Engineer: Procedure Note Radiology, Radiologist, - 05/22/2025 [place] [address] Ultrasound Report Signed Patient: HELEN TRAN LMR#: [id number] : 1990Acct:[id number] Age/Sex: 34 / FADM Date: 05/21/25 Loc: US Attending Dr: Stephanie Deng Ordering Physician: Stephanie Deng Date of Service: 05/21/25 Procedure(s): OB BPP w non-stress Accession Number(s): [id number] cc: Stephanie Deng; ROQUE ACKERMAN The [place] [id number] Patient Name: HELEN TRAN MRN: [id number] date: 1990 Sex: F Assigned Patient Location: [facility] Current Patient Location: Accession/Order Number: [id number] Exam Date: 05/21/2025 14:56 Report Date: 05/22/2025 08:22 At the request of: STEPHANIE DENG Procedure: OB BPP w non-stress BIOPHYSICAL PROFILE: CLINICAL [...] 90th percentile is 21.4 cm. Total score: 02/22 US/US OB BPP w non-stress IMPRESSION: NORMAL BIOPHYSICAL PROFILE SCORE . OCTAVIO SUGGESTING POLYHYDRAMNIOS. Impression dictated by: Mirna Lorenzo M.D. 05/22/2025 8:22 AM Dictation Location: [place] [address] Electronically authenticated by: [id number] Y Date: 508:22 Dictated By: Mirna Lorenzo M.D. Signed By:05/22/25824 DD/ 1 TD/TT: Transport Engineer: Authorizing ProviderResult TypeResult StatusAmy [place] PACLINISYNC IMAGINGFinal Result * (ABNORMAL) POCT urinalysis dipstick manually resulted (05/14/2025 2:05 PM EDT) Only the most recent of5 resultswithin [...] Location / LateralityCollection Method / VolumeCollection TimeReceived BwxwEvtsi62/28/2025 2:05 PM EDT Narrative Authorizing ProviderResult TypeResult [...] is noted.TBHSTREP GP B CULTURE+RFLX Performed at: [facility]+[id number] [place], [place] [id number] GP B CULTURE+RFLXLab Director: Edvin Hale PhD, Phone: [phone] (Source)Anatomical Location / Laterality Collection Method / VolumeCollection TimeReceived Time05/14/2025 1:51 PM EDT 05/14/2025 8:38 PM EDT Narrative JOSSIE - 05/19/2025 6:08 PM EST Authorizing ProviderResult TypeResult StatusCorey Da DOLAB BLOOD ORDERABLES Final ResultPerforming OrganizationAddressCity/State/ZIP CodePhone Number JOSSIE SIDDIQI * (ABNORMAL) GLUCOSE 1 HOUR (02/27/2025 8:23 AM EDT)ComponentValueRef RangeTest MethodAnalysis TimePerformed AtPathologist SignatureGLUCOSE 1 IJYH819(H)<130 mg/dLTBHSpecimen (Source)Anatomical Location / LateralityCollection Method / VolumeCollection TimeReceived Time02/27/2025 8:23 AM EDT02/27/2025 8:24 AM EDT Narrative JOSSIE - 02/27/2025 9:00 AM EDT Authorizing ProviderResult TypeResult StatusCorey Da DOLAB BLOOD ORDERABLES Final ResultPerforming OrganizationAddressCity/State/ZIP CodePhone Number JOSSIE [facility] * (ABNORMAL) ALL CBC WITH AUTO DIFF (02/27/2025 8:23 AM EDT)ComponentValueRef RangeTest MethodAnalysis TimePerformed AtPathologist SignatureTBH WBC10.24.0 - 11.0 10 3/uLTBHTBH RBC3.78(L)4.20 - 5.40 10 6/uLTBHTBH HGB11.8(L)12.0 - 16.0 g/dLTBHTBH HCT34.0(L)36.0 - 48.0 %TBHTBH MCV89.981.0 - 99.0 fLTBHTBH MCH31.2 26.7 - 34.0 pgTBHTBH MCHC34.729.9 - 35.2 g/dLTBHTBH RDW13.311.0 - 15.0 %TBHTBH CUG391765 - 450 10 3/uLTBHTBH MPV10.39.5 - 13.5 [...] 8:39 AM EDT Authorizing ProviderResult TypeResult StatusCorey [facility] DOCLINISYNCFinal Result Performing OrganizationAddressty/State/ZIP CodePhone Number [facility] * Pap Smear (12/25/2024 12:00 AM EDT)Specimen (Source)Anatomical Location / LateralityCollection Method / VolumeCollection TimeReceived TimeSwabCervical swab / Unknown Narrative Authorizing ProviderResult TypeResult StatusCorey [facility] DOLAB CYTOLOGY ORDERABLESFinal ResultPerforming OrganizationAddressty/State/ZIP CodePhone Number EXTERNAL LAB * THINPREP TIS AND HPV MRNA E6/E7 (74106) (05/27/2021)ComponentValueRef Range Test MethodAnalysis TimePerformed AtPathologist SignatureCLINICAL INFORMATION: None givenNOMS LEGACY EXTERNAL LABLMP:None givenN[facility] LEGACY EXTERNAL LABPREV. PAP:None givenN[facility] LEGACY EXTERNAL LABPREV. BX:None given[facility]GACY EXTERNAL LABSOURCE:None givenN[facility]GACY EXTERNAL LABSTATEMENT OF ADEQUACY:SEE COMMENT [facility] EXTERNAL LABComment: Satisfactory for evaluation. Endocervical/transformation zone component absent. INTERPRETATION/RESULT:Negative for intraepithelial lesion or malignancy.[facility] EXTERNAL LABCOMMENT:This Pap test has been evaluated with computer assisted technology.[facility] EXTERNAL LABCYTOTECHNOLOGIST:SEE COMMENTNOMS [facility] EXTERNAL LABComment: SARAH SWEENEY(ASCP) CT screening location: Service2Media [facility], [address] [place] [address]. COMMENTSEE COMMENTNOPEACEHEALTH ST. [facility] EXTERNAL LABComment: EXPLANATORY NOTE: The Pap is [...] current clinical information. HPV MRNA E6/E7Not DetectedNot DetectedNOPEACEHEALTH ST. [facility]ENTER EXTERNAL LABComment: Methodology: Engineering Project Designer-Mediated Amplification This assay detects E6/E7 viral messenger RNA (mRNA) from 14 high-risk HPV types (16,18,31,33,35,39,45,51,52,56,58,59,66,68). The analytical performance characteristics of this assay have been determined by [employer]. The modifications have not been cleared or approved by the FDA. This assay has been validated pursuant to the CLIA regulations and is used for clinical purposes. For additional information, please refer to http://education.ICU Metrix/faq/CVB720d9 (This link if provided for information/ educational purposes only.) Specimen (Source)Anatomical Location / LateralityCollection Method / Volume Collection TimeReceived Time05/27/2021 Narrative Authorizing ProviderResult TypeResult StatusDesire Ackerman MDECAshtyn LABSFinal ResultPerforming OrganizationAddressCity/State/ZIP CodePhone Number [facility] EXTERNAL LAB from Last 3 Months or Most Recently Relevant to Health Maintenance Insurance Care Teams Team MemberRelationshipSpecialtyStart DateEnd Desire Ackerman MD [address] [place] [address] [facility]11/23/22
[2025-05-24 15:07] VITALS: BP 110/64; PULSE 106
== END 2025-05-24 15:30 | disposition home or self-care (01) ==
LOC: FBCO 14:59 → FBC 15:01
PROVIDERS: PCP Student in an Organized Health Care Education/Training Program; Visit Provider Obstetrics & Gynecology
DX: O09.529 Supervision of elderly multigravida, unspecified trimester (principal)
CPT/HCPCS: 59025

== ENCOUNTER 2025-05-28 14:05 | Outpatient (OUT) | payer OTHER, SELFPAY ==
--- OUTSIDE RECORDS SUMMARY | 2025-05-14 12:40 | XMS_ITS | Encounter Summary ---
Author Organization [facility] Address [address] [place] [address] Care Team Providers Care Mobile Device Developer Name Role Phone Desire Ackerman MD Primary Care Provider [phone] Reason for Visit * ReasonCommentsRoutine Visit Encounter Details DateTypeDepartmentCare Team (Latest Contact Info)Ocoksyecwcq88/28/2025 1:40 PM EDTRoutine [facility] [address] [place] [phone] Floyd Roberson, [address] [place] [address] Third trimester ([facility]); 36 weeks gestation of ([facility]) Social History Tobacco UseTypesPacks/DayYears UsedDateSmoking Tobacco: FormerCigarettes [...] relatives?Once a week11/18/2024How often do you attend rastafari or muslim services?More than 4 times per year11/18/2024Do you belong to any clubs or organizations such as rastafari groups, unions, fraternal or athletic fareed ups, or school groups?Yes11/18/2024How often do you attend meetings of the clubs or organizations you belong to?More than 4 times per year11/18/2024re you , , , , never , or living with a partner? Qbrhdcp0311/18/2024UDIT-CAnswerDate RecordedQ1: How often do you have a [...] heating?Not very hard11/18/2024PHQ-2AnswerDate RecordedPatient Health Questionnaire-2 Score0 04/16/2025[facility] [place] of Occupational Health - Occupational Stress QuestionnaireAnswerDate RecordedDo you feel stress - tense, restless, nervous, or anxious, or unable to sleep at night because yourmind is troubled all the time - these days?To some emcfun4711/18/2024Exercise Vital SignAnswerDate Recorded On average, how many [...] homeless or living in a correction (including now)?No11/18/2024Estimated Date of NxvfeltrTmveroimQtl44/21/2025ased on UltrasoundSex and Gender InformationValueDate RecordedSex Assigned at BirthNot on fileLegal SexFemale 09/29/2022 9:28 PM EDTGender IdentityNot on fileSexual OrientationNot on file documented as of this encounter Last Filed Vital Signs Vital SignReadingTime TakenCommentsBlood Ahzokato253/6005/14/2025 1:51 PM EDT Pulse--Temperature--Respiratory Rate--Oxygen Saturation--Inhaled Oxygen Concentration--Arjlbf78.3 kg (207 lb 12.8 oz)05/14/2025 1:51 PM [...] nursing note reviewed. Exam conducted with a sailing officer present. Vitals: Estimated body mass index is 35.67 kg/m?? as calculated from the following: Height as of 11/19/24: 5' 4 . Weight as of this encounter: 207 lb 12.8 oz. BP: 100/60 Patient's last menstrual period was 08/22/2024. Assessment/Plan ICD-10-CM 1. Third trimester ([facility]) Z34.93 CULTURE, GROUP B STREP WITH SUSCEPTIBLITY CULTURE, GROUP B STREP WITH SUSCEPTIBLITY 2. 36 weeks gestation of ([facility]) Z3A.36 POCT urinalysis dipstick manually resulted Patient [...] GROUP B STREP WITH SUSCEPTIBLITYLabRoutine Third trimester ([facility]) Expected: 05/14/2025, Expires: 05/14/2026documented as of this encounter Procedures Procedure NamePriorityDate/TimeAssociated DiagnosisCommentsPOCT URINALYSIS TJAOUBOIXhdhpwl33/28/2025 2:05 PM EDT 36 weeks gestation of ([facility]) documented in this encounter Results * US [...] Location / LateralityCollection Method / VolumeCollection TimeReceived EfkaWhisn48/28/2025 2:05 PM EDT Narrative Authorizing ProviderResult TypeResult [...] Desire Ackerman MD [address] [place] [address] PCP - GeneralFamily Medicine11/23/22documented as of this encounter
--- OUTSIDE RECORDS SUMMARY | 2025-05-23 10:30 | XMS_ITS | Encounter Summary ---
Author Organization [facility] Address [address] [place] [address] Care Team Providers Care Layout Operator Name Role Phone Desire Ackerman MD Primary Care Provider [phone] Encounter Details DateTypeDepartmentCare Team (Latest Contact Info)Pkoobsuilbx79/06/2025 10:30 AM ESTAncillary Procedure [facility] [address] [place] [phone] Third trimester ([facility]); Multigravida of advanced maternal age in third trimester ([facility]) Social History Tobacco UseTypesPacks/DayYears UsedDateSmoking Tobacco: FormerCigarettes [...] week11/18/2024How often do you attend yazidi or orthodox services?More than 4 times per year11/18/2024Do you belong to any clubs or organizations such as yazidi groups, unions, fraternal or athletic fareed ups, or school groups?Yes11/18/2024How often do you attend meetings of the clubs or organizations you belong to?More than 4 times per year11/18/2024re you , , , , never , or living with a partner? Lraokfi9911/18/2024UDIT-CAnswerDate RecordedQ1: How often do you have a [...] heating?Not very hard11/18/2024PHQ-2AnswerDate RecordedPatient Health Questionnaire-2 Score0 04/16/2025[facility] [employer] of Occupational Health - Occupational Stress QuestionnaireAnswerDate RecordedDo you feel stress - tense, restless, nervous, or anxious, or unable to sleep at night because yourmind is troubled all the time - these days?To some qgnpfr3511/18/2024Exercise Vital SignAnswerDate Recorded On average, how many [...] were you homeless or living in a long term (including now)?No11/18/2024Estimated Date of KsnkcrvkLqadeebdGxl54/21/2025ased on UltrasoundSex and Gender InformationValueDate RecordedSex Assigned at BirthNot on fileLegal SexFemale 09/29/2022 9:28 PM EDTGender IdentityNot on fileSexual OrientationNot on file documented as of this encounter Plan of Treatment Not on file documented as of this encounter Procedures Procedure NamePriorityDate/TimeAssociated DiagnosisCommentsUS OB FOLLOW UP TRANSABDOMINAL AWGUTLREXiwvysk00/06/2025 11:05 AM EST Third trimester ([facility]) Multigravida of advanced maternal age in third trimester ([facility]) documented in this encounter Results * OB follow up transabdominal approach (05/23/2025 11:05 [...] BY: Osito Ott MD Authorizing ProviderResult TypeResult StatusCorey Da LAGOS OB US PROCEDURES Final Result documented in this encounter Visit Diagnoses Diagnosis Third trimester ([facility]) state, incidental Multigravida of advanced maternal age in third trimester ([facility]) documented in this encounter Care Teams Team MemberRelationshipSpecialtyStart DateEnd Date Desire Ackerman MD [address] [place] [address] PCP - GeneralFamily Medicine11/23/22documented as of this encounter
--- OUTSIDE RECORDS SUMMARY | 2025-05-23 11:20 | XMS_ITS | Encounter Summary ---
Author Organization [facility] Address [address] [place] [address] Care Team Providers Care Railway Head Tender Name Role Phone Desire Ackerman MD Primary Care Provider [phone] Reason for Visit * ReasonCommentsRoutine Visit Encounter Details DateTypeDepartmentCare Team (Latest Contact Info)Nponxzcacgp06/06/2025 11:20 AM ESTRoutine [facility] [address] [place] [address] Stephanie Suresh PA [address] [place], [facility] Third trimester ([facility]); 37 weeks gestation of ([facility]) Social History Tobacco UseTypesPacks/DayYears UsedDateSmoking Tobacco: [...] relatives?Once a week11/18/2024How often do you attend voodoo or samaritan services?More than 4 times per year11/18/2024Do you belong to any clubs or organizations such as voodoo groups, unions, fraternal or athletic fareed ups, or school groups?Yes11/18/2024How often do you attend meetings of the clubs or organizations you belong to?More than 4 times per year11/18/2024re you , , , , never , or living with a partner? Mdrlbwd9611/18/2024UDIT-CAnswerDate RecordedQ1: How often do you have a [...] heating?Not very hard11/18/2024PHQ-2AnswerDate RecordedPatient Health Questionnaire-2 Score0 04/16/2025[facility] [place] of Occupational Health - Occupational Stress QuestionnaireAnswerDate RecordedDo you feel stress - tense, restless, nervous, or anxious, or unable to sleep at night because yourmind is troubled all the time - these days?To some dcjnyw9811/18/2024Exercise Vital SignAnswerDate Recorded On average, how many [...] in a usp (including now)?No11/18/2024Estimated Date of WsbyboriXmxbzdrmZsq35/21/2025ased on UltrasoundSex and Gender InformationValueDate RecordedSex Assigned at BirthNot on fileLegal SexFemale 09/29/2022 9:28 PM EDTGender IdentityNot on fileSexual OrientationNot on file documented as of this encounter Last Filed Vital Signs Vital SignReadingTime TakenCommentsBlood Hajioaio325/6205/23/2025 11:15 AM EST Pulse--Temperature--Respiratory Rate--Oxygen Saturation--Inhaled Oxygen Concentration--Orpjca99.5 kg (208 lb 4 oz)05/23/2025 11:15 AM [...] nursing note reviewed. Exam conducted with a apparel sales associate present. Vitals: Estimated body mass index is 35.75 kg/m?? as calculated from the following: Height as of 11/19/24: 5' 4 . Weight as of this encounter: 208 lb 4 oz. BP: 116/62 Patient's last menstrual period was 08/22/2024. Assessment/Plan ICD-10-CM 1. Third trimester ([facility]) Z34.93 2. 37 weeks gestation of ([facility]) Z3A.37 Return OB: Patient presents today [...] Date Desire Ackerman MD [address] [place] [address] PCP - GeneralFamily Medicine11/23/22documented as of this encounter
--- NOTE | 2025-05-28 | US_ITS ---
The [place] [id number] Patient Name: HELEN SONG MRN: [id number] date: 1990 Sex: F Assigned Patient Location: [facility] Current Patient Location: Accession/Order Number: [id number] Exam Date: 05/28/2025 14:13 Report Date: 05/29/2025 12:28 At the request of: ZAKI DENG Procedure: US OB BPP w non-stress BIOPHYSICAL PROFILE: CLINICAL INFORMATION: MULTIGRAVIDA ADVANCED MATERNAL AGE COMPARISON: 05/21/2025 There is a single live intrauterine gestation in cephalic presentation. The reported gestational age is 38 weeks 4 days. The heart rate measures 157 beats per minute. FINDINGS: TONE: 1 or more episodes of activity extension and flexion of extremity or opening and closing of the hand [Y] 2/2 GROSS BODY MOVEMENTS: 3 or more discrete body or limb movements [Y] 2/2 BREATHING MOVEMENTS: 1 or more episodes of breathing lasting at least 30 seconds [Y] 2/2 OCTAVIO: A single deepest vertical pocket of amniotic fluid greater than 2 cm [Y] 2/2 OCTAVIO: 16.5 cm Total score: 8/8 US/US OB BPP w non-stress IMPRESSION: NORMAL BIOPHYSICAL PROFILE Impression dictated by: Mirna Lorenzo M.D. 05/29/2025 12:28 PM Dictation Location: [place] [address] Electronically authenticated by: [id number] Y Date: 05/29/2025 12:28
--- OUTSIDE RECORDS SUMMARY | 2025-05-28 14:08 | XMS_ITS | Encounter Summary ---
Author Organization [facility] Address [address] [place] [address] Care Team Providers Care Tie Fastener Name Role Phone Desire Ackerman MD Primary Care Provider [phone] Encounter Details DateTypeDepartmentCare Team (Latest Contact Info)Kadbsctgfar27/21/2025linisync Result Encounter [facility] External Department Unsolicited Stephanie Deng PA [address] [place] [address] Dr [place] [id number] Social History Tobacco UseTypesPacks/DayYears UsedDateSmoking Tobacco: FormerCigarettes [...] relatives?Once a week11/18/2024How often do you attend jewish or presybeterian services?More than 4 times per year11/18/2024Do you belong to any clubs or organizations such as jewish groups, unions, fraternal or athletic fareed ups, or school groups?Yes11/18/2024How often do you attend meetings of the clubs or organizations you belong to?More than 4 times per year11/18/2024re you , , , , never , or living with a partner? Ecevtqu9711/18/2024UDIT-CAnswerDate RecordedQ1: How often do you have a [...] Health Questionnaire-2 Score0 04/16/2025Fin[facility] [place] of Occupational Health - Occupational Stress QuestionnaireAnswerDate RecordedDo you feel stress - tense, restless, nervous, or anxious, or unable to sleep at night because yourmind is troubled all the time - these days?To some dsnagj0411/18/2024Exercise Vital SignAnswerDate Recorded On average, how many [...] a long term (including now)?No11/18/2024Estimated Date of MkomtzamZsxvmswgXpr13/21/2025ased on UltrasoundSex and Gender InformationValueDate RecordedSex Assigned at BirthNot on fileLegal SexFemale 09/29/2022 9:28 PM EDTGender IdentityNot on fileSexual OrientationNot on file documented as of this encounter Plan of Treatment Not on file documented as of this encounter Procedures Procedure NamePriorityDate/TimeAssociated DiagnosisCommentsUS OB BPP W NON-RBWAPH5805/07/2025 3:54 PM EDT documented in this encounter Results * US OB BPP W NON-STRESS (05/07/2025 3:54 PM EDT)Anatomical Region LateralityModalityOtherSpecimen (Source)Anatomical Location / Laterality Collection Method / VolumeCollection TimeReceived Time05/07/2025 3:54 PM EDT Narrative 05/07/2025 3:56 PM EDT [facility] ?[address] ? [place] [address] ? Ultrasound Report ? Signed Patient: HELEN TRAN ?MR#: [id number] : 1990 ?Acct:[id number] Age/Sex: 34 / F ?ADM Date: 05/07/25 Loc: US Attending Dr: Stephanie Deng Ordering Physician: Stephanie Deng Date of Service: 05/07/25 Procedure(s): OB BPP w non-stress Accession Number(s): [id number] cc: Stephanie Deng; ROQUE ACKERMAN ? [facility] ? [address] [place] [address] ? [place] [address] ? Patient Name: HELEN TRAN MRN: [id number] ? date: 1990 ?Sex: F Assigned Patient Location: [facility] Current Patient Location: Accession/Order Number: [id number] Exam Date: 05/07/2025 ??14:12 ?Report Date: 05/07/2025 ??15:54 At the request of: STEPHANIE ??SOWMYA Procedure: ??US OB BPP w non-stress BIOPHYSICAL PROFILE: CLINICAL INFORMATION: MULTIGRAVIDA OF ADVANCED MATERNAL AGE COMPARISON: 04/30/2025 There is a single live intrauterine gestation in cephalic presentation. ??The reported gestational age is 35 weeks 3 days. ??The heart rate measures 141 beats per minute. FINDINGS: TONE: 1 or more episodes of activity extension and flexion of extremity or opening and closing of the hand ?[Y] ? 2/2 GROSS BODY MOVEMENTS: 3 or more discrete body or limb movements ?[Y] ? 2/2 BREATHING MOVEMENTS: 1 or more episodes of breathing lasting at least 30 seconds ? [Y] ? 2/2 OCTAVIO: A single deepest vertical pocket of amniotic fluid greater than 2 cm [Y] ? 2/2 ?OCTAVIO: 12.3 cm Total score: ? 02/22 US/US OB BPP w non-stress IMPRESSION: NORMAL BIOPHYSICAL PROFILE Impression dictated by: Mirna Lorenzo M.D. ??05/07/2025 3:54 PM Dictation Location: [place] [address] Electronically authenticated by: [id number] ??Y ?? Date: 05/07/2025 ??15:54 Dictated By: ?Mirna Lorenzo M.D. Signed By: ?05/07/25 1556 DD/ 1554 TD/TT: ? Counselor Aide: Procedure Note Radiology, Radiologist, - 05/28/2025 [place] [address] Ultrasound Report Signed Patient: HELEN TRAN LMR#: [id number] : 1990Acct:[id number] Age/Sex: 34 / FADM Date: 05/07/25 Loc: US Attending Dr: Stephanie Deng Ordering Physician: Stephanie Deng Date of Service: 05/07/25 Procedure(s): US OB BPP w non-stress Accession Number(s): [id number] cc: Stephanie Deng; ROQUE ACKERMAN The [place] [id number] Patient Name: HELEN TRAN MRN: [facility]:[id number] date: 1990 Sex: F Assigned Patient Location: [facility] Current Patient Location: Accession/Order Number: [id number] Exam Date: 05/07/2025 14:12 Report Date: 05/07/2025 15:54 At the request of: STEPHANIE DENG Procedure: US OB BPP w non-stress BIOPHYSICAL PROFILE: CLINICAL INFORMATION: MULTIGRAVIDA OF ADVANCED MATERNAL AGE COMPARISON: 04/30/2025 There is a single live intrauterine gestation in cephalic presentation.The reported gestational age is 35 weeks 3 days. The heart ratemeasures 141 beats per minute. FINDINGS: TONE: 1 or more episodes of activity extension and flexion offetal extremity or opening and closing of the hand [Y] 2/2 GROSS BODY MOVEMENTS: 3 or more discrete body or limb movements [Y]2/2 BREATHING MOVEMENTS: 1 or more episodes of breathing lastingat least 30 seconds [Y] 2/2 OCTAVIO: A single deepest vertical pocket of amniotic fluid greater than 2cm [Y] 2/2 OCTAVIO: 12.3 cm Total score: 8/8 US/US OB BPP w non-stress IMPRESSION: NORMAL BIOPHYSICAL PROFILE Impression dictated by: Mirna Lorenzo M.D. 05/07/2025 3:54 PM Dictation Location: [place] [address] Electronically authenticated by: [id number] Y Date: :54 Dictated By: Mirna Lorenzo M.D. Signed By:05/07/25 1556 DD/ 1554 TD/TT: Counselor Aide: Authorizing ProviderResult TypeResult StatusAmy [place] PACLCOOSA VALLEY MEDICAL CENTERYNC IMAGINGFinal Result documented in this encounter Visit Diagnoses Not on filedocumented in this encounter Care Teams Team MemberRelationshipSpecialtyStart DateEnd Date Desire Ackerman MD [address] [place] [address] PCP - GeneralFamily Medicine11/23/22documented as of this encounter
--- OUTSIDE RECORDS SUMMARY | 2025-05-28 14:08 | XMS_ITS | Encounter Summary ---
Author Organization [facility] Address [address] [place] [address] Care Team Providers Care Art Professor Name Role Phone Desire Ackerman MD Primary Care Provider [phone] Encounter Details DateTypeDepartmentCare Team (Latest Contact Info)Skybvmgywsj20/28/2025Patient Outreach [facility] [address] [place] [phone] Stephanie Hedrick, ANDREA [address] [place] [address] Social History Tobacco UseTypesPacks/DayYears UsedDateSmoking Tobacco: FormerCigarettes [...] week11/18/2024How often do you attend religious or restorationist services?More than 4 times per year11/18/2024Do you belong to any clubs or organizations such as religious groups, unions, fraternal or athletic fareed ups, or school groups?Yes11/18/2024How often do you attend meetings of the clubs or organizations you belong to?More than 4 times per year11/18/2024re you , , , , never , or living with a partner? Ybfllim1911/18/2024UDIT-CAnswerDate RecordedQ1: How often do you have a [...] heating?Not very hard11/18/2024PHQ-2AnswerDate RecordedPatient Health Questionnaire-2 Score0 04/16/2025[facility] [place] [facility] - Occupational Stress QuestionnaireAnswerDate RecordedDo you feel stress - tense, restless, nervous, or anxious, or unable to sleep at night because yourmind is troubled all the time - these days?To some vektur9611/18/2024Exercise Vital SignAnswerDate Recorded On average, how many [...] or living in a group home (including now)?No11/18/2024Estimated Date of ShhiykyzLxrifomqTxw90/21/2025ased on UltrasoundSex and Gender InformationValueDate RecordedSex Assigned [...] Date Desire Ackerman MD [address] [place] [address] PCP - GeneralFamily Medicine11/23/22documented as of this encounter
--- OUTSIDE RECORDS SUMMARY | 2025-05-28 14:08 | XMS_ITS | Encounter Summary ---
Author Organization [facility] Address [address] [place] [address] Care Team Providers Care Visually Impaired Teacher Name Role Phone Desire Ackerman MD Primary Care Provider [phone] Encounter Details DateTypeDepartmentCare Team (Latest Contact Info)Yjusqtoxrxg00/14/2025linisync Result Encounter [facility] External Department Unsolicited Stephanie Deng PA [address] [place] [address] Dr [place] [phone] Social History Tobacco UseTypesPacks/DayYears UsedDateSmoking Tobacco: FormerCigarettes [...] relatives?Once a week11/18/2024How often do you attend caodaism or rastafarian services?More than 4 times per year11/18/2024Do you belong to any clubs or organizations such as caodaism groups, unions, fraternal or athletic fareed ups, or school groups?Yes11/18/2024How often do you attend meetings of the clubs or organizations you belong to?More than 4 times per year11/18/2024re you , , , , never , or living with a partner? Xrhtpjz8411/18/2024UDIT-CAnswerDate RecordedQ1: How often do you have a [...] heating?Not very hard11/18/2024PHQ-2AnswerDate RecordedPatient Health Questionnaire-2 Score0 04/16/2025[facility] [place] [facility] - Occupational Stress QuestionnaireAnswerDate RecordedDo you feel stress - tense, restless, nervous, or anxious, or unable to sleep at night because yourmind is troubled all the time - these days?To some uuqsca1311/18/2024Exercise Vital SignAnswerDate Recorded On average, how many [...] in a fdc (including now)?No11/18/2024Estimated Date of YtmktqohNvnhgnlsOhr35/21/2025ased on UltrasoundSex and Gender InformationValueDate RecordedSex Assigned at BirthNot on fileLegal SexFemale 09/29/2022 9:28 PM EDTGender IdentityNot on fileSexual OrientationNot on file documented as of this encounter Plan of Treatment Not on file documented as of this encounter Procedures Procedure NamePriorityDate/TimeAssociated DiagnosisCommentsUS OB BPP W NON-ZRCXAK7204/30/2025 2:51 PM EDT documented in this encounter Results * US OB BPP W NON-STRESS (04/30/2025 2:51 PM EDT)Anatomical Region LateralityModalityOtherSpecimen (Source)Anatomical Location / Laterality Collection Method / VolumeCollection TimeReceived Time04/30/2025 2:51 PM EDT Narrative 04/30/2025 2:53 PM EDT [facility] ?[address] ? [place] [address] ? Ultrasound Report ? Signed Patient: HELEN TRAN ?MR#: [id number] : 1990 ?Acct:[id number] Age/Sex: 34 / F ?ADM Date: 04/30/25 Loc: FB ??250-[address]: Stephanie Deng Ordering Physician: Stephanie Deng Date of Service: 04/30/25 Procedure(s): US OB BPP w non-stress Accession Number(s): [id number] cc: Stephanie Deng; ROQUE ACKERMAN ? [facility] ? [facility] [address] ? [place] [address] ? Patient Name: HELEN TRAN MRN: [facility]:[id number] ? date: 1990 ?Sex: F Assigned Patient Location: [facility] Current Patient Location: [facility] Accession/Order Number: [id number] Exam Date: 04/30/2025 ??14:14 ?Report Date: 04/30/2025 ??14:51 At the request of: STEPHANIE ??SOWMYA Procedure: ??US OB BPP w non-stress Biophysical profile. Reason for exam: Multigravida of advanced maternal age. COMPARISON: 04/23/2025 TECHNIQUE: Transabdominal imaging of the gravid uterus was obtained. FINDINGS: The e commerce analyst reports a BPP of 8 out of 8. ??OCTAVIO is normal at 14.1 cm. ?? heart rate 132 bpm. US/US OB BPP w non-stress IMPRESSION: BPP 8 out of 8. Impression dictated by: Osito Rivas Jr., D.ORacquel ??04/30/2025 2:51 PM Dictation Location: [place] [address] Electronically authenticated by: [id number] ??Y ?? Date: 04/30/2025 ??14:51 Dictated By: ?Osito Rivas M.D. Signed By: ?04/30/25 1453 DD/ 1451 TD/TT: ? Molded Goods Embossing Press Operator: Procedure Note Radiology, Radiologist, MD - 05/28/[address] [address] Ultrasound Report Signed Patient: HELEN TRAN LMR#: [id number] : 1990Acct:[id number] Age/Sex: 34 / FADM Date: 04/30/25 Loc: [facility] 250-[address]: Stephanie Deng Ordering Physician: Stephanie Deng Date of Service: 04/30/25 Procedure(s): US OB BPP w non-stress Accession Number(s): [id number] cc: Stephanie Deng; ROQUE ACKERMAN The [address] [address] Patient Name: HELEN TRAN MRN: [facility]:[id number] date: 1990 Sex: F Assigned Patient Location: [facility] Current Patient Location: [facility] Accession/Order Number: [id number] Exam Date: 04/30/2025 14:14 Report Date: 04/30/2025 14:51 At the request of: STEPHANIE DENG Procedure: US OB BPP w non-stress Biophysical profile. Reason for exam: Multigravida of advanced maternal age. COMPARISON: 04/23/2025 TECHNIQUE: Transabdominal imaging of the gravid uterus was obtained. FINDINGS: The e commerce analyst reports a BPP of 8 out of 8. OCTAVIO is normal at14.1 cm. heart rate 132 bpm. US/US OB BPP w non-stress IMPRESSION: BPP 8 out of 8. Impression dictated by: Osito Rivas Jr., D.ORacquel 04/30/2025 2:51 PM Dictation Location: [place] [address] Electronically authenticated by: [id number] Y Date: 4:51 Dictated By: Osito Rivas M.D. Signed By:04/30/25 1453 DD/ 145 TD/TT: Molded [employer]s Embossing Press Operator: Authorizing ProviderResult TypeResult StatusAmy Sowmya PACLINISYNC IMAGINGFinal Result documented in this encounter Visit Diagnoses Not on filedocumented in this encounter Care Teams Team MemberRelationshipSpecialtyStart DateEnd Date Desire Ackerman MD [address] [place] [address] PCP - GeneralFamily Medicine11/23/22documented as of this encounter
--- OUTSIDE RECORDS SUMMARY | 2025-05-28 14:08 | XMS_ITS | Encounter Summary ---
Author Organization [facility] Address [address] [place] [address] Care Team Providers Care Information Systems Project Manager Name Role Phone Desire Ackerman MD Primary Care Provider Encounter Details DateTypeDepartmentCare Team (Latest Contact Info)Lfnrrxcddaj33/28/2025linisync Result Encounter [facility] External Department Unsolicited Stephanie Suresh PA [address] [place] [address] Dr [place] [phone] Social History Tobacco UseTypesPacks/DayYears UsedDateSmoking Tobacco: FormerCigarettes [...] relatives?Once a week11/18/2024How often do you attend buddhism or pentecostalism services?More than 4 times per year11/18/2024Do you belong to any clubs or organizations such as buddhism groups, unions, fraternal or athletic fareed ups, or school groups?Yes11/18/2024How often do you attend meetings of the clubs or organizations you belong to?More than 4 times per year11/18/2024re you , , , , never , or living with a partner? Crnhmeq8111/18/2024UDIT-CAnswerDate RecordedQ1: How often do you have a [...] heating?Not very hard11/18/2024PHQ-2AnswerDate RecordedPatient Health Questionnaire-2 Score0 04/16/2025[facility] [place] of Occupational Health - Occupational Stress QuestionnaireAnswerDate RecordedDo you feel stress - tense, restless, nervous, or anxious, or unable to sleep at night because yourmind is troubled all the time - these days?To some fdndrc2011/18/2024Exercise Vital SignAnswerDate Recorded On average, how many [...] a senior living (including now)?No11/18/2024Estimated Date of FcfwymwlBmuosfbhZml16/21/2025ased on UltrasoundSex and Gender InformationValueDate RecordedSex Assigned at BirthNot on fileLegal SexFemale 09/29/2022 9:28 PM EDTGender IdentityNot on fileSexual OrientationNot on file documented as of this encounter Plan of Treatment Not on file documented as of this encounter Procedures Procedure NamePriorityDate/TimeAssociated DiagnosisCommentsUS OB BPP W NON-AMECHT2005/14/2025 10:05 PM EDT STREP GP B CULTURE+UBEVRvtqzlc55/28/2025 1:51 PM EDT documented in this encounter Results * US OB BPP W NON-STRESS (05/14/2025 10:05 PM EDT)Anatomical Region LateralityModalityOtherSpecimen (Source)Anatomical Location / Laterality Collection Method / VolumeCollection TimeReceived Time05/14/2025 10:05 PM EDT Narrative 05/14/2025 10:07 PM EDT The [facility] ?[address] ? [place] [address] ? Ultrasound Report ? Signed ? Patient: HELEN TRAN ?MR#: [id number] ?? : 1990 ?Acct:[id number] ?? Age/Sex: 34 / F ?ADM Date: 05/14/25 ?? Loc: US ? Attending Dr: Stephanie Suresh ? Ordering Physician: Stephanie Suresh ?? Date of Service: 05/14/25 ?? Procedure(s): US OB BPP w non-stress ?? Accession Number(s): [id number] ? cc: Stephanie Suresh; ROQUE ACKERMAN ? [facility] ? [address] ? [place] [address] ? Patient Name: ?? HELEN TRAN ? MRN: [facility]:[id number] ? date: 1990 ?Sex: F ?? Assigned Patient Location: [facility] ?? Current Patient Location: LAB ?? Accession/Order Number: [id number] ?? Exam Date: 05/14/2025 ??14:45 ?Report Date: [...] M.D. ??05/14/2025 10:05 PM ? Dictation Location: [facility] ? Electronically authenticated by: [id number] ??Y ?? Date: 05/14/2025 ??22:05 ? Dictated By: ?Juarez Noonan M.D. ? Signed By: ?05/14/252206 ? DD/ 04 ? TD/TT: ? Coordinator Cardiopulmonary Services: Procedure Note Radiology, Radiologist, - 05/14/2025 The [place] [id number] Ultrasound Report Signed Patient: HELEN TRAN R#: [id number] : 1990Acct:[id number] Age/Sex: 34 / FADM Date: 05/14/25 Loc: US Attending Dr: Stephanie Suresh Ordering Physician: Stephanie Suresh Date of Service: 05/14/25 Procedure(s): US OB BPP w non-stress Accession Number(s): [id number] cc: Stephanie Suresh; ROQUE ACKERMAN The [address] [address] Patient Name: HELEN TRAN MRN: [facility]:[id number] date: 1990 Sex: F Assigned Patient Location: [facility] Current Patient Location: LAB Accession/Order Number: [id number] Exam Date: 05/14/2025 14:45 Report Date: 05/14/2025 22:05 At the request of: STEPHANIE LUDWIGEY Procedure: US OB BPP w non-stress Ultrasound biophysical profile INDICATION: advanced maternal age. COMPARISON: 05/07/2025 FINDINGS/IMPRESSION: Single live intrauterine . CephalicPosition. heart rate 131 bpm. OCTAVIO measures 14.8 cm. Biophysical profilescore 02/22. Impression dictated by: Juarez Noonan M.D. 05/14/2025 10:05 PM Dictation Location: [place] [address] Electronically authenticated by: [id number] Y Date: 2:05 Dictated By: Juarez Noonan M.D. Signed By:05/14/252206 DD/ 04 TD/TT: Coordinator Cardiopulmonary Services: Authorizing ProviderResult TypeResult StatusStephanie Sowmya PACLINISYNC IMAGINGFinal [...] is noted.TBHSTREP GP B CULTURE+RFLX Performed at: [facility]TBH[facility] GP B CULTURE+PIRO[address] [place], [place] [address]ZHFKKBIX GP B CULTURE+RFLXLab Director: Edvin Hale PhD, Phone: [phone] (Source)Anatomical Location / Laterality Collection Method / [...] Ackerman MD [address] [place] [address] PCP - GeneralFamily Medicine11/23/22documented as of this encounter
--- OUTSIDE RECORDS SUMMARY | 2025-05-28 14:08 | XMS_ITS | Encounter Summary ---
Author Organization [facility] Address [address] [place] [address] Care Team Providers Care Ladle Handler Name Role Phone Desire Ackerman MD Primary Care Provider [phone] Encounter Details DateTypeDepartmentCare Team (Latest Contact Info)Glflwwwktfe17/05/2025linisync Result Encounter [facility] External Department Unsolicited Stephanie Deng PA [address] [place] [address] Dr [place] [phone] Social History Tobacco UseTypesPacks/DayYears UsedDateSmoking Tobacco: FormerCigarettes [...] relatives?Once a week11/18/2024How often do you attend evangelical or jehovah's witness services?More than 4 times per year11/18/2024Do you belong to any clubs or organizations such as evangelical groups, unions, fraternal or athletic fareed ups, or school groups?Yes11/18/2024How often do you attend meetings of the clubs or organizations you belong to?More than 4 times per year11/18/2024re you , , , , never , or living with a partner? Attthqq8811/18/2024UDIT-CAnswerDate RecordedQ1: How often do you have a [...] hard11/18/2024PHQ-2AnswerDate RecordedPatient Health Questionnaire-2 Score0 04/16/2025[facility] [place] of Occupational Health - Occupational Stress QuestionnaireAnswerDate RecordedDo you feel stress - tense, restless, nervous, or anxious, or unable to sleep at night because yourmind is troubled all the time - these days?To some dmzsvz2211/18/2024Exercise Vital SignAnswerDate Recorded On average, how many [...] a long term (including now)?No11/18/2024Estimated Date of PijxoqrkWyjcommtRlt30/21/2025ased on UltrasoundSex and Gender InformationValueDate RecordedSex Assigned at BirthNot on fileLegal SexFemale 09/29/2022 9:28 PM EDTGender IdentityNot on fileSexual OrientationNot on file documented as of this encounter Plan of Treatment Not on file documented as of this encounter Procedures Procedure NamePriorityDate/TimeAssociated DiagnosisCommentsUS OB BPP W NON-CHMEXG7705/22/2025 8:22 AM EST documented in this encounter Results * US OB BPP W NON-STRESS (05/22/2025 8:22 AM EST)Anatomical Region LateralityModalityOtherSpecimen (Source)Anatomical Location / Laterality Collection Method / VolumeCollection TimeReceived Time05/22/2025 8:22 AM EST Narrative 05/22/2025 8:25 AM EST [facility] ?[address] ? [place] [address] ? Ultrasound Report ? Signed ? Patient: HELEN TRAN ?MR#: [id number] ?? : 1990 ?Acct:[id number] ?? Age/Sex: 34 / F ?ADM Date: 05/21/25 ?? Loc: US ? Attending Dr: Stephanie Deng ? Ordering Physician: Stephanie Deng ?? Date of Service: 05/21/25 ?? Procedure(s): US OB BPP w non-stress ?? Accession Number(s): [id number] ? cc: Stephanie Deng; ROQUE ACKERMAN ? [facility] ? [address] ? [place] [address] ? Patient Name: ?? HELEN TRAN ? MRN: [facility]:[id number] ? date: 1990 ?Sex: F ?? Assigned Patient Location: [facility] ?? Current Patient Location: ? Accession/Order Number: [id number] ?? Exam Date: 05/21/2025 ??14:56 ?Report Date: [...] Dictation Location: [facility]-PC-02 ? Electronically authenticated by: [id number] ??Y ?? Date: 05/22/2025 ??08:22 ? Dictated By: ?Mirna Lorenzo M.D. ? Signed By: ?05/22/25824 ? DD/ 1 ? TD/TT: ? Lock Tender Chief Operator: Procedure Note Radiology, Radiologist, MD - 05/22/2025 [place] [address] Ultrasound Report Signed Patient: HELEN TRAN R#: [id number] : 1990Acct:[id number] Age/Sex: 34 / FADM Date: 05/21/25 Loc: US Attending Dr: Stephanie Deng Ordering Physician: Stephanie Deng Date of Service: 05/21/25 Procedure(s): US OB BPP w non-stress Accession Number(s): [id number] cc: Stephanie Deng; ROQUE ACKERMAN [place] [id number] Patient Name: HELEN TRAN MRN: [facility]:[id number] date: 1990 Sex: F Assigned Patient [facility] Current Patient Location: Accession/Order Number: [id number] Exam Date: 05/21/2025 14:56 Report Date: 05/22/2025 [...] Lorenzo M.D. 05/22/2025 8:22 AM Dictation Location: [place] [address] Electronically authenticated by: [id number] Y Date: 508:22 Dictated By: Mirna Lorenzo M.D. Signed By:05/22/25824 DD/ 1 TD/TT: Lock Tender Chief Operator: Authorizing ProviderResult TypeResult StatusStephanie Deng PACLINISYNC IMAGINGFinal Result documented in this encounter Visit Diagnoses Not on filedocumented in this encounter Care Teams Team MemberRelationshipSpecialtyStart DateEnd Date Desire Ackerman MD [address] [place] [address] PCP - GeneralFamily Medicine11/23/22documented as of this encounter
--- OUTSIDE RECORDS SUMMARY | 2025-05-28 14:08 | XMS_ITS | Clinical Summary ---
Author Organization [facility] Address [address] [place] [address] Care Team Providers Care Park Guide Name Role Phone Desire Ackerman MD Primary Care Provider [phone] Allergies Active AllergyReactionsCriticalityNoted ManiIjbwlobbAmiihiSgafPnl42/10/2025 Medications MedicationSigDispense QuantityRefillsLast FilledStart DateEnd DateStatus ondansetron ODT (Zofran-ODT) 4 MG disintegrating tablet DISSOLVE 1 TABLET IN MOUTH EVERY 6 HOURS NEEDED FOR NAUSEA AND VOMITING 5Active EPINEPHrine (Epipen) 0.3 MG/0.3ML injection syringe INJECT 1 PEN INTRAMUSCULARLY EVERY 10 MINUTES NEEDED FOR ANAPHYLAXIS FOR 2 DOSES4Active MV-Min-Fe Fum-FA-DHA ( 1 PO) Take by mouthActive Active Problems Estimated Date of CpbrctbgPzlbwozyObl75/21/2025Based on Ultrasound No known active problems Encounters DateTypeDepartmentCare OwehYakgqdrrmpy57/06/2025 11:20 AM ESTRoutine CASEY PANTOJA [facility] [place] [address] Stephanie Deng PA Third trimester ([facility]); 37 weeks gestation of ([facility])05/23/2025 10:30 AM ESTAncillary Procedure CASEY PANTOJA [address] [place] [address] [place] [address] Third trimester ([facility]); Multigravida of advanced maternal age in third trimester ([facility])05/22/2025 Clinisync Result Encounter NOMS External Department Unsolicited Stephanie Deng PA 05/14/2025 1:40 PM EDTRoutine [facility] Nash PANTOJA [address] [place] [address] Floyd Roberson DO Third trimester ([facility]); 36 weeks gestation of ([facility])05/14/2025linisync Result Encounter NOMS External Department Unsolicited Stephanie Deng PA 05/14/2025Patient Outreach [facility] [address] [place] [address] Stephanie Hedrick LPN 05/07/2025linisync Result Encounter NOMS External Department Unsolicited Stephanie Deng PA 04/30/2025 9:50 AM EDTRoutine [facility] [place] PANTOJA [address] [place] [address] Stephanie Deng PA Third trimester ([facility]); 34 weeks gestation of ([facility])04/30/2025linisync Result Encounter NOMS External Department Unsolicited Stephanie Deng PA 04/30/2025amboo flowsheet [facility] [place] PANTOJA [address] [place] [id number] Stephanie Deng PA 04/23/2025linisync Result Encounter NOMS External Department Unsolicited Stephanie Deng PA 04/17/2025 10:50 AM EDTRoutine [facility]OMS Nash PANTOJA [address] [place] [address] Mitali Mccall NP 32 weeks gestation of ([facility]); Third trimester ([facility])04/17/2025linisync Result Encounter NOMS External Department Unsolicited Stephanie Deng PA 04/16/2025Patient Outreach [facility] [address] [place] [address] Stephanie Hedrick LPN 04/02/2025 1:50 PM EDTRoutine NOMS Nash PANTOJA [address] [place] [address] Floyd Roberson DO Third trimester ([facility]); 30 weeks gestation of ([facility])04/02/2025amboo flowsheet [facility] PANTOJA [address] [place] [address] Floyd Roberson DO 03/25/2025 2:00 PM EDTAncillary Procedure [facility] Nash SAAVEDRAN [address] [place] [address] Multigravida of advanced maternal age in third trimester ([facility])03/25/2025 Ardcgb8303/19/2025 2:10 PM EDTRoutine [facility]OMS Nash PANTOJA [address] [place] [address] Stephanie Deng PA Multigravida of advanced maternal age in third trimester ([facility]); Third trimester ([facility]); 28 weeks gestation of ([facility])03/19/2025Patient Outreach [facility] [address] [place] [place] [address] Stephanie Hedrick LPN 5Clinisync Result Encounter NOMS [...] Once a week11/18/2024How often do you attend sabianist or orthodoxy services?More than 4 times per year11/18/2024Do you belong to any clubs or organizations such as sabianist groups, unions, fraternal or athletic groups, or school groups?Yes 11/18/2024How often do you attend meetings of the clubs or organizations you belong to?More than 4 times per year11/18/2024re you , , , , never , or living with a partner?Cdzybrz6511/18/2024 AUDIT-CAnswerDate RecordedQ1: How often do you have [...] heating?Not very hard11/18/2024PHQ-2Answer Date RecordedPatient Health Questionnaire-2 Hofns264[facility] - Occupational Stress QuestionnaireAnswerDate RecordedDo you feel stress - tense, restless, nervous, or anxious, or unable to sleep at night because yourmind is troubled all the time - these days?To some dpnzek7111/18/2024 Exercise Vital SignAnswerDate RecordedOn average, how many [...] a usp (including now)?No11/18/2024Estimated Date of DeliveryComments Yes5Based on UltrasoundSex and Gender InformationValueDate RecordedSex Assigned at BirthNot on fileLegal BrlMkgpza53/15/2023 9:28 PM EDTGender Identity Not on fileSexual OrientationNot on file Last Filed Vital Signs Vital SignReadingTime TakenCommentsBlood Jkitrywp691/6205/23/2025 11:15 AM EST Ukcxp606611/19/2024 1:56 PM STJTnfdxedapmu65.9 ??C (98.4 ??F)11/19/2024 1:56 PM EDTRespiratory Rate--Oxygen Lqnototfit34%11/19/2024 1:56 PM EDTInhaled Oxygen Concentration--Aijdng14.5 kg (208 lb 4 oz)05/23/2025 11:15 AM KVJJxxyii152.6 cm (5' 4 )11/19/2024 1:56 PM EDTBody Mass Index35.75011/19/2024 1:56 PM EDT Plan of Treatment Health MaintenanceDue DateLast DoneCommentsCOVID-19 Vaccine ( season) 2025Influenza Vaccine (#1)2025ervical Cancer Gyiaarkjs76/10/2030 HPV/Ndmzvz111Pap SmearPneumococcal Vaccine: Pediatrics (0 to 5 Years) and At-Risk Patients (6 to 64 Years)Aged OutNo longer eligible based on patient's age to complete this topic Procedures Procedure NamePriorityDate/TimeAssociated DiagnosisCommentsUS OB FOLLOW UP TRANSABDOMINAL VVIRGRFWQfhkjpw60/06/2025 11:05 AM EST Third trimester ([facility]) Multigravida of advanced maternal age in third trimester ([facility]) US OB BPP W NON-QZYUMS0805/22/2025 8:22 AM EST US OB BPP W NON-GUUPKH4905/14/2025 10:05 PM EDT POCT URINALYSIS KOYZCSIZXoowabh96/28/2025 2:05 PM EDT 36 weeks gestation of ([facility]) STREP GP B CULTURE+RPYGCkcmkpk56/28/2025 1:51 PM EDT US OB BPP W NON-KLOPYM6805/07/2025 3:54 PM EDT US OB BPP W NON-LMGULN6304/30/2025 2:51 PM EDT POCT URINALYSIS HPGVWDQIZvzusdj60/14/2025 10:04 AM EDT 34 weeks gestation of ([facility]) US OB BPP W NON-FVADZA4304/23/2025 4:03 PM EDT POCT URINALYSIS WOKJZRLMYxqovsh13/01/2025 10:42 AM EDT 32 weeks gestation of ([facility]) US OB BPP W NON-IXMOWO28/07/2024 8:53 AM EDT POCT URINALYSIS HCPFICTKTjsqzvr01/16/2025 2:26 PM EDT Third trimester ([facility]) 30 weeks gestation of ([facility]) US OB FOLLOW UP TRANSABDOMINAL HNMQIKIPChyjloy89/08/2025 2:29 PM EDT Multigravida of advanced maternal age in third trimester ([facility]) POCT URINALYSIS CKWLHKWGRfvhaof16/02/2025 2:36 PM EDT Third trimester ([facility]) GLUCOSE 1 AWKEEivqrav21/13/2025 8:23 AM EDT ALL CBC WITH AUTO GLEJNqvjeyk62/13/2025 8:23 AM EDT PAP MBSFKOdtegxu68/10/2025 12:00 AM EDTTHINPREP TIS AND HPV MRNA E6/E7 (03236) Sxdkjma6105/27/2021 from Last 3 Months or Most Recently [...] Ott MD Authorizing ProviderResult TypeResult StatusCorey Da DOIMG OB US PROCEDURES Final Result * US OB BPP W NON-STRESS (05/22/2025 8:22 AM EST) Only the most recent of6 resultswithin the time period is included. Anatomical RegionLateralityModalityOtherSpecimen (Source)Anatomical Location / LateralityCollection Method / VolumeCollection TimeReceived Time05/22/2025 8:22 AM EST Narrative 05/22/2025 8:25 AM EST [facility] ?[address] ? [place] [address] ? Ultrasound Report ? Signed ? Patient: HELEN TRAN ?MR#: [id number] ?? : 1990 ?Acct:[id number] ?? Age/Sex: 34 / F ?ADM Date: 05/21/25 ?? Loc: US ? Attending Dr: Stephanie Deng ? Ordering Physician: Stephanie Deng ?? Date of Service: 05/21/25 ?? Procedure(s): US OB BPP w non-stress ?? Accession Number(s): [id number] ? cc: Stephanie Deng; ROQUE ACKERMAN ? [facility] ? [address] ? [place] [address] ? Patient Name: ?? HELEN TRAN ? MRN: [id number] ? date: 1990 ?Sex: F ?? Assigned Patient Location: [facility] ?? Current Patient Location: ? Accession/Order Number: [id number] ?? Exam Date: 05/21/2025 ??14:56 ?Report Date: [...] Dictation Location: RADIO-PC-02 ? Electronically authenticated by: [id number] ??Y ?? Date: 05/22/2025 ??08:22 ? Dictated By: ?Mirna Lorenzo M.D. ? Signed By: ?11/05/25 0825 ? DD/ 0822 ? TD/TT: ? Cash Applications Manager: Procedure Note Radiology, Radiologist, MD - 05/22/2025 The [place] [id number] Ultrasound Report Signed Patient: HELEN TRAN LMR#: [id number] : 1990Acct:[id number] Age/Sex: 34 / FADM Date: 05/21/25 Loc: US Attending Dr: Stephanie Deng Ordering Physician: Stephanie Deng Date of Service: 05/21/25 Procedure(s): OB BPP w non-stress Accession Number(s): [id number] cc: Stephanie Deng; ROQUE ACKERMAN [address] [address] Patient Name: HELEN TRAN MRN: [id number] date: 1990 Sex: F Assigned Patient Location: [facility] Current Patient Location: Accession/Order Number: [id number] Exam Date: 05/21/2025 14:56 Report Date: 05/22/2025 [...] Lorenzo M.D. 05/22/2025 8:22 AM Dictation Location: [place] [address] Electronically authenticated by: [id number] Y Date: 508:22 Dictated By: Mirna Lorenzo M.D. Signed By:05/22/25824 DD/ 1 TD/TT: Cash Applications Manager: Authorizing ProviderResult TypeResult StatusAmy [facility] IMAGINGFinal Result * (ABNORMAL) POCT urinalysis dipstick [...] Location / LateralityCollection Method / VolumeCollection TimeReceived WhxoBzwyy43/28/2025 2:05 PM EDT Narrative Authorizing ProviderResult TypeResult [...] is noted.TBHSTREP GP B CULTURE+RFLX Performed at: - [facility]TBHSTREP GP B CULTURE+[id number] [place], [place] [id number] GP B CULTURE+RFLXLab Director: Edvin Hale PhD, Phone: [phone] (Source)Anatomical Location / Laterality Collection Method / VolumeCollection TimeReceived Time05/14/2025 1:51 PM EDT 05/14/2025 8:38 PM EDT Narrative [facility]IN[facility] - 05/19/2025 6:08 PM EST Authorizing ProviderResult TypeResult StatusCorey Da DOLAB BLOOD ORDERABLES Final ResultPerforming OrganizationAddressCity/State/ZIP CodePhone Number [facility] * (ABNORMAL) GLUCOSE 1 HOUR (02/27/2025 8:23 AM EDT)ComponentValueRef RangeTest MethodAnalysis TimePerformed AtPathologist SignatureGLUCOSE 1 YHLQ174(H)<130 mg/dLTBHSpecimen (Source)Anatomical Location / LateralityCollection Method / VolumeCollection TimeReceived Time02/27/2025 8:23 AM EDT02/27/2025 8:24 AM EDT Narrative [facility] - 02/27/2025 9:00 AM EDT Authorizing ProviderResult TypeResult StatusCorey Da DOLAB BLOOD ORDERABLES Final ResultPerforming OrganizationAddressCity/State/ZIP CodePhone Number [facility] * (ABNORMAL) ALL CBC WITH AUTO DIFF (02/27/2025 8:23 AM EDT)ComponentValueRef RangeTest MethodAnalysis TimePerformed AtPathologist SignatureTBH WBC10.24.0 - 11.0 10 3/uLTBHTBH RBC3.78(L)4.20 - 5.40 10 6/uLTBHTBH HGB11.8(L)12.0 - 16.0 g/dLTBHTBH HCT34.0(L)36.0 - 48.0 %TBHTBH MCV89.981.0 - 99.0 fLTBHTBH MCH31.2 26.7 - 34.0 pgTBHTBH MCHC34.729.9 - 35.2 g/dLTBHTBH RDW13.311.0 - 15.0 %TBHTBH CNF327159 - 450 10 3/uLTBHTBH MPV10.39.5 - 13.5 [...] DOCLINISYNCFinal Result Performing OrganizationAddressCity/State/ZIP CodePhone Number [facility] TB * Pap Smear (12/25/2024 12:00 AM EDT)Specimen (Source)Anatomical Location / LateralityCollection Method / VolumeCollection TimeReceived TimeSwabCervical swab / Unknown Narrative Authorizing ProviderResult TypeResult StatusCorey Da DOLAB CYTOLOGY ORDERABLESFinal ResultPerforming OrganizationAddressCity/State/ZIP CodePhone Number EXTERNAL LAB * THINPREP TIS AND HPV MRNA E6/E7 (45969) (05/27/2021)ComponentValueRef Range Test MethodAnalysis TimePerformed AtPathologist SignatureCLINICAL [...] EXTERNAL LABComment: SARAH SWEENEY(ASCP) CT screening location: [facility], [address] [place] [address]. COMMENTSEE COMMENTNOMS LEGACY EXTERNAL LABComment: EXPLANATORY NOTE: [...] E6/E7Not DetectedNot DetectedNOMS LEGACY EXTERNAL LABComment: Methodology: [employer]-Mediated Amplification This assay detects E6/E7 viral messenger RNA (mRNA) from 14 high-risk HPV types (16,18,31,33,35,39,45,51,52,56,58,59,66,68). The analytical performance characteristics of this assay have been determined by [employer]. The modifications have not been cleared or approved by the FDA. This assay has been validated pursuant to the CLIA regulations and is used for clinical purposes. For additional information, please refer to http://education.[employer]/faq/VQZ391z2 (This link if provided for information/ educational purposes only.) Specimen (Source)Anatomical Location / LateralityCollection Method / Volume Collection TimeReceived Time05/27/2021 Narrative Authorizing ProviderResult TypeResult StatusDesire Ackerman MDECW LABSFinal ResultPerforming OrganizationAddressCity/State/ZIP CodePhone Number [facility] EXTER[facility] from Last 3 Months or Most Recently Relevant to Health Maintenance Insurance Care Teams Team MemberRelationshipSpecialtyStart DateEnd Date Desire Ackerman MD [address] [place] [address] PCP - GeneralFamily Medicine11/23/22
[2025-05-28 14:28] VITALS: BP 109/61; PULSE 98
== END 2025-05-28 15:09 | disposition home or self-care (01) ==
LOC: US 14:05 → FBC 14:07
PROVIDERS: PCP Student in an Organized Health Care Education/Training Program; Visit Provider Physician Assistant
DX: O26.893 Other specified pregnancy related conditions, third trimester (principal); O09.523 Supervision of elderly multigravida, third trimester; Z3A.38 38 weeks gestation of pregnancy
CPT/HCPCS: 76818

== ENCOUNTER 2025-05-31 06:27 | Inpatient (IN) | payer OTHER, SELFPAY ==
--- OUTSIDE RECORDS SUMMARY | 2025-05-23 10:30 | XMS_ITS | Encounter Summary ---
Author Organization [facility] Address [address] [place] [address] Care Team Providers Care Coal Pipeline Operator Name Role Phone Desire Ackerman MD Primary Care Provider [phone] Encounter Details DateTypeDepartmentCare Team (Latest Contact Info)Quwoagbfcxw05/06/2025 10:30 AM ESTAncillary Procedure CASEY Cao OBGYN [address] [place] [phone] Third trimester ([facility]); Multigravida of advanced maternal age in third trimester ([facility]) Social History Tobacco UseTypesPacks/DayYears UsedDateSmoking Tobacco: FormerCigarettes [...] relatives?Once a week11/18/2024How often do you attend anglican or zoroastrian services?More than 4 times per year11/18/2024Do you belong to any clubs or organizations such as anglican groups, unions, fraternal or athletic fareed ups, or school groups?Yes11/18/2024How often do you attend meetings of the clubs or organizations you belong to?More than 4 times per year11/18/2024re you , , , , never , or living with a partner? Dureyib0211/18/2024UDIT-CAnswerDate RecordedQ1: How often do you have a [...] heating?Not very hard11/18/2024PHQ-2AnswerDate RecordedPatient Health Questionnaire-2 Score0 04/16/2025[facility] [place] of Occupational Health - Occupational Stress QuestionnaireAnswerDate RecordedDo you feel stress - tense, restless, nervous, or anxious, or unable to sleep at night because yourmind is troubled all the time - these days?To some xpjjkb4911/18/2024Exercise Vital SignAnswerDate Recorded On average, how many [...] or living in a senior living (including now)?No11/18/2024Estimated Date of KiniqdwlOcamkvplVlu39/21/2025ased on UltrasoundSex and Gender InformationValueDate RecordedSex Assigned at BirthNot on fileLegal SexFemale 09/29/2022 9:28 PM EDTGender IdentityNot on fileSexual OrientationNot on file documented as of this encounter Plan of Treatment Not on file documented as of this encounter Procedures Procedure NamePriorityDate/TimeAssociated DiagnosisCommentsUS OB FOLLOW UP TRANSABDOMINAL GNZWQITLWkxufes18/06/2025 11:05 AM EST Third trimester ([facility]) Multigravida of advanced maternal age in third trimester ([facility]) documented in this encounter Results * OB [...] Desire Ackerman MD [address] [place] [address] PCP - GeneralFamily Medicine11/23/22documented as of this encounter
--- OUTSIDE RECORDS SUMMARY | 2025-05-23 11:20 | XMS_ITS | Encounter Summary ---
Author Organization [facility] Address [address] [place] [address] Care Team Providers Care Lab Aide Name Role Phone Desire Ackerman MD Primary Care Provider [phone] Reason for Visit * ReasonCommentsRoutine Visit Encounter Details DateTypeDepartmentCare Team (Latest Contact Info)Bdvjkghrwck77/06/2025 11:20 AM ESTRoutine [facility] [address] [place] [address] Stephanie Suresh PA [address] [place], [facility]11 Third trimester ([facility]); 37 weeks gestation of ([facility]) Social History Tobacco UseTypesPacks/DayYears UsedDateSmoking Tobacco: [...] relatives?Once a week11/18/2024How often do you attend sabianism or synagogue services?More than 4 times per year11/18/2024Do you belong to any clubs or organizations such as sabianism groups, unions, fraternal or athletic fareed ups, or school groups?Yes11/18/2024How often do you attend meetings of the clubs or organizations you belong to?More than 4 times per year11/18/2024re you , , , , never , or living with a partner? Yfkzryp4711/18/2024UDIT-CAnswerDate RecordedQ1: How often do you have a [...] heating?Not very hard11/18/2024PHQ-2AnswerDate RecordedPatient Health Questionnaire-2 Score0 04/16/2025[facility] [place] of Occupational Health - Occupational Stress QuestionnaireAnswerDate RecordedDo you feel stress - tense, restless, nervous, or anxious, or unable to sleep at night because yourmind is troubled all the time - these days?To some xybnae9011/18/2024Exercise Vital SignAnswerDate Recorded On average, how many [...] in a mcfp (including now)?No11/18/2024Estimated Date of BrkwstqcLdwjgtnwOlm81/21/2025ased on UltrasoundSex and Gender InformationValueDate RecordedSex Assigned at BirthNot on fileLegal SexFemale 09/29/2022 9:28 PM EDTGender IdentityNot on fileSexual OrientationNot on file documented as of this encounter Last Filed Vital Signs Vital SignReadingTime TakenCommentsBlood Jtaxkfwn696/6205/23/2025 11:15 AM EST Pulse--Temperature--Respiratory Rate--Oxygen Saturation--Inhaled Oxygen Concentration--Pvyjjl02.5 kg (208 lb 4 oz)05/23/2025 11:15 AM [...] nursing note reviewed. Exam conducted with a television servicer present. Vitals: Estimated body mass index is 35.75 kg/m?? as calculated from the following: Height as of 11/19/24: 5' 4 . Weight as of this encounter: 208 lb 4 oz. BP: 116/62 Patient's last menstrual period was 08/22/2024. Assessment/Plan ICD-10-CM 1. Third trimester ([facility]) Z34.93 2. 37 weeks gestation of ([facility]) Z3A.37 Return OB: Patient presents today [...] Date Desire Ackerman MD [address] [place] [address] PCP - GeneralFamily Medicine11/23/22documented as of this encounter
[2025-05-31] VITALS (30 sets, daily range): BP systolic 69–97; BP diastolic 40–70; PULSE 64–100; TEMP 36.6–37; O2SAT 94–97
--- OUTSIDE RECORDS SUMMARY | 2025-05-31 06:31 | XMS_ITS | Encounter Summary ---
Author Organization [facility] Address [address] [place] [address] Care Team Providers Care Harp Maker Name Role Phone Desire Ackerman MD Primary Care Provider [phone] Encounter Details DateTypeDepartmentCare Team (Latest Contact Info)Jubjjvbwrmm36/12/2025linisync Result Encounter NOMS External Department Unsolicited Stephanie Deng PA [address] [place] [address] Dr [place] [id number] Social History Tobacco UseTypesPacks/DayYears UsedDateSmoking Tobacco: FormerCigarettes [...] relatives?Once a week11/18/2024How often do you attend judaism or yazdanism services?More than 4 times per year11/18/2024Do you belong to any clubs or organizations such as judaism groups, unions, fraternal or athletic fareed ups, or school groups?Yes11/18/2024How often do you attend meetings of the clubs or organizations you belong to?More than 4 times per year11/18/2024re you , , , , never , or living with a partner? Nctraft2111/18/2024UDIT-CAnswerDate RecordedQ1: How often do you have a [...] heating?Not very hard11/18/2024PHQ-2AnswerDate RecordedPatient Health Questionnaire-2 Score0 04/16/2025Finmount[facility]star healthcare [place] of Occupational Health - Occupational Stress QuestionnaireAnswerDate RecordedDo you feel stress - tense, restless, nervous, or anxious, or unable to sleep at night because yourmind is troubled all the time - these days?To some jnuzmf8311/18/2024Exercise Vital SignAnswerDate Recorded On average, how many [...] homeless or living in a residential (including now)?No11/18/2024Estimated Date of PuekbpciVqmdpvitUnm94/21/2025ased on UltrasoundSex and Gender InformationValueDate RecordedSex Assigned at BirthNot on fileLegal SexFemale 09/29/2022 9:28 PM EDTGender IdentityNot on fileSexual OrientationNot on file documented as of this encounter Plan of Treatment Not on file documented as of this encounter Procedures Procedure NamePriorityDate/TimeAssociated DiagnosisCommentsUS OB BPP W NON-CBETSG5805/29/2025 12:28 PM EST documented in this encounter Results * US OB BPP W NON-STRESS (05/29/2025 12:28 PM EST)Anatomical Region LateralityModalityOtherSpecimen (Source)Anatomical Location / Laterality Collection Method / VolumeCollection TimeReceived Time05/29/2025 12:28 PM EST Narrative 05/29/2025 12:30 PM EST [facility] ?[address] ? [place] [address] ? Ultrasound Report ? Signed ? Patient: HELEN TRAN L ?MR#: [id number] ?? : 1990 ?Acct:[id number] ?? Age/Sex: 34 / F ?ADM Date: 05/28/25 ?? Loc: US ? Attending Dr: Stephanie Deng ? Ordering Physician: Stephanie Deng ?? Date of Service: 05/28/25 ?? Procedure(s): US OB BPP w non-stress ?? Accession Number(s): [id number] ? cc: Stephanie Deng; ROQUE ACKERMAN ? [facility] ? [address] ? [place] [address] ? Patient Name: ?? HELEN TRAN ? MRN: [facility]:[id number] ? date: 1990 ?Sex: F ?? Assigned Patient Location: [facility] ?? Current Patient Location: ? Accession/Order Number: [id number] ?? Exam Date: 05/28/2025 ??14:13 ?Report Date: 05/29/2025 ??12:28 ? At the request of: ?? STEPHANIE ??SOWMYA ? Procedure: ??US OB BPP w non-stress ? BIOPHYSICAL PROFILE: ? CLINICAL INFORMATION: MULTIGRAVIDA ADVANCED MATERNAL AGE ? COMPARISON: 05/21/2025 ? There is a single live intrauterine gestation in cephalic presentation. ??The ?? reported gestational age is 38 weeks 4 days. ??The heart rate measures ?? 157 [...] 2 cm ? [Y] ? 2/2 ?OCTAVIO: 16.5 cm ? Total score: ? 8/8 ? US/US OB BPP w non-stress ?? IMPRESSION: ? NORMAL BIOPHYSICAL PROFILE ? Impression dictated by: Mirna Lorenzo M.D. ??05/29/2025 12:28 PM ? Dictation Location: RADIO-PC-02 ? Electronically authenticated by: [id number] ??Y ?? Date: 05/29/2025 ??12:28 ? Dictated By: ?Mirna Lorenzo M.D. ? Signed By: ?05/29/25 1230 ? DD/ 1228 ? TD/TT: ? Physician Assistant Psychiatry: Procedure Note Radiology, Radiologist, MD - 05/29/2025 [place] [address] Ultrasound Report Signed Patient: HELEN TRAN LMR#: [id number] : 1990Acct:[id number] Age/Sex: 34 / FADM Date: 05/28/25 Loc: US Attending Dr: Stephanie Deng Ordering Physician: Stephanie Deng Date of Service: 05/28/25 Procedure(s): US OB BPP w non-stress Accession Number(s): [id number] cc: Stephanie Deng; ROQUE ACKERMAN The [address] [address] Patient Name: HELEN TRAN MRN: [id number] date: 1990 Sex: F Assigned Patient Location: [facility] Current Patient Location: Accession/Order Number: [id number] Exam Date: 05/28/2025 14:13 Report Date: 05/29/2025 12:28 At the request of: STEPHANIE DENG Procedure: US OB BPP w non-stress BIOPHYSICAL PROFILE: CLINICAL INFORMATION: MULTIGRAVIDA ADVANCED MATERNAL AGE COMPARISON: 05/21/2025 There is a single live intrauterine gestation in cephalic presentation.The reported gestational age is 38 weeks 4 days. The heart ratemeasures 157 beats per [...] greater than 2 cm [Y] 2/2 OCTAVIO: 16.5 cm Total score: 8/8 US/US OB BPP w non-stress IMPRESSION: NORMAL BIOPHYSICAL PROFILE Impression dictated by: Mirna Lorenzo M.D. 05/29/2025 12:28 PM Dictation Location: [place] [address] Electronically authenticated by: [id number] Y Date: 2:28 Dictated By: Mirna Lorenzo M.D. Signed By:05/29/25 1230 DD/ 1228 TD/TT: Physician Assistant Psychiatry: Authorizing ProviderResult TypeResult StatusAmy Sowmya PACLIN[facility]YNC IMAGINGFinal Result documented in this encounter Visit Diagnoses Not on filedocumented in this encounter Care Teams Team MemberRelationshipSpecialtyStart DateEnd Date Desire Ackerman MD [address] [place] [address] PCP - GeneralFamily Medicine11/23/22documented as of this encounter
--- OUTSIDE RECORDS SUMMARY | 2025-05-31 06:31 | XMS_ITS | Encounter Summary ---
Author Organization [facility] Address [address] [place] [address] Care Team Providers Care Produce Shipper Name Role Phone Desire Ackerman MD Primary Care Provider [phone] Encounter Details DateTypeDepartmentCare Team (Latest Contact Info)Udjdluetoxt19/21/2025linisync Result Encounter NOMS External Department Unsolicited Stephanie Deng PA [address] [place] [address] Dr [place] [id number] Social History Tobacco UseTypesPacks/DayYears UsedDateSmoking Tobacco: FormerCigarettes [...] relatives?Once a week11/18/2024How often do you attend worship or episcopalian services?More than 4 times per year11/18/2024Do you belong to any clubs or organizations such as worship groups, unions, fraternal or athletic fareed ups, or school groups?Yes11/18/2024How often do you attend meetings of the clubs or organizations you belong to?More than 4 times per year11/18/2024re you , , , , never , or living with a partner? Bontwpf4411/18/2024UDIT-CAnswerDate RecordedQ1: How often do you have a [...] heating?Not very hard11/18/2024PHQ-2AnswerDate RecordedPatient Health Questionnaire-2 Score0 04/16/2025[facility] [place] of Occupational Health - Occupational Stress QuestionnaireAnswerDate RecordedDo you feel stress - tense, restless, nervous, or anxious, or unable to sleep at night because yourmind is troubled all the time - these days?To some etshzq9211/18/2024Exercise Vital SignAnswerDate Recorded On average, how many [...] in a penitentiary (including now)?No11/18/2024Estimated Date of TloeioczFukksvyxDdr33/21/2025ased on UltrasoundSex and Gender InformationValueDate RecordedSex Assigned at BirthNot on fileLegal SexFemale 09/29/2022 9:28 PM EDTGender IdentityNot on fileSexual OrientationNot on file documented as of this encounter Plan of Treatment Not on file documented as of this encounter Procedures Procedure NamePriorityDate/TimeAssociated DiagnosisCommentsUS OB BPP W NON-KRAVPK9305/07/2025 3:54 PM EDT documented in this encounter Results * US OB BPP W NON-STRESS (05/07/2025 3:54 PM EDT)Anatomical Region LateralityModalityOtherSpecimen (Source)Anatomical Location / Laterality Collection Method / VolumeCollection TimeReceived Time05/07/2025 3:54 PM EDT Narrative 05/07/2025 3:56 PM EDT [facility] ?[address] ? [place] [address] ? Ultrasound Report ? Signed Patient: HELEN TRAN ?MR#: [id number] : 1990 ?Acct:[id number] Age/Sex: 34 / F ?ADM Date: 05/07/25 Loc: US Attending Dr: Stephanie Deng Ordering Physician: Stephanie Deng Date of Service: 05/07/25 Procedure(s): OB BPP w non-stress Accession Number(s): [id number] cc: Stephanie Deng; ROQUE ACKERMAN ? [facility] ? [address] [place] [address] ? [place] [address] ? Patient Name: HELEN TRAN MRN: [facility]:[id number] ? date: 1990 ?Sex: F Assigned Patient Location: [facility] Current Patient Location: Accession/Order Number: [id number] Exam Date: 05/07/2025 ??14:12 ?Report Date: 05/07/2025 [...] Lorenzo M.D. ??05/07/2025 3:54 PM Dictation Location: [place] [address] Electronically authenticated by: [id number] ??Y ?? Date: 05/07/2025 ??15:54 Dictated By: ?Mirna Lorenzo M.D. Signed By: ?05/07/25 1556 DD/ 1554 TD/TT: ? Educational/Development Assistant: Procedure Note Radiology, Radiologist, - 05/28/2025 [place] [address] Ultrasound Report Signed Patient: HELEN TRAN LMR#: [id number] : 1990Acct:[id number] Age/Sex: 34 / FADM Date: 05/07/25 Loc: US Attending Dr: Stephanie Deng Ordering Physician: Stephanie Deng Date of Service: 05/07/25 Procedure(s): US OB BPP w non-stress Accession Number(s): [id number] cc: Stephanie Deng; ROQUE ACKERMAN The [place] [id number] Patient Name: HELEN TRAN MRN: [facility]:[id number] date: 1990 Sex: F Assigned Patient Location: [facility] Current Patient Location: Accession/Order Number: [id number] Exam Date: 05/07/2025 14:12 Report Date: 05/07/2025 [...] Lorenzo M.D. 05/07/2025 3:54 PM Dictation Location: [place] [address] Electronically authenticated by: [id number] Y Date: :54 Dictated By: Mirna Lorenzo M.D. Signed By:05/07/25 1556 DD/ 1554 TD/TT: Educational/Development Assistant: Authorizing ProviderResult TypeResult StatusAmy Sandgap PACLENCOMPASS HEALTH REHABILITATION H[facility]ITAL OF NORTH ALABAMAYNC IMAGINGFinal Result documented in this encounter Visit Diagnoses Not on filedocumented in this encounter Care Teams Team MemberRelationshipSpecialtyStart DateEnd Date Desire Ackerman MD [address] [place] [address] PCP - GeneralFamily Medicine11/23/22documented as of this encounter
--- OUTSIDE RECORDS SUMMARY | 2025-05-31 06:31 | XMS_ITS | Clinical Summary ---
Author Organization [facility] Address [address] [place] [address] Care Team Providers Care Telecom Specialist Name Role Phone Desire Ackerman MD Primary Care Provider [phone] Allergies Active AllergyReactionsCriticalityNoted HkauQtsspzvgUunbryQegaLkv75/10/2025 Medications MedicationSigDispense QuantityRefillsLast FilledStart DateEnd DateStatus ondansetron ODT (Zofran-ODT) 4 MG disintegrating tablet DISSOLVE 1 TABLET IN MOUTH EVERY 6 HOURS NEEDED FOR NAUSEA AND VOMITING 5Active EPINEPHrine (Epipen) 0.3 MG/0.3ML injection syringe INJECT 1 PEN INTRAMUSCULARLY EVERY 10 MINUTES NEEDED FOR ANAPHYLAXIS FOR 2 DOSES4Active MV-Min-Fe Fum-FA-DHA ( 1 PO) Take by mouthActive Active Problems Estimated Date of EanckcfgEoqgomuaMbq32/21/2025Based on Ultrasound No known active problems Encounters DateTypeDepartmentCare EgprKagotecmcxc32/12/2025Clinisync Result Encounter NOMS External Department Unsolicited Stephanie Deng PA 05/23/2025 11:20 [place] [address] Stephanie Deng PA Third trimester ([facility]); 37 weeks gestation of ([facility])05/23/2025 10:30 AM ESTAncillary [place] [address] Third trimester ([facility]); Multigravida of advanced maternal age in third trimester ([facility])05/22/2025 Clinisync Result Encounter NOMS External Department Unsolicited Stephanie Deng PA 05/14/2025 1:40 PM EDTRoutine [facility] [place] SAAVEDRAGYN [address] [place] [address] Floyd Roberson DO Third trimester ([facility]); 36 weeks gestation of ([facility])05/14/2025linisync Result Encounter NOMS External Department Unsolicited Stephanie Deng PA 05/14/2025Patient Outreach [facility] [address] [place] [address] Stephanie Hedrick LPN 05/07/2025linisync Result Encounter NOMS External Department Unsolicited Stephanie Deng PA 04/30/2025 9:50 AM EDTRoutine [facility] [place] PANTOJA [address] [place] [address] Stephanie Deng PA Third trimester ([facility]); 34 weeks gestation of ([facility])04/30/2025linisync Result Encounter NOMS External Department Unsolicited Stephanie Deng PA 04/30/2025amboo flowsheet [facility] [place] OBGYKate [address] [facility] [place] [address] Stephanie Deng PA 04/23/2025linisync Result Encounter NOMS External Department Unsolicited Stephanie Deng PA 04/17/2025 10:50 AM EDTRoutine [facility] [place] OBGYN [address] [place] [address] Mitali Mccall NP 32 weeks gestation of ([facility]); Third trimester ([facility])04/17/2025linisync Result Encounter NOMS External Department Unsolicited Stephanie Deng PA 04/16/2025Patient Outreach [facility]OM[facility] [address] [place] [address] Stephanie Hedrick LPN 04/02/2025 1:50 PM EDTRoutine [facility] [place] PANTOJA [address] [place] [address] [place] [address] Floyd Roberson, Third trimester ([facility]); 30 weeks gestation of ([facility])04/02/2025amboo flowsheet NOMJose PANTOJA [address] [place] [address] [place] [address] Floyd Roberson DO 03/25/2025 2:00 PM EDTAncillary Procedure [facility] [place] [facility] [address] [place] [address] [place] [address] Multigravida of advanced maternal age in third trimester ([facility])03/25/2025 Divbqy5803/19/2025 2:10 PM EDTRoutine [facility] [place] [facility]ANT[facility]JA [address] [place] [address] [place] [address] Stephanie Deng PA Multigravida of advanced maternal age in third trimester ([facility]); Third trimester ([facility]); 28 weeks gestation of ([facility])03/19/2025Patient Outreach [facility] [place] [address] [place] [place] [address] Stephanie Hedrick LPN from Last 3 Months [...] week11/18/2024How often do you attend mandaen or orthodoxy services?More than 4 times per year11/18/2024Do you belong to any clubs or organizations such as mandaen groups, unions, fraBernal Films or athletic groups, or school groups?Yes 11/18/2024How often do you attend meetings of the clubs or organizations you belong to?More than 4 times per year11/18/2024re you , , , , never , or living with a partner?Hlfdyio4311/18/2024 AUDIT-CAnswerDate RecordedQ1: How often do you have [...] heating?Not very hard11/18/2024PHQ-2Answer Date RecordedPatient Health Questionnaire-2 Ynuwt864[facility] [place] of Occupational Health - Occupational Stress QuestionnaireAnswerDate RecordedDo you feel stress - tense, restless, nervous, or anxious, or unable to sleep at night because yourmind is troubled all the time - these days?To some aetkwl9911/18/2024 Exercise Vital SignAnswerDate RecordedOn average, how many [...] in a mcfp (including now)?No11/18/2024Estimated Date of DeliveryComments Yes5Based on UltrasoundSex and Gender InformationValueDate RecordedSex Assigned at BirthNot on fileLegal PdaXdgtcp10/15/2023 9:28 PM EDTGender Identity Not on fileSexual OrientationNot on file Last Filed Vital Signs Vital SignReadingTime TakenCommentsBlood Taqpitzm312/6205/23/2025 11:15 AM EST Iqhqb815911/19/2024 1:56 PM JJTGbqbavpfhvr75.9 ??C (98.4 ??F)11/19/2024 1:56 PM EDTRespiratory Rate--Oxygen Kbhcdltgni88%11/19/2024 1:56 PM EDTInhaled Oxygen Concentration--Vuvlak39.5 kg (208 lb 4 oz)05/23/2025 11:15 AM JXBUfazyb102.6 cm (5' 4 )11/19/2024 1:56 PM EDTBody Mass Index35.75011/19/2024 1:56 PM EDT Plan of Treatment Health MaintenanceDue DateLast DoneCommentsCOVID-19 Vaccine ( season) 2025Influenza Vaccine (#1)2025ervical Cancer Qeqlkhkdh63/10/2030 HPV/Qmvwgc691Pap SmearPneumococcal Vaccine: Pediatrics (0 to 5 Years) and At-Risk Patients (6 to 64 Years)Aged OutNo longer eligible based on patient's age to complete this topic Procedures Procedure NamePriorityDate/TimeAssociated DiagnosisCommentsUS OB BPP W NON-POZZSX9005/29/2025 12:28 PM EST US OB FOLLOW UP TRANSABDOMINAL XYJRKVBKJrmamca57/06/2025 11:05 AM EST Third trimester ([facility]) Multigravida of advanced maternal age in third trimester ([facility]) US OB BPP W NON-FUFSFG3305/22/2025 8:22 AM EST US OB BPP W NON-KQZLSX8605/14/2025 10:05 PM EDT POCT URINALYSIS MQYTVXTDPhamjdx15/28/2025 2:05 PM EDT 36 weeks gestation of ([facility]) STREP GP B CULTURE+YMLONpayxlf56/28/2025 1:51 PM EDT US OB BPP W NON-JWINZG5805/07/2025 3:54 PM EDT US OB BPP W NON-ITCEBM2404/30/2025 2:51 PM EDT POCT URINALYSIS KPLMYBEFLxcnjoj58/14/2025 10:04 AM EDT 34 weeks gestation of ([facility]) US OB BPP W NON-HVOKZB5104/23/2025 4:03 PM EDT POCT URINALYSIS XIORDLXCUfkvtxa74/01/2025 10:42 AM EDT 32 weeks gestation of ([facility]) OB BPP W NON-JYOGCO8604/17/2025 8:53 AM EDT POCT URINALYSIS EOWDJTJGIlsvunn60/16/2025 2:26 PM EDT Third trimester ([facility]) 30 weeks gestation of ([facility]) OB FOLLOW UP TRANSABDOMINAL LZVCLOTTInvrnji44/08/2025 2:29 PM EDT Multigravida of advanced maternal age in third trimester ([facility]) POCT URINALYSIS GSOZILCJXyazphh86/02/2025 2:36 PM EDT Third trimester ([facility]) PAP YYKPOZbevwzx24/10/2025 12:00 AM EDTTHINPREP TIS AND HPV MRNA E6/E7 (61870) Igedylg4905/27/2021 from Last 3 Months or Most Recently Relevant to Health Maintenance Results * OB BPP W NON-STRESS (05/29/2025 12:28 PM EST) Only the most recent of7 resultswithin the time period is included. Anatomical RegionLateralityModalityOtherSpecimen (Source)Anatomical Location / LateralityCollection Method / VolumeCollection TimeReceived Time05/29/2025 12:28 PM EST Narrative 05/29/2025 12:30 PM EST [facility] ?[address] ? [place] [address] ? Ultrasound Report ? Signed ? Patient: HELEN TRAN L ?MR#: [id number] ?? : 1990 ?Acct:[id number] ?? Age/Sex: 34 / F ?ADM Date: 05/28/25 ?? Loc: US ? Attending Dr: Stephanie Deng ? Ordering Physician: Stepahnie Deng ?? Date of Service: 05/28/25 ?? Procedure(s): US OB BPP w non-stress ?? Accession Number(s): [id number] ? cc: Stephanie Deng; ROQUE ACKERMAN ? [facility] ? [address] ? [place] [address] ? Patient Name: ?? HELEN TRAN ? MRN: [facility]:[id number] ? date: 1990 ?Sex: F ?? Assigned Patient Location: [facility] ?? Current Patient Location: ? Accession/Order Number: [id number] ?? Exam Date: 05/28/2025 ??14:13 ?Report Date: [...] Dictation Location: RADIO-PC-02 ? Electronically authenticated by: [id number] ??Y ?? Date: 05/29/2025 ??12:28 ? Dictated By: ?Mirna Lorenzo M.D. ? Signed By: ?05/29/25 1230 ? DD/ 1228 ? TD/TT: ? Grain Trader: Procedure Note Radiology, Radiologist, MD - 05/29/2025 [place] [address] Ultrasound Report Signed Patient: HELEN TRAN LMR#: [id number] : 1990Acct:[id number] Age/Sex: 34 / FADM Date: 05/28/25 Loc: US Attending Dr: Stephanie Deng Ordering Physician: Stephanie Deng Date of Service: 05/28/25 Procedure(s): US OB BPP w non-stress Accession Number(s): [id number] cc: Stephanie Deng; ROQUE ACKERMAN The [address] [address] Patient Name: HELEN TRAN MRN: [facility]:[id number] date: 1990 Sex: F Assigned Patient Location: [facility] Current Patient Location: Accession/Order Number: [id number] Exam Date: 05/28/2025 14:13 Report Date: 05/29/2025 [...] Lorenzo M.D. 05/29/2025 12:28 PM Dictation Location: [place] [address] Electronically authenticated by: [id number] Y Date: 2:28 Dictated By: Mirna Lorenzo M.D. Signed By:05/29/25 1230 DD/ 1228 TD/TT: Grain Trader: Authorizing ProviderResult TypeResult StatusStephanie Deng PACLJOHN A. ANDREW MEMORIAL HOSPITALYN IMAGINGFinal Result * US OB follow up [...] [place] OB US PROCEDURES Final Result * (ABNORMAL) [...] Location / LateralityCollection Method / VolumeCollection TimeReceived QaldZwuiv55/ 2:05 PM EDT Narrative Authorizing ProviderResult TypeResult StatusCorey Da DOPOINT OF CARE TEST ENTER/EDIT ORDERABLESFinal Result * STREP GP B CULTURE+RFLX (05/14/2025 1:51 PM EDT)ComponentValueRef RangeTest MethodAnalysis TimePerformed AtPathologist SignatureSTREP GP B CULTURE+RFLX ??Strep Gp B Culture+Rflx TBHSTREP GP B CULTURE+RFLXNegativeTBHSTREP GP B CULTURE+RFLXCenters for Disease Control and Prevention (CDC) andTBHSTREP GP B CULTURE+RFLXAmerst. bernardine medical center Congress of Obstetricians and GynecologistsTBHSTREP GP B [...] is noted.TBHSTREP GP B CULTURE+RFLX Performed at: [facility]TBH[facility]REP GP B CULTURE+HEBG[address] [place], [place] [id number] GP B CULTURE+RFLXLab Director: Edvin Hale PhD, Phone: [phone] (Source)Anatomical Location / Laterality Collection Method / VolumeCollection TimeReceived Time05/14/2025 1:51 PM EDT 05/14/2025 8:38 PM EDT Narrative NILDAISYNC - 05/19/2025 6:08 PM EST Authorizing ProviderResult TypeResult StatusCorey Da DOLAB BLOOD ORDERABLES Final ResultPerforming OrganizationAddressCity/State/ZIP CodePhone Number CLINBILLTN [facility] * Pap Smear (12/25/2024 12:00 AM EDT)Specimen (Source)Anatomical Location / LateralityCollection Method / VolumeCollection TimeReceived TimeSwabCervical swab / Unknown Narrative Authorizing ProviderResult TypeResult StatusCorey Da DOLAB CYTOLOGY ORDERABLESFinal ResultPerforming OrganizationAddressCity/State/ZIP CodePhone Number EXTERNAL LAB * THINPREP TIS AND HPV MRNA E6/E7 (33244) (05/27/2021)ComponentValueRef Range Test MethodAnalysis TimePerformed AtPathologist SignatureCLINICAL [...] LEGACY EXTERNAL LABCYTOTECHNOLOGIST:SEE COMMENTNOMS LEGACY EXTERNAL LABComment: G, SCT(ASCP) CT screening location: [facility], [address] [place] [address], [place] [address]. COMMENTSEE COMMENTNOMS LEGACY EXTERNAL LABComment: EXPLANATORY NOTE: [...] E6/E7Not DetectedNot DetectedNOMS LEGACY EXTERNAL LABComment: Methodology: Library Circulation Assistant-Mediated Amplification This assay detects E6/E7 viral messenger RNA (mRNA) from 14 high-risk HPV types (16,18,31,33,35,39,45,51,52,56,58,59,66,68). The analytical performance characteristics of this assay have been determined by [employer]. The modifications have not been cleared or approved by the FDA. This assay has been validated pursuant to the CLIA regulations and is used for clinical purposes. For additional information, please refer to http://education.Zaggora/faq/QLL654k0 (This link if provided for information/ educational purposes only.) Specimen (Source)Anatomical Location / LateralityCollection Method / Volume Collection TimeReceived Time05/27/2021 Narrative Authorizing ProviderResult TypeResult StatusDesire Ackerman MDECW LABSFinal ResultPerforming OrganizationAddressCity/State/ZIP CodePhone Number [facility] LEGACY EXTERNAL LAB from Last 3 Months or Most Recently Relevant to Health Maintenance Insurance Care Teams Team MemberRelationshipSpecialtyStart DateEnd Date Desire Ackerman MD [address] [place] [address] PCP - [facility]FaMiller [facility]11/23/22
--- OUTSIDE RECORDS SUMMARY | 2025-05-31 06:31 | XMS_ITS | Encounter Summary ---
Author Organization [facility] Address [address] [place] [address] Care Team Providers Care Hr Coordinator Name Role Phone Desire Ackerman MD Primary Care Provider [phone] Encounter Details DateTypeDepartmentCare Team (Latest Contact Info)Bqpdakfjmpf31/05/2025linisync Result Encounter NOMS External Department Unsolicited Stephanie Deng PA [address] [place] [address] Dr [place] [id number] Social History Tobacco UseTypesPacks/DayYears UsedDateSmoking Tobacco: FormerCigarettes [...] relatives?Once a week11/18/2024How often do you attend alevism or protestant services?More than 4 times per year11/18/2024Do you belong to any clubs or organizations such as alevism groups, unions, fraternal or athletic fareed ups, or school groups?Yes11/18/2024How often do you attend meetings of the clubs or organizations you belong to?More than 4 times per year11/18/2024re you , , , , never , or living with a partner? Gkhgjmf0911/18/2024UDIT-CAnswerDate RecordedQ1: How often do you have a [...] Health Questionnaire-2 Score0 04/16/2025Fin[facility] [place] of Occupational Health - Occupational Stress QuestionnaireAnswerDate RecordedDo you feel stress - tense, restless, nervous, or anxious, or unable to sleep at night because yourmind is troubled all the time - these days?To some ljoccm6611/18/2024Exercise Vital SignAnswerDate Recorded On average, how many [...] a long term (including now)?No11/18/2024Estimated Date of VkzmctjbEvanycteWnq86/21/2025ased on UltrasoundSex and Gender InformationValueDate RecordedSex Assigned at BirthNot on fileLegal SexFemale 09/29/2022 9:28 PM EDTGender IdentityNot on fileSexual OrientationNot on file documented as of this encounter Plan of Treatment Not on file documented as of this encounter Procedures Procedure NamePriorityDate/TimeAssociated DiagnosisCommentsUS OB BPP W NON-HMIALW8305/22/2025 8:22 AM EST documented in this encounter Results * US OB BPP W NON-STRESS (05/22/2025 8:22 AM EST)Anatomical Region LateralityModalityOtherSpecimen (Source)Anatomical Location / Laterality Collection Method / VolumeCollection TimeReceived Time05/22/2025 8:22 AM EST Narrative 05/22/2025 8:25 AM EST [facility] ?[address] ? [place] [address] ? Ultrasound Report ? Signed ? Patient: HELEN TRAN ?MR#: [id number] ?? : 1990 ?Acct:[id number] ?? Age/Sex: 34 / F ?ADM Date: 05/21/25 ?? Loc: US ? Attending Dr: Stephanie Deng ? Ordering Physician: Stephanie Deng ?? Date of Service: 05/21/25 ?? Procedure(s): US OB BPP w non-stress ?? Accession Number(s): [id number] ? cc: Stephanie Deng; ROQUE ACKERMAN ? [facility] ? [address] ? [place] [address] ? Patient Name: ?? HELEN TRAN ? MRN: [facility]:[id number] ? date: 1990 ?Sex: F ?? Assigned Patient Location: [facility] ?? Current Patient Location: ? Accession/Order Number: [id number] ?? Exam Date: 05/21/2025 ??14:56 ?Report Date: [...] Dictation Location: RADIO-PC-02 ? Electronically authenticated by: [id number] ??Y ?? Date: 05/22/2025 ??08:22 ? Dictated By: ?Mirna Lorenzo M.D. ? Signed By: ?05/22/25824 ? DD/ 1 ? TD/TT: ? Business Process Analyst: Procedure Note Radiology, Radiologist, MD - 05/22/2025 [place] [address] Ultrasound Report Signed Patient: HELEN TRAN R#: [id number] : 1990Acct:[id number] Age/Sex: 34 / FADM Date: 05/21/25 Loc: US Attending Dr: Stephanie Deng Ordering Physician: Stephanie Deng Date of Service: 05/21/25 Procedure(s): US OB BPP w non-stress Accession Number(s): [id number] cc: Stephanie Deng; ROQUE ACKERMAN [place] [id number] Patient Name: HELEN TRAN MRN: [facility]:[id number] date: 1990 Sex: F Assigned Patient Location: [facility] Current Patient Location: Accession/Order Number: [id number] Exam Date: 05/21/2025 14:56 Report Date: 05/22/2025 [...] 05/22/2025 8:22 AM Dictation Location: [place] [address] Electronically authenticated by: [id number] Y Date: 508:22 Dictated By: Mirna Lorenzo M.D. Signed By:05/22/25824 DD/ 1 TD/TT: Business Process Analyst: Authorizing ProviderResult TypeResult StatusStephanie Deng PACLINISYNC IMAGINGFinal Result documented in this encounter Visit Diagnoses Not on filedocumented in this encounter Care Teams Team MemberRelationshipSpecialtyStart DateEnd Date Desire Ackerman MD [address] [place] [address] PCP - GeneralFamily Medicine11/23/22documented as of this encounter
--- OUTSIDE RECORDS SUMMARY | 2025-05-31 06:31 | XMS_ITS | Encounter Summary ---
Author Organization [facility] Address [address] [place] [address] Care Team Providers Care Business Analyst Sales Operations Name Role Phone Desire Ackerman MD Primary Care Provider [phone] Encounter Details DateTypeDepartmentCare Team (Latest Contact Info)Waogsvtejbh53/14/2025linisync Result Encounter [facility] Unsolicited Stephanie Deng PA [address] [place] [address] Dr [place] [id number] Social History Tobacco UseTypesPacks/DayYears UsedDateSmoking Tobacco: FormerCigarettes [...] relatives?Once a week11/18/2024How often do you attend mandaeism or judaism services?More than 4 times per year11/18/2024Do you belong to any clubs or organizations such as mandaeism groups, unions, fraternal or athletic fareed ups, or school groups?Yes11/18/2024How often do you attend meetings of the clubs or organizations you belong to?More than 4 times per year11/18/2024re you , , , , never , or living with a partner? Tlihgci3911/18/2024UDIT-CAnswerDate RecordedQ1: How often do you have a [...] heating?Not very hard11/18/2024PHQ-2AnswerDate RecordedPatient Health Questionnaire-2 Score0 04/16/2025[facility] [place] [facility] - Occupational Stress QuestionnaireAnswerDate RecordedDo you feel stress - tense, restless, nervous, or anxious, or unable to sleep at night because yourmind is troubled all the time - these days?To some dqbrbv7111/18/2024Exercise Vital SignAnswerDate Recorded On average, how many [...] homeless or living in a custodial (including now)?No11/18/2024Estimated Date of YjocdvnxQorcmlilLfq83/21/2025ased on UltrasoundSex and Gender InformationValueDate RecordedSex Assigned at BirthNot on fileLegal SexFemale 09/29/2022 9:28 PM EDTGender IdentityNot on fileSexual OrientationNot on file documented as of this encounter Plan of Treatment Not on file documented as of this encounter Procedures Procedure NamePriorityDate/TimeAssociated DiagnosisCommentsUS OB BPP W NON-BCLRAT0904/30/2025 2:51 PM EDT documented in this encounter Results * US OB BPP W NON-STRESS (04/30/2025 2:51 PM EDT)Anatomical Region LateralityModalityOtherSpecimen (Source)Anatomical Location / Laterality Collection Method / VolumeCollection TimeReceived Time04/30/2025 2:51 PM EDT Narrative 04/30/2025 2:53 PM EDT [facility] ?[address] ? [place] [address] ? Ultrasound Report ? Signed Patient: HELEN TRAN ?MR#: [id number] : 1990 ?Acct:[id number] Age/Sex: 34 / F ?ADM Date: 04/30/25 Loc: FB ??250-[address]: Stephanie Deng Ordering Physician: Stephanie Deng Date of Service: 04/30/25 Procedure(s): US OB BPP w non-stress Accession Number(s): [id number] cc: Stephanie Deng; ROQUE ACKERMAN ? [facility] ? [facility] [facility] [address] ? [place] [address] ? Patient Name: HELEN TRAN MRN: [id number] ? date: 1990 ?Sex: F Assigned Patient Location: [facility] Current Patient Location: [facility] Accession/Order Number: [id number] Exam Date: 04/30/2025 ??14:14 ?Report Date: 04/30/2025 ??14:51 At the request of: STEPHANIE ??SOWMYA Procedure: ??US OB BPP w non-stress Biophysical profile. Reason for exam: Multigravida of advanced maternal age. COMPARISON: 04/23/2025 TECHNIQUE: Transabdominal imaging of the gravid uterus was obtained. FINDINGS: The door opener reports a BPP of 8 out of 8. ??OCTAVIO is normal at 14.1 cm. ?? heart rate 132 bpm. US/US OB BPP w non-stress IMPRESSION: BPP 8 out of 8. Impression dictated by: Osito Rivas Jr., D.ORacquel ??04/30/2025 2:51 PM Dictation Location: [place] [address] Electronically authenticated by: [id number] ??Y ?? Date: 04/30/2025 ??14:51 Dictated By: ?Osito Rivas M.D. Signed By: ?04/30/25 1453 DD/ 1451 TD/TT: ? Document Restorer: Procedure Note Radiology, Radiologist, MD - 05/28/[address] [address] Ultrasound Report Signed Patient: HELEN TRAN LMR#: [id number] : 1990Acct:[id number] Age/Sex: 34 / FADM Date: 04/30/25 Loc: [facility] 250-[address]: Stephanie Deng Ordering Physician: Stephanie Deng Date of Service: 04/30/25 Procedure(s): US OB BPP w non-stress Accession Number(s): [id number] cc: Stephanie Deng; ROQUE ACKERMAN The [address] [address] Patient Name: HELEN TRAN MRN: [facility]:[id number] date: 1990 Sex: F Assigned Patient Location: [facility] Current Patient Location: [facility] Accession/Order Number: [id number] Exam Date: 04/30/2025 14:14 Report Date: 04/30/2025 14:51 At the request of: STEPHANIE DENG Procedure: US OB BPP w non-stress Biophysical profile. Reason for exam: Multigravida of advanced maternal age. COMPARISON: 04/23/2025 TECHNIQUE: Transabdominal imaging of the gravid uterus was obtained. FINDINGS: The door opener reports a BPP of 8 out of 8. OCTAVIO is normal at14.1 cm. heart rate 132 bpm. US/US OB BPP w non-stress IMPRESSION: BPP 8 out of 8. Impression dictated by: Osito Rivas Jr., D.ORacquel 04/30/2025 2:51 PM Dictation Location: [place] [address] Electronically authenticated by: [id number] Y Date: 4:51 Dictated By: Osito Rivas M.D. Signed By:04/30/25 1453 DD/ 145 TD/TT: Document Restorer: Authorizing ProviderResult TypeResult StatusAmy Sowmya PACLINISYNC IMAGINGFinal Result documented in this encounter Visit Diagnoses Not on filedocumented in this encounter Care Teams Team MemberRelationshipSpecialtyStart DateEnd Date Desire Ackerman MD [address] [place] [address] PCP - GeneralFamily Medicine11/23/22documented as of this encounter
[2025-05-31] MEDS: 0.9 % SODIUM CHLORIDE 1,000 ML 1000 ML IV ×2 (06:55→08:14)
[2025-05-31 07:25] LABS: Hematocrit 39.4 % (36.0-48.0); Hemoglobin 14.0 g/dL (12.0-16.0); Immature Granulocytes Abs Auto 0.06 10^3/uL (0.00-0.03); Immature Granulocytes Pct Auto 0.5 % (0.0-0.5); Lymphocytes Absolute Auto 2.5 10^3/uL (1.2-3.8); Mean Corpuscular HGB Conc 35.5 g/dL (29.9-35.2); Mean Corpuscular Hemoglobin 32.0 pg (26.7-34.0); Mean Corpuscular Volume 90.2 fL (81.0-99.0); Platelet Count 270 10^3/uL (150-450); Red Blood Count 4.37 10^6/uL (4.20-5.40); White Blood Count 12.6 10^3/uL (4.0-11.0)
[2025-05-31 07:52] LABS: Cannabinoid Screen Urine NEGATIVE (NEGATIVE); Methamphetamines Screen Urine NEGATIVE (NEGATIVE); Tricyclic Antidepressant Urine NEGATIVE (NEGATIVE)
[2025-05-31] MEDS: CITRIC ACID/SODIUM CITRATE 30 ML SOLUTION ORACIT SHOHL'S SOLN PO (09:12)
[2025-05-31] MEDS: FAMOTIDINE/PF 20 MG/2 ML VIAL IV (09:12)
[2025-05-31] MEDS: 0.9 % SODIUM CHLORIDE 1,000 ML 125 ML IV (09:15)
[2025-05-31] MEDS: CEFAZOLIN SODIUM/DEXTROSE,ISO 2 GM/50 ML PIGGYBACK IV ×2 (09:15→15:15)
--- NOTE | 2025-05-31 10:08 | P.ON_ITS ---
Brief Operative Note Date of procedure: 05/31/25 Pre-op diagnosis general: iup at 39wks, previous c/s, desires sterilization Post-op diagnosis: same as pre-op Procedure: NAME OF PROCEDURE: [ section with bilateral salpingectomy ] PROCEDURE: Patient was taken back to the Operating Room where she was given a spinal anesthesia with Duramorph without difficulty. She was prepped and draped in the normal sterile fashion. A Pfannenstiel skin incision was then made 2?cm above the symphysis pubis and carried down to underlying rectus fascia using a Bovie. The fascia was incised in the midline and extended laterally using Siddiqui scissors. Two Griffin clamps were placed on the superior aspect of the fascia and dissected off the underlying rectus muscles. The same was performed on the inferior aspect as well. The muscles were then in the midline. Pe ritoneum was identified and entered bluntly. The peritoneum was then extended superiorly and inferiorly with good visualization of the bladder. The bladder blade was inserted. Vesicouterine peritoneum was identified, tented up, and entered with Metzenbaum scissors. A bladder flap was then created digitally. The bladder blade was reinserted. A low transverse incision was made on the patient's uterus and extended laterally digitally. The infant was then delivered atraumatically after the bladder blade was removed in the cephalic position. The cord was clamped and cut. Cord blood was obtained. The was handed off to awaiting team. The patient's placenta was spontaneously delivered. The uterus was then exteriorized. The uterus was cleared of all clots and debris. The bladder blade was reinserted. The patient's uterine incision was closed using #0 Vicryl in a running lock fashion. Excellent hemostasis was assured.? The rt tube was identified and grasped with babock, the ligasure was used to transect and ligate the tube in its entirity, this was done on the contralateral side as well. The uterus was then returned to the patient's abdomen. The patient's abdomen was copiously irrigated using warm saline. Peritoneal gutters were cleared of all clots and debris. Again excellent hemostasis was assured. The patient's fascia was closed using #0 Vicryl in a running fashion. The patient's skin was closed using 4-0 Vicryl subcuticularly. The patient tolerated the procedure well. Sponge, lap, and needle counts were correct x2. The patient was taken to the Recovery Room in stable condition. Anesthesia: spinal Surgeon: Floyd Roberson Sleeve Setter: Adwoa José Estimated blood loss (mL): 575 Pathology: other (tubes) Condition: stable Disposition: PACU Urinary Catheter Management Urinary Catheter Management Urethral: Cath placed during this visit: no
--- NOTE | 2025-05-31 10:08 | P.OBPRC_ITS ---
Procedure Pre-op/Post-op diagnoses: Pre-Op/Post-Op Diagnoses Operation Date: 05/31/25 08:30 <No data on this case meets the specified criteria> Procedure: Procedures Operation Date: 05/31/25 08:30 Actual Procedure Side Surgeon p Repeat C section with bilateral salpingectomy Bilateral Floyd Roberson DO Patient Transportation Driver: Adwoa José Estimated blood loss (mL): 575 Disposition: floor Anesthesia type: Spinal
[2025-05-31] MEDS: PROMETHAZINE HCL 25 MG in 0.9 % SODIUM CHLORIDE 50 ML 204 MG IV (13:37)
[2025-05-31] MEDS: KETOROLAC TROMETHAMINE 30 MG/ML VIAL IVP (16:04)
[2025-05-31] MEDS: ENOXAPARIN SODIUM 40 MG/0.4 ML SYRINGE SUBQ (22:21)
[2025-06-01] VITALS (9 sets, daily range): BP systolic 93–123; BP diastolic 52–75; PULSE 70–121; TEMP 36.7–37.1; O2SAT 97
[2025-06-01] MEDS: KETOROLAC TROMETHAMINE 30 MG/ML VIAL IVP ×4 (00:33→21:25)
[2025-06-01 06:25] LABS: Hematocrit 29.5 % (36.0-48.0); Hemoglobin 10.3 g/dL (12.0-16.0); Immature Granulocytes Abs Auto 0.10 10^3/uL (0.00-0.03); Immature Granulocytes Pct Auto 0.6 % (0.0-0.5); Lymphocytes Absolute Auto 2.9 10^3/uL (1.2-3.8); Mean Corpuscular HGB Conc 34.9 g/dL (29.9-35.2); Mean Corpuscular Hemoglobin 31.5 pg (26.7-34.0); Mean Corpuscular Volume 90.2 fL (81.0-99.0); Platelet Count 252 10^3/uL (150-450); Red Blood Count 3.27 10^6/uL (4.20-5.40); White Blood Count 15.8 10^3/uL (4.0-11.0)
--- NOTE | 2025-06-01 07:24 | PM.OBPN ---
OB - PN: Subj Subjective Patient comments: no complaints [place] status: doing well [place] feeding status: exclusively Exam Constitutional Vital Signs, click to edit/add: Last Vital Signs Temp 98.8 F 06/01/25 05:36 Pulse 89 06/01/25 04:52 Resp 18 06/01/25 04:40 BP 100/57 06/01/25 04:52 Pulse Ox 97 05/31/25 12:15 O2 Del Method Room Air 06/01/25 04:40 Documenting provider has reviewed patient's vital signs: yes Common normals: no apparent distress and oriented x3 General appearance: cooperative and comfortable Orientation/consciousness: Yes awake, Yes oriented to person, Yes oriented to place and Yes oriented to time HENMT Common normals: normocephalic Eye Common normals: EOMs intact bilaterally Neck & C-Spine Common normals: full ROM General: normal visual inspection Lymph Lymphatic: no lymphadenopathy noted Chest Common normals: inspection of chest normal Respiratory Common normals: normal respiratory effort Effort & inspection: able to speak in complete sentences Auscultation: clear to auscultation bilaterally Cardio Common normals: regular rate and regular rhythm Rate: regular rate Rhythm: regular rhythm GI Inspection: normal to inspection Auscultation: normoactive bowel sounds Palpation: soft Rectal Exam - Female: deferred Common normals: no CVA tenderness Back & Pelvis Common normals: no CVA tenderness Extremity Common normals: normal to inspection Neuro Common normals: oriented x3 Sensorium/orientation: awake, alert, oriented to person, oriented to place and oriented to time Psych Common normals: mental status grossly normal, thought process normal, cooperative, affect normal, speech normal, activity/motor behavior normal, denies hallucinations, denies homicidal ideation and denies suicidal ideation Attitude: calm Results Labs Labs: Short CBC 05/31/25 06/01/25 Range/Units 07:16 06:15 WBC 12.6 H 15.8 H (4.0-11.0) 10^3/uL Hgb 14.0 10.3 L (12.0-16.0) g/dL Hct 39.4 29.5 L (36.0-48.0) % Plt Count 270 252 (150-450) 10^3/uL Urinary Catheter Management Urinary Catheter Management Urethral: Cath placed during this visit: yes, but has since been removed by the nurse Insertion date: 05/31/25 Insertion time: 09:30 Removal date: 06/01/25 Removal time: 05:33 OB - PN: A/P Plan - day: 1 Plan: routine postop care Time Spent with Patient Time: Total time spent is greater than 50% in coordination of care (as documented) at patient's floor/unit and/or counseling patient: Total time spent with greater than 50% in coordination of care (as documented) at patient's floor/unit and/or counseling patient: less than 15 minutes
[2025-06-01] MEDS: DOCUSATE SODIUM 100 MG CAPSULE PO ×2 (08:32→21:25)
[2025-06-01] MEDS: OXYCODONE HCL/ACETAMINOPHEN 5MG/325MG 1 TAB PO (19:50)
[2025-06-01] MEDS: ENOXAPARIN SODIUM 40 MG/0.4 ML SYRINGE SUBQ (21:25)
[2025-06-02 00:21] VITALS: BP 102/55; PULSE 102; TEMP 36.7
[2025-06-02] MEDS: DOCUSATE SODIUM 100 MG CAPSULE PO (08:52)
[2025-06-02] MEDS: KETOROLAC TROMETHAMINE 30 MG/ML VIAL IVP (08:52)
[2025-06-02 09:01] VITALS: BP 117/69; PULSE 81; TEMP 36.9
[2025-06-02 09:30] VITALS: O2SAT 97
--- NOTE | 2025-06-02 10:17 | PM.OBPN ---
OB - PN: Subj Subjective Patient comments: no complaints, pain well controlled and flatus present infant status: doing well and well feeding status: exclusively Exam Constitutional Vital Signs, click to edit/add: Last Vital Signs Temp 98.0 F 06/02/25 00:21 Pulse 81 06/02/25 09:01 Resp 16 06/01/25 19:20 BP 117/69 06/02/25 09:01 Pulse Ox 97 06/01/25 19:20 O2 Del Method Room Air 06/02/25 00:34 Chest Common normals: inspection of breasts normal and palpation of breasts normal Nipple/areola: nipples/areola normal Respiratory Common normals: normal respiratory effort Cardio Common normals: regular rate and regular rhythm GI Common normals: soft to palpation Auscultation: normoactive bowel sounds Bimanual exam- vagina & uterus: uterus non-tender Uterus palpation: other (firm below umbilicus) Extremity Common normals: normal to inspection General: edema (1+ bilateral calf edema no cords or tenderness) Urinary Catheter Management Urinary Catheter Management Urethral: Cath placed during this visit: yes, but has since been removed by the nurse Insertion date: 05/31/25 Insertion time: 09:30 Removal date: 06/01/25 Removal time: 05:33 OB - PN: A/P Assessment and Plan Plan pt doing well on POD 2 and well discharge home today, check incision in 1 wk Plan - day: 2 Plan: discharge home and follow up 6 weeks Time Spent with Patient Time: Total time spent is greater than 50% in coordination of care (as documented) at patient's floor/unit and/or counseling patient: Total time spent with greater than 50% in coordination of care (as documented) at patient's floor/unit and/or counseling patient: less than 15 minutes
--- NOTE | 2025-06-02 10:24 | P.OBPN_ITS ---
OB - PN: Subj Subjective Patient comments: no complaints and pain well controlled [place] status: doing well and well [place] feeding status: exclusively Exam Constitutional Vital Signs, click to edit/add: Last Vital Signs Temp 98.0 F 06/02/25 00:21 Pulse 81 06/02/25 09:01 Resp 16 06/01/25 19:20 BP 117/69 06/02/25 09:01 Pulse Ox 97 06/01/25 19:20 O2 Del Method Room Air 06/02/25 00:34 Documenting provider has reviewed patient's vital signs: yes Common normals: no apparent distress General appearance: comfortable Chest Common normals: inspection of breasts normal and palpation of breasts normal Respiratory Common normals: normal respiratory effort Cardio Common normals: regular rate and regular rhythm GI Common normals: Normal to inspection, nondistended, normoactive bowel sounds present and soft to palpation Palpation: soft Bimanual exam- vagina & uterus: uterus non-tender Extremity Common normals: normal to inspection (1+ calf edema no cords or tenderness) General: edema Urinary Catheter Management Urinary Catheter Management Urethral: Cath placed during this visit: yes, but has since been removed by the nurse Insertion date: 05/31/25 Insertion time: 09:30 Removal date: 06/01/25 Removal time: 05:33 OB - PN: A/P Assessment and Plan (1) Status post repeat low transverse section: Plan pt doing well on POD 2 and well. passing flatus but no BM yet. Has good support at home. Not requiring much pain meds Plan discharge home today and f/u in one week for incision check Plan - day: 2 Plan: routine postop care, discharge home and other (one week followup for incision check) Comment: doing well on POD 2 Time Spent with Patient Time: Total time spent is greater than 50% in coordination of care (as documented) at patient's floor/unit and/or counseling patient: Total time spent with greater than 50% in coordination of care (as documented) at patient's floor/unit and/or counseling patient: less than 15 minutes (talked about activity and pain management)
== END 2025-06-02 12:40 | disposition home or self-care (01) | DRG 539 ==
PROVIDERS: Admitting Provider Obstetrics & Gynecology; PCP Student in an Organized Health Care Education/Training Program; Visit Provider Obstetrics & Gynecology
PROC: 10D00Z1 Extraction of Products of Conception, Low, Open Approach (ICD-10-PCS; CPT 59514; principal; 2025-05-31 08:30)
DX: O34.211 Maternal care for low transverse scar from previous cesarean delivery (principal); Z3A.39 39 weeks gestation of pregnancy; Z37.0 Single live birth; Z90.49 Acquired absence of other specified parts of digestive tract; Z87.891 Personal history of nicotine dependence; Z30.2 Encounter for sterilization
CPT/HCPCS: 36415; 51702; 64488; 76818; 80307; 85025; 86850; 86900; 86901; 88302; 94667; 94668; J0131; J0665; J0690; J1100; J1200; J1650; J1885; J2274; J2371; J2405; J2550; J2590; J3490

== ENCOUNTER 2025-06-04 08:15 | Outpatient (OUT) | payer OTHER, SELFPAY ==
--- NOTE | 2025-06-04 17:02 | PC.NURSE ---
Mayra and Arlene arrive for follow up appointment. Mayar state much better than yesterday States milk is definitely coming in, baby is gulping when at breast. Does relate that baby has only fed 3 times since 0700. Reports 3 wets and 5 green stools as well. Mom reassured that day 3 is difficult as baby wants an all day cafe for breast feeding and is fussy during this time. Mom states better today Mayra denies complaints for self, taking Motrin or Tylenol as needs. VSS and assessment WNL.. Incision open to air with steri strips intact. No redness or drainage noted. Will see Dr Roberson on 06/06/2025 for incision check.Right nipple has scabbing noted as does left nipple to a lesser degree. States latching is difficult, but improved since talking with LC yesterday. Brings baby up to breast instead of leaning for baby. Arlene sleeping, arouses easily. VSS and assessment WNL. Diaper changed for large loose green stool and small void. weighed, rechecked. Currently at 13% weight loss. Discussed with mom importance of waking baby to feed every 2-3 hours or feed prior if showing subtle signs of hunger. Feeding plan made with mom as follows. Feed every 2-2.5 hours, waking baby as needed. Use careful latching and positioning for deep latch and milk removal. Mom to pump after feeds and feed back any milk obtained. Benefits explained of offering supplement for weight gain, and increased energy/stamina for better feeds. TC to Dr Mccall and given report on infant status, weight loss and plan of care reviewed and Dr gives approval. Pt states would feel better if weight check occurred on Tuesday and . Will return for weight check and progress tomorrow at 1pm. Home with family to feed and pump for milk for baby.
[2025-06-04 17:03] VITALS: BP 112/74; PULSE 74; TEMP 37; O2SAT 97
== END 2025-06-04 17:12 | disposition home or self-care (01) ==
PROVIDERS: PCP Student in an Organized Health Care Education/Training Program; Visit Provider Obstetrics & Gynecology
DX: Z39.1 Encounter for care and examination of lactating mother (principal)

== ENCOUNTER 2025-06-05 08:15 | Outpatient (OUT) | payer OTHER, SELFPAY ==
--- NOTE | 2025-06-05 14:42 | PC.NURSE ---
Mayra, her and 5 day old baby Arlene arrive for support. Mom states has been working feeding plan as developed yesterday. Feeds baby at breast, waking her every 2-2.5 hours and latching deep at breast. States nipple tenderness is much improved at this time. Has been pumping after feeds and obtains 2-3 ml and gives to baby via bottle using slow paced method. has had 5 wets since midnight and 3 green stools. WEight is increased by 15 gms today from visit yesterday. Baby is awake and alert, roots on hands. Mom confirms it is feeding time. Baby to breast in football position as mom found baby latches better. Suckles in burst and pauses with intermittent swallows. Actively nurses for for 6-7 minutes and slows before sleeping. Mom gives expressed milk she brought with her. Baby wakes and rouses well. Discussed use of formula to increase volume of feeds. Mom tearful but accepting of new plan whatever is best for the baby Discussed importance of appropriate feeding and weight gain. Parents verbalized understanding and willingness to use formula. Offered SNS starter kit. Demo of proper assembly and use. Infant latches and takes 15 ml of Sim sensitive while nursing at the breast. Released latch and sleeps. Mother encouraged to continue placing baby to the breast as well as pumping. To see PCP for both herself and for baby 06/06/2025. Will follow up with LC 06/10/2025 for further support. Family leaves ambulatory without concerns.
== END 2025-06-05 15:01 | disposition home or self-care (01) ==
LOC: FBCO 08:16
PROVIDERS: PCP Student in an Organized Health Care Education/Training Program; Visit Provider Obstetrics & Gynecology
DX: Z39.1 Encounter for care and examination of lactating mother (principal)
CPT/HCPCS: G0463

== ENCOUNTER 2025-06-10 08:33 | Outpatient (OUT) | payer OTHER, SELFPAY ==
--- OUTSIDE RECORDS SUMMARY | 2025-06-06 13:50 | XMS_ITS | Encounter Summary ---
Author Organization [facility] Address [address] [facility] [place] [address] Care Team Providers Care Traffic Observer Name Role Phone Desire Ackerman MD Primary Care Provider [phone] Reason for Visit * ReasonCommentsPost-op Visit Encounter Details DateTypeDepartmentCare Team (Latest Contact Info)Npvzkzfjizb58/20/2025 1:50 PM ESTOffice Visit [facility] [address] [place] [id number] Stephanie Suresh PA [address] [place], [facility] Postoperative follow-up Social History Tobacco UseTypesPacks/DayYears UsedDateSmoking Tobacco: FormerCigarettes [...] relatives?Once a week11/18/2024How often do you attend gnosticist or rastafari services?More than 4 times per year11/18/2024Do you belong to any clubs or organizations such as gnosticist groups, unions, fraternal or athletic fareed ups, or school groups?Yes11/18/2024How often do you attend meetings of the clubs or organizations you belong to?More than 4 times per year11/18/2024re you , , , , never , or living with a partner? Utnqqzu7311/18/2024UDIT-CAnswerDate RecordedQ1: How often do you have a [...] Health Questionnaire-2 Score0 04/16/2025[facility] [place] [facility] - Occupational Stress QuestionnaireAnswerDate RecordedDo you feel stress - tense, restless, nervous, or anxious, or unable to sleep at night because yourmind is troubled all the time - these days?To some ledhkz9311/18/2024Exercise Vital SignAnswerDate Recorded On average, how many [...] homeless or living in a penitentiary (including now)?No11/18/2024CommentsNo Sex and Gender InformationValueDate RecordedSex Assigned at BirthNot on file Legal NtcPdvjsa79/15/2023 9:28 PM EDTGender IdentityNot on fileSexual OrientationNot on filedocumented as of this encounter Progress Notes * XANDER Sawyer - 06/06/2025 1:50 PM EST Reason for Appointment: Patient ID: Mayra Tran is a 34 y.o. female who presents for Post-op Visit Patient presents today for 1 Week Post Op Follow Up appointment.csection MEDICATIONS Current Outpatient Medications Medication Instructions docusate sodium (COLACE) 100 mg, Oral, 2 times daily PRN EPINEPHrine (Epipen) 0.3 MG/0.3ML injection syringe INJECT [...] breath sounds. Abdominal: Palpations: Abdomen is soft. Comments: Abdominal incision is clean and dry steri strips in place Musculoskeletal: General: Normal range of motion. Neurological: General: No focal deficit present. Mental Status: She is alert and oriented to person, place, and time. Skin: General: Skin is warm. Psychiatric: Mood and Affect: Mood normal. Behavior: Behavior normal. Thought Content: Thought content normal. Judgment: Judgment normal. Vitals and nursing note reviewed. Vitals: Estimated body mass index is 35.75 kg/m?? as calculated from the following: Height as of 11/19/24: 5' 4 . Weight as of 05/23/25: 208 lb 4 oz. BP: Patient's last menstrual period was 08/22/2024. Assessment/Plan ICD-10-CM 1. Postoperative follow-up Z09 docusate sodium (Colace) 100 MG capsule Assessment/Plan Patient presents today for a one week postop section check. Patient is doing well with minor complaints of pain. Incision has been noted as healing well with no signs and symptoms of infection. Follow Up: Patient is to return in 5 weeks for 6 week evaluation. Documented by XANDER Sawyer on behalf of: XANDER Sawyer documented in this encounter Plan of Treatment Not on file documented as of this encounter Visit Diagnoses Diagnosis Postoperative follow-up Follow-up examination, following unspecified surgery documented in this encounter Care Teams Team MemberRelationshipSpecialtyStart DateEnd Date Desire Ackerman MD [address] [place] [address] PCP - GeneralFamily Medicine11/23/22documented as of this encounter
--- OUTSIDE RECORDS SUMMARY | 2025-06-10 08:39 | XMS_ITS ---
Author Organization [facility] Address [address] [place] [address] Care Team Providers Care Photovoltaic Installation Technician Name Role Phone Desire Ackerman MD Primary Care Provider [phone] Inpatient Discharge Transitional Care Management (TCM) Status:Closed (Closed) Start date:06/01/2025 Enrollment date:06/03/2025 Enrollment reason:Identified using hospital discharge data End date:06/03/2025 Overview Patient discharged from [facility] on 06/01. Please contact for hospital ALYCIA and schedule follow-up appointment within 7-14 days. Continued Care and Services Coordination
--- OUTSIDE RECORDS SUMMARY | 2025-06-10 08:39 | XMS_ITS | Encounter Summary ---
Author Organization [facility] Address [address] [place] [address] Care Team Providers Care Keeler Polygraph Operator Name Role Phone Desire Ackerman MD Primary Care Provider [phone] Encounter Details DateTypeDepartmentCare Team (Latest Contact Info)Gerbcwbjzzw11/14/2025bstract CASEY Cao OBGYN [address] [place] [phone] Floyd Roberson, [address] [place] Cao, [facility]11 Social History Tobacco UseTypesPacks/DayYears UsedDateSmoking Tobacco: [...] relatives?Once a week11/18/2024How often do you attend adventism or church services?More than 4 times per year11/18/2024Do you belong to any clubs or organizations such as adventism groups, unions, fraternal or athletic fareed ups, or school groups?Yes11/18/2024How often do you attend meetings of the clubs or organizations you belong to?More than 4 times per year11/18/2024re you , , , , never , or living with a partner? Xiydmuw1111/18/2024UDIT-CAnswerDate RecordedQ1: How often do you have a [...] RecordedPatient Health Questionnaire-2 Score0 04/16/2025[facility] of Occupational Health - Occupational Stress QuestionnaireAnswerDate RecordedDo you feel stress - tense, restless, nervous, or anxious, or unable to sleep at night because yourmind is troubled all the time - these days?To some eiwurh6511/18/2024Exercise Vital SignAnswerDate Recorded On average, how many [...] homeless or living in a usp (including now)?No11/18/2024CommentsYes Sex and Gender InformationValueDate RecordedSex Assigned at BirthNot on file Legal AvjWymfpf81/15/2023 9:28 PM EDTGender IdentityNot on fileSexual OrientationNot on filedocumented as of this encounter Plan of Treatment Not on file documented as of this encounter Visit Diagnoses Not on filedocumented in this encounter Care Teams Team MemberRelationshipSpecialtyStart DateEnd Date Desire Ackerman MD [address] [place] [address] PCP - GeneralFamily Medicine11/23/22documented as of this encounter
--- OUTSIDE RECORDS SUMMARY | 2025-06-10 08:39 | XMS_ITS ---
Author Organization [facility] Address [address] [facility] [place] [place] [address] Care Team Providers Care Loan Adviser Name Role Phone Desire Ackerman MD Primary Care Provider [phone] Inpatient Discharge Transitional Care Management (TCM) Status:Closed (Closed) Start date:06/02/2025 Enrollment date:06/03/2025 Enrollment reason:Identified using hospital discharge data End date:06/04/2025 Close reason:Unable to reach patient Overview Patient discharged from [facility] on 06/02. Please contact for hospital ALYCIA and schedule follow-up appointment within 7-14 days. Continued Care and Services Coordination
--- OUTSIDE RECORDS SUMMARY | 2025-06-10 08:39 | XMS_ITS | Encounter Summary ---
Author Organization [facility] Address [address] [place] [address] Care Team Providers Care Credit Processor Name Role Phone Desire Ackerman MD Primary Care Provider [phone] Encounter Details DateTypeDepartmentCare Team (Latest Contact Info)Toisvfqktes73/14/2025linisync Result Encounter [facility] External Department Unsolicited Floyd Roberson, DO [address] [place] [id number] Social History Tobacco UseTypesPacks/DayYears UsedDateSmoking Tobacco: FormerCigarettes [...] week11/18/2024How often do you attend buddhism or mormonism services?More than 4 times per year11/18/2024Do you belong to any clubs or organizations such as buddhism groups, unions, fraternal or athletic fareed ups, or school groups?Yes11/18/2024How often do you attend meetings of the clubs or organizations you belong to?More than 4 times per year11/18/2024re you , , , , never , or living with a partner? Ofdzqgv1211/18/2024UDIT-CAnswerDate RecordedQ1: How often do you have a [...] Health Questionnaire-2 Score0 04/16/2025[facility] [place] of Occupational Health - Occupational Stress QuestionnaireAnswerDate RecordedDo you feel stress - tense, restless, nervous, or anxious, or unable to sleep at night because yourmind is troubled all the time - these days?To some kmsqdo5011/18/2024Exercise Vital SignAnswerDate Recorded On average, how many [...] homeless or living in a longterm (including now)?No11/18/2024CommentsYes Sex and Gender InformationValueDate RecordedSex Assigned at BirthNot on file Legal HqyZwusve23/15/2023 9:28 PM EDTGender IdentityNot on fileSexual OrientationNot on filedocumented as of this encounter Plan of Treatment Not on file documented as of this encounter Procedures Procedure NamePriorityDate/TimeAssociated DiagnosisCommentsALL CBC WITH AUTO GGAVWblzeow72/14/2025 7:16 AM EST [facility] DRUG SCREEN RAPID (URINE)Ypjjfge3505/31/2025 7:00 AM EST documented in this encounter Results * (ABNORMAL) ALL CBC WITH AUTO DIFF (05/31/2025 7:16 AM EST)ComponentValueRef RangeTest MethodAnalysis TimePerformed AtPathologist SignatureTBH WBC12.6(H) 4.0 - 11.0 10 3/uLTBHTBH RBC4.374.20 - 5.40 10 6/uLTBHTBH HGB14.012.0 - 16.0 g/dLTBHTBH HCT39.436.0 - 48.0 %TBHTBH MCV90.281.0 - 99.0 fLTBHTBH MCH32.026.7 - 34.0 pgTBHTBH MCHC35.5(H)29.9 - 35.2 g/dLTBHTBH RDW13.211.0 - 15.0 %TBHTBH [id number] - 450 10 3/uLTBHTBH MPV10.59.5 - 13.5 fLTBHNEUTROPHILS PERCENT AUTO 73.843.0 - 75.0 %TBHLYMPHOCYTES PERCENT AUTO19.6(L)20.5 - 60.0 %TBHMONOCYTES PERCENT AUTO5.61.7 - 12.0 %TBHTBH EO %0.2(L)0.9 - 7.0 %TBHBASOPHILS PERCENT AUTO0.30.2 - 2.0 %TBHIMMATURE GRANULOCYTES PCT AUTO0.50.0 - 0.5 %TBH NEUTROPHILS ABSOLUTE AUTO9.3(H)1.4 - 6.5 10 3/uLTBHLYMPHOCYTES ABSOLUTE AUTO 2.51.2 - 3.8 10 3/uLTBHMONOCYTES ABSOLUTE AUTO0.70.3 - 0.8 10 3/uLTBHTBH EO # 0.00.0 - 0.7 10 3/uLTBHBASOPHILS ABSOLUTE AUTO0.00.0 - 0.1 10 3/uLTBHIMMATURE GRANULOCYTES ABS AUTO0.06(H)0.00 - 0.03 10 3/uLTBHSpecimen (Source)Anatomical Location / LateralityCollection Method / VolumeCollection TimeReceived Time 05/31/2025 7:16 AM EST05/31/2025 7:20 AM EST Narrative [facility] - 05/31/2025 7:56 AM EST Authorizing ProviderResult TypeResult StatusCorey Da DOCLINISYNCFinal Result Performing OrganizationAddressCity/State/ZIP CodePhone Number CL[facility] * [facility] DRUG SCREEN RAPID (URINE) (05/31/2025 7:00 AM EST)ComponentValueRef Range Test MethodAnalysis TimePerformed AtPathologist SignatureCANNABINOID SCREEN URINENEGATIVENEGATIVETBHPHENCYCLIDINE SCREEN URINENEGATIVENEGATIVETBHCOCAINE SCREEN URINENEGATIVENEGATIVETBHMETHAMPHETAMINES SCREEN URINENEGATIVENEGATIVE TBHOPIATE SCREEN URINENEGATIVENEGATIVETBHAMPHETAMINE SCREEN URINENEGATIVE NEGATIVETBHBENZODIAZEPINES SCREEN URINENEGATIVENEGATIVETBHTRICYCLIC ANTIDEPRESSANT URINENEGATIVENEGATIVETBHMETHADONE SCREEN URINENEGATIVENEGATIVE TBHBARBITURATES SCREEN URINENEGATIVENEGATIVETBHOXYCODONE SCREEN URINENEGATIVE NEGATIVETBHBUPRENORPHINE SCREEN URINENEGATIVENEGATIVETBHComment: DRUG CLASS TEST SYSTEM CUT-OFF CONCENTRATIONS ARE FOLLOWS: AMP (Amphetamine): 500 ng/mL BAR (Barbiturates): 200 ng/mL BZO (Benzodiazepines): 150 ng/mL BUP (Buprenorphine): 10 ng/mL JESS (Cocaine): 150 ng/mL mAMP (Methamphetamine): 500 ng/mL MTD (Methadone): 200 ng/mL OPI (Opiates): 100 ng/mL OXY (Oxycodone): 100 ng/mL PCP (Phencyclidine): 25 ng/mL THC (Cannabinoids): 50 ng/mL TCA (Trycyclic Antidepressants): 300 ng/mL Specimen (Source)Anatomical Location / LateralityCollection Method / Volume Collection TimeReceived Time05/31/2025 7:00 AM EST05/31/2025 7:20 AM EST Narrative [facility] - 05/31/2025 7:52 AM EST Authorizing ProviderResult TypeResult StatusCorey Da DOCLINISYNCFinal Result Performing OrganizationAddressCity/State/ZIP CodePhone Number [facility] documented in this encounter Visit Diagnoses Not on filedocumented in this encounter Care Teams Team MemberRelationshipSpecialtyStart DateEnd Desire Ackerman MD [address] [place] [address] PCP - GeneralFamily Medicine11/23/22documented as of this encounter
--- OUTSIDE RECORDS SUMMARY | 2025-06-10 08:39 | XMS_ITS | Encounter Summary ---
Author Organization [facility] Address [address] [place] [address] Care Team Providers Care Tech Ed/Woodshop Teacher Name Role Phone Desire Ackerman MD Primary Care Provider [phone] Encounter Details DateTypeDepartmentCare Team (Latest Contact Info)Hmpuxpsckhh01/14/2025bstract CASEY Cao OBGYN [address] [place] [phone] Floyd Roberson, [address] [place]o, [facility]11 Social History Tobacco UseTypesPacks/DayYears UsedDateSmoking Tobacco: FormerCigarettes [...] week11/18/2024How often do you attend buddhism or christian services?More than 4 times per year11/18/2024Do you belong to any clubs or organizations such as buddhism groups, unions, fraternal or athletic fareed ups, or school groups?Yes11/18/2024How often do you attend meetings of the clubs or organizations you belong to?More than 4 times per year11/18/2024re you , , , , never , or living with a partner? Jzilzfx8411/18/2024UDIT-CAnswerDate RecordedQ1: How often do you have a [...] heating?Not very hard11/18/2024PHQ-2AnswerDate RecordedPatient Health Questionnaire-2 Score0 04/16/2025[facility] [place] of Occupational Health - Occupational Stress QuestionnaireAnswerDate RecordedDo you feel stress - tense, restless, nervous, or anxious, or unable to sleep at night because yourmind is troubled all the time - these days?To some iluvja5811/18/2024Exercise Vital SignAnswerDate Recorded On average, how many [...] homeless or living in a alf (including now)?No11/18/2024CommentsYes Sex and Gender InformationValueDate RecordedSex Assigned at BirthNot on file Legal QakAkvfbj99/15/2023 9:28 PM EDTGender IdentityNot on fileSexual OrientationNot on filedocumented as of this encounter Plan of Treatment Not on file documented as of this encounter Visit Diagnoses Not on filedocumented in this encounter Care Teams Team MemberRelationshipSpecialtyStart DateEnd Date Desire Ackerman MD [address] [place] [address] PCP - GeneralFamily Medicine11/23/22documented as of this encounter
--- OUTSIDE RECORDS SUMMARY | 2025-06-10 08:40 | XMS_ITS | Encounter Summary ---
Author Organization [facility] Address [address] [place] [address] Care Team Providers Care Secondary Education Professor Name Role Phone Desire Ackerman MD Primary Care Provider [phone] Encounter Details DateTypeDepartmentCare Team (Latest Contact Info)Barmanuhezk84/18/2025bstract CASEY Cao OBGYN [address] [place] [phone] Floyd Roberson, [address] [place]o, [facility]11 Social History Tobacco UseTypesPacks/DayYears [...] relatives?Once a week11/18/2024How often do you attend gnosticism or pentecostalism services?More than 4 times per year11/18/2024Do you belong to any clubs or organizations such as gnosticism groups, unions, fraternal or athletic afreed ups, or school groups?Yes11/18/2024How often do you attend meetings of the clubs or organizations you belong to?More than 4 times per year11/18/2024re you , , , , never , or living with a partner? Thvvsks9811/18/2024UDIT-CAnswerDate RecordedQ1: How often do you have a [...] Health Questionnaire-2 Score0 04/16/2025[facility] [place] of Occupational Health - Occupational Stress QuestionnaireAnswerDate RecordedDo you feel stress - tense, restless, nervous, or anxious, or unable to sleep at night because yourmind is troubled all the time - these days?To some bwvbsv3111/18/2024Exercise Vital SignAnswerDate Recorded On average, how many [...] or living in a group home (including now)?No11/18/2024CommentsNo Sex and Gender InformationValueDate RecordedSex Assigned at BirthNot on file Legal EhkUhgvcv35/15/2023 9:28 PM EDTGender IdentityNot on fileSexual OrientationNot on filedocumented as of this encounter Plan of Treatment Not on file documented as of this encounter Visit Diagnoses Not on filedocumented in this encounter Care Teams Team MemberRelationshipSpecialtyStart DateEnd Date Desire Ackerman MD [address] [place] [address] PCP - GeneralFamily Medicine11/23/22documented as of this encounter
--- OUTSIDE RECORDS SUMMARY | 2025-06-10 08:40 | XMS_ITS | Encounter Summary ---
Author Organization [facility] Address [address] [place] [address] Care Team Providers Care Bander And Cellophaner Helper Machine Name Role Phone Desire Ackerman MD Primary Care Provider [phone] Encounter Details DateTypeDepartmentCare Team (Latest Contact Info)Gcryvelzflm05/15/2025linisync Result Encounter [facility] External Department Unsolicited Floyd Roberson, DO [address] [place] [phone] Social History Tobacco UseTypesPacks/DayYears UsedDateSmoking Tobacco: FormerCigarettes [...] relatives?Once a week11/18/2024How often do you attend muslim or congregational services?More than 4 times per year11/18/2024Do you belong to any clubs or organizations such as muslim groups, unions, fraternal or athletic fareed ups, or school groups?Yes11/18/2024How often do you attend meetings of the clubs or organizations you belong to?More than 4 times per year11/18/2024re you , , , , never , or living with a partner? Ormlipx6511/18/2024UDIT-CAnswerDate RecordedQ1: How often do you have a [...] Questionnaire-2 Score0 04/16/2025[facility] [place] of Occupational Health - Occupational Stress QuestionnaireAnswerDate RecordedDo you feel stress - tense, restless, nervous, or anxious, or unable to sleep at night because yourmind is troubled all the time - these days?To some fnkwxx8611/18/2024Exercise Vital SignAnswerDate Recorded On average, how many [...] were you homeless or living in a chcf (including now)?No11/18/2024CommentsYes Sex and Gender InformationValueDate RecordedSex Assigned at BirthNot on file Legal BydLrljxk83/15/2023 9:28 PM EDTGender IdentityNot on fileSexual OrientationNot on filedocumented as of this encounter Plan of Treatment Not on file documented as of this encounter Procedures Procedure NamePriorityDate/TimeAssociated DiagnosisCommentsALL CBC WITH AUTO FSYQCxhejec73/15/2025 6:15 AM EST documented in this encounter Results * (ABNORMAL) ALL CBC WITH AUTO DIFF (06/01/2025 6:15 AM EST)ComponentValueRef RangeTest MethodAnalysis TimePerformed AtPathologist SignatureTBH WBC15.8(H) 4.0 - 11.0 10 3/uLTBHTBH RBC3.27(L)4.20 - 5.40 10 6/uLTBHTBH HGB10.3(L)12.0 - 16.0 g/dLTBHTBH HCT29.5(L)36.0 - 48.0 %TBHTBH MCV90.281.0 - 99.0 fLTBHTBH MCH 31.526.7 - 34.0 pgTBHTBH MCHC34.929.9 - 35.2 g/dLTBHTBH RDW13.511.0 - 15.0 % TBHTBH [id number] - 450 10 3/uLTBHTBH MPV10.39.5 - 13.5 fLTBHNEUTROPHILS PERCENT AUTO73.943.0 - 75.0 %TBHLYMPHOCYTES PERCENT AUTO18.4(L)20.5 - 60.0 % TBHMONOCYTES PERCENT AUTO6.91.7 - 12.0 %TBHTBH EO %0.0(L)0.9 - 7.0 %TBH BASOPHILS PERCENT AUTO0.20.2 - 2.0 %TBHIMMATURE GRANULOCYTES PCT AUTO0.6(H)0.0 - 0.5 %TBHNEUTROPHILS ABSOLUTE AUTO11.7(H)1.4 - 6.5 10 3/uLTBHLYMPHOCYTES ABSOLUTE AUTO2.91.2 - 3.8 10 3/uLTBHMONOCYTES ABSOLUTE AUTO1.1(H)0.3 - 0.8 10 3/uLTBHTBH EO #0.00.0 - 0.7 10 3/uLTBHBASOPHILS ABSOLUTE AUTO0.00.0 - 0.1 10 3/uLTBHIMMATURE GRANULOCYTES ABS AUTO0.10(H)0.00 - 0.03 10 3/uLTBHSpecimen (Source)Anatomical Location / LateralityCollection Method / VolumeCollection TimeReceived Time06/01/2025 6:15 AM EST06/01/2025 6:20 AM EST Narrative [facility] - 06/01/2025 6:27 AM EST Authorizing ProviderResult TypeResult StatusCorey Da DOCLINISYNCFinal Result Performing OrganizationAddressCity/State/ZIP CodePhone Number [facility] documented in this encounter Visit Diagnoses Not on filedocumented in this encounter Care Teams Team MemberRelationshipSpecialtyStart DateEnd Date Desire Ackerman MD [address] [place] [address] PCP - GeneralFamily Medicine11/23/22documented as of this encounter
--- OUTSIDE RECORDS SUMMARY | 2025-06-10 08:40 | XMS_ITS | Encounter Summary ---
Author Organization [facility] Address [address] [place] [address] Care Team Providers Care Plant Tour Guide Name Role Phone Desire Ackerman MD Primary Care Provider Encounter Details DateTypeDepartmentCare Team (Latest Contact Info)Rtdwgvrvehh52/18/2025Patient Outreach [facility] [address] [place] [phone] Stephanie Hedrick, ANDREA [address] [place] [address] Social History Tobacco UseTypesPacks/DayYears UsedDateSmoking Tobacco: FormerCigarettes [...] week11/18/2024How often do you attend caodaism or yazdanism services?More than 4 times per year11/18/2024Do you belong to any clubs or organizations such as caodaism groups, unions, fraternal or athletic fareed ups, or school groups?Yes11/18/2024How often do you attend meetings of the clubs or organizations you belong to?More than 4 times per year11/18/2024re you , , , , never , or living with a partner? Sxyeeqf9911/18/2024UDIT-CAnswerDate RecordedQ1: How often do you have a [...] Questionnaire-2 Score0 04/16/2025[facility] [place] of Occupational Health - Occupational Stress QuestionnaireAnswerDate RecordedDo you feel stress - tense, restless, nervous, or anxious, or unable to sleep at night because yourmind is troubled all the time - these days?To some xeocpl7911/18/2024Exercise Vital SignAnswerDate Recorded On average, how many [...] homeless or living in a intermediate (including now)?No11/18/2024CommentsNo Sex and Gender InformationValueDate RecordedSex Assigned at BirthNot on file Legal VloQtcvpf49/15/2023 9:28 PM EDTGender IdentityNot on fileSexual OrientationNot on filedocumented as of this encounter Progress Notes * Stephanie Hedrick LPN - 06/04/2025 12:18 PM EST Flowsheet Row Patient Outreach from 06/04/2025 in [facility] with Stephanie Hedrick LPN Hospital Information ED, Hospital or Ch[facility] Facility Discharge? Hospital Patient has been contacted within two business days of discharge Yes Diagnosis and bilateral salpingectomy Discharge Date 06/02/25 Discharged To: Home Setting Discharge Hospital [facility] Engagement Admission Date 05/31/25 Medications Appointments Self Management Patient Teaching Wrap Up Partial ALYCIA. Call to to X2, Full VM. documented in this encounter Plan of Treatment Not on file documented as of this encounter Visit Diagnoses Diagnosis delivery delivered ([facility])- Primary delivery, without mention of indication, delivered, with or without mention of antepartum condition Status post bilateral salpingectomy documented in this encounter Care Teams Team MemberRelationshipSpecialtyStart DateEnd Date Desire Ackerman MD [address] [place] [address] PCP - GeneralFamily Medicine11/23/22documented as of this encounter
--- OUTSIDE RECORDS SUMMARY | 2025-06-10 08:40 | XMS_ITS | Clinical Summary ---
Author Organization [facility] Address [address] [facility] [place] [address] Care Team Providers Care Acute Care Certified Nursing Assistant Name Role Phone Desire Ackerman MD Primary Care Provider [phone] Allergies Active AllergyReactionsCriticalityNoted ScdoRtkxfwxzIffeqqCyxkWmx10/10/2025 Medications MedicationSigDispense QuantityRefillsLast FilledStart DateEnd DateStatus ondansetron ODT (Zofran-ODT) 4 MG disintegrating tablet DISSOLVE 1 TABLET IN MOUTH EVERY 6 HOURS NEEDED FOR NAUSEA AND VOMITING 5Active EPINEPHrine (Epipen) 0.3 MG/0.3ML injection syringe INJECT 1 PEN INTRAMUSCULARLY EVERY 10 MINUTES NEEDED FOR ANAPHYLAXIS FOR 2 DOSES4Active MV-Min-Fe Fum-FA-DHA ( 1 PO) Take by mouthActive docusate sodium (Colace) 100 MG capsule Indications:Postoperative follow-upTake 1 capsule (100 mg) by mouth 2 (two) times a day as needed for constipation 30 capsule 6Active Active Problems No known active problems Encounters DateTypeDepartmentCare TrqxUgvkvqvdmdo21/20/2025 1:50 PM ESTOffice Visit [facility] [address] [place] [address] Stephanie Deng PA Postoperative follow-up06/06/2025amboo flowsheet [facility] [address] [place] [address] Stephanie Deng PA 11/18/2025Patient Outreach [facility] [address] [place] [address] Stephanie Hedrick LPN 06/04/2025bstract [facility] [address] [facility] [address] Floyd Roberson, DO 06/01/2025bstract [facility] [address] [facility] [place] [address] Bee [place] CN 06/01/2025linisync Result Encounter NOMS External Department Unsolicited Floyd Roberson, DO 05/31/2025bstract [facility] [address] [place] [address] Floyd Roberson, DO 05/31/2025bstract [facility] [address] [place] [address] Floyd Roberson, DO 5Clinisync Result Encounter NOMS External Department Unsolicited Floyd Roberson, DO 05/29/2025linisync Result Encounter NOMS External Department Unsolicited Stephanie Deng PA 05/23/2025 11:20 AM ESTRoutine [facility]RAN [address] [place] [address] Stephanie Deng PA Third trimester ([facility]); 37 weeks gestation of ([facility])05/23/2025 10:30 AM ESTAncillary Procedure [facility] [address] [place] [address] Third trimester ([facility]); Multigravida of advanced maternal age in third trimester ([facility])05/22/2025 Clinisync Result Encounter NOMS External Department Unsolicited Stephanie Deng PA 05/14/2025 1:40 PM EDTRoutine [facility] SAAVEDRAGYKate [address] [facility] [address] [phone] Floyd Roberson DO Third trimester ([facility]); 36 weeks gestation of ([facility])05/14/2025linisync Result Encounter NOMS External Department Unsolicited Stephanie Deng PA 05/14/2025Patient Outreach [facility] [address] [place] [address] Stephanie Hedrick LPN 05/07/2025linisync Result Encounter NOMS External Department Unsolicited Stephanie Deng PA 04/30/2025 9:50 AM EDTRoutine [facility] [address] [facility] [place] [address] Stephanie Deng PA Third trimester ([facility]); 34 weeks gestation of ([facility])04/30/2025linisync Result Encounter NOMS External Department Unsolicited Stephanie Deng PA 04/30/2025amboo flowsheet [facility] [address] [facility] [place] [phone] Stephanie Deng PA 04/23/2025linisync Result Encounter NOMS External Department Unsolicited Stephanie Deng PA 04/17/2025 10:50 AM EDTRoutine [facility] [address] [facility] [place] [address] Mitali Mccall, APOORVA 32 weeks gestation of ([facility]); Third trimester ([facility])04/17/2025linisync Result Encounter [facility]OMS External Department Unsolicited Stephanie Deng PA 04/16/2025Patient Outreach [facility] [address] [place] [address] Stephanie eHdrick LPN 04/02/2025 1:50 PM EDTRoutine [facility] [address] [facility] [place] [address] Floyd Roberson DO Third trimester ([facility]); 30 weeks gestation of ([facility])5Bamboo flowsheet [facility] [address] [facility] [place] [address] Floyd Roberson DO 03/25/2025 2:00 PM EDTAncillary Procedure [facility] [address] [facility] [place] [address] Multigravida of advanced maternal age in third trimester ([facility])03/25/2025 Ksmrow2803/19/2025 2:10 PM EDTRoutine [facility] [address] [place] [address] [place] [phone] Stephanie Deng PA Multigravida of advanced maternal age in third trimester ([facility]); Third trimester ([facility]); 28 weeks gestation of ([facility])03/19/2025Patient Outreach [facility] [place] [address] [place] [address] Stephanie Hedrick LPN from Last 3 Months [...] Once a week11/18/2024How often do you attend adventist or uatsdin services?More than 4 times per year11/18/2024Do you belong to any clubs or organizations such as adventist groups, unions, fraternal or athletic groups, or school groups?Yes 11/18/2024How often do you attend meetings of the clubs or organizations you belong to?More than 4 times per year11/18/2024re you , , , , never , or living with a partner?Jgsttrh9311/18/2024 AUDIT-CAnswerDate RecordedQ1: How often do you have [...] heating?Not very hard11/18/2024PHQ-2Answer Date RecordedPatient Health Questionnaire-2 Rnzqw111[facility] [place] of Occupational Health - Occupational Stress QuestionnaireAnswerDate RecordedDo you feel stress - tense, restless, nervous, or anxious, or unable to sleep at night because yourmind is troubled all the time - these days?To some cblpxc0011/18/2024 Exercise Vital SignAnswerDate RecordedOn average, how many [...] or living in a senior living (including now)?No11/18/2024CommentsNoSex and Gender Information ValueDate RecordedSex Assigned at BirthNot on fileLegal ChnNkeqai2023 9:28 PM EDTGender IdentityNot on fileSexual OrientationNot on file Last Filed Vital Signs Vital SignReadingTime TakenCommentsBlood Pqbxiync873/6205/23/2025 11:15 AM EST Jzqhq889811/19/2024 1:56 PM YPNLcobkiorxcz83.9 ??C (98.4 ??F)11/19/2024 1:56 PM EDTRespiratory Rate--Oxygen Vuafkaotqj16%11/19/2024 1:56 PM EDTInhaled Oxygen Concentration--Sbzwwf83.5 kg (208 lb 4 oz)05/23/2025 11:15 AM ABXKotikn159.6 cm (5' 4 )11/19/2024 1:56 PM EDTBody Mass Index35.75011/19/2024 1:56 PM EDT Plan of Treatment Health MaintenanceDue DateLast DoneCommentsCOVID-19 Vaccine ( season) 2025Influenza Vaccine (#1)2025ervical Cancer Xqdeifrku63/10/2030 HPV/Lgtpzf701Pap SmearPneumococcal Vaccine: Pediatrics (0 to 5 Years) and At-Risk Patients (6 to 64 Years)Aged OutNo longer eligible based on patient's age to complete this topic Procedures Procedure NamePriorityDate/TimeAssociated DiagnosisCommentsALL CBC WITH AUTO OFKZUqevmrn26/15/2025 6:15 AM EST ALL CBC WITH AUTO PPORCbnkqoy01/14/2025 7:16 AM EST [facility] DRUG SCREEN RAPID (URINE)Ytghzmt8005/31/2025 7:00 AM EST US OB BPP W NON-BMRIHO1605/29/2025 12:28 PM EST US OB FOLLOW UP TRANSABDOMINAL OWQRKTQGZnxkece14/06/2025 11:05 AM EST Third trimester ([facility]) Multigravida of advanced maternal age in third trimester ([facility]) US OB BPP W NON-AXMHUO4405/22/2025 8:22 AM EST US OB BPP W NON-OLEYKI4505/14/2025 10:05 PM EDT POCT URINALYSIS MLJDMBDONhpbvzk32/28/2025 2:05 PM EDT 36 weeks gestation of ([facility]) STREP GP B CULTURE+HXHMEytfhed21/28/2025 1:51 PM EDT US OB BPP W NON-TPQNJZ1205/07/2025 3:54 PM EDT US OB BPP W NON-XQLEDY1304/30/2025 2:51 PM EDT POCT URINALYSIS RHJHHVMDZlogqqg57/14/2025 10:04 AM EDT 34 weeks gestation of ([facility]) US OB BPP W NON-XGABVD2404/23/2025 4:03 PM EDT POCT URINALYSIS YMAWQEKAGpygcey31/01/2025 10:42 AM EDT 32 weeks gestation of ([facility]) US OB BPP W NON-WFIYFJ3104/17/2025 8:53 AM EDT POCT URINALYSIS MNPCCADDAyzvbrh76/16/2025 2:26 PM EDT Third trimester ([facility]) 30 weeks gestation of ([facility]) US OB FOLLOW UP TRANSABDOMINAL WUYESBJLCynlfbw12/08/2025 2:29 PM EDT Multigravida of advanced maternal age in third trimester ([facility]) POCT URINALYSIS CBISPGKUPzjmtfn07/02/2025 2:36 PM EDT Third trimester ([facility]) PAP NSNRPCraokwb52/10/2025 12:00 AM EDTTHINPREP TIS AND HPV MRNA E6/E7 (35860) Gqswtbe4405/27/2021 from Last 3 Months or Most Recently Relevant to Health Maintenance Results * (ABNORMAL) ALL CBC WITH AUTO DIFF (06/01/2025 6:15 AM EST) Only the most recent of2 resultswithin the time period is included. ComponentValueRef RangeTest MethodAnalysis TimePerformed AtPathologist Signature [facility] WBC15.8(H)4.0 - 11.0 10 3/uLTBHTBH RBC3.27(L)4.20 - 5.40 10 6/uLTBHTBH HGB 10.3(L)12.0 - 16.0 g/dLTBHTBH HCT29.5(L)36.0 - 48.0 %TBHTBH MCV90.281.0 - 99.0 fLTBHTBH MCH31.526.7 - 34.0 pgTBHTBH MCHC34.929.9 - 35.2 g/dLTBHTBH RDW13.511.0 - 15.0 %TBHTBH BAP847832 - 450 10 3/uLTBHTBH MPV10.39.5 - 13.5 fLTBHNEUTROPHILS PERCENT AUTO73.943.0 - 75.0 %TBHLYMPHOCYTES PERCENT AUTO18.4(L)20.5 - 60.0 %TBH MONOCYTES PERCENT AUTO6.91.7 - 12.0 %TBHTBH EO %0.0(L)0.9 - 7.0 %TBHBASOPHILS PERCENT AUTO0.20.2 - 2.0 %TBHIMMATURE GRANULOCYTES PCT AUTO0.6(H)0.0 - 0.5 %[facility]H NEUTROPHILS ABSOLUTE AUTO11.7(H)1.4 - 6.5 10 3/uLTBHLYMPHOCYTES ABSOLUTE AUTO2.9 1.2 - 3.8 10 3/uLTBHMONOCYTES ABSOLUTE AUTO1.1(H)0.3 - 0.8 10 3/uLTBHTBH EO #0.0 0.0 - 0.7 10 3/uLTBHBASOPHILS ABSOLUTE AUTO0.00.0 - 0.1 10 3/uLTBHIMMATURE GRANULOCYTES ABS AUTO0.10(H)0.00 - 0.03 10 3/uLTBHSpecimen (Source)Anatomical Location / LateralityCollection Method / VolumeCollection TimeReceived Time 06/01/2025 6:15 AM EST06/01/2025 6:20 AM EST Narrative CLINISYNC - 06/01/2025 6:27 AM EST Authorizing ProviderResult TypeResult StatusCorey Da DOCLINISYNCFinal Result Performing OrganizationAddressCity/State/ZIP CodePhone Number CLINISYNC TB * [facility] DRUG SCREEN RAPID (URINE) (05/31/2025 [...] DOCLINISYNCFinal Result Performing OrganizationAddressCity/State/ZIP CodePhone Number CLINISYNC [facility] * US OB BPP W NON-STRESS (05/29/2025 12:28 PM EST) Only the most recent of7 resultswithin the time period is included. Anatomical RegionLateralityModalityOtherSpecimen (Source)Anatomical Location / LateralityCollection Method / VolumeCollection TimeReceived Time05/29/2025 12:28 PM EST Narrative 05/29/2025 12:30 PM EST [facility] ?[address] ? [place] [address] ? Ultrasound Report ? Signed ? Patient: HELEN TRAN ?MR#: [id number] ?? : 1990 ?Acct:[id number] ?? Age/Sex: 34 / F ?ADM Date: 05/28/25 ?? Loc: US ? Attending Dr: Stephanie Deng ? Ordering Physician: Stephanie Deng ?? Date of Service: 05/28/25 ?? Procedure(s): US OB BPP w non-stress ?? Accession Number(s): [id number] ? cc: Stephanie Deng; ROQUE ACKERMAN ? [facility] ? [address] ? [place] [address] ? Patient Name: ?? HELEN TRAN ? MRN: [facility]:[id number] ? date: 1990 ?Sex: F ?? Assigned Patient Location: FB ?? Current Patient Location: ? Accession/Order Number: [id number] ?? Exam Date: 05/28/2025 ??14:13 ?Report Date: [...] Dictation Location: RADIO-PC-02 ? Electronically authenticated by: [id number] ??Y ?? Date: 05/29/2025 ??12:28 ? Dictated By: ?Mirna Lorenzo M.D. ? Signed By: ?05/29/25 1230 ? DD/ 1228 ? TD/TT: ? Vp Lab: Procedure Note Radiology, Radiologist, MD - 05/29/[address] [address] Ultrasound Report Signed Patient: HELEN TRAN R#: [id number] : 1990Acct:[id number] Age/Sex: 34 / FADM Date: 05/28/25 Loc: US Attending Dr: Stephanie Deng Ordering Physician: Stephanie Deng Date of Service: 05/28/25 Procedure(s): US OB BPP w non-stress Accession Number(s): [id number] cc: Stephanie Deng; ROQUE ACKERMAN The [address] [address] Patient Name: HELEN TRAN MRN: [facility]:[id number] date: 1990 Sex: F Assigned Patient Location: [facility] Current Patient Location: Accession/Order Number: [id number] Exam Date: 05/28/2025 14:13 Report Date: 05/29/2025 [...] Lorenzo M.D. 05/29/2025 12:28 PM Dictation Location: [place] [address] Electronically authenticated by: [id number] Y Date: 2:28 Dictated By: Mirna Lorenzo M.D. Signed By:05/29/25 1230 DD/ 1228 TD/TT: Vp Lab: Authorizing ProviderResult TypeResult StatusStephanie Deng [facility] IMAGINGFinal Result * US OB follow up [...] Location / LateralityCollection Method / VolumeCollection TimeReceived TalzCcnzy53/28/2025 2:05 PM EDT Narrative Authorizing ProviderResult TypeResult StatusCorereggie Roberson DOPOINT OF CARE TEST ENTER/EDIT ORDERABLESFinal [...] is noted.TBHSTREP GP B CULTURE+RFLX [facility]formed at: [facility]URE+[id number] [place], [place] [id number] GP B CULTURE+RFLXLab Director: Edvin Hale PhD, Phone: [phone] (Source)Anatomical Location / Laterality Collection Method / VolumeCollection TimeReceived Time05/14/2025 1:51 PM EDT 05/14/2025 8:38 PM EDT Narrative CLINISYNC - 05/19/2025 6:08 PM EST Authorizing ProviderResult TypeResult StatusCorey Da DOLAB BLOOD ORDERABLES Final ResultPerforming OrganizationAddressCity/State/ZIP CodePhone Number JOSSIE [facility] * Pap Smear (12/25/2024 12:00 AM EDT)Specimen (Source)Anatomical Location / LateralityCollection Method / VolumeCollection TimeReceived TimeSwabCervical swab / Unknown Narrative Authorizing ProviderResult TypeResult StatusCorey Da DOLAB CYTOLOGY ORDERABLESFinal ResultPerforming OrganizationAddressCity/State/ZIP CodePhone Number EXTERNAL LAB * THINPREP TIS AND HPV MRNA E6/E7 (52322) (05/27/2021)ComponentValueRef Range Test MethodAnalysis TimePerformed AtPathologist SignatureCLINICAL [...] EXTERNAL LABComment: BGG, SCT(ASCP) CT screening location: [place] [address]. COMMENTSEE COMMENTNOND LEGACY EXTERNAL LABComment: EXPLANATORY NOTE: The Pap [...] E6/E7Not DetectedNot DetectedNOMS LEGACY EXTERNAL LABComment: Methodology: Special Education Inclusion Teacher-Mediated Amplification This assay detects E6/E7 viral messenger RNA (mRNA) from 14 high-risk HPV types (16,18,31,33,35,39,45,51,52,56,58,59,66,68). The analytical performance characteristics of this assay have been determined by [employer]. The modifications have not been cleared or approved by the FDA. This assay has been validated pursuant to the CLIA regulations and is used for clinical purposes. For additional information, please refer to http://education.[employer]/faq/PJA974d5 (This link if provided for information/ educational purposes only.) Specimen (Source)Anatomical Location / LateralityCollection Method / Volume Collection TimeReceived Time05/27/2021 Narrative Authorizing ProviderResult TypeResult StatusDesire Ackerman MDECW LABSFinal ResultPerforming OrganizationAddressCity/State/ZIP CodePhone Number [facility] EXTERNAL [facility] from Last 3 Months or Most Recently Relevant to Health Maintenance Insurance Care Teams Team MemberRelationshipSpecialtyStart DateEnd Date Desire Ackerman MD [address] [place] [address] PCP - GeneralFamily Medicine11/23/22
--- OUTSIDE RECORDS SUMMARY | 2025-06-10 08:40 | XMS_ITS | Encounter Summary ---
Author Organization [facility] Address [address] [place] [address] Care Team Providers Care Business Intelligence Developer Name Role Phone Desire Ackerman MD Primary Care Provider [phone] Encounter Details DateTypeDepartmentCare Team (Latest Contact Info)Uixeiuxfkbi43/20/2025amboo flowsheet [facility] [address] [place] [phone] Stephanie Suresh PA [address] [facility] [address] [place], [facility] Social History Tobacco UseTypesPacks/DayYears UsedDateSmoking [...] relatives?Once a week11/18/2024How often do you attend latter day or pentecostalism services?More than 4 times per year11/18/2024Do you belong to any clubs or organizations such as latter day groups, unions, fraternal or athletic fareed ups, or school groups?Yes11/18/2024How often do you attend meetings of the clubs or organizations you belong to?More than 4 times per year11/18/2024re you , , , , never , or living with a partner? Qatxzvb1811/18/2024UDIT-CAnswerDate RecordedQ1: How often do you have a [...] RecordedPatient Health Questionnaire-2 Score0 04/16/2025[facility] [place] of Occupational Health - Occupational Stress QuestionnaireAnswerDate RecordedDo you feel stress - tense, restless, nervous, or anxious, or unable to sleep at night because yourmind is troubled all the time - these days?To some fikjde7311/18/2024Exercise Vital SignAnswerDate Recorded On average, how many [...] homeless or living in a prison (including now)?No11/18/2024CommentsNo Sex and Gender InformationValueDate RecordedSex Assigned at BirthNot on file Legal OmnDmweoc44/15/2023 9:28 PM EDTGender IdentityNot on fileSexual OrientationNot on filedocumented as of this encounter Plan of Treatment Not on file documented as of this encounter Visit Diagnoses Not on filedocumented in this encounter Care Teams Team MemberRelationshipSpecialtyStart DateEnd Date Desire Ackerman MD [address] [place] [address] PCP - GeneralFamily Medicine11/23/22documented as of this encounter
--- OUTSIDE RECORDS SUMMARY | 2025-06-10 08:40 | XMS_ITS | Encounter Summary ---
Author Organization [facility] Address [address] [place] [address] Care Team Providers Care Pharmaceutical Compounding Supervisor Name Role Phone Desire Ackreman MD Primary Care Provider [phone] Encounter Details DateTypeDepartmentCare Team (Latest Contact Info)Fgecjsrptml74/12/2025linisync Result Encounter [facility] External Department Unsolicited Stephanie Deng PA [address] [place] [address] [address] [place] [id number] Social History Tobacco UseTypesPacks/DayYears UsedDateSmoking Tobacco: FormerCigarettes [...] relatives?Once a week11/18/2024How often do you attend yarsani or episcopal services?More than 4 times per year11/18/2024Do you belong to any clubs or organizations such as yarsani groups, unions, fraternal or athletic fareed ups, or school groups?Yes11/18/2024How often do you attend meetings of the clubs or organizations you belong to?More than 4 times per year11/18/2024re you , , , , never , or living with a partner? Blorskn4111/18/2024UDIT-CAnswerDate RecordedQ1: How often do you have a [...] RecordedPatient Health Questionnaire-2 Score0 04/16/2025[facility] [place] of Occupational Health - Occupational Stress QuestionnaireAnswerDate RecordedDo you feel stress - tense, restless, nervous, or anxious, or unable to sleep at night because yourmind is troubled all the time - these days?To some cpktmc5911/18/2024Exercise Vital SignAnswerDate Recorded On average, how many [...] homeless or living in a long-term (including now)?No11/18/2024CommentsYes Sex and Gender InformationValueDate RecordedSex Assigned at BirthNot on file Legal YzkDpvfhe10/15/2023 9:28 PM EDTGender IdentityNot on fileSexual OrientationNot on filedocumented as of this encounter Plan of Treatment Not on file documented as of this encounter Procedures Procedure NamePriorityDate/TimeAssociated DiagnosisCommentsUS OB BPP W NON-SQSPXB9705/29/2025 12:28 PM EST documented in this encounter Results * US OB BPP W NON-STRESS (05/29/2025 12:28 PM EST)Anatomical Region LateralityModalityOtherSpecimen (Source)Anatomical Location / Laterality Collection Method / VolumeCollection TimeReceived Time05/29/2025 12:28 PM EST Narrative 05/29/2025 12:30 PM EST [facility] ?[address] ? [place] [address] ? Ultrasound Report ? Signed ? Patient: HELEN TRAN ?MR#: [id number] ?? : 1990 ?Acct:[id number] ?? Age/Sex: 34 / F ?ADM Date: 05/28/25 ?? Loc: US ? Attending Dr: Stephanie Deng ? Ordering Physician: Stephanie Deng ?? Date of Service: 05/28/25 ?? Procedure(s): US OB BPP w non-stress ?? Accession Number(s): [id number] ? cc: Stephanie Deng; ROQUE ACKERMAN ? [facility] ? [address] ? [place] [address] ? Patient Name: ?? HELEN TRAN ? MRN: [facility]:[id number] ? date: 1990 ?Sex: F ?? Assigned Patient Location: FB ?? Current Patient Location: ? Accession/Order Number: [id number] ?? Exam Date: 05/28/2025 ??14:13 ?Report Date: [...] Dictation Location: RADIO-PC-02 ? Electronically authenticated by: [id number] ??Y ?? Date: 05/29/2025 ??12:28 ? Dictated By: ?Mirna Lorenzo M.D. ? Signed By: ?05/29/25 1230 ? DD/ 1228 ? TD/TT: ? Teachers' Aide: Procedure Note Radiology, Radiologist, MD - 05/29/2025 [place] [address] Ultrasound Report Signed Patient: HELEN TRAN LMR#: [id number] : 1990Acct:[id number] Age/Sex: 34 / FADM Date: 05/28/25 Loc: US Attending Dr: Stephanie Deng Ordering Physician: Stephanie Deng Date of Service: 05/28/25 Procedure(s): US OB BPP w non-stress Accession Number(s): [id number] cc: Stephanie Deng; ROQUE ACKERMAN The [address] [address] Patient Name: HELEN TRAN MRN: [facility]:[id number] date: 1990 Sex: F Assigned Patient Location: [facility] Current Patient Location: Accession/Order Number: [id number] Exam Date: 05/28/2025 14:13 Report Date: 05/29/2025 [...] Lorenzo M.D. 05/29/2025 12:28 PM Dictation Location: [place] [address] Electronically authenticated by: [id number] Y Date: 2:28 Dictated By: Mirna Lorenzo M.D. Signed By:05/29/25 1230 DD/ 1228 TD/TT: Teachers' Aide: Authorizing ProviderResult TypeResult StatusAmy Sowmya PACLINISYNC IMAGINGFinal Result documented in this encounter Visit Diagnoses Not on filedocumented in this encounter Care Teams Team MemberRelationshipSpecialtyStart DateEnd Date Desire Ackerman MD [address] [place] [address] PCP - GeneralFamily Medicine11/23/22documented as of this encounter
--- OUTSIDE RECORDS SUMMARY | 2025-06-10 08:40 | XMS_ITS | Encounter Summary ---
Author Organization [facility] Address [address] [place] [address] Care Team Providers Care Application Packaging Specialist Name Role Phone Desire Ackerman MD Primary Care Provider [phone] Encounter Details DateTypeDepartmentCare Team (Latest Contact Info)Ipovlfymnkc27/21/2025linisync Result Encounter [facility] External Department Unsolicited Stephanie Deng PA [address] [place] [address] Dr [place] [id number] Social History Tobacco UseTypesPacks/DayYears UsedDateSmoking Tobacco: FormerCigarettes [...] relatives?Once a week11/18/2024How often do you attend taoist or gnosticist services?More than 4 times per year11/18/2024Do you belong to any clubs or organizations such as taoist groups, unions, fraternal or athletic fareed ups, or school groups?Yes11/18/2024How often do you attend meetings of the clubs or organizations you belong to?More than 4 times per year11/18/2024re you , , , , never , or living with a partner? Oqjmwlq5011/18/2024UDIT-CAnswerDate RecordedQ1: How often do you have a [...] Questionnaire-2 Score0 04/16/2025[facility] [place] of Occupational Health - Occupational Stress QuestionnaireAnswerDate RecordedDo you feel stress - tense, restless, nervous, or anxious, or unable to sleep at night because yourmind is troubled all the time - these days?To some azpniq8311/18/2024Exercise Vital SignAnswerDate Recorded On average, how many [...] RecordedSex Assigned at BirthNot on file Legal PvkJnnlbl75/15/2023 9:28 PM EDTGender IdentityNot on fileSexual OrientationNot on filedocumented as of this encounter Plan of Treatment Not on file documented as of this encounter Procedures Procedure NamePriorityDate/TimeAssociated DiagnosisCommentsUS OB BPP W NON-JQQDSB0605/07/2025 3:54 PM EDT documented in this encounter Results * US OB BPP W NON-STRESS (05/07/2025 3:54 PM EDT)Anatomical Region LateralityModalityOtherSpecimen (Source)Anatomical Location / Laterality Collection Method / VolumeCollection TimeReceived Time05/07/2025 3:54 PM EDT Narrative 05/07/2025 3:56 PM EDT [facility] ?[address] ? [place] [address] ? Ultrasound Report ? Signed Patient: HELEN TRAN ?MR#: [id number] : 1990 ?Acct:[id number] Age/Sex: 34 / F ?ADM Date: 05/07/25 Loc: US Attending Dr: Stephanie Deng Ordering Physician: Stephanie Deng Date of Service: 05/07/25 Procedure(s): OB BPP w non-stress Accession Number(s): [id number] cc: Stephanie Deng; ROQUE ACKERMAN ? [facility] ? [address] [place] [address] ? [place] [address] ? Patient Name: HELEN TRAN MRN: [facility]:[id number] ? date: 1990 ?Sex: F Assigned Patient Location: [facility] Current Patient Location: Accession/Order Number: [id number] Exam Date: 05/07/2025 ??14:12 ?Report Date: 05/07/2025 [...] Lorenzo M.D. ??05/07/2025 3:54 PM Dictation Location: [place] [address] Electronically authenticated by: [id number] ??Y ?? Date: 05/07/2025 ??15:54 Dictated By: ?Mirna Lorenzo M.D. Signed By: ?05/07/251555 DD/ 53 TD/TT: ? Feller Hand: Procedure Note Radiology, Radiologist, - 05/28/2025 The [place] [id number] Ultrasound Report Signed Patient: HELEN TRAN LMR#: [id number] : 1990Acct:[id number] Age/Sex: 34 / FADM Date: 05/07/25 Loc: US Attending Dr: Stephanie Deng Ordering Physician: Stephanie Deng Date of Service: 05/07/25 Procedure(s): US OB BPP w non-stress Accession Number(s): [id number] cc: Stephanie Deng; ROQUE ACKERMAN The [place] [address] Patient Name: HELEN TRAN MRN: [id number] date: 1990 Sex: F Assigned Patient Location: [facility] Current Patient Location: Accession/Order Number: [id number] Exam Date: 05/07/2025 14:12 Report Date: 05/07/2025 [...] Lorenzo M.D. 05/07/2025 3:54 PM Dictation Location: [place] [address] Electronically authenticated by: [id number] Y Date: 5:54 Dictated By: Mirna Lorenzo M.D. Signed By:05/07/25 1556 DD/ 1554 TD/TT: Feller Hand: Authorizing ProviderResult TypeResult StatusAmy Bridgewater PACLINISYNC IMAGINGFinal Result documented in this encounter Visit Diagnoses Not on filedocumented in this encounter Care Teams Team MemberRelationshipSpecialtyStart DateEnd Date Desire Ackerman MD [address] [place] [address] PCP - GeneralFamily Medicine11/23/22documented as of this encounter
--- OUTSIDE RECORDS SUMMARY | 2025-06-10 08:40 | XMS_ITS | Encounter Summary ---
Author Organization [facility] Address [address] [place] [address] Care Team Providers Care Bell Attendant Name Role Phone Desire Ackerman MD Primary Care Provider [phone] Encounter Details DateTypeDepartmentCare Team (Latest Contact Info)Pjtuhtgziwl68/14/2025linisync Result Encounter [facility] External Department Unsolicited Stephanie Deng PA [address] [place] [address] Dr [place] [id number] Social History Tobacco UseTypesPacks/DayYears UsedDateSmoking Tobacco: FormerCigarettes [...] relatives?Once a week11/18/2024How often do you attend christianity or congregational services?More than 4 times per year11/18/2024Do you belong to any clubs or organizations such as christianity groups, unions, fraternal or athletic fareed ups, or school groups?Yes11/18/2024How often do you attend meetings of the clubs or organizations you belong to?More than 4 times per year11/18/2024re you , , , , never , or living with a partner? Fsybjzi2711/18/2024UDIT-CAnswerDate RecordedQ1: How often do you have a [...] heating?Not very hard11/18/2024PHQ-2AnswerDate RecordedPatient Health Questionnaire-2 Score0 04/16/2025[facility] [place] of Occupational Health - Occupational Stress QuestionnaireAnswerDate RecordedDo you feel stress - tense, restless, nervous, or anxious, or unable to sleep at night because yourmind is troubled all the time - these days?To some fpvvil8711/18/2024Exercise Vital SignAnswerDate Recorded On average, how many [...] RecordedSex Assigned at BirthNot on file Legal DgpDfutwg71/15/2023 9:28 PM EDTGender IdentityNot on fileSexual OrientationNot on filedocumented as of this encounter Plan of Treatment Not on file documented as of this encounter Procedures Procedure NamePriorityDate/TimeAssociated DiagnosisCommentsUS OB BPP W NON-SRGSPB8604/30/2025 2:51 PM EDT documented in this encounter Results * US OB BPP W NON-STRESS (04/30/2025 2:51 PM EDT)Anatomical Region LateralityModalityOtherSpecimen (Source)Anatomical Location / Laterality Collection Method / VolumeCollection TimeReceived Time04/30/2025 2:51 PM EDT Narrative 04/30/2025 2:53 PM EDT [facility] ?[address] ? [place] [address] ? Ultrasound Report ? Signed Patient: HELEN TRAN ?MR#: [id number] : 1990 ?Acct:[id number] Age/Sex: 34 / F ?ADM Date: 04/30/25 Loc: [facility] ??250-[address]: Stephanie Deng Ordering Physician: Stephanie Deng Date of Service: 04/30/25 Procedure(s): OB BPP w non-stress Accession Number(s): [id number] cc: Stephanie Deng; ROQUE ACKERMAN ? [facility] ? [address] [place] [address] ? [place] [address] ? Patient Name: HELEN TRAN MRN: [id number] ? date: 1990 ?Sex: F Assigned Patient Location: [facility] Current Patient Location: [facility] Accession/Order Number: [id number] Exam Date: 04/30/2025 ??14:14 ?Report Date: 04/30/2025 ??14:51 At the request of: STEPHANIE ??SOWMYA Procedure: ??US OB BPP w non-stress Biophysical profile. Reason for exam: Multigravida of advanced maternal age. COMPARISON: 04/23/2025 TECHNIQUE: Transabdominal imaging of the gravid uterus was obtained. FINDINGS: The dredge operator supervisor reports a BPP of 8 out of 8. ??OCTAVIO is normal at 14.1 cm. ?? heart rate 132 bpm. US/US OB BPP w non-stress IMPRESSION: BPP 8 out of 8. Impression dictated by: Osito Rivas Jr. D.ORacquel ??04/30/2025 2:51 PM Dictation Location: [place] [address] Electronically authenticated by: [id number] ??Y ?? Date: 04/30/2025 ??14:51 Dictated By: ?Osito Rivas M.D. Signed By: ?04/30/25 1453 DD/ 1451 TD/TT: ? Web Marketing Analyst: Procedure Note Radiology, Radiologist, - 05/28/[address] [address] Ultrasound Report Signed Patient: HELEN TRAN R#: [id number] : 1990Acct:[id number] Age/Sex: 34 / FADM Date: 04/30/25 Loc: [facility] 250-[address]: Stephanie Deng Ordering Physician: Stephanie Deng Date of Service: 04/30/25 Procedure(s): US OB BPP w non-stress Accession Number(s): [id number] cc: Stephanie Deng; ROQUE ACKERMAN The [address] [address] Patient Name: HELEN TRAN MRN: [id number] date: 1990 Sex: F Assigned Patient Location: [facility] Current Patient Location: [facility] Accession/Order Number: [id number] Exam Date: 04/30/2025 14:14 Report Date: 04/30/2025 14:51 At the request of: STEPHANIE DENG Procedure: US OB BPP w non-stress Biophysical profile. Reason for exam: Multigravida of advanced maternal age. COMPARISON: 04/23/2025 TECHNIQUE: Transabdominal imaging of the gravid uterus was obtained. FINDINGS: The dredge operator supervisor reports a BPP of 8 out of 8. OCTAVIO is normal at14.1 cm. heart rate 132 bpm. US/US OB BPP w non-stress IMPRESSION: BPP 8 out of 8. Impression dictated by: Osito Rivas Jr. DBrooks 04/30/2025 2:51 PM Dictation Location: [place] [address] Electronically authenticated by: [id number] Y Date: 4:51 Dictated By: Osito Rivas M.D. Signed By:04/30/25 1453 DD/ 145 TD/TT: Web Marketing Analyst: Authorizing ProviderResult TypeResult StatusStephanie Sowmya PACLINISYNC IMAGINGFinal Result documented in this encounter Visit Diagnoses Not on filedocumented in this encounter Care Teams Team MemberRelationshipSpecialtyStart DateEnd Date Desire Ackerman MD [address] [place] [address] PCP - GeneralFamily Medicine11/23/22documented as of this encounter
--- OUTSIDE RECORDS SUMMARY | 2025-06-10 08:40 | XMS_ITS | Encounter Summary ---
Author Organization [facility] Address [address] [facility] [place] [address] Care Team Providers Care Packager Hand Name Role Phone Desire Ackerman MD Primary Care Provider [phone] Encounter Details DateTypeDepartmentCare Team (Latest Contact Info)Tekurriagbj42/15/2025bstract [facility] [address] [place] [address] Bee Bonilla, CN [address] [place], [place] [id number] Social History Tobacco UseTypesPacks/DayYears UsedDateSmoking Tobacco: FormerCigarettes [...] relatives?Once a week11/18/2024How often do you attend mormonism or nondenominational services?More than 4 times per year11/18/2024Do you belong to any clubs or organizations such as mormonism groups, unions, fraternal or athletic fareed ups, or school groups?Yes11/18/2024How often do you attend meetings of the clubs or organizations you belong to?More than 4 times per year11/18/2024re you , , , , never , or living with a partner? Gemxsey6411/18/2024UDIT-CAnswerDate RecordedQ1: How often do you have a [...] Health Questionnaire-2 Score0 04/16/2025[facility] [place] of Occupational Health - Occupational Stress QuestionnaireAnswerDate RecordedDo you feel stress - tense, restless, nervous, or anxious, or unable to sleep at night because yourmind is troubled all the time - these days?To some xvbhfw6511/18/2024Exercise Vital SignAnswerDate Recorded On average, how many [...] or living in a group home (including now)?11/18/2024CommentsYes Sex and Gender InformationValueDate RecordedSex Assigned at BirthNot on file Legal FyoKwaekt14/15/2023 9:28 PM EDTGender IdentityNot on fileSexual OrientationNot on filedocumented as of this encounter Plan of Treatment Not on file documented as of this encounter Visit Diagnoses Not on filedocumented in this encounter Care Teams Team MemberRelationshipSpecialtyStart DateEnd Date Desire Ackerman MD [address] [place] [address] PCP - GeneralFamily Medicine11/23/22documented as of this encounter
== END 2025-06-10 13:46 | disposition home or self-care (01) ==
LOC: FBCO 08:36
PROVIDERS: PCP Student in an Organized Health Care Education/Training Program; Visit Provider Obstetrics & Gynecology
DX: Z39.1 Encounter for care and examination of lactating mother (principal)

== ENCOUNTER 2025-06-18 19:25 | Emergency (ER) | payer OTHER, SELFPAY ==
[2025-06-18 19:29] VITALS: BP 135/77; PULSE 105; TEMP 36.9; O2SAT 98; BMI 32.6
--- NOTE | 2025-06-18 19:40 | ED_ITS ---
HPI HPI - General Adult General Chief complaint: Urogenital-Female Stated complaint: 2 WKS/ HEAVY BLEEDING AND CLOTTING Time Seen by Provider: 06/18/25 19:38 Source: patient Mode of arrival: walk-in History of Present Illness HPI narrative: 34 year old female presents to the ED for vaginal bleeding. States she passed a golf ball sized clot this evening. She is now having bright red bleeding. She had a 2 weeks ago. States she has been having bleeding, but darker in color and only a mild amount. Denies fever, chills. Reports feeling dizzy, nauseated when she passed the clot; denies currently. Related Data Previous Rx's ?Medication ?Instructions ?Recorded epinephrine 0.3 mg/0.3 mL 0.3 mg (0.3 mL) IM Q10M PRN 05/23/24 injection, auto-injector (EpiPen anaphylaxis #2 ea 2-Carlos) oxycodone-acetaminophen 5 mg-325 1 tab PO Q6H PRN pain 5 days #20 05/31/25 mg tablet (Percocet) tabs Allergies Allergy/AdvReac Type Severity Reaction Status Date / Time iodine Allergy Hives Verified 10/09/24 17:17 Opioid HPI Opioid Management Most Recent Opioid Data: Last Pain Scale 4 06/01/25, 14:22 Urine Cannabinoids Positive 11/02/24, 16:22 Ur Phencyclidine Scrn, (NEGATIVE) Negative , 07:00 Review of Systems ROS Constitutional Denies: fever or chills Cardiovascular Denies: chest pain Respiratory Denies: shortness of breath Gastrointestinal Reports: nausea; Denies: abdominal pain or vomiting Musculoskeletal Denies: back pain Neurological Reports: dizziness; Denies: headache PFSH PFSH Family History (Updated 05/31/25 @ 07:32 by Urszula Helm RN) Other Family history of cancer Family history of hypertension Social History Little interest or pleasure in doing things: not at all Feeling down, depressed, or hopeless: not at all Exam Constitutional Vital Signs, click to edit/add: Last Vital Signs Temp 98.4 F 06/18/25 19:29 Pulse 102 H 06/18/25 20:58 Resp 16 06/18/25 20:58 BP 116/82 06/18/25 20:58 Pulse Ox 99 06/18/25 20:58 O2 Del Method Room Air 06/18/25 20:58 Common normals: no apparent distress and oriented x3 General appearance: cooperative Orientation/consciousness: Yes awake HENMT Common normals: moist oral mucous membranes Eye Common normals: conjunctivae normal and no scleral icterus GI Common normals: soft to palpation Other: site appears to be healing well. No drainage or erythema. Mild tenderness to right side of site. Neuro Common normals: oriented x3, moves all extremities and no focal motor deficits Sensorium/orientation: awake and alert Speech: speech normal Course Vital Signs Vital signs: Vital Signs Temperature 98.4 F 06/18/25 19:29 Pulse Rate 105 H 06/18/25 19:29 Respiratory Rate 20 06/18/25 19:29 Blood Pressure 135/77 06/18/25 19:29 Pulse Oximetry 98 06/18/25 19:29 Oxygen Delivery Method Room Air 06/18/25 19:29 Temperature 98.4 F 06/18/25 19:29 Pulse Rate 102 H 06/18/25 20:58 Respiratory Rate 16 06/18/25 20:58 Blood Pressure 116/82 06/18/25 20:58 Pulse Oximetry 99 06/18/25 20:58 Oxygen Delivery Method Room Air 06/18/25 20:58 Medical Decision Making MDM Narrative Medical decision making narrative: Hgb was 11.9, WBC count 11.1. Mild bleeding was noted on examination. I spoke with Dr. Roberson. The patient is to follow up in the office. Findings were discussed with the patient and her mother. Return precautions were discussed. Medical Records Medical records reviewed: Yes I reviewed the patient's medical records Lab Data Lab results reviewed: Yes I reviewed the patient's lab results Labs: Lab Results 06/18/25 Range/Units 19:50 WBC 11.1 H (4.0-11.0) 10^3/uL RBC 3.98 L (4.20-5.40) 10^6/uL Hgb 11.9 L (12.0-16.0) g/dL Hct 35.8 L (36.0-48.0) % MCV 89.9 (81.0-99.0) fL MCH 29.9 (26.7-34.0) pg MCHC 33.2 (29.9-35.2) g/dL RDW 12.4 (11.0-15.0) % Plt Count 423 (150-450) 10^3/uL MPV 9.6 (9.5-13.5) fL Neut % (Auto) 72.7 (43.0-75.0) % Lymph % (Auto) 19.6 L (20.5-60.0) % [place] % (Auto) 6.5 (1.7-12.0) % Eos % (Auto) 0.5 L (0.9-7.0) % Baso % (Auto) 0.3 (0.2-2.0) % Neut # (Auto) 8.1 H (1.4-6.5) 10^3/uL Lymph # (Auto) 2.2 (1.2-3.8) 10^3/uL [place] # (Auto) 0.7 (0.3-0.8) 10^3/uL Eos # (Auto) 0.1 (0.0-0.7) 10^3/uL Baso # (Auto) 0.0 (0.0-0.1) 10^3/uL Abs Immat Gran (auto) 0.04 H (0.00-0.03) 10^3/uL Imm/Tot Granulo (auto) 0.4 (0.0-0.5) % PT 10.2 (9.0-11.6) sec INR 0.97 Sodium 142 (136-145) mmol/L Potassium 3.7 (3.5-5.1) mmol/L Chloride 107 (98-107) mmol/L Carbon Dioxide 28.2 (21.0-32.0) mmol/L Anion Gap 10.5 BUN 10.0 (7.0-18.0) mg/dL Creatinine 0.80 (0.55-1.02) mg/dL Est GFR ( Amer) >60 (>=60 mL/min/1.73m^2) Est GFR (Non-Af Amer) >60 (>=60 mL/min/1.73m^2) BUN/Creatinine Ratio 12.5 Glucose 108 H (74-106) mg/dL Calcium 9.0 (8.5-10.1) mg/dL Total Bilirubin 0.2 (0.2-1.0) mg/dL AST 30 (15-37) U/L ALT 65 H (14-59) U/L Alkaline Phosphatase 166 H (46-116) U/L Total Protein 6.7 (6.4-8.2) g/dL Albumin 3.2 L (3.4-5.0) g/dL Globulin 3.5 g/dL Albumin/Globulin Ratio 0.9 Discharge Plan Discharge Chief Complaint: Urogenital-Female Clinical Impression: Vaginal bleeding Patient Disposition: Home, Self-Care Time of Disposition Decision: 20:45 Condition: Good Mode of Transportation: Private Vehicle Prescriptions / Home Meds: No Action epinephrine [EpiPen 2-Carlos] 0.3 mg/0.3 mL auto-injector 0.3 mg IM Q10M PRN (Reason: anaphylaxis) Qty: 2 0RF Rx Instructions: for 2 doses oxycodone-acetaminophen [Percocet] 5-325 mg tablet 1 tab PO Q6H PRN (Reason: pain) 5 Days Qty: 20 0RF Rx Instructions: g89.18 Print Language: Bulgarian Instructions: Bleeding (ED) Additional Instructions: Return to the ED for worsening symptoms: worsening bleeding, fever, increased pain. Referrals: Floyd Roberson DO [Physician, LOCAL SUPERINTENDENT] - 1 week ROQUE BARNETT [Primary Care Provider] - 1 week Discharge Date/Time: 06/18/25 20:59
[2025-06-18 20:02] LABS: Hematocrit 35.8 % (36.0-48.0); Hemoglobin 11.9 g/dL (12.0-16.0); Immature Granulocytes Abs Auto 0.04 10^3/uL (0.00-0.03); Immature Granulocytes Pct Auto 0.4 % (0.0-0.5); Lymphocytes Absolute Auto 2.2 10^3/uL (1.2-3.8); Mean Corpuscular HGB Conc 33.2 g/dL (29.9-35.2); Mean Corpuscular Hemoglobin 29.9 pg (26.7-34.0); Mean Corpuscular Volume 89.9 fL (81.0-99.0); Platelet Count 423 10^3/uL (150-450); Red Blood Count 3.98 10^6/uL (4.20-5.40); White Blood Count 11.1 10^3/uL (4.0-11.0)
[2025-06-18 20:17] LABS: INR 0.97; Prothrombin Time 10.2 sec (9.0-11.6)
[2025-06-18 20:20] LABS: Alanine Aminotransferase 65 U/L (14-59); Albumin Globulin Ratio 0.9; Albumin Level 3.2 g/dL (3.4-5.0); Alkaline Phosphatase 166 U/L (46-116); Anion Gap 10.5; Aspartate Amino Transferase 30 U/L (15-37); Blood Urea Nitrogen 10.0 mg/dL (7.0-18.0); Calcium 9.0 mg/dL (8.5-10.1); Carbon Dioxide 28.2 mmol/L (21.0-32.0); Chloride 107 mmol/L (98-107); Estimated GFR (African America >60 (>=60 mL/min/1.73m^2); Estimated GFR (Non-African Ame >60 (>=60 mL/min/1.73m^2); Globulin 3.5 g/dL; Glucose 108 mg/dL (74-106); Potassium 3.7 mmol/L (3.5-5.1); Sodium 142 mmol/L (136-145); Total Protein 6.7 g/dL (6.4-8.2)
[2025-06-18 20:58] VITALS: BP 116/82; PULSE 102; O2SAT 99
== END 2025-06-18 20:59 | disposition home or self-care (01) ==
PROVIDERS: Nurse Practitioner Family; Emergency Provider Internal Medicine; PCP Student in an Organized Health Care Education/Training Program
DX: O72.1 Other immediate postpartum hemorrhage (principal)
CPT/HCPCS: 36415; 80053; 85025; 85610; 99283